=== PATIENT | female | born 1945 | race Caucasian/White ===

== ENCOUNTER → 2017-10-02 08:12 | Outpatient (CLI) | payer MEDICARE, MEDICAID, SELFPAY ==
--- NOTE | 2017-10-02 08:17 | CT_ITS ---
CT chest wo con HISTORY: ITS.REASON: BRONCHITIECTASIS,PULMONARY INTERSTITIAL FIBROSIS ORDERING PHYSICIAN: Jayy Ferrari MD PATIENT AGE: 72 years TECHNIQUE: Axial images obtained. Sagittal and coronal reformatted images are also generated and reviewed. CONTRAST: None COMPARISON: 01/04/2017 FINDINGS: Normal heart size. No mediastinal or hilar mass or adenopathy. Coronary artery calcifications are present. There is minimal pericardial thickening posteriorly unchanged. Diffuse pulmonary fibrotic changes are once again noted. Cavitation is once again noted in the left apex. The left apical cavity is somewhat smaller compared to the previous exam with slight increase in left apical pleural thickening.. Scattered parenchymal and pleural parenchymal opacities are once again noted with no suspicious pulmonary nodular densities developing in the interval. Diffuse honeycombing is present in the left upper lobe. The bilateral areas of consolidation previously noted have improved compared to the previous exam. No effusions or acute infiltrates. High-resolution images are also submitted demonstrating the diffuse pulmonary fibrotic changes with honeycombing of both upper lobes left greater than right. IMPRESSION: Diffuse pulmonary fibrotic changes with honeycombing in both upper lobes and cavitation with pleural thickening noted in the left apex. The left apical cavity is slightly smaller when compared to the previous exam with some increase in pleural thickening. Coronary artery disease
[2017-10-02 10:25] VITALS: PULSE 58; PULSE 62
[2017-10-02 10:27] VITALS: BP 130/84; BP 140/90; PULSE 55; PULSE 67; RESP 18; RESP 24; O2SAT 97; O2SAT 98
== END ==
PROVIDERS: PCP Internal Medicine Adolescent Medicine; Visit Provider Internal Medicine
DX: J47.9 Bronchiectasis, uncomplicated (principal); J84.10 Pulmonary fibrosis, unspecified
CPT/HCPCS: 71250; 94060; 94618; 94640; 94726; 94727; 94729

== ENCOUNTER → 2017-10-26 10:18 | Outpatient (CLI) | payer MEDICARE, MEDICAID, SELFPAY ==
--- NOTE | 2017-10-26 | XR_ITS ---
EXAM: XR lumbar spine min 4V HISTORY: Low back pain ITS.REASON: LBP X 4 YEARS ORDERING PHYSICIAN: Eber Rubalcava MD PATIENT AGE: 72 years COMPARISON: None FINDINGS: Minimal lumbar curvature convex left. Presacral stimulator device is present on the right. There is a sclerotic focus involving the right and mid aspect of the sacrum similar to a CT scan of 03/01/2015. There is normal alignment. There is mild degenerative disc disease at L2-L3. There is mild wedging of T12 vertebral body which was present on 03/01/2015. Mild facet arthritic changes are present at the lumbosacral junction. No acute fracture or dislocation. No lytic changes apparent. The SI joints have an unremarkable appearance. IMPRESSION: 1. No acute finding. 2. Mild degenerative disc disease and facet arthritic change. 3. Old compression changes T12
== END ==
PROVIDERS: PCP Internal Medicine Adolescent Medicine; Visit Provider Internal Medicine Adolescent Medicine
DX: M47.9 Spondylosis, unspecified (principal)
CPT/HCPCS: 72110

== ENCOUNTER → 2017-12-11 12:54 | Outpatient (POV) | payer MEDICARE, MEDICAID, SELFPAY | PROVIDERS: PCP Internal Medicine Adolescent Medicine; Visit Provider Internal Medicine | DX: Z00.00 Encounter for general adult medical examination without abnormal findings (principal) ==

== ENCOUNTER → 2018-06-25 10:51 | Outpatient (POV) | payer MEDICARE, MEDICAID, SELFPAY | PROVIDERS: PCP Internal Medicine Adolescent Medicine; Visit Provider Internal Medicine | DX: Z00.00 Encounter for general adult medical examination without abnormal findings (principal) ==

== ENCOUNTER → 2018-09-17 07:46 | Outpatient (CLI) | payer MEDICARE, MEDICAID, SELFPAY ==
[2018-09-17 08:20] LABS: Blood Urea Nitrogen 13 mg/dL (7-18); Creatinine,Serum 0.97 mg/dL (0.55-1.02); Estimated Glomerular Filt Rate 56 ml/min (>60); GFR (African American) 68 ML/MIN (>60)
--- NOTE | 2018-09-17 08:42 | CT_ITS ---
CT chest w con HISTORY: Follow-up pulmonary fibrosis, shortness of breath, bronchiectasis ITS.REASON: PULMONARY FIBROSIS ORDERING PHYSICIAN: Jayy Ferrari MD PATIENT AGE: 73 years COMPARISON: 10/02/2017 TECHNIQUE: Axial images obtained following the administration of 75 mL of Isovue 370 . Sagittal, and coronal reformatted images are also generated and reviewed. All CT scans at the facility use one or more dose reduction, viz: automated exposure control, ma/kV adjustment per patient size (including targeted exams where dose is matched to indication, i.e. head), or iterative reconstruction technique. FINDINGS: No mediastinal or hilar mass or adenopathy is evident. Coronary artery calcifications are present. No evidence of aortic aneurysm, dissection, or central pulmonary embolus. There is a small hiatal hernia with mild thickening of the distal esophagus. Diffuse pulmonary fibrotic changes are once again noted with bronchial thickening and bronchiectasis most severe in the left upper lobe. Cavitary changes with pleural thickening once again noted in the left upper lobe. The cavitation in the left upper lobe is somewhat smaller with a cavity measuring 2.8 cm x 1.8 cm previously at 3.3 x 2.5 cm. Left-sided lung volume loss with mediastinal shift to the left not significant changed. No acute bony findings. IMPRESSION: 1. Overall no change in the diffuse pulmonary fibrosis with peripheral honeycombing and bronchiectasis most extensive in the left upper lobe. 2. Cavitary changes in the left apex pleural thickening. The cavitation is slightly smaller when compared to the previous exam 3. Coronary artery disease
[2018-09-17 10:20] VITALS: PULSE 75; PULSE 77
[2018-09-17 16:46] VITALS: BP 115/75; BP 138/80; PULSE 75; PULSE 96; RESP 18; RESP 22; O2SAT 89; O2SAT 92
== END ==
PROVIDERS: Nurse Practitioner Family; Visit Provider Internal Medicine
DX: J84.10 Pulmonary fibrosis, unspecified (principal); J47.9 Bronchiectasis, uncomplicated
CPT/HCPCS: 36415; 71260; 82565; 84520; 94060; 94618; 94640; 94726; 94729; Q9967

== ENCOUNTER → 2018-10-14 09:38 | Outpatient (CLI) | payer MEDICARE, MEDICAID, SELFPAY ==
--- NOTE | 2018-10-14 09:46 | XR_ITS ---
XR DEXA axial skeleton HISTORY: ITS.REASON: OSTEOPOROSIS ORDERING PHYSICIAN: Eber Rubalcava MD PATIENT AGE: 73 years COMPARISON: 03/16/2015 FINDINGS: The BMD measured at the AP Spine L1-L4 is 0.711 g/cm squared with a T score of -3.9. This is considered Osteoporotic according to the World Health Organization criteria. Fracture risk is High. The L-spine density has increased by 2.6%. The main hip density has a T score of -3.3 consistent with osteoporosis and has increased by 1%. IMPRESSION: Osteoporosis with high fracture risk. Treatment is advised. Suggest follow-up exam October 2019
== END ==
PROVIDERS: PCP Internal Medicine Adolescent Medicine; Visit Provider Internal Medicine Adolescent Medicine
DX: Z13.820 Encounter for screening for osteoporosis (principal); M81.0 Age-related osteoporosis without current pathological fracture
CPT/HCPCS: 77080

== ENCOUNTER → 2018-11-05 13:36 | Outpatient (POV) | payer MEDICARE, MEDICAID, SELFPAY | PROVIDERS: Visit Provider Internal Medicine | DX: Z00.00 Encounter for general adult medical examination without abnormal findings (principal) ==

== ENCOUNTER → 2019-02-14 15:52 | Observation (INO) ==
--- NOTE | 2019-02-13 14:34 | Pharmacy Consult Notes ---
[facility] Pharmacy VTE Monitoring - Patient Demographics Admission date: 02/13/19 Report Date: 02/13/19 Time: 14:34 Allergies/Adverse Reactions: Patient Allergies nitrofurantoin [From MACROBID] Allergy (Unknown, Unverified 01/07/19 13:45) Height: 1.6 m Weight: 59.165 kg - VTE Risk Was VTE Risk Assessment Performed: Yes VTE Score: 3 VTE Risk Level: Low Risk Clinical Trial Participant: No - Prophylaxis VTE Prophylaxis Ordered?: Yes Types of VTE Prophylaxis: TEDS Knee High
[2019-02-13 14:40] LABS: Alanine Aminotransferase 20 U/L (12-78); Albumin Level 3.4 gm/dL (3.4-5.0); Albumin/Globulin Ratio 0.7 (1.1-1.8); Alkaline Phosphatase 91 U/L (46-116); Anion Gap 13.2 mEq/L (5-15); Aspartate Amino Transferase 19 U/L (15-37); Bilirubin,Total 0.4 mg/dL (0.2-1.0); Blood Urea Nitrogen 11 mg/dL (7-18); Calcium 8.6 mg/dL (8.5-10.1); Carbon Dioxide 26 mmol/L (21.0-32.0); Chloride 103 mmol/L (98-107); Globulin 4.6 gm/dl (1.3-3.2); Glucose 109 mg/dL (74-106); Potassium 3.2 mmoL/L (3.5-5.1); Sodium 139 mmol/L (136-145)
[2019-02-13 14:42] LABS: Basophils # 0.1 K/mm3 (0-0.2); Basophils % 0.6 % (0.1-2.0); Eosinophils # 0.1 K/mm3 (0.0-0.4); Eosinophils % 0.6 % (0.1-12.0); Hematocrit 40.6 % (37.0-47.0); Hemoglobin 12.6 g/dL (12.2-16.2); Lymphocytes # 1.3 K/mm3 (0.7-4.5); Mean Corpuscular HGB Conc 31.1 g/dL (31.8-35.4); Mean Corpuscular Hemoglobin 26.3 pg (27.0-31.2); Mean Corpuscular Volume 84.4 fl (81-99); Mean Platelet Volume 7.3 fl (7.4-10.4); Monocytes # 0.5 K/mm3 (0.1-1.0); Monocytes % 5.8 % (1.7-9.3); Neutrophils # 6.8 K/mm3 (1.8-7.8); Neutrophils % 78.1 % (37.0-80.0); Platelet Count 345 K/mm3 (142-424); Red Blood Count 4.81 M/mm3 (4.20-5.40); Red Cell Distribution Width 13.7 % (11.5-17.5); White Blood Count 8.7 K/mm3 (4.8-10.8)
--- NOTE | 2019-02-13 16:11 | History & Physical Report ---
*Admission Date: 02/13/19 *Chief complaint: SOA, chest pain, back pain *History of present illness: 74 year old female with a significant history of pulmonary fibrosis presented to PCP office with increased SOA, cough, and chest pain that worsened over the last 3-4 days. Denies fever. No known sick contacts. In the office, she was noted to be anxious, tachypneic 36 with conversational dyspnea at 5-6 words. Patient was direct admitted for further evaluation [facility] History I have reviewed the patient's past medical history: Yes Medical History: Reports:: Arrhythmia, Gastroesophageal Reflux Disease(GERD), Lung Disease Denies:: Cancer, Diabetes Mellitus Type 1, Diabetes Mellitus Type 2, Internal Pacemaker, MRSA, Seizures *Have you ever received a pneumonia vaccine?: Yes *Have you received a flu vaccine this season?: Yes Other Medical History: Reports: Arthritis, Hypothyroidism, Other. Denies: Blood Transfusion Reaction Other Surgeries: Yes: Hysterectomy-Total. No: Pacemaker Amputation: No Fractures: No - *Social History Smoking Status: Never smoker Alcohol Intake: never Alcohol Intake Frequency:: other Substance Use Type: denies use *Occupational Status:: retired Housing: house Household Members: family *Travel in the last 8 weeks: None - Psychiatric History Expresses thoughts of harming self/others: None Suicide Plan Description: No Plan Family Hx:: Cancer, Coronary Artery Disease, Diabetes, Heart Attack, Hyperlipidemia, Thyroid Disorder Review of Systems - Review of Systems Review of systems:: pertinent systems reviewed and negative unless documented below - Constitutional Reports chills, Reports malaise, Reports weakness - *Cardiovascular Reports chest pain - *Respiratory Reports chest congestion, Reports cough, Reports shortness of breath - *Musculoskeletal Reports back pain Meds Home Medications Medication Instructions Recorded Confirmed Type flecainide 100 mg tablet 100 mg PO DAILY 30 Days tab 04/02/18 02/13/19 History metoprolol succinate ER 50 mg 50 mg PO DAILY 30 Days #60 04/02/18 02/13/19 History tablet,extended release 24 hr oxybutynin chloride 5 mg tablet 5 mg PO BID 04/02/18 02/13/19 History albuterol sulfate concentrate 2.5 2.5 mg INHALATION QID 01/07/19 02/13/19 History mg/0.5 mL solution for nebulization alendronate 70 mg tablet 70 mg PO QWEEK 01/07/19 02/13/19 History levothyroxine 50 mcg capsule 50 mcg PO DAILY 01/07/19 02/13/19 History Omeprazole [Omeprazole 40mg 40 mg PO DAILY 02/13/19 02/13/19 History Capsule] Allergies Allergy/AdvReac Type Severity Reaction Status Date / Time nitrofurantoin Allergy Unknown Unverified 01/07/19 13:45 [From MACROBID] Exam Vital signs and Labs for Last 24 Hours: Temp Pulse Resp BP Pulse Ox 99.1 F 94 H 48 H 126/48 L 97 02/13/19 12:57 02/13/19 14:31 02/13/19 12:57 02/13/19 12:57 02/13/19 14:31 Laboratory Results - last 24 hr 02/13/19 14:00: WBC 8.7, RBC 4.81, Hgb 12.6, Hct 40.6, MCV 84.4, MCH 26.3 L, MCHC 31.1 L, RDW 13.7, Plt Count 345, MPV 7.3 L, Neut % (Auto) 78.1, Lymph % (Auto) 15.0, [place] % (Auto) 5.8, Eos % (Auto) 0.6, Baso % (Auto) 0.6, Neut # (Auto) 6.8, Lymph # (Auto) 1.3, [place] # (Auto) 0.5, Eos # (Auto) 0.1, Baso # (Auto) 0.1 02/13/19 14:00: Sodium 139, Potassium 3.2 L, Chloride 103, Carbon Dioxide 26, Anion Gap 13.2, BUN 11, Creatinine 0.88, Estimated Creat Clear 46, Estimated GFR 63, Est GFR ( Amer) 76, Glucose 109 H, Calcium 8.6, Total Bilirubin 0.4, AST 19, ALT 20, Alkaline Phosphatase 91, Troponin I < 0.02, Total Protein 8.0, Albumin 3.4, Globulin 4.6 H, Albumin/Globulin Ratio 0.7 L 02/13/19 14:00: D-Dimer 723 H* I & O for Last 24 hours: Intake & Output 02/11/19 02/12/19 02/13/19 02/14/19 11:59 11:59 11:59 11:59 Weight 130 lb 7 oz Narrative: Alert and oriented x3. Ill, but not toxic. Rate and rhythm regular. No LE edema. Pulses 2+ bilaterally. Scattered wheezes with coarse crackles throughout on left and intermittent finer crackles on right. Abdomen soft and nontender. ENT exam unremarkable. Psych observations; anxious Assessment and Plan (1) Pulmonary fibrosis Current visit: Yes Status: Chronic Category: Medical Code(s): J84.10 - Pulmonary fibrosis, unspecified (2) Shortness of breath Current visit: Yes Status: Acute Category: Medical Code(s): R06.02 - Shortness of breath (3) Chest pain Current visit: Yes Status: Acute Category: Medical Code(s): R07.9 - Chest pain, unspecified - Assessment and plan all Dx Assessment and Plan for all problems:: Patient was direct admitted to [facility]. Serial troponins and EKG were ordered. Pneumonia protocol initiated as she is high risk given her pulm fibrosis. D Dimer obtained d/t her back/chest pain and increased shortness of breath. Will evaluate results and treat as indicated
--- NOTE | 2019-02-14 13:34 | Discharge Summary ---
General - General Admission date:: 02/13/19 Discharge date: 02/14/19 HPI HPI: 74 year old female with a significant history of pulmonary fibrosis presented to PCP office with increased SOA, cough, and chest pain that worsened over the last 3-4 days. Denies fever. No known sick contacts. In the office, she was noted to be anxious, tachypneic 36 with conversational dyspnea at 5-6 words. Patient was direct admitted for further evaluation Objective Vital signs: Temp Pulse Resp BP Pulse Ox 98.1 F 90 20 122/71 97 02/14/19 11:50 02/14/19 12:00 02/14/19 11:50 02/14/19 11:50 02/14/19 11:50 Results Labs on day of discharge: Labs from last 24 hours 02/13/19 02/13/19 02/13/19 19:25 15:58 14:00 WBC RBC Hgb Hct MCV MCH MCHC RDW Plt Count MPV Neut % (Auto) Lymph % (Auto) [facility] % (Auto) Eos % (Auto) Baso % (Auto) Neut # (Auto) Lymph # (Auto) [facility] # (Auto) Eos # (Auto) Baso # (Auto) D-Dimer 723 H* Sodium Potassium Chloride Carbon Dioxide Anion Gap BUN Creatinine Estimated Creat Clear Estimated GFR Est GFR ( Amer) Glucose Calcium Total Bilirubin AST ALT Alkaline Phosphatase Troponin I < 0.02 < 0.02 Total Protein Albumin Globulin Albumin/Globulin Ratio 02/13/19 02/13/19 14:00 14:00 WBC 8.7 RBC 4.81 Hgb 12.6 Hct 40.6 MCV 84.4 MCH 26.3 L MCHC 31.1 L RDW 13.7 Plt Count 345 MPV 7.3 L Neut % (Auto) 78.1 Lymph % (Auto) 15.0 [facility] % (Auto) 5.8 Eos % (Auto) 0.6 Baso % (Auto) 0.6 Neut # (Auto) 6.8 Lymph # (Auto) 1.3 [facility] # (Auto) 0.5 Eos # (Auto) 0.1 Baso # (Auto) 0.1 D-Dimer Sodium 139 Potassium 3.2 L Chloride 103 Carbon Dioxide 26 Anion Gap 13.2 BUN 11 Creatinine 0.88 Estimated Creat Clear 46 Estimated GFR 63 Est GFR ( Amer) 76 Glucose 109 H Calcium 8.6 Total Bilirubin 0.4 AST 19 ALT 20 Alkaline Phosphatase 91 Troponin I < 0.02 Total Protein 8.0 Albumin 3.4 Globulin 4.6 H Albumin/Globulin Ratio 0.7 L Preliminary micro results at discharge 02/13/19 23:43 Sputum Culture - Preliminary Sputum - Expectorated Sputum DS: Diagnosis - Discharge Diagnosis (1) Pulmonary fibrosis Status: Chronic (2) Shortness of breath Status: Acute (3) Chest pain Status: Acute Discharge Plan - Patient Discharge Instructions Patient Instructions: DI for Pneumonia -- Adult, DI for Shortness of Breath, DI for Chest Pain - Follow up Plan Home Medications: Home Medications Medication Instructions Recorded Confirmed Type flecainide 100 mg tablet 100 mg PO BID 30 Days tab 04/02/18 02/14/19 History metoprolol succinate ER 50 mg 50 mg PO BID 30 Days #60 04/02/18 02/14/19 History tablet,extended release 24 hr albuterol sulfate concentrate 2.5 2.5 mg INHALATION QID 01/07/19 02/13/19 Hist ory mg/0.5 mL solution for nebulization alendronate 70 mg tablet 70 mg PO WEEKLY 01/07/19 02/14/19 History levothyroxine 50 mcg capsule 50 mcg PO DAILY 01/07/19 02/13/19 History Omeprazole [Omeprazole 40mg 40 mg PO DAILY 02/13/19 02/13/19 History Capsule] Linaclotide [Linzess] 72 mcg PO DAILY 02/14/19 02/14/19 History Prescriptions/Medication Reconciliation: No Action metoprolol succinate ER 50 mg tablet,extended release 24 hr 50 mg PO BID 30 Days #60 flecainide 100 mg tablet 100 mg PO BID 30 Days tab levothyroxine 50 mcg capsule 50 mcg PO DAILY alendronate 70 mg tablet 70 mg PO WEEKLY albuterol sulfate concentrate 2.5 mg/0.5 mL solution for nebulization 2.5 mg INHALATION QID Omeprazole [Omeprazole 40mg Capsule] 40 mg PO DAILY Linaclotide [Linzess] 72 mcg PO DAILY
== END | disposition home health service (06) ==
LOC: 2ND
PROVIDERS: ADMIT Internal Medicine Adolescent Medicine; ATTEND Internal Medicine Adolescent Medicine
DX: J84.10 Pulmonary fibrosis, unspecified; R06.02 Shortness of breath; R07.9 Chest pain, unspecified
CPT/HCPCS: 36415; 71020; 71046; 71275; 80053; 84484; 85025; 85378; 87040; 87070; 87205; 93005; 94640; 94761; G0378; J0456; Q9967

== ENCOUNTER → 2019-04-29 13:29 | Outpatient (POV) | payer MEDICARE, MEDICAID, SELFPAY | PROVIDERS: Visit Provider Internal Medicine | DX: Z00.00 Encounter for general adult medical examination without abnormal findings (principal) ==

== ENCOUNTER → 2019-05-08 13:27 | Outpatient (CLI) | payer MEDICARE, MEDICAID, SELFPAY ==
--- NOTE | 2019-05-08 13:29 | CT_ITS ---
PROCEDURE: CT CHEST WO CON CLINICAL INDICATION: BACTERIAL PNEUMONIA, BNRONCHIECTASIS, FUNGUS BALL Mycobacterial infection, interstitial fibrosis COMPARISON: [facility] CT angio chest from 02/13/2019 TECHNIQUE: Axial images obtained with sagittal and coronal reformats. All CT scans at the facility use one or more dose reduction, viz: automated exposure control, ma/kV adjustment per patient size (including targeted exams where dose is matched to indication, i.e. head), or iterative reconstruction technique. FINDINGS: Extensive fibrotic changes with honeycombing is noted in the left upper lobe. Cavitation is present in this area. Some of the cavities are less thick on today's exam compared to the previous study. The largest cavity area in the extreme apex appears slightly larger. Scattered fibrotic changes are present throughout both lungs with pulmonary fibrotic change and honeycombing as before. Previously noted consolidation in the left lower lobe is shown some improvement. Volume loss is present in the left upper lobe with some elevation of left hemidiaphragm. Left upper lobe bronchiectasis is noted. No pleural effusions. Coronary artery calcifications are present. There is mild thickening of the pericardium posteriorly. IMPRESSION: Overall no significant change compared to 02/13/2019. Pulmonary fibrotic changes with honeycombing/cavitation most extensive in the left upper lobe once again noted with some decrease in the thickening of the cavities in the left upper lobe. Left upper lobe bronchiectasis. Left lower lobe consolidation has shown some mild improvement. There remains some increased density in the left lower lobe posteriorly which could be related underlying postinflammatory fibrotic change. Dictated by: Twin Anguiano MD 05/09/2019 08:34 Signed by: <Electronically signed by Twin Anguiano MD in [place]> 05/09/2019 08:34
== END ==
PROVIDERS: PCP Internal Medicine Adolescent Medicine; Visit Provider Internal Medicine
DX: J15.9 Unspecified bacterial pneumonia (principal); A31.9 Mycobacterial infection, unspecified; J47.9 Bronchiectasis, uncomplicated; J84.10 Pulmonary fibrosis, unspecified; B49 Unspecified mycosis
CPT/HCPCS: 71250

== ENCOUNTER → 2019-11-25 11:23 | Outpatient (CLI) | payer MEDICARE, MEDICAID, SELFPAY ==
[2019-11-25 13:00] LABS: Basophils # 0.1 K/mm3 (0-0.2); Basophils % 0.9 % (0.1-2.0); Eosinophils # 0.3 K/mm3 (0.0-0.4); Eosinophils % 3.8 % (0.1-12.0); Hematocrit 42.8 % (37.0-47.0); Hemoglobin 13.3 g/dL (12.2-16.2); Lymphocytes # 2.9 K/mm3 (0.7-4.5); Lymphocytes % 34.4 % (10-50); Mean Corpuscular Hemoglobin 28.5 pg (27.0-31.2); Mean Corpuscular Volume 91.7 fl (81-99); Monocytes # 0.4 K/mm3 (0.1-1.0); Monocytes % 4.5 % (1.7-9.3); Neutrophils # 4.8 K/mm3 (1.8-7.8); Neutrophils % 56.4 % (37.0-80.0); Platelet Count 413 K/mm3 (142-424); Red Blood Count 4.67 M/mm3 (4.20-5.40); Red Cell Distribution Width 14.3 % (11.5-17.5); White Blood Count 8.5 K/mm3 (4.8-10.8)
== END ==
PROVIDERS: Visit Provider Internal Medicine Adolescent Medicine
DX: D58.2 Other hemoglobinopathies (principal)
CPT/HCPCS: 36415; 85025

== ENCOUNTER → 2020-07-21 12:30 | Outpatient (CLI) | payer MEDICARE, MEDICAID, SELFPAY ==
[2020-07-21 13:45] VITALS: PULSE 86; PULSE 90
--- NOTE | 2020-07-21 14:11 | CT_ITS ---
PROCEDURE: CT CHEST WO CON CLINICAL INDICATION: ILD, interstitial lung disease with shortness of air SOA PRIOR 05/08/19 COMPARISON: CT CT CHEST WO CON from 05/08/2019 TECHNIQUE: Axial images obtained with sagittal and coronal reformats. All CT scans at the facility use one or more dose reduction, viz: automated exposure control, ma/kV adjustment per patient size (including targeted exams where dose is matched to indication, i.e. head), or iterative reconstruction technique. FINDINGS: Coronary artery calcifications are present. No mediastinal or hilar mass. There is increased soft tissue density in the subcarinal region some of which may be due to nondistended esophagus and unopacified left inferior pulmonary vein. Small nodes are also considered. Not significantly changed. Small hiatal hernia noted. There is a mild degree of motion artifact somewhat degrading evaluation of the lung enriquez. There is diffuse pulmonary fibrosis once again noted with honeycombing in the upper lobes medially and within the lung bases with cavitation in the left apex not significantly changed. Diffuse pulmonary interstitial changes are noted. No effusions. No lobar consolidation or collapse. There is some scattered ground-glass attenuation somewhat accentuated by the motion artifact. These findings are not felt to be significantly changed considering the difference in technique and the motion on today's exam. Mild chronic wedge compression changes are present at T12 unchanged. There is mild thoracic curvature convex right. IMPRESSION: Overall no significant change in the diffuse pulmonary fibrosis with honeycombing with cavitation in the left apex. Increased soft tissue density in the subcarinal region which may be due to nondistended esophagus. A barium swallow or upper endoscopy may confirm. Dictated by: Twin Anguiano MD 07/24/2020 10:37 Twin Anguiano MD in [place] 07/24/2020 10:37
== END ==
PROVIDERS: PCP Internal Medicine Adolescent Medicine; Visit Provider Internal Medicine Pulmonary Disease
DX: J84.10 Pulmonary fibrosis, unspecified (principal); J84.9 Interstitial pulmonary disease, unspecified; R06.00 Dyspnea, unspecified
CPT/HCPCS: 71250; 93306; 94060; 94618; 94640; 94726; 94729

== ENCOUNTER → 2020-07-22 10:48 | Outpatient (CLI) | payer MEDICARE, MEDICAID, SELFPAY ==
--- NOTE | 2020-07-22 10:51 | XR_ITS ---
PROCEDURE: XR CHEST 2V CLINICAL HISTORY: IDIOPATHIC PULMONARY FIBROSIS COMPARISON: CR CXR CHEST(2 VIEWS-NOT PORTABLE) from 08/09/2016 CR CXR CHEST(2 VIEWS-NOT PORTABLE) from 12/18/2016 CR CXR CHEST(2 VIEWS-NOT PORTABLE) from 03/20/[address] CHEST WO CON from 07/21/2020 FINDINGS: The cardiomediastinal silhouette and pulmonary vascularity are within normal limits. Prominent pulmonary fibrotic changes are present in the upper lobes with mild hilar retraction bilaterally. Pleural thickening is present in the lung apices on both sides left greater than right. There are some mild pulmonary fibrotic changes in the lung bases. Overall, the findings are not significantly changed. A loop recorder device is present along the anterior aspect of the chest on the left. Degenerative changes are present in the thoracic spine. There is mild wedging T12 not significantly changed. No acute bony abnormalities. IMPRESSION: Extensive pulmonary fibrotic changes in the upper lobes with lesser involvement of the lung bases overall not significantly changed Dictated by: Twin Anguiano MD 07/22/2020 17:25 Twin Anguiano MD in [place] 07/22/2020 17:25
== END ==
PROVIDERS: PCP Internal Medicine Adolescent Medicine; Visit Provider Internal Medicine Adolescent Medicine
DX: J84.112 Idiopathic pulmonary fibrosis (principal)
CPT/HCPCS: 71046

== ENCOUNTER → 2020-08-09 10:14 | Outpatient (CLI) | payer MEDICARE, MEDICAID, SELFPAY ==
--- NOTE | 2020-08-09 10:16 | XR_ITS ---
PROCEDURE: XR DEXA AXIAL SKELETON CLINICAL HISTORY: OSTEOPOROSIS COMPARISON: CR DEXAAX XR DEXA axial skeleton from 10/14/2018 FINDINGS: The right hip BMD is 0.482 with a T-score of -3.3. The left hip BMD is 0.461 with a T-score of -3.5. The lumbar spine BMD is 0.612 with a T-score of -4.0. Previously the lowest bone density was in the spine with T-score of -3.9. IMPRESSION: This patient is considered osteoporotic according to the World Health Organization criteria. Fracture risk is high. Treatment is advised. Based on these results a follow-up exam is recommended in 1 year. Dictated by: Twin Anguiano MD 08/10/2020 14:20 Twin Anguiano MD in [place] 08/10/2020 14:20
== END ==
PROVIDERS: PCP Internal Medicine Adolescent Medicine; Visit Provider Internal Medicine Adolescent Medicine
DX: M81.0 Age-related osteoporosis without current pathological fracture (principal)
CPT/HCPCS: 77080

== ENCOUNTER → 2020-11-01 11:36 | Outpatient (CLI) | payer MEDICARE, SELFPAY ==
[2020-11-01 12:36] LABS: Uric Acid 5.5 mg/dl (2.5-6.2)
[2020-11-01 12:56] LABS: Erythrocyte Sedimentation Rate 19 mm/hr (0-30)
[2020-11-02 13:34] LABS: RA Latex Turbid. <10.0 IU/mL (0.0-13.9)
[2020-11-02 15:10] LABS: Cytoplasmic (C-ANCA) <1:20 titer (Neg:<1:20)
[2020-11-02 16:11] LABS: Sjogren's Anti-SS-A <0.2 AI (0.0-0.9); Sjogren's Anti-SS-B <0.2 AI (0.0-0.9)
[2020-11-02 16:23] LABS: Antinuclear Antibodies, IFA Negative (.); Perinuclear (P-ANCA) <1:20 titer (Neg:<1:20)
[2020-11-13 22:12] LABS: Antinuclear Antibodies (ANA) NEGATIVE
== END ==
PROVIDERS: Visit Provider Internal Medicine Pulmonary Disease
DX: J84.9 Interstitial pulmonary disease, unspecified (principal); R06.00 Dyspnea, unspecified
CPT/HCPCS: 36415; 84550; 85651; 86038; 86235; 86256; 86431

== ENCOUNTER → 2020-12-09 07:47 | Outpatient (CLI) | payer MEDICARE, SELFPAY ==
--- NOTE | 2020-12-09 08:25 | PC.NURSE ---
Completed PFT and 6 MWT without complications. Albuterol 0.083% given via HHN per written protocol. Pt tolerated tx well.
== END ==
PROVIDERS: PCP Internal Medicine Adolescent Medicine; Visit Provider Internal Medicine Pulmonary Disease
DX: R06.00 Dyspnea, unspecified (principal); J84.10 Pulmonary fibrosis, unspecified
CPT/HCPCS: 93306; 94060; 94618; 94726; 94729

== ENCOUNTER → 2020-12-20 10:07 | Outpatient (CLI) | payer MEDICARE, SELFPAY ==
[2020-12-20 11:11] LABS: Coronavirus 19 IgG Antibody Negative (Negative); Coronavirus 19 IgM Antibody Negative (Negative)
== END ==
PROVIDERS: Visit Provider Internal Medicine Pulmonary Disease
DX: Z01.818 Encounter for other preprocedural examination (principal); Z11.52 Encounter for screening for COVID-19; G47.33 Obstructive sleep apnea (adult) (pediatric); J44.9 Chronic obstructive pulmonary disease, unspecified
CPT/HCPCS: 36415; 86328

== ENCOUNTER → 2020-12-21 19:56 | Outpatient (CLI) | payer MEDICARE, SELFPAY | PROVIDERS: PCP Internal Medicine Adolescent Medicine; Visit Provider Internal Medicine Pulmonary Disease | DX: G47.33 Obstructive sleep apnea (adult) (pediatric) (principal); R09.02 Hypoxemia | CPT/HCPCS: 95810 ==

== ENCOUNTER → 2021-01-26 10:13 | Outpatient (CLI) | payer MEDICARE, SELFPAY ==
[2021-01-26 11:03] LABS: Chloride 101 mmol/L (98-107); Potassium 3.7 mmoL/L (3.5-5.1); Sodium 138 mmol/L (136-145)
[2021-01-26 11:06] LABS: Alanine Aminotransferase 17 U/L (12-78); Albumin Level 4.4 g/dl (3.5-5.0); Albumin/Globulin Ratio 1.5 (1.1-1.8); Alkaline Phosphatase 82 U/L (38-126); Anion Gap 11.7 mEq/L (5-15); Aspartate Amino Transferase 32 U/L (14-36); Bilirubin,Total 0.5 mg/dl (0.2-1.3); Blood Urea Nitrogen 13 mg/dl (7-17); Carbon Dioxide 29 mmol/L (22.0-30.0); Estimated Glomerular Filt Rate 61 ml/min (>60); GFR (African American) 74 ML/MIN (>60); Globulin 2.9 g/dL (1.3-3.2); Glucose 108 mg/dl (74-100); Total Protein,Serum 7.3 g/dl (6.3-8.2)
[2021-01-26 11:07] LABS: Calcium 9.2 mg/dl (8.4-10.2)
[2021-01-26 11:37] LABS: Thyroid Stimulating Hormone 5.28 uIU/mL (0.465-4.68)
== END ==
PROVIDERS: Visit Provider Internal Medicine Adolescent Medicine
DX: E03.9 Hypothyroidism, unspecified (principal); I10 Essential (primary) hypertension
CPT/HCPCS: 36415; 80053; 84443

== ENCOUNTER 2021-02-16 11:51 | Observation (INO) | payer MEDICARE, SELFPAY ==
[2021-02-16 12:03] VITALS: BP 118/79; PULSE 95; RESP 30; TEMP 38.9; O2SAT 89
[2021-02-16 12:04] VITALS: O2SAT 96
[2021-02-16 12:19] VITALS: BMI 22.6
--- NOTE | 2021-02-16 12:32 | PC.NURSE ---
Pt arrived to ER by private vehicle for direct admit. Awaiting bed on floor. Holding in the ER until bed is ready. Pt is alert and oriented x4. States she started with a cough a week ago, yellow mucus noted from pt. Md aware pt is here. 20 G IV inserted in left AC, blood cultures and labs drawn and sent to lab.
--- NOTE | 2021-02-16 12:33 | XR_ITS ---
PROCEDURE: XR CHEST 2V CLINICAL HISTORY: dyspnea COMPARISON: CR CXR CHEST(2 VIEWS-NOT PORTABLE) from 12/18/2016 CR CXR CHEST(2 VIEWS-NOT PORTABLE) from 03/20/[address] CHEST WO CON from 07/21/2020 CR XR CHEST 2V from 07/22/2020 FINDINGS: Normal heart size. There is diffuse bilateral pulmonary fibrosis most prominent in the upper lobes with upper lobe volume loss and pleural thickening. Fibrotic changes are also present in left lower lobe. There is a loop recorder device present. No acute bony findings. IMPRESSION: Pulmonary fibrosis with honeycombing in the upper lobes left greater than right overall not significantly changed. Dictated by: Twin Anguiano MD 02/16/2021 14:01 Twin Anguiano MD in [place] 02/16/2021 14:01
[2021-02-16 12:44] LABS: Basophils # 0.1 K/mm3 (0-0.2); Basophils % 0.4 % (0.1-2.0); Eosinophils % 0.1 % (0.1-12.0); Hematocrit 39.9 % (37.0-47.0); Hemoglobin 13.1 g/dL (12.2-16.2); Lymphocytes # 1.9 K/mm3 (0.7-4.5); Lymphocytes % 11.6 % (10-50); Mean Corpuscular HGB Conc 32.7 g/dL (31.8-35.4); Mean Corpuscular Hemoglobin 27.8 pg (27.0-31.2); Mean Corpuscular Volume 84.9 fl (81-99); Monocytes # 0.9 K/mm3 (0.1-1.0); Monocytes % 5.4 % (1.7-9.3); Neutrophils # 13.7 K/mm3 (1.8-7.8); Neutrophils % 82.6 % (37.0-80.0); Platelet Count 358 K/mm3 (142-424); White Blood Count 16.6 K/mm3 (4.8-10.8)
[2021-02-16 12:45] LABS: Chloride 93 mmol/L (98-107); MANUAL DIFFERENTIAL MANUAL DIFFERENTIAL (MANUAL DIFF); Potassium 3.4 mmoL/L (3.5-5.1); Sodium 135 mmol/L (136-145)
--- NOTE | 2021-02-16 12:47 | ECG_ITS ---
APPROVED REPORT Exam: Resting ECG HR:87 bpm ECG Measurements Heart Rate 87 AXES MT 142 P 52 QRSd 80 QRS 23 QT 364 T -81 QTc 438 Conclusion Normal sinus rhythm Left ventricular hypertrophy with repolarization abnormality Abnormal ECG Electronically signed by : Eber Rubalcava, 02/19/2021 11:07:39
[2021-02-16 12:48] LABS: Alanine Aminotransferase 20 U/L (12-78); Albumin Level 4.4 g/dl (3.5-5.0); Albumin/Globulin Ratio 1.2 (1.1-1.8); Alkaline Phosphatase 92 U/L (38-126); Anion Gap 13.4 mEq/L (5-15); Aspartate Amino Transferase 29 U/L (14-36); Bilirubin,Total 0.9 mg/dl (0.2-1.3); Blood Urea Nitrogen 16 mg/dl (7-17); Calcium 8.9 mg/dl (8.4-10.2); Carbon Dioxide 32 mmol/L (22.0-30.0); Creatinine Clearance Estimated 44 mL/min (50-200); Estimated Glomerular Filt Rate 54 ml/min (>60); GFR (African American) 65 ML/MIN (>60); Globulin 3.8 g/dL (1.3-3.2); Glucose 142 mg/dl (74-100); Total Protein,Serum 8.2 g/dl (6.3-8.2)
[2021-02-16 12:53] LABS: C-Reactive Protein 241.7 mg/L (0-4)
[2021-02-16 12:54] VITALS: TEMP 38; O2SAT 99
[2021-02-16 12:57] LABS: Lactic Acid 1.7 mmol/L (0.7-2.1)
[2021-02-16 13:18] LABS: Lymphocytes % 19 % (10-50); Monocytes % 3 % (2-9); Neutrophils % 78 % (42-76); Platelet Estimate Normal; RBC Morphology Normal; Total Cells Counted 100
[2021-02-16 13:22] LABS: Mycoplasma Pneumo IGM (Rapid) Non-Reactive (Non-Reactiv)
--- NOTE | 2021-02-16 14:10 | P.CONPHA_ITS ---
[facility] Pharmacy VTE Monitoring - Patient Demographics Admission date: 02/16/21 Report Date: 02/16/21 Time: 14:10 Allergies/Adverse Reactions: Patient Allergies nitrofurantoin [From MACROBID] Allergy (Unknown, Verified 01/25/21 10:40) Unknown allergy reaction Height: 1.6 m Weight: 58.06 kg - VTE Risk Labs: VTE Related Lab Results Hgb 13.1 g/dL (12.2-16.2) 02/16/21 12:13 Hct 39.9 % (37.0-47.0) 02/16/21 12:13 Plt Count 358 K/mm3 (142-424) 02/16/21 12:13 BUN 16 mg/dl (7-17) 02/16/21 12:13 Creatinine 1.00 mg/dl (0.52-1.04) 02/16/21 12:13 Estimated Creat Clear 44 mL/min (50-200) 02/16/21 12:13 Clinical Trial Participant: No - Prophylaxis VTE Prophylaxis Ordered?: Yes Types of VTE Prophylaxis: TEDS Knee High
--- NOTE | 2021-02-16 14:15 | HMH.PHAINT ---
home medication list verified using list from [facility]
--- NOTE | 2021-02-16 15:15 | PC.NURSE ---
PT transferred to floor bed via charge nurse
[2021-02-16 15:27] VITALS: BP 115/61; PULSE 84; RESP 22; TEMP 36.9; O2SAT 96
[2021-02-16 15:30] VITALS: BMI 23.1
[2021-02-16 16:00] VITALS: O2SAT 96
--- NOTE | 2021-02-16 17:33 | HMH.HP ---
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 Patient has had several exacerbations of her fibrosis over the past several months, but has been treated with success in the outpatient setting. However, today she was tachycardic, very dyspneic and very fatigued. Given this she was transitioned into the hospital setting for oxygen, IV fluids and steroids and IV antibiotics. [facility] History I have reviewed the patient's past medical history: Yes Medical History: Reports:: Arrhythmia, Diabetes Mellitus Type 2, Gastroesophageal Reflux Disease(GERD), Internal Pacemaker, Lung Disease, Osteoporosis Denies:: Cancer, Diabetes Mellitus Type 1, MRSA, Seizures *Have you ever received a pneumonia vaccine?: Yes *Have you received a flu vaccine this season?: No Other Medical History: Reports: Arthritis, Hypothyroidism, Osteoporosis, Other. Denies: Blood Transfusion Reaction Other Surgeries: Yes: Colonoscopy, Hysterectomy-Total, Pacemaker Amputation: No Fractures: No - *Social History Smoking Status: Never smoker Alcohol Intake: never Alcohol Intake Frequency:: other Substance Use Type: denies use *Occupational Status:: retired Housing: house Household Members: family *Travel in the last 8 weeks: None Family Hx:: Cancer, Coronary Artery Disease, Diabetes, Heart Attack, Hyperlipidemia, Thyroid Disorder Review of Systems - Review of Systems Review of systems:: pertinent systems reviewed and negative unless documented below - Constitutional Reports anorexia, Reports fatigue, Reports night sweats, Denies fever(s) - Eyes Denies blind spots - ENT Denies abnormal hearing, Denies poor balance, Denies dizziness - *Cardiovascular Denies chest pain, Denies chest pain at rest, Denies chest pain with activity, Denies leg swelling - *Respiratory Reports change in phlegm color, Reports shortness of breath with activity, Denies coughing up blood, Denies pain on inspiration - *Gastrointestinal Denies abdominal pain, Denies change in stools, Denies coffee ground vomit - *Musculoskeletal Denies abnormal walking, Denies joint swelling - Integumentary/Breasts Denies change in skin color - *Neurologic Denies abnormal walking, Denies behavioral changes Meds Home Medications Medication Instructions Recorded Confirmed Type albuterol sulfate 2.5 mg/0.5 mL 2.5 mg INHALATION QID 01/07/19 02/16/21 History solution for nebulization levothyroxine 50 mcg capsule 50 mcg PO DAILY 01/07/19 02/16/21 History Omeprazole [Omeprazole 40mg 40 mg PO DAILY 02/13/19 02/16/21 History Capsule] oxybutynin chloride 5 mg tablet 5 mg PO BID 10/17/19 02/16/21 History aspirin 81 mg tablet,delayed 81 mg PO DAILY 04/28/20 02/16/21 History release alendronate 70 mg tablet 70 mg PO WEEKLY tab 01/12/21 02/16/21 History hydrochlorothiazide 12.5 mg tablet 12.5 mg PO DAILY tab 01/12/21 02/16/21 History Budesonide/Formoterol Fumarate 2 puff INHALATION BID PRN 02/16/21 02/16/21 History [Budesonide-Formoterol 160-4.5] Allergies Allergy/AdvReac Type Severity Reaction Status Date / Time nitrofurantoin Allergy Unknown Unknown Verified 01/25/21 10:40 [From MACROBID] allergy reaction Exam Vital signs and Labs for Last 24 Hours: Temp Pulse Resp BP Pulse Ox 98.5 F 84 22 115/61 96 02/16/21 15:27 02/16/21 15:27 02/16/21 15:27 02/16/21 15:27 02/16/21 15:27 Laboratory Results - last 24 hr 02/16/21 12:13: Lactate 1.7 02/16/21 12:13: WBC 16.6 H, RBC 4.70, Hgb 13.1, Hct 39.9, MCV 84.9, MCH 27.8, MCHC 32.7, RDW 14.0, Plt Count 358, MPV 8.0, Neut % (Auto) 82.6 H, Lymph % (Auto) 11.6, [place] % (Auto) 5.4, Eos % (Auto) 0.1, Baso % (Auto) 0.4, Neut # (Auto) 13.7 H, Lymp
[2021-02-16 19:42] VITALS: BP 110/58; PULSE 68; RESP 16; TEMP 36.4; O2SAT 98
[2021-02-17] VITALS (7 sets, daily range): BP systolic 114–140; BP diastolic 49–70; PULSE 62–78; RESP 16–18; TEMP 36.4–36.7; O2SAT 91–98; BMI 23.1
--- NOTE | 2021-02-17 03:46 | PC.NURSE ---
Pt has slept well this shift. A/O x4. #20 G in L AC has NS @ 50. Pt is on 2 L O2 NC. Admin meds per NOV. Stand by assist to bathroom. patient has let needs known to staff all shift. VSS, call light within reach. no concerns at this time.
[2021-02-17 06:56] LABS: Basophils % 0.1 % (0.1-2.0); Monocytes # 0.3 K/mm3 (0.1-1.0); Red Cell Distribution Width 13.9 % (11.5-17.5)
[2021-02-17 06:59] LABS: Chloride 101 mmol/L (98-107); Potassium 3.3 mmoL/L (3.5-5.1); Sodium 137 mmol/L (136-145)
[2021-02-17 07:02] LABS: Anion Gap 8.3 mEq/L (5-15); Blood Urea Nitrogen 17 mg/dl (7-17); Carbon Dioxide 31 mmol/L (22.0-30.0); Creatinine Clearance Estimated 45 mL/min (50-200); Eosinophils % 0.1 % (0.1-12.0); Estimated Glomerular Filt Rate 97 ml/min (>60); GFR (African American) 118 ML/MIN (>60); Hematocrit 35.6 % (37.0-47.0); Lymphocytes # 1.5 K/mm3 (0.7-4.5); Lymphocytes % 8.4 % (10-50); Mean Corpuscular Hemoglobin 27.7 pg (27.0-31.2); Mean Corpuscular Volume 84.1 fl (81-99); Mean Platelet Volume 7.9 fl (7.4-10.4); Monocytes % 1.6 % (1.7-9.3); Neutrophils # 15.8 K/mm3 (1.8-7.8); Neutrophils % 89.8 % (37.0-80.0); Platelet Count 313 K/mm3 (142-424); Red Blood Count 4.23 M/mm3 (4.20-5.40); White Blood Count 17.6 K/mm3 (4.8-10.8)
[2021-02-17 07:03] LABS: Calcium 8.2 mg/dl (8.4-10.2); Glucose 153 mg/dl (74-100)
[2021-02-17 07:16] LABS: MANUAL DIFFERENTIAL MANUAL DIFFERENTIAL (MANUAL DIFF)
--- NOTE | 2021-02-17 07:30 | HMH.ACPN2 ---
Internal Medicine - PN: Subj *Date: 02/17/21 *Time: 07:30 Interval history: Patient feels some better, less dyspneic when she lies flat. Dyspnea and cough when she moves around. Has successfully coughed up a fairly thick dark sputum sample. Exam Vital signs and Labs for Last 24 Hours: Temp Pulse Resp BP Pulse Ox 98.1 F 75 18 140/70 96 02/17/21 03:57 02/17/21 03:57 02/17/21 03:57 02/17/21 03:57 02/17/21 03:57 Laboratory Results - last 24 hr 02/16/21 12:13: Lactate 1.7 02/16/21 12:13: WBC 16.6 H, RBC 4.70, Hgb 13.1, Hct 39.9, MCV 84.9, MCH 27.8, MCHC 32.7, RDW 14.0, Plt Count 358, MPV 8.0, Neut % (Auto) 82.6 H, Lymph % (Auto) 11.6, [place] % (Auto) 5.4, Eos % (Auto) 0.1, Baso % (Auto) 0.4, Neut # (Auto) 13.7 H, Lymph # (Auto) 1.9, [place] # (Auto) 0.9, Eos # (Auto) 0.0, Baso # (Auto) 0.1, Total Counted 100, Neutrophils % (Manual) 78 H, Lymphocytes % (Manual) 19, Monocytes % (Manual) 3, Platelet Estimate Normal, RBC Morphology Normal 02/16/21 12:13: Sodium 135 L, Potassium 3.4 L, Chloride 93 L, Carbon Dioxide 32 H, Anion Gap 13.4, BUN 16, Creatinine 1.00, Estimated Creat Clear 44, Estimated GFR 54 L, Est GFR ( Amer) 65, Glucose 142 H, Calcium 8.9, Total Bilirubin 0.9, AST 29, ALT 20, Alkaline Phosphatase 92, C-Reactive Protein 241.7 H, Total Protein 8.2, Albumin 4.4, Globulin 3.8 H, Albumin/Globulin Ratio 1.2 02/16/21 12:13: Mycoplasma pneumon IgM Non-reactive 02/17/21 06:27: WBC 17.6 H, RBC 4.23, Hct 35.6 L, MCV 84.1, MCH 27.7, MCHC 33.0, RDW 13.9, Plt Count 313, MPV 7.9, Neut % (Auto) 89.8 H, Lymph % (Auto) 8.4 L, [place] % (Auto) 1.6 L, Eos % (Auto) 0.1, Baso % (Auto) 0.1, Neut # (Auto) 15.8 H, Lymph # (Auto) 1.5, [place] # (Auto) 0.3, Eos # (Auto) 0.0, Baso # (Auto) 0.0 02/17/21 06:27: Sodium 137, Potassium 3.3 L, Chloride 101, Carbon Dioxide 31 H, Anion Gap 8.3, BUN 17, Creatinine 0.60 D, Estimated Creat Clear 45, Estimated GFR 97, Est GFR ( Amer) 118 D, Glucose 153 H, Calcium 8.2 L I & O for Last 24 hours: Intake & Output 02/14/21 02/15/21 02/16/21 02/17/21 11:59 11:59 11:59 11:59 Intake Total 240 / 240 Balance 240 / 240 Weight 130 lb 7 oz Microbiology Reports for the Last 24 Hours: Microbiology 02/16/21 12:17 Nasopharyngeal Coronavirus COVID-19 PCR - Final Narrative: Patient is pleasant, alert, no cyanosis noted. Heart rate regular. Lungs have dense crackles throughout. Really at baseline. No tachypnea at rest. Abdomen soft, neurologically intact, no rash, ENT exam clear Assessment and Plan (1) Shortness of breath Status: Acute Category: Medical Code(s): R06.02 - Shortness of breath (2) Pulmonary fibrosis Status: Chronic Category: Medical Code(s): J84.10 - Pulmonary fibrosis, unspecified - Assessment and plan all Dx Assessment and Plan for all problems:: Chest x-ray unchanged from baseline. Patient feels better on steroids and antibiotics. Check sputum culture. Pulmonary consultation as she follows with Dr. Angeles in the clinic.
[2021-02-17 07:59] LABS: Lymphocytes % 5 % (10-50); Monocytes % 3 % (2-9); Neutrophils % 92 % (42-76); Total Cells Counted 100
[2021-02-17 08:00] LABS: Platelet Estimate Normal; RBC Morphology Normal
[2021-02-17 10:01] LABS: Hemoglobin 11.7 g/dL (12.2-16.2)
--- NOTE | 2021-02-17 11:54 | HMH.PULMCON ---
*Admission Date: 02/16/21 *Reason for consult:: Acute on chronic hypoxic respiratory failure *History of present illness: Ms. Denny is a never smoker pulmonary fibrosis likely secondary to Macrodantin exposure, will initiate long-term oxygen therapy assessment with desaturation was presented to the hospital with worsening respiratory status, cough and productive elevation along with subjective fevers. Patient denies any sick contacts. Denies any hemoptysis. [facility] History Medical History: Reports:: Arrhythmia, Gastroesophageal Reflux Disease(GERD), Hypertension, Internal Pacemaker, Lung Disease, Osteoporosis Denies:: Cancer, Diabetes Mellitus Type 1, Diabetes Mellitus Type 2, MRSA, Seizures *Have you ever received a pneumonia vaccine?: Yes *Have you received a flu vaccine this season?: Yes Other Medical History: Reports: Arthritis, Hypothyroidism, Osteoporosis, Other. Denies: Blood Transfusion Reaction Other Surgeries: Yes: Colonoscopy, Hysterectomy-Total, Pacemaker Amputation: No Fractures: No - *Social History Smoking Status: Never smoker Alcohol Intake: never Alcohol Intake Frequency:: other Substance Use Type: denies use *Occupational Status:: other Housing: house Household Members: family *Travel in the last 8 weeks: None Family Hx:: Cancer, Coronary Artery Disease, Diabetes, Heart Attack, Hyperlipidemia, Thyroid Disorder ROS - Cons Reports anorexia, Reports body ache(s), Reports chills, Reports fever(s) - ENT Denies difficulty swallowing - Card Reports shortness of breath, Reports shortness of breath with activity, Reports leg swelling - Resp Respiratory: Reports chest congestion, Reports dyspnea on exertion, Reports excessive phlegm production, Reports cough with sputum production, Denies pain with breathing - GI Gastrointestingal: Denies: abdominal pain Meds Home Medications Medication Instructions Recorded Confirmed Type albuterol sulfate 2.5 mg/0.5 mL 2.5 mg IH QIDP PRN 01/07/19 02/17/21 History solution for nebulization levothyroxine 50 mcg capsule 50 mcg PO DAILY 01/07/19 02/16/21 History Omeprazole [Omeprazole 40mg 40 mg PO DAILY 02/13/19 02/16/21 History Capsule] oxybutynin chloride 5 mg tablet 5 mg PO BID 10/17/19 02/16/21 History aspirin 81 mg tablet,delayed 81 mg PO DAILY 04/28/20 02/16/21 History release alendronate 70 mg tablet 70 mg PO WEEKLY tab 01/12/21 02/16/21 History hydrochlorothiazide 12.5 mg tablet 12.5 mg PO DAILY tab 01/12/21 02/16/21 History Budesonide/Formoterol Fumarate 2 puff IH BID 02/16/21 02/17/21 History [Budesonide-Formoterol 160-4.5] Cholecalciferol (Vitamin D3) 1,000 units PO DAILY 02/16/21 02/16/21 History [Vitamin D3 1,000 Unit Cap] Cyanocobalamin (Vitamin B-12) 2,500 mcg PO DAILY 02/16/21 02/16/21 History [Vitamin B12 2.5mg Tab] Allergies Allergy/AdvReac Type Severity Reaction Status Date / Time nitrofurantoin Allergy Unknown Unknown Verified 01/25/21 10:40 [From MACROBID] allergy reaction Exam - Constitutional Constitutional:: Present: no acute distress, comfortable - HENMT Exam HENMT: Present: normocephalic, atraumatic - Eye Exam Eyes:: Present: vision change - Neck Exam Neck:: Present: normal visual inspection - Respiratory Exam Respiratory:: Present: able to speak in complete sentences, respiratory distress, crackles. Absent: wheezing - Cardiovascular Exam Cardiac:: Present: S1, S2 - GI Exam GI:: Present: soft - Skin Exam Skin: Present: warm, no rash - Neurological Exam Neurological: Present: alert, awake, normal cognition - Extremities Exam Extremities: Present: no cyanosis, no clubbing, edema - Psychiatric Exam Psychiatric: Present: normal affect Internal Medicine - CN: Reslt - Labs CBC & Chem 7: 02/17/21 06:27 02/17/21 06:27 Labs: Short CBC 02/16/21 02/17/21 Range/Units 12:13 06:27 WBC 16.6 H 17.6 H (4.8-10.8) K/mm3 Hgb 13.1 11.7 L D (12.2-16.2) g/dL Hct
[2021-02-17 12:09] LABS: Adenovirus,PCR Not Detected (NotDetected); Bordetella Pertussis Not Detected (NotDetected); Chlamydophila Pneumoniae, PCR Not Detected (NotDetected); Coronavirus 229E Not Detected (NotDetected); Coronavirus NL63 Not Detected (NotDetected); Coronavirus OC43 Not Detected (NotDetected); Coronovirus HKU1,PCR Not Detected (NotDetected); Human Metapneumovirus Not Detected (NotDetected); Influenza A, PCR Not Detected (NotDetected); Influenza AH1, 2009 Not Detected (NotDetected); Influenza AH1, PCR Not Detected (NotDetected); Influenza AH3,PCR Not Detected (NotDetected); Influenza B, PCR Not Detected (NotDetected); Mycoplasma Pneumoniae, PCR Not Detected (NotDetected); Parainfluenza 1, PCR Not Detected (NotDetected); Parainfluenza 2, PCR Not Detected (NotDetected); Parainfluenza 3, PCR Not Detected (NotDetected); Parainfluenza 4, PCR Not Detected (NotDetected); Respiratory Syncytial Virus Not Detected (NotDetected); Rhinovirus/Enterovirus Not Detected (NotDetected)
--- NOTE | 2021-02-17 17:58 | PC.NURSE ---
Pt has been pleasant and cooperative this shift. A&O X4. No complaints of pain or SOA. Pt is receiving O2 via NC @ 2 LPM with sats. >90%. Lung sounds reveal expiratory rhonchi. No edema noted. Skin is C/D/I. Pt ambulates with stand-by assistance to/from the bathroom and throughout the room. Pt voids clear, yellow urine without issue. No BM. 20 G peripheral IV in the LT AC is patent and infusing NS @ 50 ML/HR. VSS. Call light within reach. Will continue to monitor.
[2021-02-18] VITALS: BP 119/53; PULSE 71; RESP 18; TEMP 36.6; O2SAT 96
[2021-02-18 03:19] VITALS: BP 128/61; PULSE 60; RESP 16; TEMP 36.6; O2SAT 95
[2021-02-18 05:00] VITALS: BMI 23.9
--- NOTE | 2021-02-18 05:47 | PC.NURSE ---
No acute changes. Pt has rested well this shift. No complaints stated. Pt has used 2L O2 NC prn this shift. She has ambulated to toilet with standby assistance. Medication administered per nov. No other concerns. Will continue to monitor.
[2021-02-18 07:07] LABS: Chloride 104 mmol/L (98-107); Sodium 139 mmol/L (136-145)
[2021-02-18 07:08] LABS: Potassium 3.3 mmoL/L (3.5-5.1)
[2021-02-18 07:11] LABS: Anion Gap 8.3 mEq/L (5-15); Basophils % 0.1 % (0.1-2.0); Blood Urea Nitrogen 17 mg/dl (7-17); Calcium 8.1 mg/dl (8.4-10.2); Carbon Dioxide 30 mmol/L (22.0-30.0); Creatinine Clearance Estimated 46 mL/min (50-200); Estimated Glomerular Filt Rate 97 ml/min (>60); GFR (African American) 118 ML/MIN (>60); Glucose 119 mg/dl (74-100); Hematocrit 35.3 % (37.0-47.0); Hemoglobin 11.4 g/dL (12.2-16.2); Lymphocytes # 1.9 K/mm3 (0.7-4.5); Lymphocytes % 10.4 % (10-50); Mean Corpuscular HGB Conc 32.3 g/dL (31.8-35.4); Mean Corpuscular Hemoglobin 28.3 pg (27.0-31.2); Mean Corpuscular Volume 87.4 fl (81-99); Mean Platelet Volume 8.5 fl (7.4-10.4); Monocytes # 0.7 K/mm3 (0.1-1.0); Monocytes % 3.7 % (1.7-9.3); Neutrophils % 85.8 % (37.0-80.0); Platelet Count 325 K/mm3 (142-424); Red Blood Count 4.04 M/mm3 (4.20-5.40); White Blood Count 18.7 K/mm3 (4.8-10.8)
[2021-02-18 07:22] LABS: MANUAL DIFFERENTIAL MANUAL DIFFERENTIAL (MANUAL DIFF)
[2021-02-18 08:00] VITALS: BP 116/63; PULSE 66; RESP 18; TEMP 36.7; O2SAT 99
--- NOTE | 2021-02-18 08:36 | HMH.DCSUM ---
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 Patient has had several exacerbations of her fibrosis over the past several months, but has been treated with success in the outpatient setting. However, today she was tachycardic, very dyspneic and very fatigued. Given this she was transitioned into the hospital setting for oxygen, IV fluids and steroids and IV antibiotics. Hospital Course Hospital Course: -year-old female admitted for acute on chronic hypoxemic respiratory failure, community acquired pneumonia, all in the setting of bronchiectasis and pulmonary fibrosis. Started on IV antibiotics on admission, work-up initiated with sputum cultures, respiratory culture, and pulmonary consult. Preliminary sputum sample showed gram-positive cocci. Was negative for Covid. Tolerated antibiotics well with regular breathing treatments. Stable on 2 L nasal cannula oxygen which is her home rate on day of discharge. Gradual improvement overall clinically. Tolerating good p.o. intake. Patient has remained afebrile for over 24 hours. We will plan to continue treatment for community-acquired pneumonia and transition to oral Levaquin at discharge. Continue duo nebs every 6 hours as needed and continue home budesonide inhaler. We will plan for close follow-up with pulmonology and our office in the coming weeks. Patient denies chest pain, nausea, vomiting, confusion. Shortness of breath close to baseline. Still dyspneic with exertion. Medically stable for discharge home. Examined on day of discharge Objective Vital signs: Temp Pulse Resp BP Pulse Ox 97.9 F 60 16 128/61 95 02/18/21 03:19 02/18/21 03:19 02/18/21 03:19 02/18/21 03:19 02/18/21 03:19 mild distress - *Routine HEENT Exam Head: Present: normocephalic Eye: Present: EOMI, PERRL ENT: Present: mucous membranes moist - *Routine Neck Exam Present: supple - *Routine Respiratory Exam Present: decreased breath sounds, crackles (Diffuse throughout bilateral lung enriquez). Absent: wheezes - *Routine Cardiovascular Exam Present: RRR - *Routine Abdominal Exam Present: soft, normoactive bowel sounds. Absent: tenderness - *Routine Extremities Exam Absent: cyanosis, clubbing, edema - *Routine Skin Exam Present: warm. Absent: rash Results Labs on day of discharge: Labs from last 24 hours 02/18/21 02/18/21 02/17/21 06:15 06:15 06:27 WBC 18.7 H RBC 4.04 L Hgb 11.4 L 11.7 L D Hct 35.3 L MCV 87.4 MCH 28.3 MCHC 32.3 RDW 14.0 Plt Count 325 MPV 8.5 Neut % (Auto) 85.8 H Lymph % (Auto) 10.4 [place] % (Auto) 3.7 Eos % (Auto) 0.0 L Baso % (Auto) 0.1 Neut # (Auto) 16.0 H Lymph # (Auto) 1.9 [place] # (Auto) 0.7 Eos # (Auto) 0.0 Baso # (Auto) 0.0 Sodium 139 Potassium 3.3 L Chloride 104 Carbon Dioxide 30 Anion Gap 8.3 BUN 17 Creatinine 0.60 Estimated Creat Clear 46 Estimated GFR 97 Est GFR ( Amer) 118 Glucose 119 H D Calcium 8.1 L Chlamy pneumoniae PCR Adenovirus (PCR) B. pertussis DNA (PCR) Coronavirus OC43 (PCR) Coronavirus HKU1 (PCR) Coronavirus 229E (PCR) Coronavirus NL63 (PCR) Human Metapneumovir PCR Influenza A (H1) PCR Influ A (H1N1/09) PCR Influenza A (H3) PCR Influenza Type A (PCR) Influenza Type B (PCR) M. pneumoniae (PCR) Parainfluenza 1 (PCR) Parainfluenza 2 (PCR) Parainfluenza 3 (PCR) Parainfluenza 4 (PCR) RSV (PCR) Entero/Rhino (PCR) 02/16/21 12:07 WBC RBC Hgb Hct MCV MCH MCHC RDW Plt Count MPV Neut % (Auto) Lymph % (Auto) [place] % (Auto) Eos % (Auto) Baso % (Auto)
[2021-02-18 09:43] LABS: Lymphocytes % 9 % (10-50); Monocytes % 2 % (2-9); Neutrophils % 89 % (42-76); Platelet Estimate Normal; RBC Morphology Normal; Total Cells Counted 100
--- NOTE | 2021-02-18 12:28 | HMH.PULMPN ---
Internal Medicine - PN: Subj *Date: 02/18/21 *Time: 12:28 Interval history: No acute respiratory vents overnight. Exam - Constitutional Constitutional:: Present: no acute distress, comfortable - HENMT Exam HENMT: Present: normocephalic, moist mucous membranes - Eye Exam Eyes:: Present: normal appearance both eyes and related structures - Neck Exam Neck:: Present: normal visual inspection - Respiratory Exam Respiratory:: Present: able to speak in complete sentences, no respiratory distress, normal respiratory effort, rales - Cardiovascular Exam Cardiac:: Present: S1, S2 - GI Exam GI:: Present: soft - Skin Exam Skin: Present: warm, no rash - Neurological Exam Neurological: Present: alert, awake, normal cognition - Extremities Exam Extremities: Present: no cyanosis, no clubbing, no edema Assessment and Plan (1) Acute on chronic respiratory failure with hypoxemia Status: Acute Category: Medical Code(s): J96.21 - Acute and chronic respiratory failure with hypoxia (2) Community acquired pneumonia Status: Acute Category: Medical Code(s): J18.9 - Pneumonia, unspecified organism (3) Shortness of breath Status: Chronic Category: Medical Code(s): R06.02 - Shortness of breath (4) Pulmonary fibrosis Status: Chronic Category: Medical Code(s): J84.10 - Pulmonary fibrosis, unspecified - Assessment and plan all Dx Assessment and Plan for all problems:: #Acute on chronic hypoxic respiratory failure: #Community-acquired pneumonia: #History of pulmonary fibrosis: #H/O bronchiectasis History of pulmonary fibrosis likely from Macrodantin exposure. Other significant medical history include bronchiectasis with no frequent exacerbations, chronic hypoxic respiratory failure and sleep apnea. Presented hospital complaining of worsening productive phlegm and subjective fevers. Afebrile on admission. Neutrophilic leukocytosis noted. Sputum preliminary staining showed gram-positive cocci in pairs. COVID-19 PCR negative on comprehensive respiratory viral PCR Patient was initiated on ceftriaxone examination for possible community-acquired pneumonia on admission. Chest x-ray did not show an acute pulmonary infiltrates. Patient respiratory distress significantly improved since yesterday. On examination today patient is on room air however saturating 85 to 86% I have advised the patient that she need to be on 2 L continuous oxygen therapy. Plan: -Continue long-term oxygen therapy at 2 L via nasal cannula -Continue Levofloxacin for total of 10 days -Continue budesonide inhaler (home medication) -DuoNebs every 6 hours as needed -Await final sputum cultures #Thank you for involving pulmonary in this patient care. We will follow the patient in pulmonary clinic in 2 to 4 weeks.
== END 2021-02-18 10:55 | disposition home or self-care (01) ==
PROVIDERS: Internal Medicine Pulmonary Disease; Admitting Provider Internal Medicine Adolescent Medicine; PCP Internal Medicine Adolescent Medicine; Visit Provider Internal Medicine Adolescent Medicine
DX: J84.10 Pulmonary fibrosis, unspecified (principal); Z79.899 Other long term (current) drug therapy; E03.9 Hypothyroidism, unspecified; R06.02 Shortness of breath; J96.21 Acute and chronic respiratory failure with hypoxia; J18.9 Pneumonia, unspecified organism
CPT/HCPCS: 36415; 71046; 80048; 80053; 83605; 85007; 85025; 86140; 86738; 87040; 87070; 87205; 87486; 87581; 87633; 87798; 93005; 94761; G0378; J0456; U0003

== ENCOUNTER → 2021-06-06 07:39 | Outpatient (CLI) | payer MEDICARE, SELFPAY ==
--- NOTE | 2021-06-06 07:40 | CA_ITS ---
APPROVED REPORT EXAM: Comprehensive 2D, Doppler, and color-flow Echocardiogram Photogrammetric Stereo Compiler: JASPAL Maurer, RVS Ht: 5 ft 2 in Wt: 130lbs BSA: 1.59 BP: 130/61 mmHg Indications: Pulmonary fibrosis, SOA, Pacer, GERD Echo Enhancing Agent Comments: Poor acoustics throughout exam. 2D Dimensions IVSd 0.99 cm LVEF (Visual) 40.90 % PWd 0.92 cm LA Volume 35.60 mL LVDd 4.30 cm LA Volume Index 22.40 mL/m2 (M/F) 16-34 LVDs 3.45 cm Aortic Root 2.51 cm Left Atrium 3.25 cm LVOT 1.97 cm (M/F) 1.5-2.5 M-Mode Dimensions RVDd 1.97 cm (0.9-2.6) LA Diam 3.80 cm (1.9-4.0) LVDd 4.94 cm (3.5-5.7) Ao Diam 2.57 cm (2.0-3.7) LVDs 3.72 cm (3.5-5.7) IVSd 0.69 cm (0.6-1.1) PWd 0.69 cm (0.6-1.1) EF (Teich) 48.80% EPSs 0.75 cm FS 24.70% EDV (Teich) 115.00 mL TAPSE 1.81 (<1.7) ESV (Teich) 58.90 mL LV Diastology E Decel Time 157.00 (160-240 msec) E/A Ratio 0.75 Aortic Valve LVOT Max 89.00 (70-110 cm/s) LVOT VTI 20.04 cm AoV Peak Joseph. 131.00 (50-130 cm/s) AO Peak GR. 6.90 mmHg AO Mean GR. 3.40 (<5 mmHg) AO VTI 26.26 (18-25 cm) COURTNEY (VTI) 2.33 (2.5-4.5 cm2) Mitral Valve MV A Velocity 89.00 (40-130 cm/s) E/A Ratio 0.75 MV Decel. Time 157.00 (160-240 ms) Pulmonary Valve AZ End VMAX 201.00 cm/s Tricuspid Valve TR P. Velocity 322.00 cm/s RAP Estimate 10.00 mmHg RVSP 51.60 mmHg Left Ventricle Left atrium is mildly enlarged, left ventricle is normal size, mild concentric left ventricular hypertrophy, visually estimated ejection fraction 55% with no regional wall motion abnormality, Doppler evidence of impaired LV relaxation seen. There is no tissue Doppler performed. Right Ventricle Right atrium and right ventricle mildly enlarged with normal contractility. Aortic Valve Aortic valve is minimally thickened and fibrosed, there is no aortic stenosis or aortic insufficiency. Mitral Valve Mitral valve is minimally thickened, there is mild mitral regurgitation. Tricuspid Valve Tricuspid valve is minimally thickened, there is moderate tricuspid regurgitation, calculated right ventricular systolic pressure is 52 mmHg. Pulmonic Valve Pulmonic valve is poorly visualized. Great Vessels Aortic root is normal size. Inferior vena cava is poorly visualized. Pericardium No significant pericardial effusion noted. Conclusion 1. Biatrial enlargement, normal left ventricular size, mild concentric left ventricular hypertrophy, visually estimated ejection fraction 55% with no regional wall motion abnormality, Doppler evidence of impaired LV relaxation seen, there is no tissue Doppler performed. 2. Mildly enlarged right ventricle with normal contractility. 3. Thickened and calcified aortic valve without Doppler evidence of aortic stenosis or aortic insufficiency. 4. Mild mitral and moderate tricuspid regurgitation, calculated right ventricular systolic pressure is 52 mmHg. 5. No significant pericardial effusion noted. Electronically signed by : Omer Field MD 06/07/2021 06:34:36
[2021-06-06 09:20] VITALS: PULSE 88; PULSE 90
== END ==
PROVIDERS: PCP Internal Medicine Adolescent Medicine; Visit Provider Internal Medicine Pulmonary Disease
DX: R06.00 Dyspnea, unspecified (principal); J84.10 Pulmonary fibrosis, unspecified
CPT/HCPCS: 93306; 94060; 94618; 94640; 94726; 94729

== ENCOUNTER → 2021-08-01 07:39 | Outpatient (CLI) | payer MEDICARE, SELFPAY ==
--- NOTE | 2021-08-01 07:42 | CT_ITS ---
PROCEDURE: CT HIGH RESOLUTION CHEST CLINICAL HISTORY: Follow-up lung nodule, pulmonary fibrosis COMPARISON: CT CT CHEST WO CON from 07/21/2020 TECHNIQUE: Axial images obtained with sagittal and coronal reformats. All CT scans at the facility use one or more dose reduction, viz: automated exposure control, ma/kV adjustment per patient size (including targeted exams where dose is matched to indication, i.e. head), or iterative reconstruction technique. FINDINGS: Pulmonary fibrosis once again noted. There is honeycombing with cavitation in the left upper lobe as before. Scattered areas of scarring are present. No effusions. No suspicious pulmonary nodules. No mediastinal or hilar adenopathy. Previously noted soft tissue fullness in the subcarinal region somewhat less apparent. Loop recorder device is present along the anterior chest wall on the left the subcutaneous tissues. Bilateral breast calcifications and or clips noted. Coronary artery calcifications. Chronic mild wedging of T12 unchanged. IMPRESSION: Stable CT appearance of the chest. No change in the pulmonary fibrosis with honeycombing and cavitation in the left upper lobe Dictated by: Twin Anguiano MD 08/08/2021 08:03 Twin Anguiano MD in [place] 08/08/2021 08:03
== END ==
PROVIDERS: PCP Internal Medicine Adolescent Medicine; Visit Provider Internal Medicine Pulmonary Disease
DX: J84.9 Interstitial pulmonary disease, unspecified (principal)
CPT/HCPCS: 71250

== ENCOUNTER → 2021-08-12 16:32 | Outpatient (CLI) | payer MEDICARE, SELFPAY | PROVIDERS: Visit Provider Internal Medicine Adolescent Medicine | DX: R10.30 Lower abdominal pain, unspecified (principal) | CPT/HCPCS: 87086; 87088; 87186 ==

== ENCOUNTER 2022-01-25 10:25 | Observation (INO) | payer MEDICARE, SELFPAY ==
--- NOTE | 2022-01-25 10:35 | XR_ITS ---
FINAL REPORT CLINICAL HISTORY: dyspnea COMPARISON: February 16, 2021 FINDINGS: There is a loop recorder present. The heart size is normal. The mediastinum is normal. There is stable bilateral scarring, greatest in the upper lobes. There is stable bilateral apical pleural thickening, left greater than right. There is no pneumothorax. There is no osseous abnormality. IMPRESSION: Stable findings as above. Reviewed, Interpreted and Dictated by Walter Rogers III, MD Transcribed by Yashira Louise Authenticated by Walter Rogers III, MD on 01/25/2022 12:54:35 PM [facility]
--- NOTE | 2022-01-25 10:37 | HMH.PHAINT ---
MEDICATION RECONCILIATION COMPLETED ON PATIENT USING EXTERNAL FILL HISTORY FROM PHARMACY AND LIST FROM PULMONOLOGY OFFICE. -TALHA SERRANOD
--- NOTE | 2022-01-25 10:38 | CT_ITS ---
FINAL REPORT CLINICAL HISTORY: abd pain, rectal bleeding started last night oral and iv contrast given 75ml isovue 370 FINDINGS: CT OF THE ABDOMEN AND PELVIS WITH CONTRAST Axial CT images of the abdomen and pelvis were obtained after the administration of oral and iv contrast. Coronal reformatted images were also obtained and reviewed.This study was performed with techniques to keep radiation doses as low as reasonably achievable (ALARA). Individualized dose reduction techniques using automated exposure control or adjustment of mA and/or kV according to the patient's size were employed. Abdomen: There is moderate peripheral scarring/fibrosis in the lung bases. The heart is normal in size. The liver has an unremarkable appearance, without evidence of mass or biliary ductal dilatation. The gallbladder is present. The spleen is unremarkable. No adrenal mass is present. The pancreas has an unremarkable appearance. The kidneys are normal, without evidence of mass or hydronephrosis. The aorta is normal in caliber. There is no free fluid or adenopathy. There is a small umbilical hernia containing fat. Pelvis: The appendix is not well-visualized. The urinary bladder is unremarkable. No inflammatory process is seen. There is no evidence of mass or adenopathy. There is wall thickening of the sigmoid colon consistent with colitis. There is no evidence of bowel obstruction. There has been hysterectomy. IMPRESSION: Sigmoid colitis. Reviewed, Interpreted and Dictated by Walter Rogers III, MD Transcribed by Nathanael Ayala Authenticated by Walter Rogers III, MD on 01/25/2022 03:44:11 PM [facility]
--- NOTE | 2022-01-25 10:39 | P.CONPHA_ITS ---
[facility] Pharmacy VTE Monitoring - Patient Demographics Admission date: 01/25/22 Report Date: 01/25/22 Time: 10:39 Allergies/Adverse Reactions: Patient Allergies nitrofurantoin [From MACROBID] Allergy (Unknown, Verified 07/22/21 09:56) Unknown allergy reaction - Prophylaxis VTE Prophylaxis Ordered?: Yes Types of VTE Prophylaxis: TEDS Knee High Location of Applied Device: Bilateral Lower Extremeties
[2022-01-25 11:00] VITALS: BP 150/46; PULSE 92; RESP 20; TEMP 36.8; O2SAT 94; BMI 22.7
[2022-01-25 11:43] LABS: Coronavirus 19, PCR Not Detected (NotDetected); Influenza A, PCR Not Detected (NotDetected); Influenza B, PCR Not Detected (NotDetected)
[2022-01-25 12:08] LABS: Basophils # 0.1 K/mm3 (0-0.2); Basophils % 1.2 % (0.1-2.0); Eosinophils # 0.3 K/mm3 (0.0-0.4); Eosinophils % 2.9 % (0.1-12.0); Hematocrit 41.3 % (37.0-47.0); Hemoglobin 13.5 g/dL (12.2-16.2); Lymphocytes # 2.5 K/mm3 (0.7-4.5); Mean Corpuscular HGB Conc 32.6 g/dL (31.8-35.4); Mean Corpuscular Hemoglobin 28.7 pg (27.0-31.2); Mean Corpuscular Volume 87.8 fl (81-99); Mean Platelet Volume 8.1 fl (7.4-10.4); Monocytes # 0.4 K/mm3 (0.1-1.0); Monocytes % 3.9 % (1.7-9.3); Neutrophils # 6.4 K/mm3 (1.8-7.8); Platelet Count 352 K/mm3 (142-424); Red Cell Distribution Width 14.2 % (11.5-17.5); White Blood Count 9.7 K/mm3 (4.8-10.8)
[2022-01-25 12:11] LABS: Chloride 101 mmol/L (98-107)
[2022-01-25 12:12] LABS: Sodium 137 mmol/L (136-145)
[2022-01-25 12:14] LABS: Alanine Aminotransferase 18 U/L (12-78); Albumin Level 3.9 g/dl (3.5-5.0); Albumin/Globulin Ratio 1.1 (1.1-1.8); Alkaline Phosphatase 85 U/L (38-126); Amylase 93 U/L (30-110); Aspartate Amino Transferase 32 U/L (14-36); Bilirubin,Total 0.4 mg/dl (0.2-1.3); Blood Urea Nitrogen 13 mg/dl (7-17); Calcium 9.1 mg/dl (8.4-10.2); Carbon Dioxide 31 mmol/L (22.0-30.0); Creatinine Clearance Estimated 43 mL/min (50-200); Estimated Glomerular Filt Rate 81 ml/min (>60); GFR (African American) 98 ML/MIN (>60); Globulin 3.5 g/dL (1.3-3.2); Glucose 111 mg/dl (74-100); Magnesium 1.8 mg/dl (1.6-2.3); Total Protein,Serum 7.4 g/dl (6.3-8.2)
[2022-01-25 12:20] LABS: Lipase 56 U/L (23-300)
--- NOTE | 2022-01-25 13:00 | HMH.HP ---
*Admission Date: 01/25/22 *Chief complaint: Abd pain and diarrhea *History of present illness: 76-year-old female who yesterday began having cramping abdominal pain and loose stools. Had a watery stools that became bloody last night. She has had increasing left lower quadrant tenderness and bloating and this has made her already tenuous respiratory situation somewhat worse. Came to my office and she was found to have tachycardia, tender abdomen, and a low-grade fever. Concern for intra-abdominal pathology and admitted to hospital for CT scan, labs and further diagnostic testing. She denies unusual food or water exposure or ill contacts. [facility] History Medical History: Reports:: Arrhythmia, Gastroesophageal Reflux Disease(GERD), Hyperlipidemia, Hypertension, Internal Pacemaker, Lung Disease, Osteoporosis, Seizures Denies:: Cancer, Diabetes Mellitus Type 1, Diabetes Mellitus Type 2, MRSA *Have you ever received a pneumonia vaccine?: Yes *Have you received a flu vaccine this season?: Yes Other Medical History: Reports: Arthritis, Hypothyroidism, Osteoporosis, Other. Denies: Blood Transfusion Reaction Other Surgeries: Yes: Colonoscopy, Hysterectomy-Total, Pacemaker Amputation: No Fractures: No - *Social History Last grade of school completed: 7th or 8th Smoking Status: Never smoker Alcohol Intake: never Alcohol Intake Frequency:: other Substance Use Type: denies use *Occupational Status:: retired Housing: house Household Members: family *Travel in the last 8 weeks: None Family Hx:: Cancer, Diabetes, Heart Attack, Hyperlipidemia, Hypertension Review of Systems - Review of Systems Review of systems:: pertinent systems reviewed and negative unless documented below Meds Home Medications Medication Instructions Recorded Confirmed Type levothyroxine 50 mcg capsule 50 mcg PO DAILY 01/07/19 01/25/22 History Omeprazole [Omeprazole 40mg 40 mg PO DAILY 02/13/19 01/25/22 History Capsule] oxybutynin chloride 5 mg tablet 5 mg PO BID 10/17/19 01/25/22 History aspirin 81 mg tablet,delayed 81 mg PO DAILY 04/28/20 01/25/22 History release hydrochlorothiazide 12.5 mg tablet 12.5 mg PO DAILY tab 01/12/21 01/25/22 History Cholecalciferol (Vitamin D3) 1,000 units PO DAILY 02/16/21 01/25/22 History [Vitamin D3 1,000 Unit Cap] Cyanocobalamin (Vitamin B-12) 2,500 mcg PO DAILY 02/16/21 01/25/22 History [Vitamin B12 2.5mg Tab] Albuterol Sulfate [Albuterol 1 puff IH Q6HP PRN 01/25/22 01/25/22 History Sulfate Hfa] Budesonide/Formoterol Fumarate 2 puff IH BID 01/25/22 01/25/22 History [Budesonide-Formoterol 160-4.5] Allergies Allergy/AdvReac Type Severity Reaction Status Date / Time nitrofurantoin Allergy Unknown Unknown Verified 07/22/21 09:56 [From MACROBID] allergy reaction Exam Vital signs and Labs for Last 24 Hours: Temp Pulse Resp BP Pulse Ox 98.3 F 92 H 20 150/46 H 94 L 01/25/22 11:00 01/25/22 11:00 01/25/22 11:00 01/25/22 11:00 01/25/22 11:00 Laboratory Results - last 24 hr 01/25/22 11:39: SARS-CoV-2 (PCR) Not detected, Influenza A Untype (PCR) Not detected, Influenza Type B (PCR) Not detected 01/25/22 11:56: WBC 9.7, RBC 4.70, Hgb 13.5, Hct 41.3, MCV 87.8, MCH 28.7, MCHC 32.6, RDW 14.2, Plt Count 352, MPV 8.1, Neut % (Auto) 66.0, Lymph % (Auto) 26.0, [place] % (Auto) 3.9, Eos % (Auto) 2.9, Baso % (Auto) 1.2, Neut # (Auto) 6.4, Lymph # (Auto) 2.5, [place] # (Auto) 0.4, Eos # (Auto) 0.3, Baso # (Auto) 0.1 01/25/22 11:56: Sodium 137, Potassium 3.0 L, Chloride 101, Carbon Dioxide 31 H, Anion Gap 8.0, BUN 13, Creatinine 0.70, Estimated Creat Clear 43, Estimated GFR 81, Est GFR ( Amer) 98, Glucose 111 H, Calcium 9.1, Magnesium 1.8, Total Bilirubin 0.4, AST 32, ALT 18, Alkaline Phosphatase 85, Total Protein 7.4, Albumin 3.9, Globulin 3.5 H, Albumin/Globulin Ratio 1.1, Amylase 93 01/25/22 11:56: Lactate 1.0 01/25/22 11:56: Lipase 56 I & O for Last 24 hours: Intake & Output 01/23
[2022-01-25 13:19] LABS: Microscopic, Urine URINE MICROSCOPIC (MICROSCOPIC)
[2022-01-25 13:25] LABS: Appearance,Urine CLEAR (Clear); Bilirubin,Urine Negative (Negative); Blood, Urine Negative (Negative); Color,Urine YELLOW (Yellow); Glucose,Urine (UA) Negative (Negative); Ketones,Urine Negative (Negative); Leukocyte Esterase,Urine 2+ (Negative); Nitrate,Urine POSITIVE (Negative); PH,Urine 6.5 (5.0-8.5); Protein,Urine Negative (Negative); Specific Gravity, Urine <= 1.005 (1.005-1.030); Urobilinogen,Urine 0.2 EU/dl (0.2)
[2022-01-25 13:39] LABS: Bacteria,Urine 3+ /lpf; Squamous Epithelial Cell,Urine Occasional #/hpf (0-5)
[2022-01-25 14:26] LABS: Adenovirus F 40/41, stool Not Detected (NotDetected); Astrovirus Not Detected (NotDetected); Campylobacter Not Detected (NotDetected); Clostridium Difficile A/B, PCR Not Detected (NotDetected); Cryptosporidium Not Detected (NotDetected); Cyclospora Cayetanesis Not Detected (NotDetected); Entamoeba histolytica Not Detected (NotDetected); Enteroaggregative E coli Not Detected (NotDetected); Enteropathogenic E coli Not Detected (NotDetected); Enterotoxigenic E coli Not Detected (NotDetected); Giardia lamblia Not Detected (NotDetected); Norovirus Not Detected (NotDetected); Plesimonas Shigalloides, PCR Not Detected (NotDetected); Rotavirus A Not Detected (NotDetected); Salmonella, PCR Not Detected (NotDetected); Sapovirus Not Detected (NotDetected); Shiga-like toxin E coli Not Detected (NotDetected); Shigella Enterovasive E coli Not Detected (NotDetected); Vibrio Cholerae Not Detected (NotDetected); Vibrio, PCR Not Detected (NotDetected); Yersinia Entercolitica, PCR Not Detected (NotDetected)
[2022-01-25 15:17] VITALS: BP 102/66; PULSE 75; RESP 17; TEMP 36.7; O2SAT 96
--- NOTE | 2022-01-25 15:32 | PC.NURSE ---
Pt is alert and oriented x4. She has ambulated to the bathroom independently. She has had 2 episodes of diarrhea since arriving to the floor. It was dark and watery but no myriam blood noted. Abdomen is ttp. No nausea reported. She is currently resting in bed watching tv.
[2022-01-25 20:00] VITALS: PULSE 80; O2SAT 92
[2022-01-25 20:39] VITALS: BP 127/67; PULSE 79; RESP 16; TEMP 37.7; O2SAT 92
[2022-01-26] VITALS: PULSE 70
[2022-01-26 04:00] VITALS: PULSE 70
[2022-01-26 04:23] VITALS: BP 124/69; PULSE 85; RESP 14; TEMP 37.1; O2SAT 94
--- NOTE | 2022-01-26 04:28 | PC.NURSE ---
pt has rested intermittently this shift, has not complained of pain or SOA, reports three bowel movements this shift, has ambulated to BR, remains on room with O2 sats 92-94%
[2022-01-26 05:00] VITALS: BMI 22.9
[2022-01-26 07:21] LABS: Basophils # 0.1 K/mm3 (0-0.2); Eosinophils # 0.3 K/mm3 (0.0-0.4); Eosinophils % 3.9 % (0.1-12.0); Hematocrit 36.1 % (37.0-47.0); Lymphocytes # 1.9 K/mm3 (0.7-4.5); Lymphocytes % 25.2 % (10-50); Mean Corpuscular HGB Conc 32.9 g/dL (31.8-35.4); Mean Corpuscular Hemoglobin 28.9 pg (27.0-31.2); Mean Corpuscular Volume 87.8 fl (81-99); Mean Platelet Volume 8.4 fl (7.4-10.4); Monocytes # 0.5 K/mm3 (0.1-1.0); Monocytes % 6.8 % (1.7-9.3); Neutrophils # 4.8 K/mm3 (1.8-7.8); Neutrophils % 63.1 % (37.0-80.0); Platelet Count 335 K/mm3 (142-424); Red Blood Count 4.11 M/mm3 (4.20-5.40); Red Cell Distribution Width 14.2 % (11.5-17.5); White Blood Count 7.5 K/mm3 (4.8-10.8)
--- NOTE | 2022-01-26 07:30 | HMH.ACPN2 ---
Internal Medicine - PN: Bony *Date: 01/26/22 *Time: 07:30 Interval history: Patient reports that she feels better this morning. Continuing to have some frequent stools that are painful with some tenesmus but no bleeding. She is has no vomiting. Tolerating antibiotics well. Eating well this morning. Food does not make her sick or cause further diarrhea. Exam Vital signs and Labs for Last 24 Hours: Temp Pulse Resp BP Pulse Ox 98.7 F 85 14 124/69 94 L 01/26/22 04:23 01/26/22 04:23 01/26/22 04:23 01/26/22 04:23 01/26/22 04:23 Laboratory Results - last 24 hr 01/25/22 11:39: SARS-CoV-2 (PCR) Not detected, Influenza A Untype (PCR) Not detected, Influenza Type B (PCR) Not detected 01/25/22 11:56: WBC 9.7, RBC 4.70, Hgb 13.5, Hct 41.3, MCV 87.8, MCH 28.7, MCHC 32.6, RDW 14.2, Plt Count 352, MPV 8.1, Neut % (Auto) 66.0, Lymph % (Auto) 26.0, [place] % (Auto) 3.9, Eos % (Auto) 2.9, Baso % (Auto) 1.2, Neut # (Auto) 6.4, Lymph # (Auto) 2.5, [place] # (Auto) 0.4, Eos # (Auto) 0.3, Baso # (Auto) 0.1 01/25/22 11:56: Sodium 137, Potassium 3.0 L, Chloride 101, Carbon Dioxide 31 H, Anion Gap 8.0, BUN 13, Creatinine 0.70, Estimated Creat Clear 43, Estimated GFR 81, Est GFR ( Amer) 98, Glucose 111 H, Calcium 9.1, Magnesium 1.8, Total Bilirubin 0.4, AST 32, ALT 18, Alkaline Phosphatase 85, Total Protein 7.4, Albumin 3.9, Globulin 3.5 H, Albumin/Globulin Ratio 1.1, Amylase 93 01/25/22 11:56: Lactate 1.0 01/25/22 11:56: Lipase 56 01/25/22 13:11: Urine Color Yellow, Urine Appearance Clear, Urine pH 6.5, Ur Specific [place] <= 1.005, Urine Protein Negative, Urine Glucose (UA) Negative, Urine Ketones Negative, Urine Blood Negative, Urine Nitrate Positive, Urine Bilirubin Negative, Urine Urobilinogen 0.2, Ur Leukocyte Esterase 2+ A, Urine RBC None, Urine WBC 10-20, Ur Squamous Epith Cells Occasional, Urine Bacteria 3+ 01/25/22 14:15: Stl Aeromonas (PCR) Not detected, Stl C. cayetanensis PCR Not detected, Stool Rotavirus (PCR) Not detected, Stl Adenov F 40/41 PCR Not detected, Stool Astrovirus (PCR) Not detected, Stool Campylobacter PCR Not detected, Stl C.difficile Tox PCR Not detected, Stool Cryptosporidium PCR Not detected, Stl E.coli Shiga Tox PCR Not detected, Stool E coli O157 PCR Not detected, Stl Enterotoxigenic E PCR Not detected, Stool EPEC (PCR) Not detected, Stool EAEC (PCR) Not detected, Stl E. histolytica PCR Not detected, Stool Giardia Lamblia PCR Not detected, Stool Salmonella PCR Not detected, Stool Sapovirus (PCR) Not detected, Stl P. shigelloides PCR Not detected, Stl Shigella/EIEC PCR Not detected, St Y.enterocolitica PCR Not detected, Stool Vibrio (PCR) Not detected, Stl Vibrio cholerae PCR Not detected, Stl Norovirus GI/GII PCR Not detected I & O for Last 24 hours: Intake & Output 01/23/22 01/24/22 01/25/22 01/26/22 11:59 11:59 11:59 11:59 Intake Total 1287 / 1287 Balance 1287 / 1287 Weight 124 lb 4 oz 124 lb 14.4 oz Microbiology Reports for the Last 24 Hours: Microbiology 01/25/22 13:11 Urine,Clean Catch Urine Culture - Preliminary 01/25/22 11:56 Blood Blood Culture - Preliminary Narrative: Alert, pleasant. Frail-appearing. Lungs have diminished air movement as previously noted. Abdomen is soft, but still has fairly significant tenderness in the left lower quadrant with voluntary guarding but no peritoneal signs and no rebound or referred pain. Heart rate regular. No edema or clubbing. Assessment and Plan (1) Left lower quadrant abdominal pain Status: Acute Category: Medical Code(s): R10.32 - Left lower quadrant pain (2) GI bleeding Status: Acute Category: Medical Code(s): K92.2 - Gastrointestinal hemorrhage, unspecified (3) Pulmonary fibrosis Status: Chronic Category: Medical Code(s): J84.10 - Pulmonary fibrosis, unspecified (4) Colitis Status: Acute Category: Medical Code(s): K52.9 - Noninfective gastroenteritis and colitis, unspecified - Assessment an
[2022-01-26 07:31] LABS: Anion Gap 10.3 mEq/L (5-15); Blood Urea Nitrogen 12 mg/dl (7-17); Calcium 8.2 mg/dl (8.4-10.2); Carbon Dioxide 26 mmol/L (22.0-30.0); Chloride 104 mmol/L (98-107); Creatinine Clearance Estimated 43 mL/min (50-200); Estimated Glomerular Filt Rate 81 ml/min (>60); GFR (African American) 98 ML/MIN (>60); Glucose 86 mg/dl (74-100); Potassium 3.3 mmoL/L (3.5-5.1); Sodium 137 mmol/L (136-145)
[2022-01-26 08:00] VITALS: BP 123/59; PULSE 82; RESP 17; TEMP 36.8; O2SAT 95
--- NOTE | 2022-01-26 08:18 | ECG_ITS ---
APPROVED REPORT Exam: Resting ECG HR:81 bpm ECG Measurements Heart Rate 81 AXES DC 281 P 91 QRSd 84 QRS 18 QT 379 T 20 QTc 417 Conclusion ELECTRONIC ATRIAL PACEMAKER MINIMAL VOLTAGE CRITERIA FOR LVH, CONSIDER NORMAL VARIANT [MEETS CRITERIA IN ONE OF: R(aVL), S(V1), R(V5), R(V5/V6)+S(V1)] NONSPECIFIC T-WAVE ABNORMALITY ABNORMAL RHYTHM ECG UNCONFIRMED REPORT Electronically signed by : Eber Rubalcava MD 01/28/2022 16:05:29
--- NOTE | 2022-01-26 15:53 | PC.NURSE ---
Pt reports feeling much better today. States she hasn't had any bm's since early this morning. Appetite has been ok. Denies any complaints.
[2022-01-26 16:00] VITALS: BP 141/57; PULSE 78; RESP 16; TEMP 36.7; O2SAT 95
[2022-01-26 20:00] VITALS: BP 126/63; PULSE 80; RESP 16; TEMP 36.8; O2SAT 92
[2022-01-27 04:00] VITALS: BP 121/63; PULSE 79; RESP 17; TEMP 36.9; O2SAT 94
--- NOTE | 2022-01-27 04:39 | PC.NURSE ---
Patient has rested intermittently t/o shift. Pt has voiced no c/o of pain thus far in shift. Pt has remained on room air with O2 96-97%. Pt can ambulate to bathroom independently.
[2022-01-27 05:00] VITALS: BMI 22.9
[2022-01-27 08:00] VITALS: BP 158/76; PULSE 86; RESP 20; TEMP 36.9; O2SAT 95
--- NOTE | 2022-01-27 08:20 | HMH.DCSUM ---
General - General Admission date:: 01/25/22 Discharge date: 01/27/22 HPI HPI: 76-year-old female who yesterday began having cramping abdominal pain and loose stools. Had a watery stools that became bloody last night. She has had increasing left lower quadrant tenderness and bloating and this has made her already tenuous respiratory situation somewhat worse. Came to my office and she was found to have tachycardia, tender abdomen, and a low-grade fever. Concern for intra-abdominal pathology and admitted to hospital for CT scan, labs and further diagnostic testing. She denies unusual food or water exposure or ill contacts. Hospital Course Hospital Course: Patient was admitted. CT scan of abdomen and pelvis showed evidence of sigmoid colitis which certainly fit with her clinical picture of left lower quadrant pain. She was also found to have a urinary tract infection that grew out Klebsiella. Klebsiella was sensitive to quinolones, and she was also placed on p.o. Flagyl for the colitis. She was given a dose of hydrocortisone suppository to help with the discomfort and inflammation of the sigmoid colitis after PCR testing showed no evidence of detectable organisms in the diarrhea fluid. This seemed to help her fairly nicely over the last 24 hours and this morning she feels much better. Exam has improved and she has very minimal tenderness in the left lower quadrant. I will discharge her home today with coverage for UTI, colitis, 3 days of oral dexamethasone, close follow-up in my office to evaluate for sigmoidoscopy to evaluate the root cause of her colitis. Objective Vital signs: Temp Pulse Resp BP Pulse Ox 98.4 F 79 17 121/63 94 L 01/27/22 04:00 01/27/22 04:00 01/27/22 04:00 01/27/22 04:00 01/27/22 04:00 no acute distress - *Routine HEENT Exam Head: Present: normocephalic Eye: Present: EOMI, PERRL ENT: Present: mucous membranes moist - *Routine Neck Exam Present: supple - *Routine Respiratory Exam Present: decreased breath sounds Comments: Patient's lung exam is at baseline given her significant fibrosis - *Routine Cardiovascular Exam Present: RRR - *Routine Abdominal Exam Present: soft, normoactive bowel sounds, tenderness Comments: Very minimal tenderness to the left lower quadrant but no rebound or guarding. Vastly improved over admission exam - *Routine Extremities Exam Absent: cyanosis, clubbing, edema - *Routine Skin Exam Present: warm. Absent: rash - Detailed Eye Exam Eyelids: Bilateral normal inspection Results Labs on day of discharge: Labs from last 24 hours 01/25/22 13:11 Urine Color Yellow Urine Appearance Clear Urine pH 6.5 Ur Specific [place] <= 1.005 Urine Protein Negative Urine Glucose (UA) Negative Urine Ketones Negative Urine Blood Negative Urine Nitrate Positive Urine Bilirubin Negative Urine Urobilinogen 0.2 Ur Leukocyte Esterase 2+ A Urine RBC None Urine WBC 10-20 Ur Squamous Epith Cells Occasional Urine Bacteria 3+ Preliminary micro results at discharge 01/25/22 11:56 Blood Culture - Preliminary Blood DS: Diagnosis - Discharge Diagnosis (1) Left lower quadrant abdominal pain Status: Resolved (2) GI bleeding Status: Acute (3) Pulmonary fibrosis Status: Chronic (4) Colitis Status: Acute Discharge Plan - Patient Discharge Instructions ACTIVITY: Continue current activity DIET: other (Low residue diet) Patient Instructions: DI for Urinary Tract Infection (UTI), DI for Gastrointestinal Bleeding, DI for Colitis - Follow up Plan Follow up with: Eber Rubalcava MD [Primary Care Provider] - 02/01/22 Disposition: Home, Self-Care Condition at discharge:: Improved Home Medications: Home Medications Medication Instructions Recorded Confirmed Type levothyroxine 50 mcg capsule 50 mcg PO DAILY 01/07/19 01/25/22 History Omeprazole [Omeprazole 40mg 40 mg PO SHERRY
--- NOTE | 2022-01-27 10:01 | DIET.NUTRFU ---
patient discharging home today on low residue diet, will provide and review handout
--- NOTE | 2022-01-30 11:42 | CARE MANAGER ---
Contacted patient related to discharge from hospital. Patient states she is feeling better. Her abdomen is not bothering her and her bowel movements though frequent today have been better. She picked up her steroids and other medications and denies any questions or concerns at t his time. She is aware of her MD appointment on Sunday.
== END 2022-01-27 09:58 | disposition home or self-care (01) ==
PROVIDERS: Admitting Provider Internal Medicine Adolescent Medicine; PCP Internal Medicine Adolescent Medicine; Visit Provider Internal Medicine Adolescent Medicine
DX: K92.2 Gastrointestinal hemorrhage, unspecified (principal); J84.10 Pulmonary fibrosis, unspecified; K52.9 Noninfective gastroenteritis and colitis, unspecified; K21.9 Gastro-esophageal reflux disease without esophagitis; I10 Essential (primary) hypertension; Z95.0 Presence of cardiac pacemaker; Z79.899 Other long term (current) drug therapy
CPT/HCPCS: G0378; G0379; 36415; 71045; 74177; 80048; 80053; 81001; 82150; 83605; 83690; 83735; 85025; 87040; 87077; 87086; 87088; 87186; 87507; 93005; C9803; J1956; Q9967; U0003; U0005

== ENCOUNTER → 2022-03-15 06:45 | Outpatient (CLI) | payer MEDICARE, SELFPAY | PROVIDERS: PCP Internal Medicine Adolescent Medicine; Visit Provider Surgery | DX: Z01.812 Encounter for preprocedural laboratory examination (principal); Z20.822 Contact with and (suspected) exposure to COVID-19; Z12.11 Encounter for screening for malignant neoplasm of colon | CPT/HCPCS: C9803; U0003; U0005 ==

== ENCOUNTER 2022-03-17 09:17 | Day surgery (SDC) | payer MEDICARE, SELFPAY ==
[2022-03-15 10:43] VITALS: BMI 26.6
[2022-03-17 09:42] VITALS: BP 134/89; PULSE 83; RESP 17; TEMP 36.7; O2SAT 96
--- NOTE | 2022-03-17 09:56 | P.PN_ITS ---
[facility] Anesthesia Checklist - Patient Identification Patient Identification: Arm Band - Structural Data Admitted From: Home Planned Operative Procedure/s: Colonoscopy Consent for Planned Operative Procedure(s) Verified: Yes - NPO Status Verified Time NPO: 00:00 - Additional verifications Anesthesia Reactions: No Hx Blood Transfusions: No Blood Transfusion Reaction: No - Airway Assessment C-Spine Mobility Assessed: Yes TMJ Mobility Assessed: Yes Dentition: Edentulous - Neurological Assessment Level of Consciousness: Awake Hx Seizures: Yes Numbness or tingling in extremities: No - Anesthesia Plan Anesthesia Risk discussed: Yes Anesthesia Plan: Verified ASA Class: III Anesthesia Type: MAC [facility] History I have reviewed the patient's past medical history: Yes Medical History: Reports:: Arrhythmia, Gastroesophageal Reflux Disease(GERD), Hyperlipidemia, Hypertension, Lung Disease, Osteoporosis Denies:: Cancer, Diabetes Mellitus Type 1, Diabetes Mellitus Type 2, Internal Pacemaker, MRSA, Seizures *Have you ever received a pneumonia vaccine?: Yes *Have you received a flu vaccine this season?: Yes Other Medical History: Reports: Arthritis, Hypothyroidism, Osteoporosis, Other (Pulmonary fibrosis). Denies: Blood Transfusion Reaction Anesthesia experience/problems:: None Other Surgeries: Yes: Colonoscopy, Hysterectomy-Total, Other. No: Pacemaker Amputation: No Fractures: No - *Social History Last grade of school completed: High school graduate Smoking Status: Never smoker Alcohol Intake: never Alcohol Intake Frequency:: other Substance Use Type: denies use *Occupational Status:: retired Housing: house Household Members: family *Travel in the last 8 weeks: None Family Hx:: Cancer, Diabetes, Heart Attack, Hypertension
[2022-03-17 09:57] VITALS: O2SAT 96
--- NOTE | 2022-03-17 10:38 | HMH.SCOPE ---
- Procedure: Date: 03/17/22 Patient Date of :: 1945 Procedure Performed:: Total colonoscopy to terminal ileum with biopsies and polypectomy using snare Indications:: Patient is a 77-year-old female referred by a Dr. Eber Rubalcava for colonoscopy. She states that she had awoken with sickness . She describes nausea and bloating. She then developed some rectal bleeding. She underwent brief hospital stay on 01/25 - 01/27/2022. She underwent a CT scan of the abdomen and pelvis on 01/25/2022 which revealed findings of sigmoid colitis. She states that she had been treated with antibiotics. She did have urine culture positive for Klebsiella. It appears as though she had been on levofloxacin. She had a stool diarrhea panel which was negative for infectious etiology. Her symptoms had improved but she does describe some bilateral lower quadrant discomfort persisting. She is also noticed some black stool. Her last colonoscopy was about 10 or 11 years ago. Of note, she is accompanied by her sister who had had a colonoscopy and states that she had 38 polyps removed. It was advised that all of the family members undergo colonoscopy. Plan was made for colonoscopy. Of note, she continues to have some lower abdominal pain. Performing Provider:: Walter Kong MD Referring Provider:: Eber Rubalcava MD Sedation:: MAC sedation Procedure:: Patient was taken to endoscopy procedure room. She was positioned in lateral decubitus position. Adequate intravenous sedation was achieved with anesthesia titration of propofol. Variable stiffness Olympus colonoscope was inserted via the anus. Was advanced to the cecum. Overall colonic preparation was good. There was some particulate liquid stool and undigested food matter in the right colon but this was able to be cleared. Ileocecal valve and appendiceal orifice were identified. Colonoscope was advanced short distance into the terminal ileum which appeared grossly normal. Colonoscope was slowly withdrawn through the colon with careful surveillance. Overall colon appeared unremarkable. Numerous descending and sigmoid colon biopsies were obtained to assess for microscopic colitis. Overall appearance appeared relatively unremarkable however. At the rectosigmoid region there was a small approximately 3-4 mm polyp removed with cold snare. Retroflexion within the rectum revealed nonbleeding internal hemorrhoids. Colonoscope was withdrawn. Findings:: Tiny diminutive polyp at the rectosigmoid region removed with cold snare No evidence of any colitis Recommendations:: Follow-up colonoscopy pending pathology. Unclear as to the etiology of the patient's symptoms. However, assess for possible microscopic colitis. Complications:: Not immediately apparent Estimated blood obtained (mL): 2
[2022-03-17 10:50] VITALS: BP 108/60; PULSE 65; RESP 18; O2SAT 94
[2022-03-17 10:57] VITALS: BP 93/57; PULSE 84; RESP 18; TEMP 36.6; O2SAT 95
[2022-03-17 11:05] VITALS: BP 108/58; PULSE 73; RESP 18; O2SAT 96
== END 2022-03-17 11:05 | disposition home or self-care (01) ==
LOC: OUTP 09:18
PROVIDERS: PCP Internal Medicine Adolescent Medicine; Visit Provider Surgery
PROC: 0DJD8ZZ Inspection of Lower Intestinal Tract, Via Natural or Artificial Opening Endoscopic (ICD-10-PCS; principal; 2022-03-17 10:30)
DX: Z12.11 Encounter for screening for malignant neoplasm of colon (principal); Z83.71 Family history of colonic polyps; K21.9 Gastro-esophageal reflux disease without esophagitis; E78.5 Hyperlipidemia, unspecified; I10 Essential (primary) hypertension; M81.0 Age-related osteoporosis without current pathological fracture; J98.4 Other disorders of lung; I49.9 Cardiac arrhythmia, unspecified; K63.5 Polyp of colon
CPT/HCPCS: 45380; 45385; 88305

== ENCOUNTER → 2022-06-13 07:38 | Outpatient (CLI) | payer MEDICARE, SELFPAY | PROVIDERS: PCP Internal Medicine Adolescent Medicine; Visit Provider Internal Medicine Pulmonary Disease | DX: R06.00 Dyspnea, unspecified (principal) | CPT/HCPCS: 94060; 94618; 94726; 94729 ==

== ENCOUNTER 2023-02-12 10:00 | Observation (INO) | payer MEDICARE, SELFPAY ==
[2023-02-12] VITALS (8 sets, daily range): BP systolic 112–152; BP diastolic 61–82; PULSE 64–92; RESP 16–32; TEMP 36.5–37.3; O2SAT 93–98; BMI 22.5
--- NOTE | 2023-02-12 10:14 | PC.NURSE ---
arrived to floor by w/c from admissions
--- NOTE | 2023-02-12 10:16 | XR_ITS ---
FINAL REPORT CLINICAL HISTORY: tachypnea COMPARISON: 01/25/2022 FINDINGS: PA and lateral views of the chest were obtained. The heart and mediastinum are stable. There are chronic bilateral upper lobe opacities with bronchiectasis. Left basilar opacity is slightly worse. Chronic increased interstitial markings. There is no pleural effusion or pneumothorax. No acute osseous abnormality is identified. IMPRESSION: Slight worsening left basilar opacity, atelectasis versus pneumonia. Extensive chronic findings which otherwise appear stable. Reviewed, Interpreted and Dictated by Genoveva Garcia MD Transcribed by Yashira Louise Authenticated and [facility]
--- NOTE | 2023-02-12 10:19 | CT_ITS ---
FINAL REPORT TECHNIQUE: Thin section axial images are obtained through the abdomen and pelvis. Oral contrast was administered. Reconstruction images were obtained from the axial data. Exam was performed using dose reduction techniques. CLINICAL HISTORY: abd pain COMPARISON: 01/25/2022 FINDINGS: LUNG BASES: Emphysema is noted. There is worsening airspace disease in the left lung. Pneumonia is not excluded. Heart size is normal. LIVER: Unenhanced liver is without acute abnormality. No focal lesion. GALLBLADDER/BILIARY SYSTEM: Gallbladder is mildly distended. No gallstones. No biliary dilatation. SPLEEN: Unremarkable. PANCREAS: Unremarkable. ADRENALS: Unremarkable. SYSTEM: No obstructing renal or ureteral stone. No hydronephrosis. Unremarkable urinary bladder. Bladder stimulator is present. Pelvic organs are unremarkable for age. GI TRACT: No small bowel obstruction or dilatation. The appendix is not visualized. No acute colon abnormality. LYMPH NODES/RETROPERITONEUM/MESENTERY: No lymphadenopathy. No abdominal aortic aneurysm. OTHER: No ascites. Remaining soft tissues without acute abnormality. BONES: No acute osseous abnormality. Mild compression deformity of T12 is favored to be chronic. IMPRESSION: Worsening airspace disease left lung concerning for pneumonia. No renal or ureteral stones. No acute GI tract abnormality. Reviewed, Interpreted and Dictated by Genoveva Garcia MD Transcribed by Yashira Louise Authenticated and . [facility]
--- NOTE | 2023-02-12 10:19 | HMH.PHAINT1 ---
Pharmacy Intervention Comments: MEDICATION RECONCILIATION COMPLETED ON PATIENT USING EXTERNAL FILL HISTORY FROM PHARMACY AND LIST FROM PULMONOLOGY OFFICE. -TALHA SERRANOD
--- NOTE | 2023-02-12 10:32 | ECG_ITS ---
APPROVED REPORT Exam: Resting ECG HR:83 bpm ECG Measurements Heart Rate 83 AXES [place] 153 P 58 QRSd 84 QRS 33 QT 367 T 1 QTc 406 Conclusion SINUS RHYTHM LEFT VENTRICULAR HYPERTROPHY AND ST-T CHANGE [VOLTAGE CRITERIA PLUS ST/T ABNORMALITY] ABNORMAL ECG UNCONFIRMED REPORT Electronically signed by : Eber Rubalcava MD 02/12/2023 21:25:25
[2023-02-12 10:47] LABS: Basophils # 0.1 K/mm3 (0-0.2); Basophils % 0.8 % (0.1-2.0); Eosinophils # 0.5 K/mm3 (0.0-0.4); Eosinophils % 4.6 % (0.1-12.0); Hematocrit 44.6 % (37.0-47.0); Hemoglobin 14.2 g/dL (12.2-16.2); Lymphocytes # 1.9 K/mm3 (0.7-4.5); Lymphocytes % 16.8 % (10-50); Mean Corpuscular HGB Conc 31.8 g/dL (31.8-35.4); Mean Corpuscular Hemoglobin 28.1 pg (27.0-31.2); Mean Corpuscular Volume 88.4 fl (81-99); Mean Platelet Volume 8.1 fl (7.4-10.4); Monocytes # 0.6 K/mm3 (0.1-1.0); Neutrophils # 8.2 K/mm3 (1.8-7.8); Platelet Count 368 K/mm3 (142-424); Red Blood Count 5.05 M/mm3 (4.20-5.40); White Blood Count 11.2 K/mm3 (4.8-10.8)
[2023-02-12 10:52] LABS: Chloride 98 mmol/L (98-107); Potassium 3.3 mmoL/L (3.5-5.1); Sodium 138 mmol/L (136-145)
[2023-02-12 10:54] LABS: Amylase 104 U/L (30-110); Lipase 57 U/L (23-300)
[2023-02-12 10:55] LABS: Alanine Aminotransferase 17 U/L (12-78); Albumin Level 3.9 g/dl (3.5-5.0); Alkaline Phosphatase 97 U/L (38-126); Anion Gap 12.3 mEq/L (5-15); Aspartate Amino Transferase 31 U/L (14-36); Bilirubin,Total 0.5 mg/dl (0.2-1.3); Blood Urea Nitrogen 19 mg/dl (7-17); Carbon Dioxide 31 mmol/L (22.0-30.0); Creatinine Clearance Estimated 41 mL/min (50-200); Estimated Glomerular Filt Rate 69 ml/min (>60); GFR (African American) 84 ML/MIN (>60); Globulin 3.9 g/dL (1.3-3.2); Glucose 107 mg/dl (74-100); Magnesium 2.1 mg/dl (1.6-2.3); Total Protein,Serum 7.8 g/dl (6.3-8.2)
[2023-02-12 11:13] LABS: Troponin I < 0.01 ng/ml (0.00-0.034)
--- NOTE | 2023-02-12 12:56 | EXP.PULM.CON ---
History of Present Illness History of present illness: Ms. Denny is a 78-year-old female history of persistent asthma, bronchiectasis, left upper lobe cavitary lesion, restrictive lung disease secondary to Macrobid exposure relatively stable was being admitted to the hospital by Dr. Rubalcava as patient complaining of epigastric pain was also found to be tachypneic and pulmonary was called for further evaluation. [facility] Disclaimer: The information contained in this section may have been updated after the patient was seen, as this information can be updated by other users. Medical History (Updated 02/12/23 @ 15:32 by Franklin Barlow MD) Acute respiratory failure with hypoxia Allergic rhinitis Allergic rhinitis Asthma Bronchiectasis Cavitary lesion of lung Dyspnea on exertion Dyspnea on exertion History of sleep apnea Mild persistent asthma Pneumonia Pulmonary fibrosis Pulmonary hypertension Restrictive lung disease Shortness of breath Surgical History No history of previous surgery Family History Brother COPD (chronic obstructive pulmonary disease) Lung disease Sister COPD (chronic obstructive pulmonary disease) Social History (Updated 02/12/23 @ 10:30 by Bree Vang, RN) Smoking Status: Never smoker alcohol intake: never substance use type: denies use current occupational status: retired Travel in the last 8 weeks: None household members: family housing: house current occupational exposures/hazards: No caffeine: No Review of Systems Constitutional Constitutional: Reports anorexia, Reports body ache(s) and Denies fatigue Eyes Eyes: Denies eye discharge, Denies dry eyes, Denies irritation and Denies itchy eyes ENT Ears, Nose, Mouth, and Throat: Denies epistaxis, Denies facial pain, Denies lip swelling and Denies throat swelling *Cardiovascular Cardiovascular: Reports dyspnea and Reports dyspnea on exertion *Respiratory Respiratory: Denies chest congestion, Denies cough, Reports dyspnea, Reports dyspnea on exertion, Denies excessive phlegm production, Denies hemoptysis, Denies pain with cough and Denies wheezing *Gastrointestinal Gastrointestinal: Reports abdominal pain and Reports cramping *Musculoskeletal Musculoskeletal: Denies back pain and Denies myalgias Psychiatric Psychiatric: Denies homicidal ideation and Denies suicidal ideation Endocrine Endocrine: Denies fatigue and Denies heat intolerance Hematologic/Lymphatic Hematologic/Lymphatic: Denies easy bleeding and Denies lymphadenopathy Allergic/Immunologic Allergic/Immunologic: Denies itchy eyes, Denies lip swelling, Denies throat swelling and Denies wheezing Pulmonology Exam Inpatient Vital signs and Labs for Last 24 Hours: Temp Pulse Resp BP Pulse Ox 97.7 F 83 20 152/82 H 96 02/12/23 11:25 02/12/23 11:25 02/12/23 11:25 02/12/23 11:25 02/12/23 11:25 Laboratory Results - last 24 hr 02/12/23 10:30: WBC 11.2 H, RBC 5.05, Hgb 14.2, Hct 44.6, MCV 88.4, MCH 28.1, MCHC 31.8, RDW 14.0, Plt Count 368, MPV 8.1, Neut % (Auto) 73.0, Lymph % (Auto) 16.8, [place] % (Auto) 5.0, Eos % (Auto) 4.6, Baso % (Auto) 0.8, Neut # (Auto) 8.2 H, Lymph # (Auto) 1.9, [place] # (Auto) 0.6, Eos # (Auto) 0.5 H, Baso # (Auto) 0.1 02/12/23 10:30: Sodium 138, Potassium 3.3 L, Chloride 98, Carbon Dioxide 31 H, Anion Gap 12.3, BUN 19 H, Creatinine 0.80, Estimated Creat Clear 41, Estimated GFR 69, Est GFR ( Amer) 84, Glucose 107 H, Calcium 9.0, Magnesium 2.1, Total Bilirubin 0.5, AST 31, ALT 17, Alkaline Phosphatase 97, Total Protein 7.8, Albumin 3.9, Globulin 3.9 H, Albumin/Globulin Ratio 1.0 L 02/12/23 10:30: Troponin I < 0.01, Amylase 104 02/12/23 10:30: Lipase 57 I & O for Labs for Last 24 Hours: Intake & Output 02/09/23 02/10/23 02/11/23 02/12/23 23:59 23:59 23:59 23:59 Weight 123 lb 6 oz Constitutional: Present moderate distress H
--- NOTE | 2023-02-12 14:33 | PC.NURSE ---
unsuccessful with multiple iv attempts. notified jesse. verbal order for midline, and okay for rad to do ct with po contrast only.
--- NOTE | 2023-02-12 18:51 | PC.NURSE ---
crackles heard in yoni lungs, this is pts baseline. 2l o2 via nc. pt has abd pain only when moving/ambulating. pain meds admin. midline in lue. cb within reach, pt currently eating supper. no problems at time.
--- NOTE | 2023-02-12 21:11 | EXP.HP ---
History of Present Illness *Admission Date: 02/12/23 *Reason for visit:: Abdominal pain *History of present illness: 78-year-old female with history of chronic pulmonary fibrosis from a Macrodantin administration many years ago, who was in her normal state of health until about 2 to 3 weeks ago when she began to have significant abdominal pain. It comes and goes and kind of a colicky nature across the upper part of her abdomen. She has been at home trying to help herself with warm compresses and limiting her food intake, but the pain became intolerable and she came to my office today. In the office she was tachypneic because of pain, tachycardic and had tenderness on her abdominal exam. Because of her weight loss and evidence of dehydration and length of her pain I admitted her to the hospital for further evaluation, diagnostic testing and labs. Pertinent history includes no fever. She has had no stigmata of blood in her stool and has had no vomiting. She has reported some slight loosening of her stool but denies actual diarrhea. No ill contacts. [facility] Disclaimer: The information contained in this section may have been updated after the patient was seen, as this information can be updated by other users. Medical History (Updated 02/12/23 @ 21:15 by Eber Rubalcava MD) Acute respiratory failure with hypoxia Allergic rhinitis Allergic rhinitis Asthma Bronchiectasis Cavitary lesion of lung Dyspnea on exertion Dyspnea on exertion History of sleep apnea Mild persistent asthma Pneumonia Pulmonary fibrosis Pulmonary hypertension Restrictive lung disease Shortness of breath Surgical History No history of previous surgery Family History Brother COPD (chronic obstructive pulmonary disease) Lung disease Sister COPD (chronic obstructive pulmonary disease) Social History (Updated 02/12/23 @ 10:30 by Bree Vang RN) Smoking Status: Never smoker alcohol intake: never substance use type: denies use current occupational status: retired Travel in the last 8 weeks: None household members: family housing: house current occupational exposures/hazards: No caffeine: No Review of Systems Review of Systems Review of systems:: pertinent systems reviewed and negative unless documented below Meds Home Medications and Allergies Home Medications Medication Instructions Recorded Confirmed Type oxybutynin chloride 5 mg tablet 5 mg PO BID overactive bladder 10/17/19 02/12/23 History aspirin 81 mg tablet,delayed 81 mg PO DAILY heart health 04/28/20 02/12/23 History release (Adult Low Dose Aspirin) hydrochlorothiazide 12.5 mg tablet 12.5 mg PO DAILY Fluid 01/12/21 02/12/23 History cholecalciferol (vitamin D3) 25 1,000 units PO DAILY Supplement 02/16/21 02/12/23 History mcg (1,000 unit) capsule cyanocobalamin (vitamin B-12) 2,500 mcg PO DAILY Supplement 02/16/21 02/12/23 History 2,500 mcg tablet albuterol sulfate 90 mcg/actuation 1 puff inhalation Q6HP PRN 01/25/22 02/12/23 History aerosol inhaler Shortness Of Breath budesonide-formoterol HFA 160 2 puff inhalation BID Breathing 02/12/23 02/12/23 History mcg-4.5 mcg/actuation aerosol problems inhaler (Symbicort) fluticasone propionate 50 2 spray intranasal DAILY Allergy 02/12/23 02/12/23 History mcg/actuation nasal symptoms spray,suspension (Flonase Allergy Relief) levothyroxine 75 mcg tablet 75 mcg PO DAILY THYROID 02/12/23 02/12/23 History montelukast 10 mg tablet 10 mg PO PM Allergy symptoms 02/12/23 02/12/23 History New Prescriptions to Start Prescriptions: Allergies Allergy/AdvReac Type Severity Reaction Status Date / Time nitrofurantoin Allergy Unknown Unknown Verified 12/13/22 10:00 [From MACROBID] allergy reaction Exam Data for Last 24 hours Vital signs and Labs for Last 24 Hours: Temp Puls
[2023-02-13] VITALS (11 sets, daily range): BP systolic 105–140; BP diastolic 51–69; PULSE 71–109; RESP 16–28; TEMP 36.4–37.1; O2SAT 90–98; BMI 22.6
--- NOTE | 2023-02-13 00:30 | PC.NURSE ---
Pt made aware of need for sputum sample. Specimen cup left on bedside table at this time.
[2023-02-13 05:28] LABS: Microscopic, Urine URINE MICROSCOPIC (MICROSCOPIC)
[2023-02-13 05:31] LABS: Appearance,Urine CLEAR (Clear); Bilirubin,Urine Negative (Negative); Blood, Urine Negative (Negative); Color,Urine YELLOW (Yellow); Glucose,Urine (UA) Negative (Negative); Ketones,Urine Negative (Negative); Leukocyte Esterase,Urine Negative (Negative); Nitrate,Urine Negative (Negative); PH,Urine 5.5 (5.0-8.5); Protein,Urine Negative (Negative); Specific Gravity, Urine >= 1.030 (1.005-1.030); Urobilinogen,Urine 0.2 EU/dl (0.2)
[2023-02-13 05:51] LABS: Bacteria,Urine 1+ /lpf; Mucus,Urine 1+ /lpf; Squamous Epithelial Cell,Urine Occasional #/hpf (0-5)
[2023-02-13 06:42] LABS: Basophils # 0.1 K/mm3 (0-0.2); Eosinophils # 0.5 K/mm3 (0.0-0.4); Monocytes # 0.6 K/mm3 (0.1-1.0); Red Cell Distribution Width 13.7 % (11.5-17.5)
--- NOTE | 2023-02-13 06:44 | PC.NURSE ---
Pt has c/o of pain 1x un upper abdomen and left flank, worse with movement, and nausea 1x t/o shift, prn meds administered. Pt stated favorable results. Tolerating 1 L nc well with sats >90%. Pt has been awake in bed watching tv t/o night. Ambulated to with 1x assist. Urine specimen sent to lab. Call light within reach.
[2023-02-13 06:47] LABS: Basophils % 0.7 % (0.1-2.0); Eosinophils % 5.4 % (0.1-12.0); Hematocrit 33.9 % (37.0-47.0); Lymphocytes # 1.3 K/mm3 (0.7-4.5); Lymphocytes % 14.9 % (10-50); Mean Corpuscular Hemoglobin 28.5 pg (27.0-31.2); Mean Platelet Volume 6.9 fl (7.4-10.4); Monocytes % 6.8 % (1.7-9.3); Neutrophils # 6.5 K/mm3 (1.8-7.8); Neutrophils % 72.2 % (37.0-80.0); Platelet Count 269 K/mm3 (142-424); Red Blood Count 3.81 M/mm3 (4.20-5.40)
[2023-02-13 06:50] LABS: Chloride 102 mmol/L (98-107); Hemoglobin 10.8 g/dL (12.2-16.2)
[2023-02-13 06:51] LABS: Sodium 140 mmol/L (136-145)
[2023-02-13 06:53] LABS: Alanine Aminotransferase 16 U/L (12-78); Alkaline Phosphatase 66 U/L (38-126); Aspartate Amino Transferase 23 U/L (14-36); Bilirubin,Total 0.2 mg/dl (0.2-1.3); Blood Urea Nitrogen 17 mg/dl (7-17); Calcium 7.9 mg/dl (8.4-10.2); Carbon Dioxide 33 mmol/L (22.0-30.0); Creatinine Clearance Estimated 41 mL/min (50-200); Estimated Glomerular Filt Rate 81 ml/min (>60); GFR (African American) 98 ML/MIN (>60); Glucose 117 mg/dl (74-100)
[2023-02-13 06:54] LABS: Albumin Level 2.9 g/dl (3.5-5.0); Total Protein,Serum 5.9 g/dl (6.3-8.2)
--- NOTE | 2023-02-13 08:02 | EXP.ACUTE.PN ---
Subjective *Date: 02/13/23 *Time: 08:02 Interval history: Patient feels a little better than yesterday. Pulmonary note reviewed and appreciated. She notes that morphine has significantly helped her pain but I do not want morphine anymore. Does feel little hungry today. Talking to her little bit more about her pain, she notes that it does feel very similar to January when she had an episode of sigmoid colitis. Medical Exam Vital signs and Labs for Last 24 Hours: Vital Signs Temp Pulse Pulse Resp BP BP Pulse Ox 02/13/23 07:45 97.6 F 86 16 126/55 L 98 02/13/23 06:30 90 02/13/23 06:30 88 02/13/23 06:30 92 L 02/13/23 04:53 28 H 02/12/23 20:25 32 H 02/13/23 04:00 98.0 F 90 20 105/58 L 93 L 02/13/23 00:14 97.7 F 83 20 105/51 L 94 L 02/12/23 23:13 81 02/12/23 23:13 77 02/12/23 20:20 93 L 02/12/23 19:46 99.1 F 92 H 16 112/61 98 02/12/23 17:29 66 02/12/23 17:29 70 02/12/23 17:29 94 L 02/12/23 16:00 97.8 F 64 16 134/70 94 L 02/12/23 11:25 97.7 F 83 20 152/82 H 96 02/12/23 10:27 97.7 F 90 24 143/81 H 98 Intake and Output 02/12/23 02/13/23 02/13/23 19:59 03:59 11:59 Output Total 0 / 450 450 / 450 Balance 0 / -450 -450 / -450 Output: Output, Urine Amount 0 / 450 450 / 450 Other: Number of Unmeasured Voids 1 Number of Bowel Movements 1 Weight 123 lb 6.4 oz Patient Weight 02/13/23 11:59 Weight 123 lb 6.4 oz Laboratory Results - last 24 hr 02/12/23 10:30: WBC 11.2 H, RBC 5.05, Hgb 14.2, Hct 44.6, MCV 88.4, MCH 28.1, MCHC 31.8, RDW 14.0, Plt Count 368, MPV 8.1, Neut % (Auto) 73.0, Lymph % (Auto) 16.8, [place] % (Auto) 5.0, Eos % (Auto) 4.6, Baso % (Auto) 0.8, Neut # (Auto) 8.2 H, Lymph # (Auto) 1.9, [place] # (Auto) 0.6, Eos # (Auto) 0.5 H, Baso # (Auto) 0.1 02/12/23 10:30: Sodium 138, Potassium 3.3 L, Chloride 98, Carbon Dioxide 31 H, Anion Gap 12.3, BUN 19 H, Creatinine 0.80, Estimated Creat Clear 41, Estimated GFR 69, Est GFR ( Amer) 84, Glucose 107 H, Calcium 9.0, Magnesium 2.1, Total Bilirubin 0.5, AST 31, ALT 17, Alkaline Phosphatase 97, Total Protein 7.8, Albumin 3.9, Globulin 3.9 H, Albumin/Globulin Ratio 1.0 L 02/12/23 10:30: Troponin I < 0.01, Amylase 104 02/12/23 10:30: Lipase 57 02/13/23 04:33: Urine Color Yellow, Urine Appearance Clear, Urine pH 5.5, Ur Specific [place] >= 1.030, Urine Protein Negative, Urine Glucose (UA) Negative, Urine Ketones Negative, Urine Blood Negative, Urine Nitrate Negative, Urine Bilirubin Negative, Urine Urobilinogen 0.2, Ur Leukocyte Esterase Negative, Urine WBC 3-5, Ur Squamous Epith Cells Occasional, Urine Bacteria 1+, Urine Mucus 1+ 02/13/23 06:26: WBC 9.0, RBC 3.81 L, Hgb 10.8 L D, Hct 33.9 L, MCV 89.0, MCH 28.5, MCHC 32.0, RDW 13.7, Plt Count 269 D, MPV 6.9 L, Neut % (Auto) 72.2, Lymph % (Auto) 14.9, [place] % (Auto) 6.8, Eos % (Auto) 5.4, Baso % (Auto) 0.7, Neut # (Auto) 6.5, Lymph # (Auto) 1.3, [place] # (Auto) 0.6, Eos # (Auto) 0.5 H, Baso # (Auto) 0.1 02/13/23 06:26: Sodium 140, Potassium 4.0 D, Chloride 102, Carbon Dioxide 33 H, Anion Gap 9.0, BUN 17, Creatinine 0.70, Estimated Creat Clear 41, Estimated GFR 81, Est GFR ( Amer) 98, Glucose 117 H, Calcium 7.9 L, Total Bilirubin 0.2, AST 23 D, ALT 16, Alkaline Phosphatase 66, Total Protein 5.9 L, Albumin 2.9 L D, Globulin 3.0, Albumin/Globulin Ratio 1.0 L I & O for Labs for Last 24 Hours: Intake & Output 02/10/23 02/11/23 02/12/23 02/13/23 11:59 11:59 11:59 11:59 Output Total 450 / 450 Balance -450 / -450 Weight 123 lb 6 oz 123 lb 6.4 oz Comment:: Alert, pleasant. Rhonchorous lung sounds with fibrotic changes but at baseline. Heart rate regular. Abdomen is soft, much less tender than yesterday. No edema. Neurologically intact, less tachypneic as her pain is improved. Assessment and Plan *Assessment and plan (1) Left lower quadrant abdominal pain
--- NOTE | 2023-02-13 09:41 | EXP.PULM.PN ---
Subjective *Date: 02/13/23 *Time: 11:29 Interval history: No acute respiratory vents overnight. Patient weaned to room air this morning. Continue to complain of abdominal pain. Pulmonology Exam Inpatient Vital signs and Labs for Last 24 Hours: Temp Pulse Resp BP Pulse Ox 97.6 F 86 16 126/55 L 98 02/13/23 07:45 02/13/23 07:45 02/13/23 07:45 02/13/23 07:45 02/13/23 07:45 Laboratory Results - last 24 hr 02/12/23 10:30: WBC 11.2 H, RBC 5.05, Hgb 14.2, Hct 44.6, MCV 88.4, MCH 28.1, MCHC 31.8, RDW 14.0, Plt Count 368, MPV 8.1, Neut % (Auto) 73.0, Lymph % (Auto) 16.8, [place] % (Auto) 5.0, Eos % (Auto) 4.6, Baso % (Auto) 0.8, Neut # (Auto) 8.2 H, Lymph # (Auto) 1.9, [place] # (Auto) 0.6, Eos # (Auto) 0.5 H, Baso # (Auto) 0.1 02/12/23 10:30: Sodium 138, Potassium 3.3 L, Chloride 98, Carbon Dioxide 31 H, Anion Gap 12.3, BUN 19 H, Creatinine 0.80, Estimated Creat Clear 41, Estimated GFR 69, Est GFR ( Amer) 84, Glucose 107 H, Calcium 9.0, Magnesium 2.1, Total Bilirubin 0.5, AST 31, ALT 17, Alkaline Phosphatase 97, Total Protein 7.8, Albumin 3.9, Globulin 3.9 H, Albumin/Globulin Ratio 1.0 L 02/12/23 10:30: Troponin I < 0.01, Amylase 104 02/12/23 10:30: Lipase 57 02/13/23 04:33: Urine Color Yellow, Urine Appearance Clear, Urine pH 5.5, Ur Specific [place] >= 1.030, Urine Protein Negative, Urine Glucose (UA) Negative, Urine Ketones Negative, Urine Blood Negative, Urine Nitrate Negative, Urine Bilirubin Negative, Urine Urobilinogen 0.2, Ur Leukocyte Esterase Negative, Urine WBC 3-5, Ur Squamous Epith Cells Occasional, Urine Bacteria 1+, Urine Mucus 1+ 02/13/23 06:26: WBC 9.0, RBC 3.81 L, Hgb 10.8 L D, Hct 33.9 L, MCV 89.0, MCH 28.5, MCHC 32.0, RDW 13.7, Plt Count 269 D, MPV 6.9 L, Neut % (Auto) 72.2, Lymph % (Auto) 14.9, [place] % (Auto) 6.8, Eos % (Auto) 5.4, Baso % (Auto) 0.7, Neut # (Auto) 6.5, Lymph # (Auto) 1.3, [place] # (Auto) 0.6, Eos # (Auto) 0.5 H, Baso # (Auto) 0.1 02/13/23 06:26: Sodium 140, Potassium 4.0 D, Chloride 102, Carbon Dioxide 33 H, Anion Gap 9.0, BUN 17, Creatinine 0.70, Estimated Creat Clear 41, Estimated GFR 81, Est GFR ( Amer) 98, Glucose 117 H, Calcium 7.9 L, Total Bilirubin 0.2, AST 23 D, ALT 16, Alkaline Phosphatase 66, Total Protein 5.9 L, Albumin 2.9 L D, Globulin 3.0, Albumin/Globulin Ratio 1.0 L I & O for Labs for Last 24 Hours: Intake & Output 02/10/23 02/11/23 02/12/23 02/13/23 23:59 23:59 23:59 23:59 Intake Total 240 / 240 Output Total 0 / 0 450 / 450 Balance 0 / 0 -210 / -210 Weight 123 lb 6 oz 123 lb 6.4 oz Constitutional: Present moderate distress Head: Present normocephalic and atraumatic ENT: Present normal exam, normal oropharynx and mucous membranes moist Neck: Present normal inspection and full ROM Respiratory: Present rales, respiratory distress and able to speak in complete sentences; Absent rhonchi, wheezes, crackles or diminished air movement Cardiac: Present S1/S2, Tachycardia and radial pulses present GI: Present soft, distention, tenderness and guarding Comments:: Epigastric and LUQ tenderness and guarding noted. Rectal (female): Present deferred (female): Present deferred Skin: Present intact; Absent cyanosis or jaundice Neuro: Present alert, awake and oriented x 3 Extremities: Present normal inspection; Absent clubbing or cyanosis Psychiatric: Present normal affect and cooperative Assessment and Plan *Assessment and plan (1) Restrictive lung disease: Status: Acute Category: Medical Code(s): J98.4 - Other disorders of lung (2) Dyspnea on exertion: Status: Acute Category: Medical Code(s): R06.09 - Other forms of dyspnea (3) Pneumonia: Status: Acute Category: Medical Code(s): J18.9 - Pneumonia, unspecified organism (4) Acute respiratory failure with hypoxia: Status: Acute Category: Medical Code(s): J96.01 - Acute respiratory failure with hypoxia Plan Ms. Denny is a 78-year-old f
[2023-02-13 10:16] LABS: Influenza A, PCR Not Detected (NotDetected); Influenza B, PCR Not Detected (NotDetected)
[2023-02-13 11:01] LABS: Coronavirus 19, PCR Detected (NotDetected)
--- NOTE | 2023-02-13 12:39 | PC.NURSE ---
Dr. Rubalcava notified of patients Covid + status, patient placed in precautions, sign placed on door
--- NOTE | 2023-02-13 14:36 | EXP.SURG.CON ---
History of Present Illness *Admission Date: 02/12/23 *Reason for visit:: Abdominal pain; possible colitis *History of present illness: This is a 78-year-old female seen in consultation Dr. Rubalcava for evaluation of an abdominal pain and possible colitis. Over the past few weeks she has developed fairly significant abdominal pain of undetermined etiology. A recent CT scan without IV contrast revealed no definitive acute anomaly with regard to the gastrointestinal tract. She does have a history of colitis that was treated approximately 1 year ago. She states that her recent symptoms have been similar but not quite as bad as last time . Over the past few hours she has improved significantly and states that she currently has no abdominal pain. She has been placed on levofloxacin per the pulmonary service. Forwarded from history and physical: 78-year-old female with history of chronic pulmonary fibrosis from a Macrodantin administration many years ago, who was in her normal state of health until about 2 to 3 weeks ago when she began to have significant abdominal pain. It comes and goes and kind of a colicky nature across the upper part of her abdomen. She has been at home trying to help herself with warm compresses and limiting her food intake, but the pain became intolerable and she came to my office today. In the office she was tachypneic because of pain, tachycardic and had tenderness on her abdominal exam. Because of her weight loss and evidence of dehydration and length of her pain I admitted her to the hospital for further evaluation, diagnostic testing and labs. Pertinent history includes no fever. She has had no stigmata of blood in her stool and has had no vomiting. She has reported some slight loosening of her stool but denies actual diarrhea. No ill contacts. [facility] Disclaimer: The information contained in this section may have been updated after the patient was seen, as this information can be updated by other users. Medical History (Updated 02/12/23 @ 21:15 by Eber Rubalcava MD) Acute respiratory failure with hypoxia Allergic rhinitis Allergic rhinitis Asthma Bronchiectasis Cavitary lesion of lung Dyspnea on exertion Dyspnea on exertion History of sleep apnea Mild persistent asthma Pneumonia Pulmonary fibrosis Pulmonary hypertension Restrictive lung disease Shortness of breath Surgical History No history of previous surgery Family History Brother COPD (chronic obstructive pulmonary disease) Lung disease Sister COPD (chronic obstructive pulmonary disease) Social History (Updated 02/12/23 @ 10:30 by Bree Vang RN) Smoking Status: Never smoker alcohol intake: never substance use type: denies use current occupational status: retired Travel in the last 8 weeks: None household members: family housing: house current occupational exposures/hazards: No caffeine: No Meds Home Medications and Allergies Home Medications Medication Instructions Recorded Confirmed Type oxybutynin chloride 5 mg tablet 5 mg PO BID overactive bladder 10/17/19 02/12/23 History aspirin 81 mg tablet,delayed 81 mg PO DAILY heart health 04/28/20 02/12/23 History release (Adult Low Dose Aspirin) hydrochlorothiazide 12.5 mg tablet 12.5 mg PO DAILY Fluid 01/12/21 02/12/23 History cholecalciferol (vitamin D3) 25 1,000 units PO DAILY Supplement 02/16/21 02/12/23 History mcg (1,000 unit) capsule cyanocobalamin (vitamin B-12) 2,500 mcg PO DAILY Supplement 02/16/21 02/12/23 History 2,500 mcg tablet albuterol sulfate 90 mcg/actuation 1 puff inhalation Q6HP PRN 01/25/22 02/12/23 History aerosol inhaler Shortness Of Breath budesonide-formoterol HFA 160 2 puff inhalation BID Breathing 02/12/23 02/12/23 History mcg-4.5 mcg/actuation aerosol problems inhaler (Symbicort) fluticasone propionate 50 2 sp
--- NOTE | 2023-02-13 18:48 | PC.NURSE ---
pt has remained on room air t/o shift, no complaints of SOA, has not required pain medicine or nausea medication this shift, has ambulated to bathroom with standby assist
--- NOTE | 2023-02-13 20:09 | PC.NURSE ---
1900 PATIENTS O2 SAT DROPPED TO MID 70s GOING TO THE BR. AFTER REST, O2 SAT REMAINED AT 85%. 02 APPLIED AT 2LNC DUE TO LOW SAT AND C/O SOA. CRACKLES NOTED IN LEFT LUNG [place].
[2023-02-14] VITALS: BP 125/62; PULSE 86; RESP 20; TEMP 36.8; O2SAT 97
[2023-02-14 00:43] VITALS: PULSE 84; PULSE 87
--- NOTE | 2023-02-14 01:26 | PC.NURSE ---
RESTING QUIETLY IN BED. NO COMPLAINTS VOICED. 02 AT 2LNC.SATS 98-97%. SATS DROP QUICKLY WITH ACTIVITY. REMAINS ON CONTACT/[employer] [employer] DUE TO + COVID.
[2023-02-14 04:00] VITALS: BP 133/74; PULSE 80; RESP 20; TEMP 36.6; O2SAT 100; BMI 24.5
[2023-02-14 05:50] VITALS: PULSE 69; PULSE 72; O2SAT 99
[2023-02-14 06:28] LABS: Basophils % 0.2 % (0.1-2.0); Eosinophils % 0.1 % (0.1-12.0); Hematocrit 34.9 % (37.0-47.0); Hemoglobin 11.1 g/dL (12.2-16.2); Lymphocytes # 1.4 K/mm3 (0.7-4.5); Lymphocytes % 13.1 % (10-50); Mean Corpuscular HGB Conc 31.8 g/dL (31.8-35.4); Mean Corpuscular Hemoglobin 28.1 pg (27.0-31.2); Mean Corpuscular Volume 88.4 fl (81-99); Mean Platelet Volume 8.5 fl (7.4-10.4); Monocytes # 0.7 K/mm3 (0.1-1.0); Neutrophils # 8.7 K/mm3 (1.8-7.8); Neutrophils % 80.6 % (37.0-80.0); Platelet Count 333 K/mm3 (142-424); Red Blood Count 3.95 M/mm3 (4.20-5.40); Red Cell Distribution Width 13.8 % (11.5-17.5); White Blood Count 10.8 K/mm3 (4.8-10.8)
[2023-02-14 06:32] LABS: Chloride 105 mmol/L (98-107); Sodium 140 mmol/L (136-145)
[2023-02-14 06:33] LABS: Potassium 3.6 mmoL/L (3.5-5.1)
[2023-02-14 06:35] LABS: Alanine Aminotransferase 12 U/L (12-78); Alkaline Phosphatase 70 U/L (38-126); Anion Gap 7.6 mEq/L (5-15); Aspartate Amino Transferase 23 U/L (14-36); Bilirubin,Total 0.3 mg/dl (0.2-1.3); Blood Urea Nitrogen 11 mg/dl (7-17); Calcium 8.2 mg/dl (8.4-10.2); Carbon Dioxide 31 mmol/L (22.0-30.0); Creatinine Clearance Estimated 44 mL/min (50-200); Estimated Glomerular Filt Rate 97 ml/min (>60); GFR (African American) 117 ML/MIN (>60); Glucose 101 mg/dl (74-100)
[2023-02-14 06:36] LABS: Albumin Level 2.8 g/dl (3.5-5.0); Globulin 2.9 g/dL (1.3-3.2); Total Protein,Serum 5.7 g/dl (6.3-8.2)
[2023-02-14 07:27] VITALS: BP 126/62; PULSE 88; RESP 17; TEMP 37.1; O2SAT 97
[2023-02-14 07:57] VITALS: O2SAT 97
--- NOTE | 2023-02-14 08:05 | EXP.DC.SUM ---
General Admission date:: 02/12/23 Discharge date: 02/14/23 HPI HPI HPI: This is a 78-year-old female seen in consultation Dr. Rubalcava for evaluation of an abdominal pain and possible colitis. Over the past few weeks she has developed fairly significant abdominal pain of undetermined etiology. A recent CT scan without IV contrast revealed no definitive acute anomaly with regard to the gastrointestinal tract. She does have a history of colitis that was treated approximately 1 year ago. She states that her recent symptoms have been similar but not quite as bad as last time . Over the past few hours she has improved significantly and states that she currently has no abdominal pain. She has been placed on levofloxacin per the pulmonary service. Forwarded from history and physical: 78-year-old female with history of chronic pulmonary fibrosis from a Macrodantin administration many years ago, who was in her normal state of health until about 2 to 3 weeks ago when she began to have significant abdominal pain. It comes and goes and kind of a colicky nature across the upper part of her abdomen. She has been at home trying to help herself with warm compresses and limiting her food intake, but the pain became intolerable and she came to my office today. In the office she was tachypneic because of pain, tachycardic and had tenderness on her abdominal exam. Because of her weight loss and evidence of dehydration and length of her pain I admitted her to the hospital for further evaluation, diagnostic testing and labs. Pertinent history includes no fever. She has had no stigmata of blood in her stool and has had no vomiting. She has reported some slight loosening of her stool but denies actual diarrhea. No ill contacts. Hospital Course Hospital Course Hospital Course: Patient was admitted, labs were done to evaluate for possible pancreatitis or dehydration and these were reassuringly normal. CT scan of abdomen and pelvis was unremarkable per radiology read. Patient's clinical symptoms were consistent with sigmoid colitis and she had a diagnosis of this in late January based on CT scan and exam criteria from the ER visit. Pulmonary consultation was obtained because of her ongoing fibrosis and her tachypnea. Pulmonary felt that her tachypnea was from her pains response but did start levofloxacin because of a new infiltrate. I also had surgery see her to see if they thought this might be a little bit more of a flare of her sigmoid diverticulitis/colitis and they agreed. We did 1 dose of IV steroids and started Flagyl in addition to the Levaquin and patient responded very nicely clinically. Over the day yesterday her pain improved and she was able to eat. This morning she feels good, wishes to go home and has had a fairly good breakfast. Plan number to discharge on steroids, metronidazole and levofloxacin, I will see her in 5 days in the office. Of note, during the hospitalization she was found to have a positive COVID-19 PCR on our standardized testing. The testing was not ordered because of clinical suspicion of COVID. She had no oxygen requirement during the hospitalization and we elected not to treat this test result as clinically she has no stigmata of viral pneumonia or COVID-like illness. Exam Data for Last 24 hours Vital signs and Labs for Last 24 Hours: Temp Pulse Resp BP Pulse Ox 98.8 F 88 17 126/62 97 02/14/23 07:27 02/14/23 07:27 02/14/23 07:27 02/14/23 07:27 02/14/23 07:57 Laboratory Results - last 24 hr 02/13/23 : SARS-CoV-2 (PCR) Detected A, Influenza A Untype (PCR) Not detected, Influenza Type B (PCR) Not detected 02/14/23 05:40: WBC 10.8, RBC 3.95 L, Hgb 11.1 L, Hct 34.9 L, MCV 88.4, MCH 28.1, MCHC 31.8, RDW 13.8, Plt Count 333, MPV 8.5, Neut % (Auto) 80.6 H, Lymph % (Auto) 13.1, [place] % (Auto) 6.0, Eos % (Auto) 0.1, Baso % (Auto) 0.2, Neut # (Auto) 8.7 H, Lymph # (Auto) 1.4, [place] # (Auto) 0.7, Eos # (Auto) 0.0, Bas
--- NOTE | 2023-02-14 09:13 | HMH.PHAINT1 ---
Pharmacy Intervention Comments: Discharge medication counseling complete. Patient was starting the following new meds: -levofloxacin: once daily -metronidazole: three times daily. Told patient these antibiotics had the potential to cause stomach upset/diarrhea. When she expressed concern because of this, I told her that taking with food may avoid this. -prednisone: twice daily. Told patient some side effects could include mood changes or agitation, restlessness, or trouble sleeping (said not to take too close to bedtime to avoid insomnia). I verified that the meds were being sent to the patient's preferred pharmacy. Patient verbalized understanding and had no questions.
== END 2023-02-14 09:18 | disposition home or self-care (01) ==
PROVIDERS: Admitting Provider Internal Medicine Adolescent Medicine; PCP Internal Medicine Adolescent Medicine; Visit Provider Internal Medicine Adolescent Medicine
DX: J18.9 Pneumonia, unspecified organism (principal); E03.9 Hypothyroidism, unspecified; Z79.899 Other long term (current) drug therapy; R10.32 Left lower quadrant pain; U07.1 COVID-19; I27.20 Pulmonary hypertension, unspecified; R06.09 Other forms of dyspnea; R06.82 Tachypnea, not elsewhere classified; J96.01 Acute respiratory failure with hypoxia; J98.4 Other disorders of lung; J84.10 Pulmonary fibrosis, unspecified
CPT/HCPCS: G0378; G0379; 36410; 36415; 71046; 74176; 80053; 81001; 82150; 83690; 83735; 84484; 85025; 87070; 87077; 87186; 87205; 87635; 87636; 93005; 94640; 94760; 94761; C9803; J1956; J2405; U0003; U0005

== ENCOUNTER 2023-02-14 21:44 | Observation (INO) | payer MEDICARE, SELFPAY ==
[2023-02-14] VITALS (11 sets, daily range): BP systolic 146–167; BP diastolic 70–102; PULSE 85–115; RESP 21; TEMP 36.7; O2SAT 93–99; BMI 22.4
[2023-02-14 22:41] LABS: Basophils # 0.1 K/mm3 (0-0.2); Basophils % 0.4 % (0.1-2.0); Eosinophils # 0.5 K/mm3 (0.0-0.4); Eosinophils % 3.3 % (0.1-12.0); Hematocrit 45.1 % (37.0-47.0); Lymphocytes # 1.8 K/mm3 (0.7-4.5); Lymphocytes % 12.4 % (10-50); Mean Corpuscular HGB Conc 31.4 g/dL (31.8-35.4); Mean Corpuscular Volume 89.1 fl (81-99); Monocytes # 0.5 K/mm3 (0.1-1.0); Monocytes % 3.3 % (1.7-9.3); Neutrophils # 11.6 K/mm3 (1.8-7.8); Neutrophils % 80.6 % (37.0-80.0); Platelet Count 442 K/mm3 (142-424); Red Blood Count 5.06 M/mm3 (4.20-5.40); White Blood Count 14.4 K/mm3 (4.8-10.8)
[2023-02-14 22:51] LABS: Microscopic, Urine URINE MICROSCOPIC (MICROSCOPIC)
[2023-02-14 22:52] LABS: Appearance,Urine CLEAR (Clear); Bilirubin,Urine Negative (Negative); Blood, Urine Negative (Negative); Color,Urine YELLOW (Yellow); Glucose,Urine (UA) Negative (Negative); Ketones,Urine Negative (Negative); Leukocyte Esterase,Urine TRACE (Negative); Nitrate,Urine Negative (Negative); PH,Urine 6.5 (5.0-8.5); Protein,Urine Negative (Negative); Specific Gravity, Urine >= 1.030 (1.005-1.030); Urobilinogen,Urine 0.2 EU/dl (0.2)
[2023-02-14 22:56] LABS: Alanine Aminotransferase 26 U/L (12-78); Albumin Level 4.1 g/dl (3.5-5.0); Albumin/Globulin Ratio 1.1 (1.1-1.8); Alkaline Phosphatase 114 U/L (38-126); Anion Gap 14.7 mEq/L (5-15); Aspartate Amino Transferase 39 U/L (14-36); Bilirubin,Total 0.4 mg/dl (0.2-1.3); Blood Urea Nitrogen 13 mg/dl (7-17); Calcium 8.8 mg/dl (8.4-10.2); Carbon Dioxide 28 mmol/L (22.0-30.0); Chloride 103 mmol/L (98-107); Creatinine Clearance Estimated 41 mL/min (50-200); Estimated Glomerular Filt Rate 97 ml/min (>60); GFR (African American) 117 ML/MIN (>60); Globulin 3.8 g/dL (1.3-3.2); Glucose 130 mg/dl (74-100); Lipase 103 U/L (23-300); Potassium 3.7 mmoL/L (3.5-5.1); Sodium 142 mmol/L (136-145); Total Protein,Serum 7.9 g/dl (6.3-8.2)
[2023-02-14 22:57] LABS: Hemoglobin 14.2 g/dL (12.2-16.2)
--- NOTE | 2023-02-14 22:59 | PC.NURSE ---
Pt ambulatory to bathroom and back to bed
--- NOTE | 2023-02-14 23:09 | HMH.EDGENADL ---
Discharge Plan Disposition Patient Disposition: Admitted Condition: Fair Chief Complaint: Abdominal Pain Prescriptions Prescriptions: No Action oxybutynin chloride 5 mg tablet 5 mg PO BID Label Comments: TAKE 1 TABLET BY MOUTH TWICE DAILY aspirin [Adult Low Dose Aspirin] 81 mg tablet,delayed release (DR/EC) 81 mg PO DAILY hydrochlorothiazide 12.5 mg tablet 12.5 mg PO DAILY cholecalciferol (vitamin D3) 1,000 UNIT capsule 1,000 units PO DAILY cyanocobalamin (vitamin B-12) 2,500 MCG tablet 2,500 mcg PO DAILY prednisone 20 mg tablet 20 mg PO BID metronidazole 250 mg tablet 250 mg PO TID levofloxacin 750 mg tablet 750 mg PO DAILY albuterol sulfate 8.5 GM HFA aerosol inhaler 1 puff IH Q6HP PRN (Reason: Shortness Of Breath) levothyroxine 75 mcg tablet 75 mcg PO DAILY Label Comments: TAKE 1 TABLET BY MOUTH ONCE DAILY FOR 30 DAYS montelukast 10 mg tablet 10 mg PO PM fluticasone propionate [Flonase Allergy Relief] 50 mcg/actuation spray,suspension 2 spray intranasal DAILY Rx Instructions: administer into each nostril budesonide-formoterol [Symbicort] 160-4.5 mcg/actuation HFA aerosol inhaler 2 puff inhalation BID Referrals Follow up/Referrals: Eber Rubalcava MD [Primary Care Provider] - See instructions Clinical Impressions Clinical Impression: Abdominal pain, Dizziness Instructions Patient Instructions: DI for Acute Abdominal Pain Discharge ED Provider: Jose Miguel Sims General Adult HPI General Chief complaint: Abdominal Pain Stated complaint: stomach pain Time Seen by Provider: 02/14/23 21:51 Mode of Arrival: Wheelchair Source of Information: Patient Limitations: No Limitations Description of Symptoms (Recalled from ER Triage Doc. by RN): pt c/o generalized abd pain since getting home from being discharged today from inpatient for same problem/ pt states pain is worse when moving around History of Present Illness HPI narrative: 78yo F presents to the ER secondary to abdominal pain, dizziness and shortness of breath when attempting to ambulate. Patient was discharged from the hospital earlier today. Reports she was not up and ambulatory while in the hospital. Reports nausea but denies vomiting. Reports normal bowel movement yesterday but not a bowel movement today. No known fever. Related Data Home Medications Medication Instructions Recorded Confirmed oxybutynin chloride 5 mg tablet 5 mg PO BID overactive bladder 10/17/19 02/14/23 aspirin 81 mg tablet,delayed 81 mg PO DAILY heart health 04/28/20 02/14/23 release (Adult Low Dose Aspirin) hydrochlorothiazide 12.5 mg tablet 12.5 mg PO DAILY Fluid 01/12/21 02/14/23 cholecalciferol (vitamin D3) 25 1,000 units PO DAILY Supplement 02/16/21 02/14/23 mcg (1,000 unit) capsule cyanocobalamin (vitamin B-12) 2,500 mcg PO DAILY Supplement 02/16/21 02/14/23 2,500 mcg tablet albuterol sulfate 90 mcg/actuation 1 puff inhalation Q6HP PRN 01/25/22 02/14/23 aerosol inhaler Shortness Of Breath budesonide-formoterol HFA 160 2 puff inhalation BID Breathing 02/12/23 02/14/23 mcg-4.5 mcg/actuation aerosol problems inhaler (Symbicort) fluticasone propionate 50 2 spray intranasal DAILY Allergy 02/12/23 02/14/23 mcg/actuation nasal symptoms spray,suspension (Flonase Allergy Relief) levothyroxine 75 mcg tablet 75 mcg PO DAILY THYROID 02/12/23 02/14/23 montelukast 10 mg tablet 10 mg PO PM Allergy symptoms 02/12/23 02/14/23 levofloxacin 750 mg tablet 750 mg PO DAILY Infection 02/14/23 02/14/23 metronidazole 250 mg tablet 250 mg PO TID Infection 02/14/23 02/14/23 prednisone 20 mg tablet 20 mg PO BID Infection 02/14/23 02/14/23 Allergies Allergy/AdvReac Type Severity Reaction Status Date / Time nitrofurantoin Allergy Unknown Unknown Verified 12/13/22 10:00 [From MACROBID] allergy reaction [facility] Disclaimer: The information contained i
[2023-02-14 23:19] LABS: Bacteria,Urine 1+ /lpf; Mucus,Urine 1+ /lpf
--- NOTE | 2023-02-14 23:29 | PC.NURSE ---
Dr. Sims at BS to update pt/visitor on results
--- NOTE | 2023-02-14 23:32 | PC.NURSE ---
Dr. Gui salcido
--- NOTE | 2023-02-14 23:40 | PC.NURSE ---
Registration notified of admission at this time. Pt assigned to room 205 for observation, Gui Rubalcava.
[2023-02-14 23:48] LABS: Influenza A, PCR Not Detected (NotDetected); Influenza B, PCR Not Detected (NotDetected)
[2023-02-15] VITALS (11 sets, daily range): BP systolic 137–169; BP diastolic 65–112; PULSE 70–103; RESP 17–20; TEMP 36.6–36.9; O2SAT 92–100; BMI 23.4; BMI 23.6
[2023-02-15 00:10] LABS: Coronavirus 19, PCR Detected (NotDetected)
--- NOTE | 2023-02-15 00:16 | PC.NURSE ---
AT 0010 RECEIVED PHONE REPORT FROM ED NURSE Luann MAURER RN. 79 YO FEMALE WHO WAS JUST DISCHARGED 02/14/23 READMITTED FOR SAME PROBLEM: ABD PAIN. + COVID. WILL BE PLACED IN NEGATIVE PRESSURE ROOM AND CONTACT/AIRBORN ISOL.
--- NOTE | 2023-02-15 00:52 | PC.NURSE ---
pt arrived to floor via wheelchair @ 0050
--- NOTE | 2023-02-15 02:12 | PC.NURSE ---
PATIENT ARRIVED TO THE FLOOR AT 0050 VIA W/C ACCOMPANIED BY NEPHEW WHO IS HER ONLY KIN. PLACED IN NEGATIVE PRESSURE ROOM. 02 SATS DOWN IN 70s WITH ACTIVITY. DID NOT HAVE 02 ON TRANSPORT. PLACED ON 02 AT 2LNC AND SATS CAME UP TO 96%. AIRBORN/CONTACT ISOLATION IN EFFECT. PATIENT AWARE OF PROCEDURE. SHE IS A/O X 4. NON PRODUCTIVE COUGH NOTED. AFEBRILE.
--- NOTE | 2023-02-15 03:13 | PC.NURSE ---
RESTING IN BED AT THIS TIME WITH HOB ELEVATED 40 DEGREES. WATCHING TV. NO C/O PAIN VOICED. LOOKS RELAXED AND COMFORTABLE AT THIS TIME.
[2023-02-15 06:45] LABS: Basophils % 0.2 % (0.1-2.0); Hematocrit 37.5 % (37.0-47.0); Monocytes # 0.4 K/mm3 (0.1-1.0); Red Blood Count 4.24 M/mm3 (4.20-5.40)
[2023-02-15 06:49] LABS: Chloride 104 mmol/L (98-107); Potassium 3.6 mmoL/L (3.5-5.1); Sodium 139 mmol/L (136-145)
[2023-02-15 06:52] LABS: Alanine Aminotransferase 16 U/L (12-78); Albumin Level 3.2 g/dl (3.5-5.0); Alkaline Phosphatase 76 U/L (38-126); Anion Gap 8.6 mEq/L (5-15); Aspartate Amino Transferase 27 U/L (14-36); Bilirubin,Total 0.2 mg/dl (0.2-1.3); Blood Urea Nitrogen 8 mg/dl (7-17); Carbon Dioxide 30 mmol/L (22.0-30.0); Creatinine Clearance Estimated 43 mL/min (50-200); Estimated Glomerular Filt Rate 119 ml/min (>60); GFR (African American) 144 ML/MIN (>60); Globulin 3.2 g/dL (1.3-3.2); Total Protein,Serum 6.4 g/dl (6.3-8.2)
[2023-02-15 06:53] LABS: Calcium 7.8 mg/dl (8.4-10.2); Glucose 117 mg/dl (74-100)
[2023-02-15 06:55] LABS: Eosinophils % 0.1 % (0.1-12.0); Lymphocytes # 1.2 K/mm3 (0.7-4.5); Lymphocytes % 10.9 % (10-50); Mean Corpuscular HGB Conc 31.5 g/dL (31.8-35.4); Mean Corpuscular Hemoglobin 27.8 pg (27.0-31.2); Mean Corpuscular Volume 88.4 fl (81-99); Monocytes % 3.4 % (1.7-9.3); Neutrophils # 9.4 K/mm3 (1.8-7.8); Neutrophils % 85.4 % (37.0-80.0); Platelet Count 350 K/mm3 (142-424); Red Cell Distribution Width 13.9 % (11.5-17.5)
[2023-02-15 06:57] LABS: Hemoglobin 11.8 g/dL (12.2-16.2)
[2023-02-15 06:59] LABS: MANUAL DIFFERENTIAL MANUAL DIFFERENTIAL (MANUAL DIFF)
[2023-02-15 07:04] LABS: Lymphocytes % 15 % (10-50); Monocytes % 4 % (2-9); Neutrophils % 81 % (42-76); Platelet Estimate Normal; RBC Morphology Normal; Total Cells Counted 100
--- NOTE | 2023-02-15 07:12 | HMH.PHAINT1 ---
Pharmacy Intervention Comments: Home medication list verified by external fill history from outside pharmacy and med list from previous discharge.
--- NOTE | 2023-02-15 08:47 | PC.NURSE ---
COURTESY TECH NOTE; ROUNDED ON PT, ASSISTED PT TO RESTROOM, PT REFUSED BREAKFAST MEAL, INTAKE OF 120 ML, DENIED NEED TO REPOSITION IN BED. CALL LIGHT WITHIN REACH, NO FURTHER REQUESTS AT THIS TIME. Marilu JULIEN, SRNA
--- NOTE | 2023-02-15 09:13 | EXP.HP ---
History of Present Illness *Admission Date: 02/15/23 *Reason for visit:: Recurrent abdominal pain *History of present illness: 78-year-old female who I discharged yesterday morning after an overnight admission for left lower quadrant pain. I admitted her from my office 3 days ago because of significant abdominal pain causing tachypnea and tachycardia with inability eat or drink. Her work-up showed essentially normal labs and a normal CT scan of abdomen and pelvis. She did have a little bit of an infiltrate on her chest x-ray and her pulmonary consultation added levofloxacin for possible community-acquired pneumonia and fibrosis exacerbation. She had had an episode of sigmoid colitis in January of this year with abnormal CT scan. I felt that perhaps she had an exacerbation of this and consulted surgery who concurred, and recommended treating with levofloxacin and metronidazole. This was done overnight and the patient felt better the next day which was yesterday morning, was eating well and had actually been up and around and wished to go home. She was discharged home on p.o. levofloxacin and Flagyl as well as p.o. steroids. She did well at home but last night began to the recurrence of significant abdominal pain and began to develop diarrhea which had not been a component of her disease before. She reports watery painful stools. Denies blood. Came back to the emergency department. Because of her intractable pain and slightly elevated white count she was admitted again for IV fluids and further diagnostic testing. This morning she notes that her main complaint is bloating, pain across the lower part of her abdomen and diarrhea which again is a new complaint from when she was here in the hospital previously. [facility] Disclaimer: The information contained in this section may have been updated after the patient was seen, as this information can be updated by other users. Medical History Acute respiratory failure with hypoxia Allergic rhinitis Allergic rhinitis Asthma Bronchiectasis Cavitary lesion of lung Dyspnea on exertion Dyspnea on exertion History of sleep apnea Mild persistent asthma Pneumonia Pulmonary fibrosis Pulmonary hypertension Restrictive lung disease Shortness of breath Surgical History No history of previous surgery Family History Brother COPD (chronic obstructive pulmonary disease) Lung disease Sister COPD (chronic obstructive pulmonary disease) Social History Smoking Status: Never smoker alcohol intake: never substance use type: denies use current occupational status: retired Travel in the last 8 weeks: None household members: family housing: house current occupational exposures/hazards: No caffeine: No Review of Systems Review of Systems Review of systems:: pertinent systems reviewed and negative unless documented below Meds Home Medications and Allergies Home Medications Medication Instructions Recorded Confirmed Type oxybutynin chloride 5 mg tablet 5 mg PO BID Overactive bladder 10/17/19 02/14/23 History aspirin 81 mg tablet,delayed 81 mg PO DAILY Heart health 04/28/20 02/14/23 History release (Adult Low Dose Aspirin) hydrochlorothiazide 12.5 mg tablet 12.5 mg PO DAILY Fluid 01/12/21 02/14/23 History cholecalciferol (vitamin D3) 25 1,000 units PO DAILY Supplement 02/16/21 02/14/23 History mcg (1,000 unit) capsule albuterol sulfate 90 mcg/actuation 1 puff inhalation Q6HP PRN 01/25/22 02/14/23 History aerosol inhaler Shortness Of Breath budesonide-formoterol HFA 160 2 puff inhalation BID Breathing 02/12/23 02/14/23 History mcg-4.5 mcg/actuation aerosol problems inhaler (Symbicort) fluticasone propionate 50 2 spray intranasal DAILY Allergy 02/12/23 02/14/23 History
--- NOTE | 2023-02-15 18:06 | CT_ITS ---
PROCEDURE INFORMATION: Exam: CT Abdomen And Pelvis With Contrast Exam date and time: 02/15/23 09:48 PM Age: 78 years old Clinical indication: Patient HX: Generalized abdominal pain, covid positive. ; Additional info: Abd pain TECHNIQUE: Imaging protocol: Computed tomography of the abdomen and pelvis with contrast. Radiation optimization: All CT scans at this facility use at least one of these dose optimization techniques: automated exposure control; mA and/or kV adjustment per patient size (includes targeted exams where dose is matched to clinical indication); or iterative reconstruction. Contrast material: ISOVUE; Contrast volume: 75 ml; Contrast route: IV; Other contrast: Oral, gastrograffin, 30; REPORTING DATA: Count of CT and Cardiac NM exams in prior 12 months: This patient has received [address] and 0 known cardiac nuclear medicine studies in the 12 months prior to the current study. COMPARISON: CT ABDOMEN PELVIS WO CON 02/12/23 01:39 PM FINDINGS: Tubes, catheters and devices: None noted. Lungs: Basilar fibrosis bilaterally. Heart: No significant coronary calcifications. No cardiomegaly. No significant pericardial effusion. Liver: Normal. No mass. Gallbladder and bile ducts: Normal. No calcified stones. No ductal dilation. Pancreas: Normal. No ductal dilation. Spleen: Normal. No splenomegaly. Adrenal glands: Normal. No mass. Kidneys and ureters: Normal. No hydronephrosis. Stomach and bowel: Unremarkable. No obstruction. No mucosal thickening. Appendix: No evidence of appendicitis. Intraperitoneal space: Unremarkable. No free air. No significant fluid collection. Retroperitoneal space: No significant retroperitoneal inflammatory changes are noted. Vasculature: Unremarkable. No abdominal aortic aneurysm. Lymph nodes: Unremarkable. No enlarged lymph nodes. Urinary bladder: Unremarkable as visualized. Reproductive: Unremarkable as visualized. Bones/joints: Unremarkable. No acute fracture. Soft tissues: Sacral stimulator generator appears atypical orientation unchanged. IMPRESSION: 1. Sacral stimulator generator appears atypical orientation unchanged. 2. Basilar fibrosis.
--- NOTE | 2023-02-15 18:28 | PC.NURSE ---
pt has c/o pain x1. only time complaint is made is when she ambulates. pt has been tearful today. spoke with jesse, verbal order for ct abd pelvis with po and iv contrast. pt currently drinking po contrast. pt a&o. yoni crackles heard t/o lungs, pts baseline. pt know to call out once finished po contrast, cb within reach, bed alarm on for pt safety.
--- NOTE | 2023-02-15 20:00 | PC.NURSE ---
1930 completed both cups of contrast. radiology notified.
[2023-02-16] VITALS (10 sets, daily range): BP systolic 128–151; BP diastolic 66–83; PULSE 73–86; RESP 18–20; TEMP 36.6–36.9; O2SAT 93–97; BMI 23.1
[2023-02-16 06:57] LABS: Chloride 101 mmol/L (98-107)
[2023-02-16 06:58] LABS: Sodium 139 mmol/L (136-145)
[2023-02-16 07:00] LABS: Alanine Aminotransferase 18 U/L (12-78); Alkaline Phosphatase 69 U/L (38-126); Aspartate Amino Transferase 37 U/L (14-36); Bilirubin,Total 0.2 mg/dl (0.2-1.3); Blood Urea Nitrogen 5 mg/dl (7-17); Creatinine Clearance Estimated 42 mL/min (50-200); Estimated Glomerular Filt Rate 97 ml/min (>60); GFR (African American) 117 ML/MIN (>60)
[2023-02-16 07:01] LABS: Albumin Level 2.9 g/dl (3.5-5.0); Albumin/Globulin Ratio 0.9 (1.1-1.8); Calcium 7.7 mg/dl (8.4-10.2); Carbon Dioxide 34 mmol/L (22.0-30.0); Globulin 3.2 g/dL (1.3-3.2); Glucose 96 mg/dl (74-100); Total Protein,Serum 6.1 g/dl (6.3-8.2)
[2023-02-16 07:12] LABS: Basophils # 0.1 K/mm3 (0-0.2); Basophils % 0.9 % (0.1-2.0); Eosinophils # 0.9 K/mm3 (0.0-0.4); Eosinophils % 8.7 % (0.1-12.0); Hematocrit 38.1 % (37.0-47.0); Hemoglobin 12.1 g/dL (12.2-16.2); Lymphocytes # 2.1 K/mm3 (0.7-4.5); Lymphocytes % 19.9 % (10-50); Mean Corpuscular HGB Conc 31.7 g/dL (31.8-35.4); Mean Corpuscular Hemoglobin 27.7 pg (27.0-31.2); Mean Corpuscular Volume 87.3 fl (81-99); Mean Platelet Volume 7.8 fl (7.4-10.4); Monocytes # 0.7 K/mm3 (0.1-1.0); Monocytes % 6.2 % (1.7-9.3); Neutrophils # 6.8 K/mm3 (1.8-7.8); Neutrophils % 64.3 % (37.0-80.0); Platelet Count 334 K/mm3 (142-424); Red Blood Count 4.36 M/mm3 (4.20-5.40); Red Cell Distribution Width 13.9 % (11.5-17.5); White Blood Count 10.6 K/mm3 (4.8-10.8)
[2023-02-16 07:46] LABS: Anion Gap 7.2 mEq/L (5-15); Potassium 3.2 mmoL/L (3.5-5.1)
--- NOTE | 2023-02-16 08:27 | EXP.ACUTE.PN ---
Subjective *Date: 02/16/23 *Time: 08:27 Interval history: Patient felt a little better through the night last night. Has been able to eat some clear liquids this morning. Would like to try solid food. Medical Exam Vital signs and Labs for Last 24 Hours: Vital Signs Temp Pulse Pulse Resp BP Pulse Ox 02/16/23 07:34 98.4 F 82 18 144/71 H 97 02/16/23 06:38 76 02/16/23 06:38 73 02/16/23 06:38 95 02/16/23 04:00 98.3 F 78 19 151/75 H 94 L 02/16/23 00:00 97.9 F 82 19 141/75 H 96 02/16/23 04:00 80 02/16/23 00:00 80 02/15/23 20:00 85 02/15/23 20:00 95 02/15/23 20:00 85 02/15/23 20:00 98.5 F 79 18 142/66 H 95 02/15/23 18:23 84 02/15/23 18:23 95 H 02/15/23 18:23 98 02/15/23 16:00 97.9 F 76 17 142/65 H 96 02/15/23 16:00 70 02/15/23 12:00 90 02/15/23 12:00 97.9 F 92 H 18 137/77 100 Intake and Output 02/15/23 02/16/23 02/16/23 19:59 03:59 11:59 Intake Total 1090 / 4 964 / 4 Output Total 0 / 0 0 / 0 0 / 0 Balance 1090 / 4 0 / 4 964 / 4 Intake: Intake, Oral Amount 420 / 900 480 / 900 Intake, Total IV Amount 670 / 1154 484 / 1154 0.9 % Sodium Chloride 1000ML 1, 670 / 670 000 ml @ 50 mls/hr IV .Q20H ARJUN Rx#:[id number] 0.9 % Sodium Chloride 1000ML 1, 484 / 484 000 ml @ 50 mls/hr IV .Q20H ARJUN Rx#:[id number] Output: Output, Urine Amount 0 / 0 0 / 0 0 / 0 Other: Number of Unmeasured Voids 1 1 1 Number of Bowel Movements 1 1 Weight 126 lb Patient Weight 02/16/23 11:59 Weight 126 lb Laboratory Results - last 24 hr 02/16/23 06:00: WBC 10.6, RBC 4.36, Hgb 12.1 L, Hct 38.1, MCV 87.3, MCH 27.7, MCHC 31.7 L, RDW 13.9, Plt Count 334, MPV 7.8, Neut % (Auto) 64.3, Lymph % (Auto) 19.9, [place] % (Auto) 6.2, Eos % (Auto) 8.7, Baso % (Auto) 0.9, Neut # (Auto) 6.8, Lymph # (Auto) 2.1, [place] # (Auto) 0.7, Eos # (Auto) 0.9 H, Baso # (Auto) 0.1 02/16/23 06:00: Sodium 139, Potassium 3.2 L, Chloride 101, Carbon Dioxide 34 H, Anion Gap 7.2, BUN 5 L D, Creatinine 0.60, Estimated Creat Clear 42, Estimated GFR 97, Est GFR ( Amer) 117, Glucose 96, Calcium 7.7 L, Total Bilirubin 0.2, AST 37 H D, ALT 18, Alkaline Phosphatase 69, Total Protein 6.1 L, Albumin 2.9 L, Globulin 3.2, Albumin/Globulin Ratio 0.9 L I & O for Labs for Last 24 Hours: Intake & Output 02/13/23 02/14/23 02/15/23 02/16/23 11:59 11:59 11:59 11:59 Intake Total 306 / 306 2053 Output Total 400 / 400 0 / 0 Balance -94 / -94 2053 Weight 128 lb 2 oz 126 lb Comment:: Alert, pleasant. Rhonchorous lung sounds with fibrotic changes but at baseline. Heart rate regular. Abdomen is soft, much less tender than yesterday. No edema. Neurologically intact, less tachypneic as her pain is improved. Assessment and Plan *Assessment and plan (1) Abdominal pain: Status: Acute Category: Medical Code(s): R10.9 - Unspecified abdominal pain (2) Dizziness: Status: Acute Category: Medical Code(s): R42 - Dizziness and giddiness (3) Diarrhea: Status: Acute Category: Medical Code(s): R19.7 - Diarrhea, unspecified (4) Lab test positive for detection of COVID-19 virus: Status: Acute Category: Medical Code(s): U07.1 - COVID-19 (5) Restrictive lung disease: Status: Acute Category: Medical Code(s): J98.4 - Other disorders of lung Plan 1. I think colitis is still the most likely etiology for patient's pain and given her small body habitus and tendency to feel a lot of spasm this is causing a recurrence. We will restart intravenous Levaquin and p.o. Flagyl. 2. Diarrhea-possibly related to enteritis that may have been brewing over the past couple of days. Antibiotics as above, check diarrhea PCR. 3. Positive COVID test-COVID does not seem to be a significant part of
--- NOTE | 2023-02-16 08:58 | PC.NURSE ---
COURTESY TECH NOTE; ROUNDED ON PT 0830, PT DENIED NEED FOR ASSISTANCE WITH RESTROOM, AND NEED TO REPOSITION. COFFEE BROUGHT AT PT REQUEST, BREAKFAST TRAY ORDERED WITH NURSE APPROVAL Marilu JULIEN, SRNA
--- NOTE | 2023-02-16 10:41 | PC.NURSE ---
Pt. aware we need a sputum and stool sample.
--- NOTE | 2023-02-16 14:03 | PC.NURSE ---
COURTESY TECH NOTE; ROUNDED ON PT 1400, PT DENIED NEED FOR ASSISTANCE WITH RESTROOM, DRINK, OR NEED TO REPOSITION. CALL LIGHT WITHIN REACH, NO FURTHER REQUESTS AT THIS TIME Marilu JULIEN, STEFANI
--- NOTE | 2023-02-16 17:01 | PC.NURSE ---
Awaiting bowel movement and sputum to be sent to lab. Not coughing up anything and no bm today.
[2023-02-17] VITALS (13 sets, daily range): BP systolic 127–151; BP diastolic 71–84; PULSE 60–95; RESP 16–22; TEMP 36.4–37.8; O2SAT 92–99; BMI 23.5
[2023-02-17 07:18] LABS: Basophils # 0.1 K/mm3 (0-0.2); Basophils % 1.2 % (0.1-2.0); Hematocrit 43.1 % (37.0-47.0); Hemoglobin 12.9 g/dL (12.2-16.2); Lymphocytes # 1.9 K/mm3 (0.7-4.5); Lymphocytes % 23.1 % (10-50); Mean Corpuscular Hemoglobin 27.9 pg (27.0-31.2); Mean Platelet Volume 8.4 fl (7.4-10.4); Monocytes # 0.6 K/mm3 (0.1-1.0); Monocytes % 6.8 % (1.7-9.3); Neutrophils # 4.7 K/mm3 (1.8-7.8); Neutrophils % 56.9 % (37.0-80.0); Platelet Count 292 K/mm3 (142-424); Red Blood Count 4.63 M/mm3 (4.20-5.40); White Blood Count 8.2 K/mm3 (4.8-10.8)
[2023-02-17 07:27] LABS: Chloride 103 mmol/L (98-107); Potassium 4.3 mmoL/L (3.5-5.1); Sodium 139 mmol/L (136-145)
[2023-02-17 07:29] LABS: Blood Urea Nitrogen 9 mg/dl (7-17); Creatinine Clearance Estimated 42 mL/min (50-200); Estimated Glomerular Filt Rate 97 ml/min (>60); GFR (African American) 117 ML/MIN (>60)
[2023-02-17 07:30] LABS: Anion Gap 11.3 mEq/L (5-15); Calcium 8.2 mg/dl (8.4-10.2); Carbon Dioxide 29 mmol/L (22.0-30.0); Glucose 82 mg/dl (74-100)
--- NOTE | 2023-02-17 07:43 | EXP.ACUTE.PN ---
Subjective *Date: 02/17/23 *Time: 07:43 Interval history: Patient continues to do poorly in regards to pain. She has had a couple of more loose stools through the night unfortunately these were not sent by nursing staff for PCR testing for an unknown reason. Patient notes that when she gets up and moves around she has intense pain and requires Canadensis administration. No problems with her antibiotics. Breathing is about the same. Medical Exam Vital signs and Labs for Last 24 Hours: Vital Signs Temp Pulse Pulse Resp BP Pulse Ox 02/17/23 06:22 76 02/17/23 06:22 74 02/17/23 06:22 98 02/17/23 04:00 98.1 F 86 22 151/84 H 92 L 02/17/23 04:00 60 02/17/23 00:00 95 02/17/23 00:00 82 02/17/23 00:00 82 02/17/23 00:00 97.6 F 85 20 135/79 93 L 02/16/23 20:00 82 02/16/23 20:00 82 02/16/23 20:00 97.9 F 82 20 130/66 95 02/16/23 18:43 84 02/16/23 18:43 83 02/16/23 18:43 97 02/16/23 15:08 98.3 F 85 18 131/83 93 L 02/16/23 12:00 86 02/16/23 11:43 98.0 F 85 18 128/67 96 02/16/23 08:00 82 Intake and Output 02/16/23 02/17/23 02/17/23 19:59 03:59 11:59 Intake Total 750 / 1325 575 / 1325 Output Total 0 / 0 0 / 0 0 / 0 Balance 750 / 1325 575 / 1325 0 / 1325 Intake: Intake, Oral Amount 300 / 300 Intake, Total IV Amount 450 / 1025 575 / 1025 0.9 % Sodium Chloride 1000ML 1, 350 / 925 575 / 925 000 ml @ 50 mls/hr IV .Q20H COUNT INCLUDES [facility] Rx#:[id number] Calcium Gluconate 2,000 mg In 0 100 / 100 .9 % Sodium Chloride 100 ml @ 60 mls/hr IV ONCE ONE Rx#: [id number] Output: Output, Urine Amount 0 / 0 0 / 0 0 / 0 Other: Number of Unmeasured Voids 1 0 0 Number of Bowel Movements 1 Weight 125 lb 14.143 oz 127 lb 13.89 oz Patient Weight 02/17/23 11:59 Weight 127 lb 13.89 oz Laboratory Results - last 24 hr 02/16/23 06:00: Sodium 139, Potassium 3.2 L, Chloride 101, Carbon Dioxide 34 H, Anion Gap 7.2, BUN 5 L D, Creatinine 0.60, Estimated Creat Clear 42, Estimated GFR 97, Est GFR ( Amer) 117, Glucose 96, Calcium 7.7 L, Total Bilirubin 0.2, AST 37 H D, ALT 18, Alkaline Phosphatase 69, Total Protein 6.1 L, Albumin 2.9 L, Globulin 3.2, Albumin/Globulin Ratio 0.9 L 02/17/23 06:07: WBC 8.2, RBC 4.63, Hgb 12.9, Hct 43.1, MCV 93.0, MCH 27.9, MCHC 30.0 L, RDW 14.0, Plt Count 292, MPV 8.4, Neut % (Auto) 56.9, Lymph % (Auto) 23.1, [place] % (Auto) 6.8, Eos % (Auto) 12.0, Baso % (Auto) 1.2, Neut # (Auto) 4.7, Lymph # (Auto) 1.9, [place] # (Auto) 0.6, Eos # (Auto) 1.0 H, Baso # (Auto) 0.1 02/17/23 06:07: Sodium 139, Potassium 4.3 D, Chloride 103, Carbon Dioxide 29, Anion Gap 11.3, BUN 9 D, Creatinine 0.60, Estimated Creat Clear 42, Estimated GFR 97, Est GFR ( Amer) 117, Glucose 82, Calcium 8.2 L I & O for Labs for Last 24 Hours: Intake & Output 02/14/23 02/15/23 02/16/23 02/17/23 11:59 11:59 11:59 11:59 Intake Total 306 / 306 2154 / 2154 1325 / 1325 Output Total 400 / 400 0 / 0 0 / 0 Balance -94 / -94 2154 / 2154 1325 / 1325 Weight 128 lb 2 oz 126 lb 127 lb 13.89 oz Comment:: Alert, pleasant. Rhonchorous lung sounds with fibrotic changes but at baseline. Heart rate regular. Abdomen is soft, much less tender than yesterday. No edema. Neurologically intact, less tachypneic as her pain is improved. Assessment and Plan *Assessment and plan (1) Abdominal pain: Status: Acute Category: Medical Code(s): R10.9 - Unspecified abdominal pain (2) Dizziness: Status: Acute Category: Medical Code(s): R42 - Dizziness and giddiness (3) Diarrhea: Status: Acute Category: Medical Code(s): R19.7 - Diarrhea, unspecified (4) Lab test positive for detection of COVID-19 virus: Status: Acute Category: Medical Code(s): U07.1 - COVID-19 (5) Restrictive lung disease: Status: Acut
--- NOTE | 2023-02-17 10:54 | PC.NURSE ---
pts temp 100.0. jesse notified, verbal order for tylenol 650mg q6, UA, and blood cultures.
[2023-02-17 15:55] LABS: Microscopic, Urine URINE MICROSCOPIC (MICROSCOPIC)
[2023-02-17 16:06] LABS: Appearance,Urine CLEAR (Clear); Bilirubin,Urine Negative (Negative); Blood, Urine Negative (Negative); Color,Urine YELLOW (Yellow); Glucose,Urine (UA) Negative (Negative); Ketones,Urine Negative (Negative); Leukocyte Esterase,Urine Negative (Negative); Nitrate,Urine Negative (Negative); Protein,Urine Negative (Negative); Urobilinogen,Urine 0.2 EU/dl (0.2)
[2023-02-17 16:45] LABS: Squamous Epithelial Cell,Urine Occasional #/hpf (0-5); WBC,Urine Occasional #/hpf (0-3)
--- NOTE | 2023-02-17 17:52 | PC.NURSE ---
pt has no c/o pain since am. pt has been up multiple times, even had a bath with no abd pain. pt has not had a bm since early am. family has been at bs t/o day. pt not as tearful this shift. new 22g iv placed in rt fa. cb within reach.
[2023-02-18] VITALS (13 sets, daily range): BP systolic 130–143; BP diastolic 63–84; PULSE 70–97; RESP 16–17; TEMP 36.8–37.6; O2SAT 93–98; BMI 23.1
--- NOTE | 2023-02-18 06:09 | PC.NURSE ---
Patient slept throughout majority of shift with no c/o abd pain. States stomach feels better this AM. Feels mirtazapine helped. One BM noted at beginning of shift, however not an adequate amount to sent to lab.
--- NOTE | 2023-02-18 07:25 | PC.NURSE ---
courtesy tech ralph: pt is lying in bed with call light within reach. no requests voiced at this time.
[2023-02-18 08:02] LABS: Basophils # 0.1 K/mm3 (0-0.2); Basophils % 0.9 % (0.1-2.0); Eosinophils # 1.3 K/mm3 (0.0-0.4); Eosinophils % 11.1 % (0.1-12.0); Hematocrit 45.8 % (37.0-47.0); Hemoglobin 14.2 g/dL (12.2-16.2); Lymphocytes # 2.9 K/mm3 (0.7-4.5); Lymphocytes % 25.2 % (10-50); Mean Corpuscular Hemoglobin 27.8 pg (27.0-31.2); Mean Corpuscular Volume 89.5 fl (81-99); Mean Platelet Volume 8.2 fl (7.4-10.4); Monocytes # 0.6 K/mm3 (0.1-1.0); Monocytes % 5.3 % (1.7-9.3); Neutrophils # 6.7 K/mm3 (1.8-7.8); Neutrophils % 57.5 % (37.0-80.0); Platelet Count 369 K/mm3 (142-424); Red Blood Count 5.11 M/mm3 (4.20-5.40); Red Cell Distribution Width 13.9 % (11.5-17.5); White Blood Count 11.7 K/mm3 (4.8-10.8)
--- NOTE | 2023-02-18 08:48 | EXP.ACUTE.PN ---
Subjective *Date: 02/18/23 *Time: 08:48 Interval history: Overnight patient felt better. No more diarrhea and her pain is better. She is very dizzy when she gets up and walks. Please see notes below re: her social situation. Medical Exam Vital signs and Labs for Last 24 Hours: Vital Signs Temp Pulse Pulse Resp BP Pulse Ox FiO2 02/18/23 07:08 98.4 F 95 H 17 136/72 96 02/18/23 06:05 74 02/18/23 06:05 76 02/18/23 06:05 96 02/18/23 04:00 70 02/18/23 04:00 98.2 F 77 16 143/84 H 98 02/18/23 00:00 80 02/18/23 00:00 95 02/17/23 23:51 98.0 F 81 16 143/75 H 99 02/17/23 20:00 90 02/17/23 19:30 98.5 F 95 H 16 136/73 98 02/17/23 18:33 28 02/17/23 18:32 77 02/17/23 18:32 75 02/17/23 16:00 81 02/17/23 15:48 99.0 F 86 17 127/81 95 02/17/23 12:26 86 02/17/23 11:11 100.0 F H 84 16 148/76 H 95 Intake and Output 02/17/23 02/18/23 02/18/23 19:59 03:59 11:59 Intake Total 1246 / 1938 692 / 1938 Output Total 0 / 300 300 / 300 0 / 300 Balance 1246 / 1638 -300 / 1638 692 / 1638 Intake: Intake, Oral Amount 600 / 840 240 / 840 Intake, Total IV Amount 646 / 1098 452 / 1098 0.9 % Sodium Chloride 1000ML 1, 646 / 1098 452 / 1098 000 ml @ 50 mls/hr IV .Q20H [facility] Rx#:[id number] Output: Output, Urine Amount 0 / 300 300 / 300 0 / 300 Other: Number of Unmeasured Voids 1 1 Weight 125 lb 12.8 oz Patient Weight 02/18/23 11:59 Weight 125 lb 12.8 oz Laboratory Results - last 24 hr 02/17/23 11:23: Urine Color Yellow, Urine Appearance Clear, Urine pH 7.0, Ur Specific [place] 1.020, Urine Protein Negative, Urine Glucose (UA) Negative, Urine Ketones Negative, Urine Blood Negative, Urine Nitrate Negative, Urine Bilirubin Negative, Urine Urobilinogen 0.2, Ur Leukocyte Esterase Negative, Urine RBC None, Urine WBC Occasional, Ur Squamous Epith Cells Occasional, Urine Bacteria None 02/18/23 07:34: WBC 11.7 H D, RBC 5.11, Hgb 14.2, Hct 45.8, MCV 89.5, MCH 27.8, MCHC 31.0 L, RDW 13.9, Plt Count 369 D, MPV 8.2, Neut % (Auto) 57.5, Lymph % (Auto) 25.2, [place] % (Auto) 5.3, Eos % (Auto) 11.1, Baso % (Auto) 0.9, Neut # (Auto) 6.7, Lymph # (Auto) 2.9, [place] # (Auto) 0.6, Eos # (Auto) 1.3 H, Baso # (Auto) 0.1 I & O for Labs for Last 24 Hours: Intake & Output 02/15/23 02/16/23 02/17/23 02/18/23 11:59 11:59 11:59 11:59 Intake Total 306 / 306 2154 / 2154 1445 / 1445 1938 / 1938 Output Total 400 / 400 0 / 0 200 / 200 300 / 300 Balance -94 / -94 2154 / 2154 1245 / 1245 1638 / 1638 Weight 128 lb 2 oz 126 lb 127 lb 13.89 oz 125 lb 12.8 oz Comment:: Alert and pleasant, rhonchorous lung sounds but at baseline, heart rate regular. Abdomen soft, very minimal tenderness with aggressive left lower quadrant palpation. Very weak and cachectic as previous Assessment and Plan *Assessment and plan (1) Abdominal pain: Status: Acute Category: Medical Code(s): R10.9 - Unspecified abdominal pain (2) Dizziness: Status: Acute Category: Medical Code(s): R42 - Dizziness and giddiness (3) Diarrhea: Status: Acute Category: Medical Code(s): R19.7 - Diarrhea, unspecified (4) Lab test positive for detection of COVID-19 virus: Status: Acute Category: Medical Code(s): U07.1 - COVID-19 (5) Restrictive lung disease: Status: Acute Category: Medical Code(s): J98.4 - Other disorders of lung Plan Abdominal pain remains somewhat of a mystery to me, although the fact that her diarrhea has actually not stopped is certainly interesting. Nursing will get a PCR test today if she has more liquid stool. Change therapy or add therapy based on this finding. In talking with the patient she has seemed very emotionally down and it turns out that her [id number] early last week. She was very close to her si
[2023-02-18 09:35] LABS: Chloride 104 mmol/L (98-107); Sodium 140 mmol/L (136-145)
[2023-02-18 09:36] LABS: Potassium 4.4 mmoL/L (3.5-5.1)
[2023-02-18 09:38] LABS: Blood Urea Nitrogen 8 mg/dl (7-17); Creatinine Clearance Estimated 42 mL/min (50-200); Estimated Glomerular Filt Rate 97 ml/min (>60); GFR (African American) 117 ML/MIN (>60)
[2023-02-18 09:39] LABS: Anion Gap 13.4 mEq/L (5-15); Calcium 8.6 mg/dl (8.4-10.2); Carbon Dioxide 27 mmol/L (22.0-30.0); Glucose 99 mg/dl (74-100)
--- NOTE | 2023-02-18 14:34 | DIET.NUTRFU ---
Reviewing meal intake, shows some improvement today she consumed 75% of breakfast and 25% lunch. She is tolerating MSOFT diet with ensure provided at meals. She was started on remeron yesterday which she reports helped her slept and mood semed better today. It can also contribute to better appetite. She continues to having multiple BM daily. IVF in place to help with hydration. She is on ABT tx. Labs WNL. Will continue to monitor po intake
--- NOTE | 2023-02-18 18:34 | PC.NURSE ---
pt has done well, no n/v/d or pain this shift. pt in bed all day. cb within reach. family has been at bedside today.
[2023-02-19] VITALS (8 sets, daily range): BP systolic 130–150; BP diastolic 72–95; PULSE 78–105; RESP 16–20; TEMP 36.7–37.2; O2SAT 2–98; BMI 23.1
--- NOTE | 2023-02-19 05:18 | PC.NURSE ---
Pt has not voiced any c/o nausea or pain t/o night. No BMs noted. Pt unable to produce sputum sample. Ambulating to BR with standby assist. Call light within reach.
[2023-02-19 06:34] LABS: Basophils # 0.1 K/mm3 (0-0.2); Lymphocytes # 2.1 K/mm3 (0.7-4.5); Monocytes # 0.7 K/mm3 (0.1-1.0); Neutrophils % 60.1 % (37.0-80.0); Red Cell Distribution Width 14.1 % (11.5-17.5)
[2023-02-19 06:40] LABS: Eosinophils % 10.4 % (0.1-12.0); Hematocrit 41.3 % (37.0-47.0); Lymphocytes % 21.3 % (10-50); Mean Corpuscular HGB Conc 30.7 g/dL (31.8-35.4); Mean Corpuscular Hemoglobin 27.5 pg (27.0-31.2); Mean Corpuscular Volume 89.5 fl (81-99); Mean Platelet Volume 8.4 fl (7.4-10.4); Monocytes % 7.1 % (1.7-9.3); Neutrophils # 5.9 K/mm3 (1.8-7.8); Platelet Count 353 K/mm3 (142-424); Red Blood Count 4.61 M/mm3 (4.20-5.40); White Blood Count 9.9 K/mm3 (4.8-10.8)
[2023-02-19 06:41] LABS: Chloride 104 mmol/L (98-107); Potassium 4.7 mmoL/L (3.5-5.1); Sodium 139 mmol/L (136-145)
[2023-02-19 06:42] LABS: Hemoglobin 12.7 g/dL (12.2-16.2)
[2023-02-19 06:44] LABS: Anion Gap 11.7 mEq/L (5-15); Blood Urea Nitrogen 8 mg/dl (7-17); Carbon Dioxide 28 mmol/L (22.0-30.0); Creatinine Clearance Estimated 42 mL/min (50-200); Estimated Glomerular Filt Rate 97 ml/min (>60); GFR (African American) 117 ML/MIN (>60)
[2023-02-19 06:45] LABS: Calcium 8.1 mg/dl (8.4-10.2); Glucose 83 mg/dl (74-100)
--- NOTE | 2023-02-19 08:11 | P.PN_ITS ---
Subjective *Date: 02/19/23 *Time: 08:11 Medical Exam Vital signs and Labs for Last 24 Hours: Vital Signs Temp Pulse Pulse Resp BP Pulse Ox FiO2 02/19/23 06:29 83 02/19/23 06:29 84 02/19/23 06:29 92 L 02/19/23 04:00 80 02/19/23 04:00 98.1 F 94 H 18 150/77 H 91 L 02/19/23 00:00 80 02/19/23 00:00 93 L 02/18/23 23:51 98.9 F 92 H 16 136/77 93 L 02/18/23 20:00 90 02/18/23 20:00 95 02/18/23 19:48 98.5 F 97 H 16 130/76 95 02/18/23 18:36 28 02/18/23 18:36 77 02/18/23 18:36 74 02/18/23 16:00 81 02/18/23 12:00 94 H 02/18/23 15:15 99.4 F 90 16 136/63 96 02/18/23 11:10 99.7 F H 89 17 142/77 H 95 Intake and Output 02/18/23 02/19/23 02/19/23 23:59 07:59 15:59 Intake Total 928 / 1860 Output Total 300 / 300 250 / 250 Balance 628 / 1560 -250 / -250 Intake: Intake, Oral Amount 240 / 720 Intake, Total IV Amount 688 / 1140 0.9 % Sodium Chloride 1000ML 1, 688 / 1140 000 ml @ 50 mls/hr IV .Q20H [facility] Rx#:[id number] Output: Output, Urine Amount 300 / 300 250 / 250 Other: Weight 57.153 kg Patient Weight 02/19/23 23:59 Weight 57.153 kg Laboratory Results - last 24 hr 02/18/23 07:34: WBC 11.7 H D, RBC 5.11, Hgb 14.2, Hct 45.8, MCV 89.5, MCH 27.8, MCHC 31.0 L, RDW 13.9, Plt Count 369 D, MPV 8.2, Neut % (Auto) 57.5, Lymph % (Auto) 25.2, [place] % (Auto) 5.3, Eos % (Auto) 11.1, Baso % (Auto) 0.9, Neut # (Auto) 6.7, Lymph # (Auto) 2.9, [place] # (Auto) 0.6, Eos # (Auto) 1.3 H, Baso # (Auto) 0.1 02/18/23 07:34: Sodium 140, Potassium 4.4, Chloride 104, Carbon Dioxide 27, Anion Gap 13.4, BUN 8, Creatinine 0.60, Estimated Creat Clear 42, Estimated GFR 97, Est GFR ( Amer) 117, Glucose 99, Calcium 8.6 02/19/23 05:35: WBC 9.9, RBC 4.61, Hgb 12.7 D, Hct 41.3, MCV 89.5, MCH 27.5, MCHC 30.7 L, RDW 14.1, Plt Count 353, MPV 8.4, Neut % (Auto) 60.1, Lymph % (Auto) 21.3, [place] % (Auto) 7.1, Eos % (Auto) 10.4, Baso % (Auto) 1.0, Neut # (Auto) 5.9, Lymph # (Auto) 2.1, [place] # (Auto) 0.7, Eos # (Auto) 1.0 H, Baso # (Auto) 0.1 02/19/23 05:35: Sodium 139, Potassium 4.7, Chloride 104, Carbon Dioxide 28, Anion Gap 11.7, BUN 8, Creatinine 0.60, Estimated Creat Clear 42, Estimated GFR 97, Est GFR ( Amer) 117, Glucose 83, Calcium 8.1 L I & O for Labs for Last 24 Hours: Intake & Output 02/16/23 02/17/23 02/18/23 02/19/23 23:59 23:59 23:59 23:59 Intake Total 1813 194 / 194 1860 / 1860 Output Total 0 / 0 500 / 500 300 / 300 250 / 250 Balance 1813 1441 / 144 1560 / 1560 -250 / -250 Weight 57.1 kg 58 kg 57.062 kg 57.153 kg The patient's infection will respond to the chosen ABx?: Yes Is the patient receiving the right drug, dose, and route?: Yes Could a more targeted ABx be ordered?: No
--- NOTE | 2023-02-19 08:23 | PC.NURSE ---
pt had medium loose/soft bm with abd pain after. stool sample collected.
[2023-02-19 08:32] LABS: Adenovirus F 40/41, stool Not Detected (NotDetected); Astrovirus Not Detected (NotDetected); Campylobacter Not Detected (NotDetected); Clostridium Difficile A/B, PCR Not Detected (NotDetected); Cryptosporidium Not Detected (NotDetected); Cyclospora Cayetanesis Not Detected (NotDetected); Entamoeba histolytica Not Detected (NotDetected); Enteroaggregative E coli Not Detected (NotDetected); Enteropathogenic E coli Not Detected (NotDetected); Enterotoxigenic E coli Not Detected (NotDetected); Giardia lamblia Not Detected (NotDetected); Norovirus Not Detected (NotDetected); Plesimonas Shigalloides, PCR Not Detected (NotDetected); Rotavirus A Not Detected (NotDetected); Salmonella, PCR Not Detected (NotDetected); Sapovirus Not Detected (NotDetected); Shiga-like toxin E coli Not Detected (NotDetected); Shigella Enterovasive E coli Not Detected (NotDetected); Vibrio Cholerae Not Detected (NotDetected); Vibrio, PCR Not Detected (NotDetected); Yersinia Entercolitica, PCR Not Detected (NotDetected)
--- NOTE | 2023-02-19 08:32 | EXP.ACUTE.PN ---
Subjective *Date: 02/19/23 *Time: 08:32 Interval history: Overnight patient continued to have some on and off abdominal pain, especially when she stands up and moves around. Did have a loose stool and this has finally been obtained for PCR testing. Medical Exam Vital signs and Labs for Last 24 Hours: Vital Signs Temp Pulse Pulse Resp BP Pulse Ox FiO2 02/19/23 08:00 98.6 F 96 H 16 137/76 95 02/19/23 06:29 83 02/19/23 06:29 84 02/19/23 06:29 92 L 02/19/23 04:00 80 02/19/23 04:00 98.1 F 94 H 18 150/77 H 91 L 02/19/23 00:00 80 02/19/23 00:00 93 L 02/18/23 23:51 98.9 F 92 H 16 136/77 93 L 02/18/23 20:00 90 02/18/23 20:00 95 02/18/23 19:48 98.5 F 97 H 16 130/76 95 02/18/23 18:36 28 02/18/23 18:36 77 02/18/23 18:36 74 02/18/23 16:00 81 02/18/23 12:00 94 H 02/18/23 15:15 99.4 F 90 16 136/63 96 02/18/23 11:10 99.7 F H 89 17 142/77 H 95 Intake and Output 02/18/23 02/19/23 02/19/23 19:59 03:59 11:59 Intake Total 1168 / 1168 Output Total 300 / 550 250 / 550 Balance 868 / 618 -250 / 618 Intake: Intake, Oral Amount 480 / 480 Intake, Total IV Amount 688 / 688 0.9 % Sodium Chloride 1000ML 1, 688 / 688 000 ml @ 50 mls/hr IV .Q20H [facility] Rx#:[id number] Output: Output, Urine Amount 300 / 550 250 / 550 Other: Number of Unmeasured Voids 1 Weight 126 lb Patient Weight 02/19/23 11:59 Weight 126 lb Laboratory Results - last 24 hr 02/18/23 07:34: Sodium 140, Potassium 4.4, Chloride 104, Carbon Dioxide 27, Anion Gap 13.4, BUN 8, Creatinine 0.60, Estimated Creat Clear 42, Estimated GFR 97, Est GFR ( Amer) 117, Glucose 99, Calcium 8.6 02/19/23 05:35: WBC 9.9, RBC 4.61, Hgb 12.7 D, Hct 41.3, MCV 89.5, MCH 27.5, MCHC 30.7 L, RDW 14.1, Plt Count 353, MPV 8.4, Neut % (Auto) 60.1, Lymph % (Auto) 21.3, [place] % (Auto) 7.1, Eos % (Auto) 10.4, Baso % (Auto) 1.0, Neut # (Auto) 5.9, Lymph # (Auto) 2.1, [place] # (Auto) 0.7, Eos # (Auto) 1.0 H, Baso # (Auto) 0.1 02/19/23 05:35: Sodium 139, Potassium 4.7, Chloride 104, Carbon Dioxide 28, Anion Gap 11.7, BUN 8, Creatinine 0.60, Estimated Creat Clear 42, Estimated GFR 97, Est GFR ( Amer) 117, Glucose 83, Calcium 8.1 L I & O for Labs for Last 24 Hours: Intake & Output 02/16/23 02/17/23 02/18/23 02/19/23 11:59 11:59 11:59 11:59 Intake Total 2154 / 2154 1445 / 1445 1938 / 1938 1168 / 1168 Output Total 0 / 0 200 / 200 300 / 300 550 / 550 Balance 2154 / 2154 1245 / 1245 1638 / 1638 618 / 618 Weight 126 lb 127 lb 13.89 oz 125 lb 12.8 oz 126 lb Comment:: Alert and pleasant, rhonchorous lung sounds but at baseline, heart rate regular. Abdomen soft, very minimal tenderness with aggressive left lower quadrant palpation. Very weak and cachectic as previous Assessment and Plan *Assessment and plan (1) Abdominal pain: Status: Acute Category: Medical Code(s): R10.9 - Unspecified abdominal pain (2) Dizziness: Status: Acute Category: Medical Code(s): R42 - Dizziness and giddiness (3) Diarrhea: Status: Acute Category: Medical Code(s): R19.7 - Diarrhea, unspecified (4) Lab test positive for detection of COVID-19 virus: Status: Acute Category: Medical Code(s): U07.1 - COVID-19 (5) Restrictive lung disease: Status: Acute Category: Medical Code(s): J98.4 - Other disorders of lung Plan Abdominal pain remains somewhat of a mystery to me, although the fact that her diarrhea has actually not stopped is certainly interesting. Nursing will get a PCR test today if she has more liquid stool. Change therapy or add therapy based on this finding. In talking with the patient she has seemed very emotionally down and it turns out that her [id number] early last week. She was very close to her sister-in-
--- NOTE | 2023-02-19 08:35 | DIET.NUTRFU ---
Rounded with provider, patient appeared to feel better, had a loose BM today and cultures ordered. Patient still c/o some abdominal discomfort, provider requested low residue diet and simethicone. She continue to improve on po intake, consumed 50% breakfast
--- NOTE | 2023-02-19 11:21 | HMH.OTEV ---
OT Inpatient Evaluation Rehab OT IP Evaluation Start: 02/18/23 08:48 Freq: ONCE Status: Active Protocol: Document 02/19/23 10:24 DARIN (Rec: 02/19/23 11:21 DARIN [id number]) Rehab OT IP Assessment Subjective History 78-year-old female who I discharged yesterday morning after an overnight admission for left lower quadrant pain. I admitted her from my office 3 days ago because of significant abdominal pain causing tachypnea and tachycardia with inability eat or drink. Her work-up showed essentially normal labs and a normal CT scan of abdomen and pelvis. She did have a little bit of an infiltrate on her chest x- ray and her pulmonary consultation added levofloxacin for possible community-acquired pneumonia and fibrosis exacerbation. She had had an episode of sigmoid colitis in January of this year with abnormal CT scan. I felt that perhaps she had an exacerbation of this and consulted surgery who concurred, and recommended treating with levofloxacin and metronidazole. This was done overnight and the patient felt better the next day which was yesterday morning, was eating well and had actually been up and around and wished to go home. She was discharged home on p.o . levofloxacin and Flagyl as well as p.o. steroids. She did well at home but last night began to the recurrence of significant abdominal pain and began to develop diarrhea which had not been a component of her disease before. She reports watery painful stools. Denies blood. Came back to
--- NOTE | 2023-02-19 12:07 | SW/DCPLANNER ---
Addendum entered by Janett Wilks 02/20/23 08:22: I have updated Mesha w/ [facility] that patient will discharge home today. Mesha stated that [facility] will start tomorrow 02/21/23 for this patient. Original Note: Pt/OT evaluated this patient and recommended placement or home with home health services and family. Due to admission status of OBS patient will not qualify for Medicare to cover SNF level of care. I did explain this to patient and she prefer to return home w/ family and home health services. Patient information/order will be faxed to [facility] at time of discharge. Patient may discharge later today or tomorrow.
--- NOTE | 2023-02-19 12:09 | HMH.PTEV ---
Physical Therapy Evaluation Rehab PT IP Evaluation Start: 02/18/23 08:48 Freq: ONCE Status: Active Protocol: Document 02/19/23 11:31 CLARY (Rec: 02/19/23 12:09 HWADE [id number]) Subjective/History History History Pt is a 78 year old female that presented to the ED with reports of abdominal pain, bloating and diarrhea. CT scan of abdomen and pelvis revealed no acute abnormalities. Pt labs revealed a slightly elevated white count. Pt was admitted to hospital for further diagnostic testing and IV fluids. PMH: Acute respiratory failure with hypoxia, Allergic rhinitis, Asthma, Bronchiectasis, Cavitary lesion of lung, Dyspnea on exertion, History of sleep apnea, Mild persistent asthma, Pneumonia, Pulmonary fibrosis , Pulmonary hypertension, Restrictive lung disease, Shortness of breath Subjective Subjective Pt presents seated upright in bed, pleasant and agreeable to therapy initial evaluation. Pt denies reports of pain at rest. Pt reports that her abdominal pain comes and goes. Pt reports that at baseline she lives at home with her nephew and NATHANIEL in a [facility] with 4 YVONNE. Pt reports she does not use an AD at baseline. Pt performed supine to sit on EOB with supervision assistance. Pt performed sit to stand with CGA for safety. Pt ambulated x15' within room without AD and CGA for safety. Pt left seated in bedside chair with nasal cannula in place, call light and all needs within reach. Following ambulation, RN present and stated pt desaturated to ~60s during mo
--- NOTE | 2023-02-19 13:34 | PC.NURSE ---
RESP CARE NOTE: Found patient on room air, with nasal cannula in nares. On room air SPO2 at 80%, oxygen replaced at 2.5 lpm n/c. SPO2 increased to 92%m, will continue to monitor patient via continuous pulse oximetry.
--- NOTE | 2023-02-19 16:44 | PC.NURSE ---
pt ambulated to bathroom on RA. O2 sat decreased to 82%. Added 1L O2 NC, sat at 84%. increased to 2L, sating at 90%.
--- NOTE | 2023-02-19 17:57 | PC.NURSE ---
pt on 1L NC 95% in bed.
--- NOTE | 2023-02-19 17:59 | PC.NURSE ---
IV in right forearm DC. Inserted 22g in right wrist continuing NS at 50ml/hr. pt has increased oxygen demands with activity, while resting oxygen is able to be titrated down to 0.5/1L with sating >90%. Pt has had no c/o abd pain, n/v since this morning after bm around 0830. no diarrhea today. bed locked and lowest position, with call light in reach.
[2023-02-20] VITALS: BP 140/80; PULSE 78; PULSE 83; PULSE 96; RESP 18; TEMP 36.8; O2SAT 97
[2023-02-20 04:00] VITALS: BP 147/75; PULSE 76; PULSE 80; RESP 18; TEMP 36.8; O2SAT 95; BMI 23.6
[2023-02-20 05:20] VITALS: PULSE 81; PULSE 84; O2SAT 94
--- NOTE | 2023-02-20 06:27 | PC.NURSE ---
Pt remains on 1L NC. RN tried to take it off last night, but when patient fell asleep patient dropped into 80s. 1L NC brought her back up into the 90s. Patient has had no other complaints.
[2023-02-20 08:00] VITALS: BP 147/66; PULSE 80; PULSE 98; RESP 24; TEMP 36.9; O2SAT 97; O2SAT 98
--- NOTE | 2023-02-20 08:27 | EXP.DC.SUM ---
General Admission date:: 02/14/23 Discharge date: 02/20/23 HPI HPI HPI: 78-year-old female who I discharged yesterday morning after an overnight admission for left lower quadrant pain. I admitted her from my office 3 days ago because of significant abdominal pain causing tachypnea and tachycardia with inability eat or drink. Her work-up showed essentially normal labs and a normal CT scan of abdomen and pelvis. She did have a little bit of an infiltrate on her chest x-ray and her pulmonary consultation added levofloxacin for possible community-acquired pneumonia and fibrosis exacerbation. She had had an episode of sigmoid colitis in January of this year with abnormal CT scan. I felt that perhaps she had an exacerbation of this and consulted surgery who concurred, and recommended treating with levofloxacin and metronidazole. This was done overnight and the patient felt better the next day which was yesterday morning, was eating well and had actually been up and around and wished to go home. She was discharged home on p.o. levofloxacin and Flagyl as well as p.o. steroids. She did well at home but last night began to the recurrence of significant abdominal pain and began to develop diarrhea which had not been a component of her disease before. She reports watery painful stools. Denies blood. Came back to the emergency department. Because of her intractable pain and slightly elevated white count she was admitted again for IV fluids and further diagnostic testing. This morning she notes that her main complaint is bloating, pain across the lower part of her abdomen and diarrhea which again is a new complaint from when she was here in the hospital previously. Hospital Course Hospital Course Hospital Course: Patient was readmitted as noted, started back on antibiotics. She does some diarrheal stools, PCR testing was finally obtained which was negative. CT scan was done again with oral and IV contrast, again negative. PT evaluated her, felt that she would benefit from home health to help with strengthening and personal care issues that seem to be a big concern to the patient. She slowly improved and achieved her baseline appetite and PT functioning. Plan of discharge home. She is finished up antibiotic length for colitis and I have instructed her to use Tylenol if she has pain and PT will see her tomorrow. I will see her on Sunday at 9 AM in my office for transitional care visit. Exam Data for Last 24 hours Vital signs and Labs for Last 24 Hours: Temp Pulse Resp BP Pulse Ox FiO2 98.3 F 81 18 147/75 H 94 L 28 02/20/23 04:00 02/20/23 05:20 02/20/23 04:00 02/20/23 04:00 02/20/23 05:20 02/18/23 18:36 Laboratory Results - last 24 hr 02/15/23 08:56: Stl Aeromonas (PCR) Not detected, Stl C. cayetanensis PCR Not detected, Stool Rotavirus (PCR) Not detected, Stl Adenov F 40/41 PCR Not detected, Stool Astrovirus (PCR) Not detected, Stool Campylobacter PCR Not detected, Stl C.difficile Tox PCR Not detected, Stool Cryptosporidium PCR Not detected, Stl E.coli Shiga Tox PCR Not detected, Stool E coli O157 PCR Not detected, Stl Enterotoxigenic E PCR Not detected, Stool EPEC (PCR) Not detected, Stool EAEC (PCR) Not detected, Stl E. histolytica PCR Not detected, Stool Giardia Lamblia PCR Not detected, Stool Salmonella PCR Not detected, Stool Sapovirus (PCR) Not detected, Stl P. shigelloides PCR Not detected, Stl Shigella/EIEC PCR Not detected, St Y.enterocolitica PCR Not detected, Stool Vibrio (PCR) Not detected, Stl Vibrio cholerae PCR Not detected, Stl Norovirus GI/GII PCR Not detected I & O for Last 24 hours: Intake & Output 02/17/23 02/18/23 02/19/23 02/20/23 11:59 11:59 11:59 11:59 Intake Total 1445 / 1445 1938 / 1938 1408 / 1408 1206 / 1206 Output Total 200 / 200 300 / 300 550 / 550 0 / 0 Balance 1245 / 1245 1638 / 1638 858 / 858 1206 / 1206 Weight 127 lb 13.89 oz 125 lb 12.8 oz 126 lb 128 lb 9 oz Microbiology Reports for the
--- NOTE | 2023-02-20 08:57 | HMH.PHAINT1 ---
Pharmacy Intervention Comments: Discharge medication counseling completed. Patient was starting no new meds and was told to stop taking the levofloxacin and metronidazole that was prescribed to her after her last discharge. Patient verbalized understanding and had no further questions.
--- NOTE | 2023-02-21 14:43 | CARE MANAGER ---
Attempted post-discharge phone interview, no answer and unable to leave a message.
== END 2023-02-20 10:05 | disposition home health service (06) ==
LOC: ER 23:39 → 2ND 23:42
PROVIDERS: Admitting Provider Family Medicine; Emergency Provider Family Medicine; PCP Internal Medicine Adolescent Medicine; Visit Provider Internal Medicine Adolescent Medicine
DX: R10.9 Unspecified abdominal pain (principal); Z79.899 Other long term (current) drug therapy; U07.1 COVID-19; J98.4 Other disorders of lung; R19.7 Diarrhea, unspecified; R42 Dizziness and giddiness
CPT/HCPCS: G0378; 36415; 74177; 80048; 80053; 81001; 83690; 85007; 85025; 87040; 87070; 87205; 87507; 87635; 87636; 94640; 94761; 97162; 97165; 97530; 99285; C9803; Q9967; U0003; U0005

== ENCOUNTER 2023-03-13 11:34 | Emergency (ER) | payer MEDICARE, SELFPAY ==
[2023-03-13 11:44] VITALS: BP 128/96; PULSE 109; RESP 18; TEMP 36.3; O2SAT 98; BMI 21.9
--- NOTE | 2023-03-13 11:49 | CT_ITS ---
PROCEDURE INFORMATION: Exam: CT Abdomen And Pelvis With Contrast Exam date and time: 03/13/2023 12:28 PM Age: 78 years old Clinical indication: Abdominal pain; Additional info: Ap, n/v TECHNIQUE: Imaging protocol: Computed tomography of the abdomen and pelvis with contrast. Radiation optimization: All CT scans at this facility use at least one of these dose optimization techniques: automated exposure control; mA and/or kV adjustment per patient size (includes targeted exams where dose is matched to clinical indication); or iterative reconstruction. Contrast material: ISOVUE; Contrast volume: 75 ml; Contrast route: IV; REPORTING DATA: Count of CT and Cardiac NM exams in prior 12 months: This patient has received 2 known CTs and 0 known cardiac nuclear medicine studies in the 12 months prior to the current study. COMPARISON: CT ABDOMEN PELVIS W CON 02/15/2023 9:48 PM FINDINGS: Lungs: Subpleural reticulation and scattered honeycombing noted in the lower lobes. Liver: No focal hepatic lesions. Gallbladder and bile ducts: Gallbladder is distended without radiopaque cholelithiasis. No biliary ductal dilation. Pancreas: No peripancreatic fluid stranding. No main pancreatic ductal dilation. Spleen: No splenomegaly. Adrenal glands: The adrenal glands are normal. Kidneys and ureters: Nephrograms are symmetric. No nephrolithiasis or hydroureteronephrosis on either side. No solid lesions Stomach and bowel: No bowel wall thickening or distention. Appendix: A normal appendix is identified. Intraperitoneal space: There is no evidence of free intraperitoneal or pelvic fluid. Vasculature: The aorta demonstrates mild atherosclerotic calcification. Aorta is nonaneurysmal. Lymph nodes: No evidence of retroperitoneal or mesenteric lymphadenopathy. Urinary bladder: Urinary bladder is unremarkable. Reproductive: Status post hysterectomy. Bones/joints: No acute osseous abnormality. Soft tissues: Unremarkable. IMPRESSION: No acute abnormality in the abdomen or pelvis
--- NOTE | 2023-03-13 11:52 | HMH.EDABDPAI ---
Discharge Plan Disposition Patient Disposition: Home, Self-Care Condition: Fair Prescriptions Prescriptions: New dicyclomine 20 mg tablet 20 mg PO QID PRN (Reason: abdominal pain) Qty: 20 0RF ondansetron 4 mg tablet,disintegrating 4 mg PO TID PRN (Reason: nausea and vomiting) 5 Days Qty: 15 0RF No Action oxybutynin chloride 5 mg tablet 5 mg PO BID Patient Comments: TAKE 1 TABLET BY MOUTH TWICE DAILY aspirin [Adult Low Dose Aspirin] 81 mg tablet,delayed release (DR/EC) 81 mg PO DAILY hydrochlorothiazide 12.5 mg tablet 12.5 mg PO DAILY cholecalciferol (vitamin D3) 1,000 UNIT capsule 1,000 units PO DAILY prednisone 20 mg tablet 20 mg PO BID albuterol sulfate 8.5 GM HFA aerosol inhaler 1 puff IH Q6HP PRN (Reason: Shortness Of Breath) levothyroxine 75 mcg tablet 75 mcg PO DAILY Patient Comments: TAKE 1 TABLET BY MOUTH ONCE DAILY FOR 30 DAYS montelukast 10 mg tablet 10 mg PO PM fluticasone propionate [Flonase Allergy Relief] 50 mcg/actuation spray,suspension 2 spray intranasal DAILY Rx Instructions: administer into each nostril budesonide-formoterol [Symbicort] 160-4.5 mcg/actuation HFA aerosol inhaler 2 puff inhalation BID Referrals Follow up/Referrals: Eber Rubalcava MD [Primary Care Provider] - See instructions Clinical Impressions Clinical Impression: Abdominal pain Qualifiers: Abdominal location: generalized Qualified Code(s): R10.84 - Generalized abdominal pain Instructions Patient Instructions: DI for Acute Abdominal Pain Discharge ED Provider: Fco Epps Abdominal Pain [facility] General Chief Complaint: Abdominal Pain Stated Complaint: Abd pain Time Seen by Provider: 03/13/23 11:45 Mode of Arrival: Wheelchair Source of Information: Patient Limitations: No Limitations Description of Symptoms (Recalled from ER Triage Doc. by RN): 78 yo F presents to ED with c/o abdominal pain. pt reports symptoms began last week. pt states that pain is located across abdomen, not pinpointed to one location. History of Present Illness HPI narrative: This is a 78-year-old female who presents with 1 week of generalized abdominal pain nausea and vomiting. Patient describes the pain is crampy nonprovoked intermittent and self-limited associated with nausea and vomiting no diarrhea according to the patient her last bowel movement was 3 to 4 days ago. No fevers chills or dysuria. Related Data Home Medications Medication Instructions Recorded Confirmed oxybutynin chloride 5 mg tablet 5 mg PO BID Overactive bladder 10/17/19 02/14/23 aspirin 81 mg tablet,delayed 81 mg PO DAILY Heart health 04/28/20 02/14/23 release (Adult Low Dose Aspirin) hydrochlorothiazide 12.5 mg tablet 12.5 mg PO DAILY Fluid 01/12/21 02/14/23 cholecalciferol (vitamin D3) 25 1,000 units PO DAILY Supplement 02/16/21 02/14/23 mcg (1,000 unit) capsule albuterol sulfate 90 mcg/actuation 1 puff inhalation Q6HP PRN 01/25/22 02/14/23 aerosol inhaler Shortness Of Breath budesonide-formoterol HFA 160 2 puff inhalation BID Breathing 02/12/23 02/14/23 mcg-4.5 mcg/actuation aerosol problems inhaler (Symbicort) fluticasone propionate 50 2 spray intranasal DAILY Allergy 02/12/23 02/14/23 mcg/actuation nasal symptoms spray,suspension (Flonase Allergy Relief) levothyroxine 75 mcg tablet 75 mcg PO DAILY Thyroid 02/12/23 02/14/23 montelukast 10 mg tablet 10 mg PO PM Allergy symptoms 02/12/23 02/14/23 prednisone 20 mg tablet 20 mg PO BID Infection 02/14/23 02/14/23 Previous Rx's Medication Instructions Recorded dicyclomine 20 mg tablet 20 mg PO QID PRN abdominal pain 03/13/23 #20 tabs ondansetron 4 mg disintegrating 4 mg PO TID PRN nausea and 03/13/23 tablet vomiting 5 days #15 tabs Allergies Allergy/AdvReac Type Severity Reaction Status Date / Time nitrofurantoin Allergy Unknown Unknown Verified 12/13/22 10:00 [From MACROBID] allergy re
[2023-03-13 11:56] LABS: Microscopic, Urine URINE MICROSCOPIC (MICROSCOPIC)
[2023-03-13 11:57] LABS: Appearance,Urine CLEAR (Clear); Bilirubin,Urine Negative (Negative); Blood, Urine Negative (Negative); Color,Urine DK YELLOW (Yellow); Glucose,Urine (UA) Negative (Negative); Ketones,Urine Negative (Negative); Leukocyte Esterase,Urine 2+ (Negative); Nitrate,Urine POSITIVE (Negative); PH,Urine 7.5 (5.0-8.5); Protein,Urine 1+ (Negative)
[2023-03-13 12:05] LABS: Basophils # 0.1 K/mm3 (0-0.2); Basophils % 0.9 % (0.1-2.0); Eosinophils # 0.2 K/mm3 (0.0-0.4); Eosinophils % 3.6 % (0.1-12.0); Hematocrit 42.6 % (37.0-47.0); Hemoglobin 13.4 g/dL (12.2-16.2); Lymphocytes # 2.1 K/mm3 (0.7-4.5); Lymphocytes % 32.4 % (10-50); Mean Corpuscular HGB Conc 31.4 g/dL (31.8-35.4); Mean Corpuscular Hemoglobin 27.6 pg (27.0-31.2); Mean Corpuscular Volume 87.8 fl (81-99); Mean Platelet Volume 7.4 fl (7.4-10.4); Monocytes # 0.4 K/mm3 (0.1-1.0); Monocytes % 6.2 % (1.7-9.3); Neutrophils # 3.6 K/mm3 (1.8-7.8); Neutrophils % 56.9 % (37.0-80.0); Platelet Count 312 K/mm3 (142-424); Red Blood Count 4.85 M/mm3 (4.20-5.40); Red Cell Distribution Width 13.9 % (11.5-17.5); White Blood Count 6.3 K/mm3 (4.8-10.8)
[2023-03-13 12:11] LABS: Chloride 99 mmol/L (98-107); Potassium 3.5 mmoL/L (3.5-5.1); Sodium 138 mmol/L (136-145)
[2023-03-13 12:13] LABS: Alanine Aminotransferase 25 U/L (12-78); Alkaline Phosphatase 74 U/L (38-126); Aspartate Amino Transferase 45 U/L (14-36); Bilirubin,Total 0.4 mg/dl (0.2-1.3); Blood Urea Nitrogen 9 mg/dl (7-17); Creatinine Clearance Estimated 40 mL/min (50-200); Estimated Glomerular Filt Rate 69 ml/min (>60); GFR (African American) 84 ML/MIN (>60)
[2023-03-13 12:14] LABS: Albumin Level 3.8 g/dl (3.5-5.0); Anion Gap 11.5 mEq/L (5-15); Calcium 8.8 mg/dl (8.4-10.2); Carbon Dioxide 31 mmol/L (22.0-30.0); Globulin 3.8 g/dL (1.3-3.2); Glucose 118 mg/dl (74-100); Lipase 49 U/L (23-300); Total Protein,Serum 7.6 g/dl (6.3-8.2)
[2023-03-13 12:16] LABS: Bacteria,Urine 1+ /lpf; RBC,Urine Occasional #/hpf (0-3)
--- NOTE | 2023-03-13 12:38 | PC.NURSE ---
jade rounded on pts
[2023-03-13 13:09] VITALS: BP 155/70; PULSE 93; RESP 15; TEMP 36.4
[2023-03-13 13:18] LABS: Lactic Acid 0.9 mmol/L (0.7-2.1)
== END 2023-03-13 13:13 | disposition home or self-care (01) ==
PROVIDERS: Emergency Provider Emergency Medicine; PCP Internal Medicine Adolescent Medicine
DX: R10.84 Generalized abdominal pain (principal); R11.2 Nausea with vomiting, unspecified; J45.30 Mild persistent asthma, uncomplicated; I27.20 Pulmonary hypertension, unspecified
CPT/HCPCS: 74177; 80053; 81001; 83605; 83690; 85025; 87086; 96361; 96374; 96375; 99285; J2405; Q9967

== ENCOUNTER 2023-05-14 17:40 | Emergency (ER) | payer MEDICARE, SELFPAY ==
[2023-05-14 17:41] VITALS: BP 161/80; PULSE 85; RESP 19; TEMP 36.6; O2SAT 88; BMI 21.4
[2023-05-14 18:30] VITALS: BP 142/66; PULSE 74; RESP 18; O2SAT 100
[2023-05-14 18:37] VITALS: BMI 21.4
[2023-05-14 18:48] LABS: Basophils # 0.1 K/mm3 (0-0.2); Basophils % 0.8 % (0.1-2.0); Eosinophils # 0.3 K/mm3 (0.0-0.4); Eosinophils % 4.5 % (0.1-12.0); Hematocrit 41.3 % (37.0-47.0); Hemoglobin 13.4 g/dL (12.2-16.2); Lymphocytes # 2.5 K/mm3 (0.7-4.5); Lymphocytes % 37.1 % (10-50); Mean Corpuscular HGB Conc 32.4 g/dL (31.8-35.4); Mean Corpuscular Hemoglobin 28.5 pg (27.0-31.2); Mean Corpuscular Volume 87.9 fl (81-99); Mean Platelet Volume 7.9 fl (7.4-10.4); Monocytes # 0.5 K/mm3 (0.1-1.0); Monocytes % 7.1 % (1.7-9.3); Neutrophils # 3.4 K/mm3 (1.8-7.8); Neutrophils % 50.5 % (37.0-80.0); Platelet Count 339 K/mm3 (142-424); Red Cell Distribution Width 13.9 % (11.5-17.5); White Blood Count 6.8 K/mm3 (4.8-10.8)
[2023-05-14 18:49] LABS: Chloride 101 mmol/L (98-107); Potassium 3.5 mmoL/L (3.5-5.1); Sodium 141 mmol/L (136-145)
--- NOTE | 2023-05-14 18:49 | PC.NURSE ---
urine collected and sent to lab
[2023-05-14 18:51] LABS: Alanine Aminotransferase 20 U/L (12-78); Blood Urea Nitrogen 14 mg/dl (7-17); Creatinine Clearance Estimated 39 mL/min (50-200); Estimated Glomerular Filt Rate 81 ml/min (>60); GFR (African American) 98 ML/MIN (>60)
[2023-05-14 18:52] LABS: Albumin Level 3.6 g/dl (3.5-5.0); Alkaline Phosphatase 84 U/L (38-126); Anion Gap 10.5 mEq/L (5-15); Aspartate Amino Transferase 33 U/L (14-36); Bilirubin,Total 0.3 mg/dl (0.2-1.3); Calcium 9.4 mg/dl (8.4-10.2); Carbon Dioxide 33 mmol/L (22.0-30.0); Globulin 3.6 g/dL (1.3-3.2); Glucose 122 mg/dl (74-100); Total Protein,Serum 7.2 g/dl (6.3-8.2)
[2023-05-14 19:00] VITALS: BP 165/87; PULSE 86; RESP 18; O2SAT 92
[2023-05-14 19:01] LABS: Microscopic, Urine URINE MICROSCOPIC (MICROSCOPIC)
[2023-05-14 19:22] LABS: Appearance,Urine Clear (Clear); Blood, Urine Negative (Negative); Color,Urine Yellow (Yellow); Glucose,Urine (UA) Negative (Negative); Ketones,Urine Negative (Negative); Leukocyte Esterase,Urine 2+ (Negative); PH,Urine 6.5 (5.0-8.5); Protein,Urine Negative (Negative)
[2023-05-14 19:23] LABS: Bacteria,Urine Trace /lpf; Bilirubin,Urine Negative (Negative); Mucus,Urine Trace /lpf; Nitrate,Urine Negative (Negative); Urobilinogen,Urine 0.2 EU/dl (0.2)
--- NOTE | 2023-05-14 19:26 | XR_ITS ---
PROCEDURE INFORMATION: Exam: XR Chest Exam date and time: 05/14/2023 7:53 PM Age: 78 years old Clinical indication: Shortness of breath; Additional info: SOA TECHNIQUE: Imaging protocol: Radiologic exam of the chest. Views: 2 views. Total images: 1 COMPARISON: CR XR CHEST 2V 02/12/2023 1:48 PM FINDINGS: Tubes, catheters and devices: Status post cardiac loop recorder. Lungs: Chronic superior hilar retraction with significant pulmonary interstitial coarsening throughout the bilateral upper lobes, unchanged. Additional chronic interstitial coarsening both lung bases, unchanged. No acute superimposed infiltrate, consolidation or vascular congestion. Pleural spaces: Chronic left greater than right apical fibrotic thickening and scarring. No pleural effusion or pneumothorax. Heart/Mediastinum: Unremarkable. No cardiomegaly. No mediastinal widening or hilar enlargement. Vasculature: Atherosclerotic aortic arch. Bones/joints: Osteopenia. Partially visualized thoracolumbar scoliosis with degenerative changes. IMPRESSION: 1. No radiographically acute cardiopulmonary process or significant change. 2. Stable chronic findings.
[2023-05-14 19:31] VITALS: BP 145/77; PULSE 82; RESP 18; O2SAT 96
--- NOTE | 2023-05-14 19:34 | ECG_ITS ---
APPROVED REPORT Exam: Resting ECG HR:76 bpm ECG Measurements Heart Rate 76 AXES IA 160 P 64 QRSd 94 QRS 69 QT 383 T 43 QTc 413 Conclusion SINUS RHYTHM NONSPECIFIC ST & T-WAVE ABNORMALITY BORDERLINE ECG UNCONFIRMED REPORT Electronically signed by : Eber Rubalcava MD 05/15/2023 19:56:46
[2023-05-14 19:50] LABS: Troponin I < 0.01 ng/ml (0.00-0.034)
[2023-05-14 21:00] VITALS: PULSE 74; RESP 20; O2SAT 97
--- NOTE | 2023-05-14 21:42 | CT_ITS ---
PROCEDURE INFORMATION: Exam: CT Abdomen And Pelvis With Contrast Exam date and time: 05/14/2023 10:06 PM Age: 78 years old Clinical indication: Abdominal pain; Generalized; Additional info: Ruq/epigastric abdominal pain TECHNIQUE: Imaging protocol: Computed tomography of the abdomen and pelvis with contrast. Total images: 308 Radiation optimization: All CT scans at this facility use at least one of these dose optimization techniques: automated exposure control; mA and/or kV adjustment per patient size (includes targeted exams where dose is matched to clinical indication); or iterative reconstruction. Contrast material: ISOVUE; Contrast volume: 75 ml; Contrast route: IV; REPORTING DATA: Count of CT and Cardiac NM exams in prior 12 months: This patient has received 3 known CTs and 0 known cardiac nuclear medicine studies in the 12 months prior to the current study. COMPARISON: CT ABDOMEN PELVIS W CON 03/13/2023 12:28 PM FINDINGS: Tubes, catheters and devices: Status post cardiac loop recorder. Right transsacral stimulator with generator pack in the right gluteal subcutaneous tissues. Lungs: Chronic bibasilar pulmonary interstitial fibrosis with bronchiectasis and peripheral honeycombing implying end-stage disease. Heart: Normal heart size. No pericardial effusion. Coronary arteries: Coronary artery calcification versus stent at the LAD. Diaphragm: Mild eventration right hemidiaphragm. Small sliding hiatal hernia. Liver: Subcentimeter left hepatic hypodensity is far too small to characterize but statistically a cyst or hemangioma. Normal liver size and contour. No concerning liver mass. Gallbladder and bile ducts: Normal. No calcified stones. No ductal dilation. Pancreas: Normal. No ductal dilation. Spleen: Normal. No splenomegaly. Adrenal glands: Normal. No mass. Kidneys and ureters: No hydronephrosis, nephrolithiasis, or renal mass. No perinephric fluid. Stomach and bowel: Stomach is mostly collapsed. Unremarkable duodenum. No ileus or bowel obstruction. Small bowel appears within normal limits. Unremarkable colon and rectum. Appendix: The appendix is not visualized and presumed surgically absent. Intraperitoneal space: Unremarkable. No free air. No significant fluid collection. Vasculature: Abdominal aorta is mildly atherosclerotic but nonaneurysmal. Major abdominal vessels enhance appropriately. Pelvic phleboliths. Lymph nodes: Unremarkable. No enlarged lymph nodes. Urinary bladder: Unremarkable as visualized. Reproductive: Status post hysterectomy. No adnexal mass. Bones/joints: Osteopenia. No acute osseous abnormality. Mild degenerative changes thoracolumbar spine. Mild compression deformity T12 vertebral body is unchanged from prior exam. Benign sclerotic bone density right sacral ala. Tarlov cyst sacral cyst left sacral ala. Minor thoracolumbar scoliosis. Mild degenerative changes bilateral hips. Soft tissues: Diastasis of the rectus fascia with very tiny fat containing umbilical hernia. IMPRESSION: 1. No acute intra-abdominal or pelvic process. 2. Multiple chronic and incidental findings as described.
--- NOTE | 2023-05-14 21:43 | HMH.EDGENADL ---
Discharge Plan Disposition Patient Disposition: Home, Self-Care Condition: Good Prescriptions Prescriptions: No Action oxybutynin chloride 5 mg tablet 5 mg PO BID Patient Comments: TAKE 1 TABLET BY MOUTH TWICE DAILY aspirin [Adult Low Dose Aspirin] 81 mg tablet,delayed release (DR/EC) 81 mg PO DAILY hydrochlorothiazide 12.5 mg tablet 12.5 mg PO DAILY cholecalciferol (vitamin D3) 1,000 UNIT capsule 1,000 units PO DAILY prednisone 20 mg tablet 20 mg PO BID albuterol sulfate 8.5 GM HFA aerosol inhaler 1 puff IH Q6HP PRN (Reason: Shortness Of Breath) levothyroxine 75 mcg tablet 75 mcg PO DAILY Patient Comments: TAKE 1 TABLET BY MOUTH ONCE DAILY FOR 30 DAYS montelukast 10 mg tablet 10 mg PO PM fluticasone propionate [Flonase Allergy Relief] 50 mcg/actuation spray,suspension 2 spray intranasal DAILY Rx Instructions: administer into each nostril budesonide-formoterol [Symbicort] 160-4.5 mcg/actuation HFA aerosol inhaler 2 puff inhalation BID dicyclomine 20 mg tablet 20 mg PO QID PRN (Reason: abdominal pain) Qty: 20 0RF ondansetron 4 mg tablet,disintegrating 4 mg PO TID PRN (Reason: nausea and vomiting) 5 Days Qty: 15 0RF Referrals Follow up/Referrals: Eber Rubalcava MD [Primary Care Provider] - See instructions Clinical Impressions Clinical Impression: Abdominal pain Qualifiers: Abdominal location: epigastric Qualified Code(s): R10.13 - Epigastric pain Instructions Patient Instructions: DI for Abdominal Pain-Adult Discharge ED Provider: Luciano Oneill General Adult HPI General Chief complaint: Shortness of Breath/Dyspnea Stated complaint: SOA,abd pain Time Seen by Provider: 05/14/23 20:44 Mode of Arrival: Wheelchair Source of Information: Patient Limitations: No Limitations Description of Symptoms (Recalled from ER Triage Doc. by RN): 78 yo F presents to ED with c/o SOA and abdominal pain. no cough or fever. pain locatedin umbilical area and across abdomen. pain began 2 hours prior to admission. no n/v/d. pt does wear home O2 PRN 2.5L. History of Present Illness HPI narrative: The patient presents with a chief complaint of abdominal pain and difficulty breathing. The pain is described as sickening and is located in the right upper quadrant, moving across to the middle of the abdomen. The onset of pain was at 4 pm today. The patient denies experiencing nausea or vomiting. They report having bowel movements and no current chest pain or trouble breathing. The patient has a medical history of lung problems and mouth problems. They have had a hysterectomy in the past but no abdominal surgeries. The patient denies any allergies to medications. The patient's pain is not severe at the time of the visit. Related Data Home Medications Medication Instructions Recorded Confirmed oxybutynin chloride 5 mg tablet 5 mg PO BID Overactive bladder 10/17/19 02/14/23 aspirin 81 mg tablet,delayed 81 mg PO DAILY Heart health 04/28/20 02/14/23 release (Adult Low Dose Aspirin) hydrochlorothiazide 12.5 mg tablet 12.5 mg PO DAILY Fluid 01/12/21 02/14/23 cholecalciferol (vitamin D3) 25 1,000 units PO DAILY Supplement 02/16/21 02/14/23 mcg (1,000 unit) capsule albuterol sulfate 90 mcg/actuation 1 puff inhalation Q6HP PRN 01/25/22 02/14/23 aerosol inhaler Shortness Of Breath budesonide-formoterol HFA 160 2 puff inhalation BID Breathing 02/12/23 02/14/23 mcg-4.5 mcg/actuation aerosol problems inhaler (Symbicort) fluticasone propionate 50 2 spray intranasal DAILY Allergy 02/12/23 02/14/23 mcg/actuation nasal symptoms spray,suspension (Flonase Allergy Relief) levothyroxine 75 mcg tablet 75 mcg PO DAILY Thyroid 02/12/23 02/14/23 montelukast 10 mg tablet 10 mg PO PM Allergy symptoms 02/12/23 02/14/23 prednisone 20 mg tablet 20 mg PO BID Infection 02/14/23 02/14/23 Previous Rx's Medication Instructions Recorded dicyclomine 2
[2023-05-14 22:47] LABS: Troponin I < 0.01 ng/ml (0.00-0.034)
[2023-05-14 23:29] VITALS: BP 148/73; PULSE 73; RESP 18; TEMP 36.6; O2SAT 97
== END 2023-05-14 23:32 | disposition home or self-care (01) ==
PROVIDERS: Emergency Provider Emergency Medicine; PCP Internal Medicine Adolescent Medicine
DX: R10.13 Epigastric pain (principal); R06.02 Shortness of breath; J84.10 Pulmonary fibrosis, unspecified; J45.30 Mild persistent asthma, uncomplicated; I27.20 Pulmonary hypertension, unspecified
CPT/HCPCS: 36415; 71046; 74177; 80053; 81001; 83605; 84484; 85025; 87040; 87086; 93005; 99285; Q9967

== ENCOUNTER 2023-05-17 15:57 | Observation (INO) | payer MEDICARE, SELFPAY ==
[2023-05-17] VITALS (7 sets, daily range): BP systolic 137–152; BP diastolic 73–89; PULSE 62–94; RESP 18–24; TEMP 36.4–36.9; O2SAT 92–97; BMI 21.9
--- NOTE | 2023-05-17 16:10 | ECG_ITS ---
APPROVED REPORT Exam: Resting ECG HR:90 bpm ECG Measurements Heart Rate [address] 152 P 81 QRSd 88 QRS 64 QT 362 T 50 QTc [address] DEVIATION AND MODERATE T-WAVE ABNORMALITY, CONSIDER ANTERIOR ISCHEMIA [-0.1+ mV T-WAVE IN V3/V4] ABNORMAL ECG UNCONFIRMED REPORT Electronically signed by : Eber Rubalcava MD 05/18/2023 07:23:07
--- NOTE | 2023-05-17 16:20 | XR_ITS ---
PROCEDURE INFORMATION: Exam: XR Chest Exam date and time: 05/17/2023 5:00 PM Age: 78 years old Clinical indication: Other: Epigastric pain TECHNIQUE: Imaging protocol: Radiologic exam of the chest. Views: 1 view. COMPARISON: CR XR CHEST 2V 05/14/2023 7:53 PM FINDINGS: Tubes, catheters and devices: There is a loop recorder implanted over the left chest. Lungs: There is coarsening of the bronchovascular markings compatible with patient's known underlying interstitial lung disease. Pleural spaces: Unremarkable. No pleural effusion. No pneumothorax. Heart/Mediastinum: Unremarkable. No cardiomegaly. Vasculature: There are calcifications of the aortic arch. Bones/joints: Unremarkable. Other findings: There is a low level of inspiration. IMPRESSION: No dense parenchymal consolidation, pleural effusion, or pneumothorax.
--- NOTE | 2023-05-17 16:30 | PC.NURSE ---
called lab to come down and draw labs on patient
--- NOTE | 2023-05-17 16:42 | HMH.EDGENADL ---
Discharge Plan Disposition Patient Disposition: Admitted Chief Complaint: Abdominal Pain Prescriptions Prescriptions: No Action oxybutynin chloride 5 mg tablet 5 mg PO DAILY Patient Comments: TAKE 1 TABLET BY MOUTH TWICE DAILY aspirin [Adult Low Dose Aspirin] 81 mg tablet,delayed release (DR/EC) 81 mg PO DAILY hydrochlorothiazide 12.5 mg tablet 12.5 mg PO DAILY cholecalciferol (vitamin D3) 1,000 UNIT capsule 1,000 units PO DAILY levothyroxine 75 mcg tablet 50 mcg PO DAILY Patient Comments: TAKE 1 TABLET BY MOUTH ONCE DAILY FOR 30 DAYS omeprazole 20 mg Capsule,Delayed Release(Dr/Ec) 40 mg PO DAILY Clinical Impressions Clinical Impression: Intractable abdominal pain Discharge ED Provider: [facility] Adult HPI General Chief complaint: Abdominal Pain Stated complaint: stomach pain Time Seen by Provider: 05/17/23 16:03 Mode of Arrival: Wheelchair Source of Information: Patient Limitations: No Limitations Description of Symptoms (Recalled from ER Triage Doc. by RN): pt cc is upper abd pain that has been going on for 4 days, seen here recently for similar issue as well as was seen in PCP office today and sent here. 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 Patient states abdominal pain started 3 days prior to arrival on 03/13. Epigastric, radiates to her back, associated with nausea, decreased p.o. intake. Patient's last bowel movement was 1 day prior to arrival on 05/16, normal for her without constipation, diarrhea, melena, hematochezia. Passing gas, although minimal amounts. Pain has been crescendo, refractory to pain medications at home. No neurologic deficits, or any other complaints. Related Data Home Medications Medication Instructions Recorded Confirmed oxybutynin chloride 5 mg tablet 5 mg PO DAILY Overactive bladder 10/17/19 05/17/23 aspirin 81 mg tablet,delayed 81 mg PO DAILY Heart health 04/28/20 05/17/23 release (Adult Low Dose Aspirin) hydrochlorothiazide 12.5 mg tablet 12.5 mg PO DAILY Fluid 01/12/21 05/17/23 cholecalciferol (vitamin D3) 25 1,000 units PO DAILY Supplement 02/16/21 05/17/23 mcg (1,000 unit) capsule levothyroxine 75 mcg tablet 50 mcg PO DAILY Thyroid 02/12/23 05/17/23 omeprazole 20 mg capsule,delayed 40 mg PO DAILY gerd 05/17/23 05/17/23 release Allergies Allergy/AdvReac Type Severity Reaction Status Date / Time nitrofurantoin Allergy Unknown Unknown Verified 12/13/22 10:00 [From MACROBID] allergy reaction [facility] Disclaimer: The information contained in this section may have been updated after the patient was seen, as this information can be updated by other users. Medical History Acute respiratory failure with hypoxia Allergic rhinitis Allergic rhinitis Asthma Bronchiectasis Cavitary lesion of lung Dyspnea on exertion Dyspnea on exertion History of sleep apnea Mild persistent asthma Pneumonia Pulmonary fibrosis Pulmonary hypertension Restrictive lung disease Shortness of breath Surgical History No history of previous surgery Family History Brother COPD (chronic obstructive pulmonary disease) Lung disease Sister COPD (chronic obstructive pulmonary disease) Social History Smoking Status: Never smoker alcohol intake: never substance use type: denies use current occupational status: retired Travel in the last 8 weeks: None household members: family housing: house current occupational exposures/hazards: No caffeine: No ROS Obtained: Yes All
--- NOTE | 2023-05-17 16:45 | CT_ITS ---
PROCEDURE INFORMATION: Exam: CTA Abdomen and Pelvis With Contrast Exam date and time: 05/17/2023 5:23 PM Age: 78 years old Clinical indication: Abdominal pain; Generalized; Additional info: R/O mesenteric ischemia, pain out of proportion TECHNIQUE: Imaging protocol: Computed tomographic angiography of the abdomen and pelvis with contrast. Exam focused on the arteries. 3D rendering (Not supervised by radiologist): MIP and/or 3D reconstructed images were created by the technologist. Radiation optimization: All CT scans at this facility use at least one of these dose optimization techniques: automated exposure control; mA and/or kV adjustment per patient size (includes targeted exams where dose is matched to clinical indication); or iterative reconstruction. Contrast material: ISO 370; Contrast volume: 100 ml; Contrast route: INTRAVENOUS (IV); REPORTING DATA: Count of CT and Cardiac NM exams in prior 12 months: This patient has received 4 known CTs and 0 known cardiac nuclear medicine studies in the 12 months prior to the current study. COMPARISON: CT ABDOMEN PELVIS W CON 05/14/2023 10:06 PM FINDINGS: Tubes, catheters and devices: There is a spinal stimulator in place. Lungs: There are changes of the lung bases suggestive of underlying interstitial lung disease. Coronary arteries: There is moderate coronary atherosclerotic disease/calcification. Aorta: There is atherosclerotic disease of the visualized aorta and its major branch vessels. Celiac trunk and mesenteric arteries: No occlusion or significant stenosis. Renal arteries: There is a left accessory renal artery adjacent to the origin of the ALAN. Right iliac arteries: No occlusion or significant stenosis. Left iliac arteries: No occlusion or significant stenosis. Liver: No mass. Gallbladder and bile ducts: There is significant distention of the gallbladder, new from the prior study. Pancreas: Unremarkable. No mass. No ductal dilation. Spleen: Unremarkable. No splenomegaly. Adrenal glands: Unremarkable. No mass. Kidneys and ureters: Unremarkable. No solid mass. No hydronephrosis. Stomach and bowel: Mild wall thickening versus underdistention of the gastric antrum. Appendix: No evidence of appendicitis. Intraperitoneal space: Unremarkable. No free air. No significant fluid collection. Lymph nodes: Unremarkable. No enlarged lymph nodes. Urinary bladder: Unremarkable. No mass. Reproductive: The patient has undergone prior hysterectomy. Bones/joints: There is diffuse degenerative disease of the visualized osseous structures. Soft tissues: Unremarkable. IMPRESSION: 1. Mild wall thickening versus underdistention of the gastric antrum. 2. There is significant distention of the gallbladder, new from the prior study. 3. No evidence for bowel ischemia
[2023-05-17 17:03] LABS: VBG Base Excess 2.8 mmol/L (-2.4-2.3); VBG HCO3 26.9 mmol/L (23-30); VBG Oxygen Saturation 72.6 % (50-70); VBG PCO2 40.1 mmol/L (35-51); VBG PH 7.44 mmol/L (7.31-7.41); VBG PO2 36.3 mmol/L (28-40); VBG Total CO2 28.1 mmol/L (23-27)
[2023-05-17 17:05] LABS: Basophils # 0.1 K/mm3 (0-0.2); Basophils % 0.8 % (0.1-2.0); Eosinophils # 0.2 K/mm3 (0.0-0.4); Eosinophils % 2.5 % (0.1-12.0); Hematocrit 39.9 % (37.0-47.0); Hemoglobin 12.9 g/dL (12.2-16.2); Lymphocytes # 2.3 K/mm3 (0.7-4.5); Lymphocytes % 31.6 % (10-50); Mean Corpuscular HGB Conc 32.2 g/dL (31.8-35.4); Mean Corpuscular Hemoglobin 28.5 pg (27.0-31.2); Mean Corpuscular Volume 88.5 fl (81-99); Mean Platelet Volume 7.8 fl (7.4-10.4); Monocytes # 0.5 K/mm3 (0.1-1.0); Monocytes % 6.6 % (1.7-9.3); Neutrophils # 4.3 K/mm3 (1.8-7.8); Neutrophils % 58.6 % (37.0-80.0); Platelet Count 336 K/mm3 (142-424); Red Blood Count 4.51 M/mm3 (4.20-5.40); Red Cell Distribution Width 13.9 % (11.5-17.5); White Blood Count 7.3 K/mm3 (4.8-10.8)
[2023-05-17 17:13] LABS: Alanine Aminotransferase 28 U/L (12-78); Albumin Level 4.3 g/dl (3.5-5.0); Alkaline Phosphatase 103 U/L (38-126); Aspartate Amino Transferase 37 U/L (14-36); Bilirubin,Total 0.4 mg/dl (0.2-1.3); Blood Urea Nitrogen 14 mg/dl (7-17); Calcium 9.2 mg/dl (8.4-10.2); Carbon Dioxide 29 mmol/L (22.0-30.0); Chloride 99 mmol/L (98-107); Creatinine Clearance Estimated 40 mL/min (50-200); Estimated Glomerular Filt Rate 81 ml/min (>60); GFR (African American) 98 ML/MIN (>60); Globulin 4.1 g/dL (1.3-3.2); Glucose 120 mg/dl (74-100); Lipase 46 U/L (23-300); Sodium 139 mmol/L (136-145); Total Protein,Serum 8.4 g/dl (6.3-8.2)
[2023-05-17 17:17] LABS: Salicylate < 1.0 mg/dL (2.0-20.0)
[2023-05-17 17:17] LABS: Lactic Acid 1.9 mmol/L (0.7-2.1)
--- NOTE | 2023-05-17 17:17 | PC.NURSE ---
lab called to report a critical potassium of 3.0 to Leo RN, RN informed Dr.Wanner [employer]
[2023-05-17 17:36] LABS: Troponin I < 0.01 ng/ml (0.00-0.034)
--- NOTE | 2023-05-17 21:07 | PC.NURSE ---
OBSERVATION ADMISSION TO WITH DX OF 215 N/V AND INTRACTABLE ABD PAIN.
[2023-05-17 21:10] LABS: Microscopic, Urine URINE MICROSCOPIC (MICROSCOPIC)
[2023-05-17 21:22] LABS: Appearance,Urine CLEAR (Clear); Bilirubin,Urine Negative (Negative); Blood, Urine Negative (Negative); Color,Urine YELLOW (Yellow); Glucose,Urine (UA) Negative (Negative); Ketones,Urine 1+ (Negative); Leukocyte Esterase,Urine Negative (Negative); Nitrate,Urine Negative (Negative); Protein,Urine Negative (Negative); Urobilinogen,Urine 0.2 EU/dl (0.2)
[2023-05-17 21:27] LABS: Troponin I < 0.01 ng/ml (0.00-0.034)
[2023-05-17 21:46] LABS: WBC,Urine Occasional #/hpf (0-3)
--- NOTE | 2023-05-17 21:53 | PC.NURSE ---
pt arrived to floor at this time
[2023-05-17 23:49] LABS: Troponin I < 0.01 ng/ml (0.00-0.034)
[2023-05-18] VITALS (18 sets, daily range): BP systolic 91–155; BP diastolic 52–91; PULSE 60–85; RESP 16–18; TEMP 36.4–36.8; O2SAT 92–99; BMI 22.1
--- NOTE | 2023-05-18 01:33 | PC.NURSE ---
Pt still having 8/10 pain in abdomen and an episode of vomiting after prn meds given. Spoke with Mandeep and received new orders.
--- NOTE | 2023-05-18 05:07 | PC.NURSE ---
Pt is A&Ox4. NPO. Complaints of severe abdomen pain/nausea. Prn meds given. Patient is on 2LNC. Vitals stable.
--- NOTE | 2023-05-18 07:00 | US_ITS ---
FINAL REPORT CLINICAL HISTORY: RUQ pain to back COMPARISON: CT dated 05/17/2022 FINDINGS: Sonographic images of the right upper quadrant were obtained. The pancreas is partially obscured.The liver has an unremarkable appearance.The gallbladder appears normal without evidence of gallstones.There is no evidence of biliary ductal dilatation.The common duct measures 3 mm. Mild hydronephrosis is noted in the right kidney. IMPRESSION: Mild hydronephrosis is noted in the right kidney. Reviewed, Interpreted and Dictated by Walter Rogers III, MD Transcribed by Laxmi Crawley Authenticated and [facility]
--- NOTE | 2023-05-18 07:16 | EXP.HP ---
History of Present Illness *Admission Date: 05/17/23 *Reason for visit:: Abdominal pain and vomiting *History of present illness: 78-year-old female with history of pulmonary fibrosis and chronic bronchiectasis who over the past year has had a couple of admissions where she has significant abdominal pain. Work-up has been fairly extensive but is never shown pathology and she is resolved spontaneously able to go home and follow a limited diet. This week her abdominal pain has been worse. She was in the ER on May 14, CT scan was unremarkable labs were unremarkable and she was discharged home and felt a little better but on the came back to the ER with significant pain and vomiting. Evaluation revealed CT scan change somewhat with distended gallbladder and evidence of antral thickening on the CT scan. CTA was done because of possible ischemic bowel which did not appear to show any significant stenotic lesions. She was admitted to hospital for IV fluids, n.p.o. status and further diagnostic testing. This morning she states she is in no pain but has not eaten and still is suffering from some nausea PFSH [facility] Disclaimer: The information contained in this section may have been updated after the patient was seen, as this information can be updated by other users. Medical History Acute respiratory failure with hypoxia Allergic rhinitis Allergic rhinitis Asthma Bronchiectasis Cavitary lesion of lung Dyspnea on exertion Dyspnea on exertion History of sleep apnea Mild persistent asthma Pneumonia Pulmonary fibrosis Pulmonary hypertension Restrictive lung disease Shortness of breath Surgical History No history of previous surgery Family History Brother COPD (chronic obstructive pulmonary disease) Lung disease Sister COPD (chronic obstructive pulmonary disease) Social History Smoking Status: Never smoker alcohol intake: never substance use type: denies use current occupational status: retired Travel in the last 8 weeks: None household members: family housing: house current occupational exposures/hazards: No caffeine: No Review of Systems Review of Systems Review of systems:: pertinent systems reviewed and negative unless documented below Meds Home Medications and Allergies Home Medications Medication Instructions Recorded Confirmed Type oxybutynin chloride 5 mg tablet 5 mg PO DAILY Overactive bladder 10/17/19 05/17/23 History aspirin 81 mg tablet,delayed 81 mg PO DAILY Heart health 04/28/20 05/17/23 History release (Adult Low Dose Aspirin) hydrochlorothiazide 12.5 mg tablet 12.5 mg PO DAILY Fluid 01/12/21 05/17/23 History cholecalciferol (vitamin D3) 25 1,000 units PO DAILY Supplement 02/16/21 05/17/23 History mcg (1,000 unit) capsule levothyroxine 75 mcg tablet 50 mcg PO DAILY Thyroid 02/12/23 05/17/23 History omeprazole 20 mg capsule,delayed 40 mg PO DAILY gerd 05/17/23 05/17/23 History release New Prescriptions to Start Prescriptions: Allergies Allergy/AdvReac Type Severity Reaction Status Date / Time nitrofurantoin Allergy Unknown Unknown Verified 12/13/22 10:00 [From MACROBID] allergy reaction Exam Data for Last 24 hours Vital signs and Labs for Last 24 Hours: Temp Pulse Resp BP Pulse Ox O2 Del Method O2 Flow Rate 97.8 F 70 16 155/72 H 96 Room Air 2 05/18/23 04:00 05/18/23 04:00 05/18/23 04:00 05/18/23 04:00 05/18/23 04:00 05/18/23 05:00 05/17/23 22:00 Laboratory Results - last 24 hr 05/17/23 16:22: VBG pH 7.44 H, VBG pCO2 40.1, VBG pO2 36.3, VBG HCO3 26.9, VBG Total CO2 28.1 H, VBG O2 Saturation 72.6 H, VBG Base Excess 2.8 H 05/17/23 16:23: Sodium 139, Potassium 3.0 L, Chloride 99, Carbon Dioxide 29, Anion Gap 1
--- NOTE | 2023-05-18 07:27 | PC.NURSE ---
Pt left floor for abdominal ultrasound at this time
--- NOTE | 2023-05-18 09:15 | EXP.SURG.CON ---
History of Present Illness *Admission Date: 05/17/23 *Reason for visit:: Abdominal pain *History of present illness: This is a 78-year-old female seen in consultation Dr. Rubalcava for evaluation regarding upper abdominal pain. Please see HPI forwarded below from admission H&P. Forwarded from admission H&P: 78-year-old female with history of pulmonary fibrosis and chronic bronchiectasis who over the past year has had a couple of admissions where she has significant abdominal pain. Work-up has been fairly extensive but is never shown pathology and she is resolved spontaneously able to go home and follow a limited diet. This week her abdominal pain has been worse. She was in the ER on May 14, CT scan was unremarkable labs were unremarkable and she was discharged home and felt a little better but on the came back to the ER with significant pain and vomiting. Evaluation revealed CT scan change somewhat with distended gallbladder and evidence of antral thickening on the CT scan. CTA was done because of possible ischemic bowel which did not appear to show any significant stenotic lesions. She was admitted to hospital for IV fluids, n.p.o. status and further diagnostic testing. This morning she states she is in no pain but has not eaten and still is suffering from some nausea PFSH [facility] Disclaimer: The information contained in this section may have been updated after the patient was seen, as this information can be updated by other users. Medical History Acute respiratory failure with hypoxia Allergic rhinitis Allergic rhinitis Asthma Bronchiectasis Cavitary lesion of lung Dyspnea on exertion Dyspnea on exertion History of sleep apnea Mild persistent asthma Pneumonia Pulmonary fibrosis Pulmonary hypertension Restrictive lung disease Shortness of breath Surgical History No history of previous surgery Family History Brother COPD (chronic obstructive pulmonary disease) Lung disease Sister COPD (chronic obstructive pulmonary disease) Social History Smoking Status: Never smoker alcohol intake: never substance use type: denies use current occupational status: retired Travel in the last 8 weeks: None household members: family housing: house current occupational exposures/hazards: No caffeine: No Meds Home Medications and Allergies Home Medications Medication Instructions Recorded Confirmed Type oxybutynin chloride 5 mg tablet 5 mg PO BID Overactive bladder 10/17/19 05/18/23 History aspirin 81 mg tablet,delayed 81 mg PO DAILY Heart health 04/28/20 05/17/23 History release (Adult Low Dose Aspirin) hydrochlorothiazide 12.5 mg tablet 12.5 mg PO DAILY Fluid 01/12/21 05/17/23 History cholecalciferol (vitamin D3) 25 1,000 units PO DAILY Supplement 02/16/21 05/17/23 History mcg (1,000 unit) capsule levothyroxine 75 mcg tablet 75 mcg PO DAILY Thyroid 02/12/23 05/18/23 History omeprazole 20 mg capsule,delayed 40 mg PO DAILY Acid Reflux 05/17/23 05/17/23 History release montelukast 10 mg tablet 10 mg PO HS Allergy Symptoms 05/18/23 05/18/23 History New Prescriptions to Start Prescriptions: Allergies Allergy/AdvReac Type Severity Reaction Status Date / Time nitrofurantoin Allergy Unknown Unknown Verified 12/13/22 10:00 [From MACROBID] allergy reaction Exam (Inpt) Vital signs and Labs for Last 24 Hours: Temp Pulse Resp BP Pulse Ox O2 Del Method O2 Flow Rate 98.0 F 76 18 142/77 H 99 Room Air 2 05/18/23 08:00 05/18/23 08:00 05/18/23 08:00 05/18/23 08:00 05/18/23 08:00 05/18/23 08:00 05/17/23 22:00 Laboratory Results - last 24 hr 05/17/23 16:22: VBG pH 7.44 H, VBG pCO2 40.1, VBG pO2 36.3, VBG HCO3 26.9, VBG Total CO2 28.1 H, VBG O2 S
--- NOTE | 2023-05-18 10:18 | EXP.ANES.CKL ---
[facility] Disclaimer: The information contained in this section may have been updated after the patient was seen, as this information can be updated by other users. Medical History Acute respiratory failure with hypoxia Allergic rhinitis Allergic rhinitis Asthma Bronchiectasis Cavitary lesion of lung Dyspnea on exertion Dyspnea on exertion History of sleep apnea Mild persistent asthma Pneumonia Pulmonary fibrosis Pulmonary hypertension Restrictive lung disease Shortness of breath Surgical History No history of previous surgery Family History Brother COPD (chronic obstructive pulmonary disease) Lung disease Sister COPD (chronic obstructive pulmonary disease) Social History Smoking Status: Never smoker alcohol intake: never substance use type: denies use current occupational status: retired Travel in the last 8 weeks: None household members: family housing: house current occupational exposures/hazards: No caffeine: No [facility] Anesthesia Checklist Patient Identification Patient Identification: Arm Band and Verbal (Name & ) Structural Data Admitted From: Home Planned Operative Procedure/s: EGD Consent for Planned Operative Procedure(s) Verified: Yes NPO Status Verified Time NPO: 00:00 Additional verifications Anesthesia Reactions: No Hx Blood Transfusions: No Blood Transfusion Reaction: No Airway Assessment Mallampati Score:: Class II C-Spine Mobility Assessed: Yes TMJ Mobility Assessed: Yes Dentition: Edentulous Neurological Assessment Level of Consciousness: Awake Hx Seizures: No Numbness or tingling in extremities: No Anesthesia Plan Anesthesia Risk discussed: Yes Anesthesia Plan: Verified ASA Class: III Anesthesia Type: MAC
--- NOTE | 2023-05-18 10:57 | HMH.SCOPE ---
Procedure: Date: 05/18/23 Patient Date of :: 1945 Procedure Performed:: Esophagogastroduodenoscopy with biopsy Indications:: Epigastric pain Nausea Gastric mucosal thickening noted per CT scan Performing Provider:: Vishal Foley MD Referring Provider:: Dr. Rubalcava Sedation:: Monitored anesthesia care Procedure:: After informed consent was obtained the patient was taken to the endoscopy suite. Sedation ensued after the patient was transferred to the left lateral decubitus position. Pulse, blood pressure, and oxygen saturation were monitored throughout the procedure. The endoscope was advanced beyond the duodenal bulb. Retroflexion within the gastric lumen was accomplished. The gastroscope was carefully removed and the patient was transferred to recovery in stable condition. Please see findings and specimens below for detail. Findings:: Sliding hiatal hernia Patchy gastritis (more significant in antrum) No active bleeding No obvious ulceration Specimens:: Antral biopsy Recommendations:: Follow-up pathology Continue proton pump inhibition Further evaluation with regard to abdominal pain and nausea pending Complications:: No immediate Estimated blood obtained (mL): 1 Colonoscopy Component Colonoscopy Component Was a colonoscopy performed during today's procedure?: No
--- NOTE | 2023-05-18 18:35 | PC.NURSE ---
Pt reported nausea at the beginning of the shift, Pt went to radiology for EGD, Pt tolerated clear liquid diet with no nausea reported, Pt has rested well and has no complaints.
--- NOTE | 2023-05-18 20:38 | PC.NURSE ---
Dr. Foley called for an update on pt. Pt denies N/V for the day. Og request NPO at midnight for precautionary measures.
[2023-05-19] VITALS (9 sets, daily range): BP systolic 103–155; BP diastolic 62–90; PULSE 70–701; RESP 16–19; TEMP 36.6–37.2; O2SAT 91–98; BMI 22.4
--- NOTE | 2023-05-19 08:47 | EXP.ACUTE.PN ---
Subjective *Date: 05/19/23 *Time: 08:47 Interval history: Patient did well overnight with a full liquid diet. Surgical intervention with EGD reviewed, consult appreciated. Patient continues have a little bit of pain in the lower quadrants. Did not seem to be worse with her diet. Medical Exam Vital signs and Labs for Last 24 Hours: Vital Signs Temp Pulse Pulse Resp BP Pulse Ox O2 Del Method 05/19/23 08:37 Room Air 05/19/23 08:00 Room Air 05/19/23 07:41 98.6 F 71 16 154/80 H 98 Room Air 05/19/23 06:30 Room Air 05/19/23 04:00 70 05/19/23 04:00 98.8 F 71 19 141/75 H 96 Room Air 05/19/23 04:27 Room Air 05/19/23 03:00 Room Air 05/19/23 01:00 Room Air 05/19/23 00:00 701 H 05/19/23 00:00 97.9 F 70 17 136/68 93 L Room Air 05/18/23 22:33 Room Air 05/18/23 21:00 Room Air 05/18/23 20:00 Room Air 05/18/23 20:00 70 05/18/23 19:41 98.0 F 68 18 126/53 L 92 L Room Air 05/18/23 17:00 Room Air 05/18/23 16:00 75 05/18/23 12:01 80 05/18/23 16:00 98.1 F 84 16 131/77 96 Room Air 05/18/23 13:45 98.1 F 68 18 120/62 96 Room Air 05/18/23 13:15 98.0 F 67 16 129/65 95 Room Air 05/18/23 12:45 98.2 F 85 17 116/52 L 94 L Room Air 05/18/23 12:15 98.2 F 67 17 115/71 92 L Room Air 05/18/23 12:00 98.1 F 76 16 105/58 L 96 Room Air 05/18/23 11:45 98.1 F 72 18 128/78 92 L Room Air 05/18/23 14:45 97.9 F 71 16 139/81 93 L Room Air 05/18/23 14:57 Room Air 05/18/23 11:30 98.0 F 77 16 136/91 H 93 L Room Air 05/18/23 11:15 98.0 F 75 16 123/68 96 Room Air 05/18/23 13:00 Room Air 05/18/23 11:00 97.5 F L 77 16 91/52 L 98 Room Air 05/18/23 09:00 Room Air 05/18/23 09:25 70 Intake and Output 05/18/23 05/19/23 05/19/23 19:59 03:59 11:59 Intake Total 720 / 1582 375 / 1582 487 / 1582 Output Total 0 / 0 0 / 0 0 / 0 Balance 720 / 1582 375 / 1582 487 / 1582 Intake: Intake, Oral Amount 720 / 720 0 / 720 Intake, Total IV Amount 375 / 862 487 / 862 D5W/0.45% NaCl w/20mEq KCL 1, 375 / 862 487 / 862 000 ml @ 75 mls/hr IV .[id number] [facility] Rx#:[id number] Output: Output, Urine Amount 0 / 0 0 / 0 0 / 0 Other: Number of Unmeasured Voids 1 1 1 Weight 121 lb 8 oz Patient Weight 05/19/23 11:59 Weight 121 lb 8 oz I & O for Labs for Last 24 Hours: Intake & Output 05/16/23 05/17/23 05/18/23 05/19/23 11:59 11:59 11:59 11:59 Intake Total 375 / 375 1582 / 1582 Output Total 0 / 0 0 / 0 Balance 375 / 375 1582 / 1582 Weight 119 lb 15.997 oz 121 lb 8 oz Comment:: Pleasant and talkative. Appears cachectic and chronically ill as previously noted. Fairly good air entry bilaterally. Abdomen is soft, normal bowel sounds, no Goldstein sign. Pain is concentrated in both lower quadrants but is much improved over admission. Heart rate regular. No murmurs. Extremities are warm and well-perfused. Assessment and Plan *Assessment and plan (1) Nausea: Status: Acute Category: Medical Code(s): R11.0 - Nausea Plan: No definitive significance acute abnormality noted per CT scan and right upper quadrant ultrasound. Gastric mucosal thickening versus nondistention noted per CT. Some gallbladder distention of undetermined significance noted on CT scan. No wall thickening. Esophagogastroduodenoscopy planned for later today I have discussed the risks and benefits including, but not limited to: Bleeding Infection Damage to surrounding tissue Inherent risks of sedation The patient agrees to proceed. (2) Abdominal pain: Status: Acute Qualifiers: Abdominal location: epigastric Qualified Code(s): R10.13 - Epigastric pain Category: Medical Code(s): R10.9 - Unspecified abdominal pain Plan: Pain is mostly in the epigastric
--- NOTE | 2023-05-19 12:34 | EXP.SURG.PN ---
Subjective Narrative: No acute events overnight. She feels well today. Denies nausea or vomiting. She is very hungry and is asking for tray. She has passed flatus, and last bowel movement was 2 days ago. She reports that her mid abdomen still feels a little funny. Exam Data for Last 24 hours Vital signs and Labs for Last 24 Hours: Temp Pulse Resp BP Pulse Ox O2 Del Method O2 Flow Rate 98.1 F 78 16 155/77 H 97 Room Air 2 05/19/23 11:14 05/19/23 11:14 05/19/23 11:14 05/19/23 11:14 05/19/23 11:14 05/19/23 11:14 05/17/23 22:00 I & O for Last 24 hours: Intake & Output 05/16/23 05/17/23 05/18/23 05/19/23 23:59 23:59 23:59 23:59 Intake Total 1095 / 1470 862 / 862 Output Total 0 / 0 0 / 0 Balance 1095 / 1470 862 / 862 Weight 120 lb 119 lb 15.997 oz 121 lb 8 oz Constitutional Constitutional: no acute distress *Routine Abdominal Exam Abdominal: Present soft and normoactive bowel sounds; Absent tenderness or distended Progress Note: A&P Assessment and plan (1) Nausea: Problem details: No gallstones on imaging. Reviewed EGD results with Dr. Glynn yesterday: Small hiatal hernia, gastritis. Continue PPI and Carafate. Will advance diet. I suspect she may have biliary dyskinesia or acalculus cholecystitis contributing to her symptoms. She will need outpatient work-up with HIDA, possibly gastric emptying study. If discharged from the hospital, she should follow-up with Dr. Glynn within the week for more tests. Status: Acute (2) Abdominal pain: Status: Acute
--- NOTE | 2023-05-19 18:15 | PC.NURSE ---
A&OX4. TOLERATING RA WELL. HAS BEEN UP INDEPENDENTLY TO AND FROM BATHROOM. HAS HAD NO C/O NA/VO/PAIN THUS FAR. TOLERATED DIET WELL. VSS.
[2023-05-20] VITALS: BP 136/67; PULSE 60; PULSE 65; RESP 16; TEMP 36.8; O2SAT 93
[2023-05-20 04:00] VITALS: BP 158/84; PULSE 70; PULSE 76; RESP 16; TEMP 36.7; O2SAT 93; BMI 22.4
[2023-05-20 07:29] LABS: Basophils # 0.1 K/mm3 (0-0.2); Basophils % 0.8 % (0.1-2.0); Eosinophils # 0.7 K/mm3 (0.0-0.4); Eosinophils % 9.8 % (0.1-12.0); Hematocrit 42.8 % (37.0-47.0); Hemoglobin 13.3 g/dL (12.2-16.2); Lymphocytes # 2.3 K/mm3 (0.7-4.5); Lymphocytes % 32.3 % (10-50); Mean Corpuscular HGB Conc 31.1 g/dL (31.8-35.4); Mean Corpuscular Volume 89.9 fl (81-99); Monocytes # 0.5 K/mm3 (0.1-1.0); Monocytes % 6.3 % (1.7-9.3); Neutrophils # 3.7 K/mm3 (1.8-7.8); Neutrophils % 50.8 % (37.0-80.0); Platelet Count 295 K/mm3 (142-424); Red Blood Count 4.76 M/mm3 (4.20-5.40); White Blood Count 7.2 K/mm3 (4.8-10.8)
[2023-05-20 07:36] LABS: Anion Gap 10.2 mEq/L (5-15); Blood Urea Nitrogen 9 mg/dl (7-17); Calcium 8.4 mg/dl (8.4-10.2); Carbon Dioxide 28 mmol/L (22.0-30.0); Chloride 105 mmol/L (98-107); Creatinine Clearance Estimated 41 mL/min (50-200); Estimated Glomerular Filt Rate 97 ml/min (>60); GFR (African American) 117 ML/MIN (>60); Glucose 97 mg/dl (74-100); Potassium 4.2 mmoL/L (3.5-5.1); Sodium 139 mmol/L (136-145)
[2023-05-20 07:37] VITALS: BP 132/66; PULSE 73; RESP 16; TEMP 36.9; O2SAT 97
[2023-05-20 08:00] VITALS: PULSE 70
--- NOTE | 2023-05-20 08:35 | EXP.DC.SUM ---
General Admission date:: 05/17/23 Discharge date: 05/20/23 HPI HPI HPI: This is a 78-year-old female seen in consultation Dr. Rubalcava for evaluation regarding upper abdominal pain. Please see HPI forwarded below from admission H&P. Forwarded from admission H&P: 78-year-old female with history of pulmonary fibrosis and chronic bronchiectasis who over the past year has had a couple of admissions where she has significant abdominal pain. Work-up has been fairly extensive but is never shown pathology and she is resolved spontaneously able to go home and follow a limited diet. This week her abdominal pain has been worse. She was in the ER on May 14, CT scan was unremarkable labs were unremarkable and she was discharged home and felt a little better but on the came back to the ER with significant pain and vomiting. Evaluation revealed CT scan change somewhat with distended gallbladder and evidence of antral thickening on the CT scan. CTA was done because of possible ischemic bowel which did not appear to show any significant stenotic lesions. She was admitted to hospital for IV fluids, n.p.o. status and further diagnostic testing. This morning she states she is in no pain but has not eaten and still is suffering from some nausea Hospital Course Hospital Course Hospital Course: Patient was admitted from the ER, IV fluids and pain medicines were given. Intravenous twice daily proton pump inhibitor was started. Given patient's antral thickening on CT scan of the abdomen EGD was done which revealed gastritis and some esophagitis but no active bleeding or ulceration. Biopsies were taken which are pending for H. pylori and malignancy. Sucralfate was started. Gallbladder was enlarged on CT scan, but ultrasound was nondiagnostic for stones or wall thickening. Patient was observed and improved on twice daily proton pump inhibitor and sucralfate. Plan will be to discharge home today now that she is eating well and pain is improved and I will see her back on Sunday morning. We will initiate outpatient work-up with HIDA scan and follow-up with surgery at that point if gallbladder function is a problem. She will continue her current cautious diet and her other medications. Exam Data for Last 24 hours Vital signs and Labs for Last 24 Hours: Temp Pulse Resp BP Pulse Ox O2 Del Method O2 Flow Rate 98.4 F 73 16 132/66 97 Room Air 2 05/20/23 07:37 05/20/23 07:37 05/20/23 07:37 05/20/23 07:37 05/20/23 07:37 05/20/23 07:37 05/17/23 22:00 Laboratory Results - last 24 hr 05/20/23 07:03: WBC 7.2, RBC 4.76, Hgb 13.3, Hct 42.8, MCV 89.9, MCH 28.0, MCHC 31.1 L, RDW 14.0, Plt Count 295, MPV 8.0, Neut % (Auto) 50.8, Lymph % (Auto) 32.3, [place] % (Auto) 6.3, Eos % (Auto) 9.8, Baso % (Auto) 0.8, Neut # (Auto) 3.7, Lymph # (Auto) 2.3, [place] # (Auto) 0.5, Eos # (Auto) 0.7 H, Baso # (Auto) 0.1, Sodium 139, Potassium 4.2 D, Chloride 105, Carbon Dioxide 28, Anion Gap 10.2, BUN 9 D, Creatinine 0.60, Estimated Creat Clear 41, Estimated GFR 97, Est GFR ( Amer) 117, Glucose 97, Calcium 8.4 I & O for Last 24 hours: Intake & Output 05/17/23 05/18/23 05/19/23 05/20/23 11:59 11:59 11:59 11:59 Intake Total 375 / 375 1582 / 1582 1175 / 1175 Output Total 0 / 0 0 / 0 0 / 0 Balance 375 / 375 1582 / 1582 1175 / 1175 Weight 119 lb 15.997 oz 121 lb 8 oz 122 lb 2 oz Microbiology Reports for the Last 24 Hours: Microbiology 05/17/23 16:55 Blood Blood Culture - Preliminary NO GROWTH AFTER 48 HOURS 05/17/23 16:55 Blood Blood Culture - Preliminary NO GROWTH AFTER 48 HOURS Constitutional Constitutional: thin, cachectic and chronically ill appearing *Routine HEENT Exam Head: Present normocephalic Eye: Present EOMI and PERRL ENT: Present mucous membranes moist *Routine Neck Exam Neck: Present supple; Absent lymphadenopathy *Routine Respiratory Exam
--- NOTE | 2023-05-21 14:46 | CARE MANAGER ---
Spoke with patient for post-discharge phone interview, patient was back in ER this am with abdominal pain. Patient reported that she is now having bleeding from her bottom patient states that it has slowed down some. States that she did call her primary MD (Dr. Rubalcava) and they told her to come back to ER if needed, this case packer told the same thing and patient states that she will come back to ER if bleeding persists.
== END 2023-05-20 09:53 | disposition home or self-care (01) ==
LOC: ER 16:20 → 2ND 21:16
PROVIDERS: Surgery; Admitting Provider Family Medicine; Emergency Provider Emergency Medicine; PCP Internal Medicine Adolescent Medicine; Visit Provider Internal Medicine Adolescent Medicine
PROC: 0DJ08ZZ Inspection of Upper Intestinal Tract, Via Natural or Artificial Opening Endoscopic (ICD-10-PCS; CPT 43235; principal; 2023-05-18 10:45)
DX: R10.84 Generalized abdominal pain (principal); J98.4 Other disorders of lung; J45.30 Mild persistent asthma, uncomplicated; I27.20 Pulmonary hypertension, unspecified; R11.0 Nausea; R10.13 Epigastric pain; J84.112 Idiopathic pulmonary fibrosis; J47.9 Bronchiectasis, uncomplicated; R64 Cachexia; Z68.22 Body mass index [BMI] 22.0-22.9, adult; Z79.899 Other long term (current) drug therapy
CPT/HCPCS: 43239; 36415; 71045; 74174; 76705; 80048; 80053; 80329; 81001; 82803; 83605; 83690; 84145; 84484; 85025; 87040; 88305; 93005; 99285; G0378; J0131; J2405; J2704; Q9967

== ENCOUNTER 2023-05-21 07:59 | Emergency (ER) | payer MEDICARE, SELFPAY ==
[2023-05-21] VITALS (8 sets, daily range): BP systolic 127–141; BP diastolic 58–74; PULSE 67–76; RESP 16–19; TEMP 36.4; O2SAT 90–97; BMI 21.4
--- NOTE | 2023-05-21 08:16 | PC.NURSE ---
Dr. Ford at BS for pt eval
--- NOTE | 2023-05-21 08:24 | CT_ITS ---
FINAL REPORT TECHNIQUE: Pre-and postcontrast images of the abdomen were performed by computed tomography. Extensive 3-D reconstruction images were performed. A CTA was performed. This study was performed with techniques to keep radiation doses as low as reasonably achievable (ALARA). Individualized dose reduction techniques using automated exposure control or adjustment of mA and/or kV according to the patient''s size were employed. CLINICAL HISTORY: diffuse abd pain COMPARISON: 05/17/2023 FINDINGS: ABDOMEN: The lung bases demonstrate mild bibasilar scarring/fibrosis which is stable. Precontrast images demonstrate no evidence of nephrolithiasis. No adrenal masses are identified. The liver, spleen and pancreas are unremarkable. There is stable, mild nonspecific gallbladder wall thickening. Wall thickening is seen of the transverse colon, descending and sigmoid colon which may resent colitis or inflammatory bowel disease. CTA: The abdominal aorta is proper caliber. The SMA, celiac axis, and ALAN are patent. There is no significant stenosis or calcification. The renal arteries are patent bilaterally. IMPRESSION: No evidence of renal vascular hypertension or significant renal artery stenosis. Wall thickening of the transverse, descending and sigmoid colon which may represent colitis or inflammatory bowel disease. Reviewed, Interpreted and Dictated by Walter Rogers III, MD Transcribed by Charmaine Torres Authenticated and [facility]
--- NOTE | 2023-05-21 08:30 | HMH.EDGENADL ---
Discharge Plan Disposition Patient Disposition: Home, Self-Care Chief Complaint: Abdominal Pain Prescriptions Prescriptions: No Action oxybutynin chloride 5 mg tablet 5 mg PO BID Patient Comments: TAKE 1 TABLET BY MOUTH TWICE DAILY hydrochlorothiazide 12.5 mg tablet 12.5 mg PO DAILY cholecalciferol (vitamin D3) 1,000 UNIT capsule 1,000 units PO DAILY levothyroxine 75 mcg tablet 75 mcg PO DAILY Patient Comments: TAKE 1 TABLET BY MOUTH ONCE DAILY FOR 30 DAYS montelukast 10 mg tablet 10 mg PO HS pantoprazole 20 mg tablet,delayed release (DR/EC) 20 mg PO BID Qty: 60 2RF sucralfate 1 gram tablet 1 g PO .qac and hs Qty: 120 1RF Referrals Follow up/Referrals: Eber Rubalcava MD [Primary Care Provider] - See instructions Activity Restrictions/Add. Instructions Additional Instructions/Restrictions: At this time is felt you are safe to be discharged home. If new or worsening symptoms please do not hesitate to return the emergency department. Please take your sucralfate which was prescribed to you. For pain please take Tylenol and ibuprofen every 6 hours as needed. Please follow-up with Dr. Rubalcava on Sunday as discussed. Clinical Impressions Clinical Impression: Colitis, Abdominal pain Instructions Patient Instructions: DI for Acute Abdominal Pain Discharge ED Provider: Edvin Ford General Adult HPI General Chief complaint: Abdominal Pain Stated complaint: abd pain Time Seen by Provider: 05/21/23 08:01 Mode of Arrival: Ambulatory Source of Information: Patient Limitations: No Limitations Description of Symptoms (Recalled from ER Triage Doc. by RN): 78 yo F presents with c/o abdominal pain. pt was d/c 'd home yesterday from hospital. pt was sent home with meds, pt reports taking them this am, with no relief. symptoms began around 5 am. History of Present Illness HPI narrative: Patient is a 78-year-old female with past medical history of restrictive lung disease, pulmonary hypertension, who presents emergency department for repeat evaluation of abdominal pain. History is obtained by patient at bedside and per chart review. Patient has had abdominal pain for the last couple of weeks that is diffuse, poorly localizable, not modifiable however decreased p.o. intake from baseline. She was originally seen in the ER where work-up was unrevealing and she was discharged home. Subsequently she was admitted after CTA was unremarkable for ischemia however she had persistent pain and underwent continued diagnostic evaluation. EGD was done and biopsies were taken, evidence of esophagitis however no active bleeding or ulceration. CT imaging also showed distended gallbladder however ultrasound unrevealing and patient's symptoms improved on PPI and sucralfate. Due to worsening symptoms since 5 AM she presents here for continued evaluation. She states that she has had 1 bowel movement with blood coating her stool. Related Data Home Medications Medication Instructions Recorded Confirmed oxybutynin chloride 5 mg tablet 5 mg PO BID Overactive bladder 10/17/19 05/18/23 hydrochlorothiazide 12.5 mg tablet 12.5 mg PO DAILY Fluid 01/12/21 05/17/23 cholecalciferol (vitamin D3) 25 1,000 units PO DAILY Supplement 02/16/21 05/17/23 mcg (1,000 unit) capsule levothyroxine 75 mcg tablet 75 mcg PO DAILY Thyroid 02/12/23 05/18/23 montelukast 10 mg tablet 10 mg PO HS Allergy Symptoms 05/18/23 05/18/23 Previous Rx's Medication Instructions Recorded pantoprazole 20 mg tablet,delayed 20 mg PO BID #60 tabs 05/20/23 release sucralfate 1 gram tablet 1 g PO .qac and hs #120 tabs 05/20/23 Allergies Allergy/AdvReac Type Severity Reaction Status Date / Time nitrofurantoin Allergy Unknown Unknown Verified 12/13/22 10:00 [From MACROBID] allergy reaction [facility] Disclaimer: The information contained in this section may have been updated after the patient was
--- NOTE | 2023-05-21 08:36 | PC.NURSE ---
Pt gone to RAD via wheelchair
[2023-05-21 08:46] LABS: Basophils # 0.1 K/mm3 (0-0.2); Basophils % 0.6 % (0.1-2.0); Eosinophils # 0.3 K/mm3 (0.0-0.4); Eosinophils % 2.8 % (0.1-12.0); Hematocrit 46.3 % (37.0-47.0); Hemoglobin 14.4 g/dL (12.2-16.2); Lymphocytes # 2.2 K/mm3 (0.7-4.5); Lymphocytes % 22.8 % (10-50); Mean Corpuscular Hemoglobin 27.8 pg (27.0-31.2); Mean Corpuscular Volume 89.5 fl (81-99); Monocytes # 0.4 K/mm3 (0.1-1.0); Monocytes % 3.8 % (1.7-9.3); Neutrophils # 6.9 K/mm3 (1.8-7.8); Platelet Count 379 K/mm3 (142-424); Red Blood Count 5.17 M/mm3 (4.20-5.40); Red Cell Distribution Width 13.8 % (11.5-17.5); White Blood Count 9.8 K/mm3 (4.8-10.8)
[2023-05-21 08:49] LABS: Alanine Aminotransferase 26 U/L (12-78); Albumin/Globulin Ratio 1.1 (1.1-1.8); Alkaline Phosphatase 95 U/L (38-126); Anion Gap 10.7 mEq/L (5-15); Aspartate Amino Transferase 41 U/L (14-36); Bilirubin,Total 0.4 mg/dl (0.2-1.3); Blood Urea Nitrogen 18 mg/dl (7-17); Calcium 9.2 mg/dl (8.4-10.2); Carbon Dioxide 30 mmol/L (22.0-30.0); Chloride 102 mmol/L (98-107); Creatinine Clearance Estimated 39 mL/min (50-200); Estimated Glomerular Filt Rate 69 ml/min (>60); GFR (African American) 84 ML/MIN (>60); Globulin 3.8 g/dL (1.3-3.2); Glucose 141 mg/dl (74-100); Lactic Acid 1.6 mmol/L (0.7-2.1); Lipase 105 U/L (23-300); Potassium 3.7 mmoL/L (3.5-5.1); Sodium 139 mmol/L (136-145); Total Protein,Serum 7.8 g/dl (6.3-8.2)
--- NOTE | 2023-05-21 08:58 | PC.NURSE ---
PT back in room from RAD
[2023-05-21 09:45] LABS: Microscopic, Urine URINE MICROSCOPIC (MICROSCOPIC)
[2023-05-21 09:53] LABS: Appearance,Urine CLEAR (Clear); Bilirubin,Urine Negative (Negative); Blood, Urine Negative (Negative); Color,Urine YELLOW (Yellow); Glucose,Urine (UA) Negative (Negative); Ketones,Urine Negative (Negative); Leukocyte Esterase,Urine Negative (Negative); Nitrate,Urine Negative (Negative); PH,Urine 6.5 (5.0-8.5); Protein,Urine Negative (Negative); Specific Gravity, Urine <= 1.005 (1.005-1.030); Urobilinogen,Urine 0.2 EU/dl (0.2)
[2023-05-21 10:05] LABS: Bacteria,Urine Trace /lpf; Squamous Epithelial Cell,Urine Occasional #/hpf (0-5)
--- NOTE | 2023-05-21 10:46 | PC.NURSE ---
pt given ice chips, per MD
--- NOTE | 2023-05-21 11:04 | PC.NURSE ---
Dr. Ford at BS to update pt/visitor of results
== END 2023-05-21 11:39 | disposition home or self-care (01) ==
PROVIDERS: Emergency Provider Emergency Medicine; PCP Internal Medicine Adolescent Medicine
DX: K52.9 Noninfective gastroenteritis and colitis, unspecified (principal); I27.20 Pulmonary hypertension, unspecified; J45.40 Moderate persistent asthma, uncomplicated; J84.10 Pulmonary fibrosis, unspecified
CPT/HCPCS: 74174; 80053; 81001; 83605; 83690; 85025; J0131; J2405

== ENCOUNTER 2023-05-21 17:54 | Inpatient (IN) | payer MEDICARE, SELFPAY ==
[2023-05-21] VITALS (8 sets, daily range): BP systolic 124–147; BP diastolic 50–89; PULSE 68–90; RESP 16–20; TEMP 36.5–36.7; O2SAT 93–96; BMI 21.4
[2023-05-21 18:27] LABS: Occult Blood,Stool Negative (Negative)
--- NOTE | 2023-05-21 19:03 | HMH.EDGENADL ---
Discharge Plan Disposition Patient Disposition: Admitted As Inpatient Condition: Good Clinical Impressions Clinical Impression: Colitis Discharge ED Provider: Chico Win General Adult HPI General Chief complaint: Abdominal Pain Stated complaint: Abd pain with bleeding Time Seen by Provider: 05/21/23 18:06 Mode of Arrival: Wheelchair Source of Information: Patient Limitations: No Limitations Description of Symptoms (Recalled from ER Triage Doc. by RN): 78 yo F presents to ED for worsening abdominal pain. pt states that pain has been ongoing since she was discharged. pt reports approx 3 hours she had an episode of bloody stool. pt reports that she stood up from toilet and had blood gush from her rectum. History of Present Illness HPI narrative: 78-year-old female history of hypertension, hyperlipidemia, hypothyroidism, chronic abdominal pain presenting with abdominal pain. Was seen multiple times this week for abdominal pain, came to the emergency department today. Full work-up negative, CTA of the abdomen and pelvis was concerning for colitis. Patient was discharged with Carafate. Came back complaining of severe, 10 out of 10, unrelenting abdominal pain. Diffuse, associated with bright red blood from my rectum, just before arrival. No fevers or chills, urinary symptoms, lightheadedness, chest pain, shortness of breath, or any other concerns. Related Data Home Medications Medication Instructions Recorded Confirmed oxybutynin chloride 5 mg tablet 5 mg PO BID Overactive bladder 10/17/19 05/18/23 hydrochlorothiazide 12.5 mg tablet 12.5 mg PO DAILY Fluid 01/12/21 05/17/23 cholecalciferol (vitamin D3) 25 1,000 units PO DAILY Supplement 02/16/21 05/17/23 mcg (1,000 unit) capsule levothyroxine 75 mcg tablet 75 mcg PO DAILY Thyroid 02/12/23 05/18/23 montelukast 10 mg tablet 10 mg PO HS Allergy Symptoms 05/18/23 05/18/23 Previous Rx's Medication Instructions Recorded pantoprazole 20 mg tablet,delayed 20 mg PO BID #60 tabs 05/20/23 release sucralfate 1 gram tablet 1 g PO .qac and hs #120 tabs 05/20/23 Allergies Allergy/AdvReac Type Severity Reaction Status Date / Time nitrofurantoin Allergy Unknown Unknown Verified 12/13/22 10:00 [From MACROBID] allergy reaction PFSH [facility] Disclaimer: The information contained in this section may have been updated after the patient was seen, as this information can be updated by other users. Medical History (Updated 05/21/23 @ 23:11 by Jenny Staton RN) Acute respiratory failure with hypoxia Allergic rhinitis Allergic rhinitis Asthma Bronchiectasis Cavitary lesion of lung Dyspnea on exertion Dyspnea on exertion Hypothyroid Osteoarthritis Pneumonia Pulmonary fibrosis Pulmonary hypertension Restrictive lung disease Shortness of breath Surgical History (Updated 05/21/23 @ 23:10 by Jenny Staton RN) History of hysterectomy No history of previous surgery Family History Brother COPD (chronic obstructive pulmonary disease) Lung disease Sister COPD (chronic obstructive pulmonary disease) Social History Smoking Status: Never smoker alcohol intake: never substance use type: denies use current occupational status: retired Travel in the last 8 weeks: None household members: family housing: house current occupational exposures/hazards: No caffeine: No ROS Obtained: Yes All systems reviewed & no additional complaints except as documented Physical Exam General General appearance: alert, in distress and other ( ) Head Head exam: atraumatic and normocephalic Eye Eye exam: Present normal appearance, PERRL and EOMI ENT ENT exam: Present mucous membranes moist Neck Neck exam: Present normal inspection, full ROM and trachea midline Respiratory Respiratory exam: Present normal lung sounds bilaterally; Absent resp
[2023-05-21 20:20] LABS: Alanine Aminotransferase 23 U/L (12-78); Albumin Level 3.7 g/dl (3.5-5.0); Alkaline Phosphatase 87 U/L (38-126); Aspartate Amino Transferase 42 U/L (14-36); Bilirubin,Total 0.4 mg/dl (0.2-1.3); Blood Urea Nitrogen 15 mg/dl (7-17); Carbon Dioxide 28 mmol/L (22.0-30.0); Chloride 102 mmol/L (98-107); Creatinine Clearance Estimated 39 mL/min (50-200); Estimated Glomerular Filt Rate 81 ml/min (>60); GFR (African American) 98 ML/MIN (>60); Globulin 3.7 g/dL (1.3-3.2); Glucose 118 mg/dl (74-100); Lipase 57 U/L (23-300); Sodium 137 mmol/L (136-145); Total Protein,Serum 7.4 g/dl (6.3-8.2)
[2023-05-21 20:25] LABS: C-Reactive Protein 8.9 mg/L (0-4)
[2023-05-21 20:27] LABS: Basophils % 0.3 % (0.1-2.0); Eosinophils # 0.1 K/mm3 (0.0-0.4); Eosinophils % 0.8 % (0.1-12.0); Hematocrit 41.4 % (37.0-47.0); Hemoglobin 13.3 g/dL (12.2-16.2); Lymphocytes # 0.9 K/mm3 (0.7-4.5); Lymphocytes % 9.8 % (10-50); Mean Corpuscular HGB Conc 32.1 g/dL (31.8-35.4); Mean Corpuscular Hemoglobin 27.8 pg (27.0-31.2); Mean Corpuscular Volume 86.6 fl (81-99); Mean Platelet Volume 8.3 fl (7.4-10.4); Monocytes # 0.1 K/mm3 (0.1-1.0); Monocytes % 1.4 % (1.7-9.3); Neutrophils # 7.6 K/mm3 (1.8-7.8); Neutrophils % 87.7 % (37.0-80.0); Platelet Count 306 K/mm3 (142-424); Red Blood Count 4.79 M/mm3 (4.20-5.40); Red Cell Distribution Width 13.9 % (11.5-17.5); White Blood Count 8.7 K/mm3 (4.8-10.8)
[2023-05-21 20:29] LABS: MANUAL DIFFERENTIAL MANUAL DIFFERENTIAL (MANUAL DIFF)
[2023-05-21 21:05] LABS: Erythrocyte Sedimentation Rate 69 mm/hr (0-30)
[2023-05-21 21:12] LABS: Lymphocytes % 16 % (10-50); Neutrophils % 84 % (42-76); Total Cells Counted 100
[2023-05-21 21:13] LABS: Platelet Estimate Normal; RBC Morphology Normal
--- NOTE | 2023-05-21 21:22 | PC.NURSE ---
Paged at this time.
--- NOTE | 2023-05-21 21:37 | PC.NURSE ---
patient being admitted to 2nd floor per at this time.
--- NOTE | 2023-05-21 22:19 | PC.NURSE ---
pt arrived to the floor at this time
[2023-05-22] VITALS (7 sets, daily range): BP systolic 125–142; BP diastolic 65–97; PULSE 68–82; RESP 16–18; TEMP 36.5–36.7; O2SAT 93–96; BMI 23.1
--- NOTE | 2023-05-22 06:11 | PC.NURSE ---
pt admitted through the night with dx of colitis. pt reports constant aching in abdomen. morphine ordered and given prn. does report to help, pt started on clear liquid diet and has been tolerating sips of sprite.
--- NOTE | 2023-05-22 06:13 | PC.NURSE ---
pt has been hypotensive. spoke with hospitalist concerning order for norepinephrine but he felt like pt did not need it and cont to monitor bp and may give an additional dose of midodrine if needed. no symptoms of hypotension as pt reports he is hypotensive and has a history. replaced k and mag. awaiting repeat lab work
--- NOTE | 2023-05-22 07:19 | HMH.PHAINT1 ---
Pharmacy Intervention Comments: Medication history complete, medications verified with fill history. - Judith Waters, PharmD Candidate 2023
--- NOTE | 2023-05-22 08:32 | EXP.HP ---
History of Present Illness *Admission Date: 05/21/23 *Reason for visit:: Recurrent lower abdominal pain/hematochezia *History of present illness: 78-year-old female with idiopathic pulmonary fibrosis, chronic hypoxia and restrictive lung disease who over the past months has had a significant morbidity with abdominal pain. She has been admitted several times, mostly in the past couple of weeks, for significant and intractable abdominal pain. Work-up is included several CT scans which at varying times have shown different results, 2 weeks ago essentially normal and then earlier last week showing larger gallbladder size with some antral gastric thickening. During that admission she was subjected to an EGD which showed some nonspecific erosions, biopsies and H. pylori cultures are pending. She was placed on high-dose PPI and sucralfate and seemed to improve and was discharged. Her pain however transition to lower abdominal pain and at home she began to notice bright red blood per rectum that she reports was running down her leg. Came back to the ER last night with intractable pain and the ER doctors consulted me and we discussed the case. Concern is that she has now developed a colitis or perhaps the colitis was the source of her pain all along but was just not prominent enough to be picked up on CT scan. Regardless, and concerned about the development of IBD which occasionally can have a bimodal peak later in life. We decided to admit to hospital and gave her a dose of steroids. [facility] Disclaimer: The information contained in this section may have been updated after the patient was seen, as this information can be updated by other users. Medical History (Updated 05/21/23 @ 23:11 by Jenny Staton RN) Acute respiratory failure with hypoxia Allergic rhinitis Allergic rhinitis Asthma Bronchiectasis Cavitary lesion of lung Dyspnea on exertion Dyspnea on exertion Hypothyroid Osteoarthritis Pneumonia Pulmonary fibrosis Pulmonary hypertension Restrictive lung disease Shortness of breath Surgical History (Updated 05/21/23 @ 23:10 by Jenny Staton RN) History of hysterectomy No history of previous surgery Family History Brother COPD (chronic obstructive pulmonary disease) Lung disease Sister COPD (chronic obstructive pulmonary disease) Social History Smoking Status: Never smoker alcohol intake: never substance use type: denies use current occupational status: retired Travel in the last 8 weeks: None household members: family housing: house current occupational exposures/hazards: No caffeine: No Review of Systems Review of Systems Review of systems:: pertinent systems reviewed and negative unless documented below Meds Home Medications and Allergies Home Medications Medication Instructions Recorded Confirmed Type oxybutynin chloride 5 mg tablet 5 mg PO BID Overactive bladder 10/17/19 05/22/23 History hydrochlorothiazide 12.5 mg tablet 12.5 mg PO DAILY Fluid 01/12/21 05/22/23 History cholecalciferol (vitamin D3) 25 1,000 units PO DAILY Supplement 02/16/21 05/22/23 History mcg (1,000 unit) capsule levothyroxine 75 mcg tablet 75 mcg PO DAILY Thyroid 02/12/23 05/22/23 History montelukast 10 mg tablet 10 mg PO HS Allergy Symptoms 05/18/23 05/22/23 History levofloxacin 500 mg tablet 500 mg PO DAILY Infection 05/22/23 05/22/23 History metronidazole 500 mg tablet 500 mg PO BID Infection 05/22/23 05/22/23 History pantoprazole 20 mg tablet,delayed 20 mg PO BID Acid Reflux 05/22/23 05/22/23 History release prednisone 20 mg tablet 20 mg PO BID Inflammation 05/22/23 05/22/23 History sucralfate 1 gram tablet 1 g PO ACHS Acid Reflux 05/22/23 05/22/23 History New Prescriptions to Start Prescriptions: Allergies Allergy/AdvReac Type Severity Reaction Status Date / Time nitrofurantoi
--- NOTE | 2023-05-22 10:15 | EXP.SURG.CON ---
History of Present Illness *Admission Date: 05/21/23 *Reason for visit:: Abdominal pain *History of present illness: This is a 78-year-old female seen in consultation from the service of Dr. Rubalcava for evaluation regarding abdominal pain. The surgical service was consulted on May 18 during prior admission. Evaluation at that time included a CT scan and gallbladder ultrasound. No definitive abnormality was noted. Plans for further outpatient evaluation to likely include hepatobiliary scan, UGI/SBFT, and gastric emptying scan were made. She initially progressed well and was discharged. However, increasing abdominal pain resulted in a return to the emergency department where evaluation included a repeat CT scan showing evidence of possible transverse/descending colitis versus inflammatory bowel disease. She was readmitted for further evaluation and management. Please see HPI forwarded below from admission H&P. Forwarded from admission H&P: 78-year-old female with idiopathic pulmonary fibrosis, chronic hypoxia and restrictive lung disease who over the past months has had a significant morbidity with abdominal pain. She has been admitted several times, mostly in the past couple of weeks, for significant and intractable abdominal pain. Work-up is included several CT scans which at varying times have shown different results, 2 weeks ago essentially normal and then earlier last week showing larger gallbladder size with some antral gastric thickening. During that admission she was subjected to an EGD which showed some nonspecific erosions, biopsies and H. pylori cultures are pending. She was placed on high-dose PPI and sucralfate and seemed to improve and was discharged. Her pain however transition to lower abdominal pain and at home she began to notice bright red blood per rectum that she reports was running down her leg. Came back to the ER last night with intractable pain and the ER doctors consulted me and we discussed the case. Concern is that she has now developed a colitis or perhaps the colitis was the source of her pain all along but was just not prominent enough to be picked up on CT scan. Regardless, and concerned about the development of IBD which occasionally can have a bimodal peak later in life. We decided to admit to hospital and gave her a dose of steroids. [facility] Disclaimer: The information contained in this section may have been updated after the patient was seen, as this information can be updated by other users. Medical History (Updated 05/22/23 @ 10:26 by Vishal Foley MD) Acute respiratory failure with hypoxia Allergic rhinitis Allergic rhinitis Asthma Bronchiectasis Cavitary lesion of lung Dyspnea on exertion Dyspnea on exertion Hypothyroid Osteoarthritis Pneumonia Pulmonary fibrosis Pulmonary hypertension Restrictive lung disease Shortness of breath Surgical History (Updated 05/21/23 @ 23:10 by Jenny Staton RN) History of hysterectomy No history of previous surgery Family History Brother COPD (chronic obstructive pulmonary disease) Lung disease Sister COPD (chronic obstructive pulmonary disease) Social History Smoking Status: Never smoker alcohol intake: never substance use type: denies use current occupational status: retired Travel in the last 8 weeks: None household members: family housing: house current occupational exposures/hazards: No caffeine: No Meds Home Medications and Allergies Home Medications Medication Instructions Recorded Confirmed Type oxybutynin chloride 5 mg tablet 5 mg PO BID Overactive bladder 10/17/19 05/22/23 History hydrochlorothiazide 12.5 mg tablet 12.5 mg PO DAILY Fluid 01/12/21 05/22/23 History cholecalciferol (vitamin D3) 25 1,000 units PO DAILY Supplement 02/16/21 05/22/23 History mcg (1,000 unit) capsule
--- NOTE | 2023-05-22 16:14 | PC.NURSE ---
Pt Reported severe pain early in the shift pain was relieved with pain medications, Pt has rested well and later in shift complained of mild pain that was relieved with reposition, Pt denies other needs at this time.
[2023-05-23 04:00] VITALS: BP 126/67; PULSE 62; RESP 18; TEMP 36.4; O2SAT 92; BMI 24.5
--- NOTE | 2023-05-23 06:04 | PC.NURSE ---
uneventful night, vss, pt medicated with morphine x1 effective. will cont with poc
--- NOTE | 2023-05-23 06:35 | P.PN_ITS ---
Subjective Patient reports: feels better and pain is less Narrative: The patient states that her abdominal pain is much better this morning . She does complain of intermittent back pain that was worse last night . Exam Data for Last 24 hours Vital signs and Labs for Last 24 Hours: Temp Pulse Resp BP Pulse Ox O2 Del Method 97.5 F L 62 18 126/67 92 L Room Air 05/23/23 04:00 05/23/23 04:00 05/23/23 04:00 05/23/23 04:00 05/23/23 04:00 05/23/23 05:00 I & O for Last 24 hours: Intake & Output 05/20/23 05/21/23 05/22/23 05/23/23 11:59 11:59 11:59 11:59 Intake Total 360 / 360 3979 / 3979 Output Total 0 / 0 0 / 0 Balance 360 / 360 3979 / 3979 Weight 125 lb 9.6 oz 133 lb Constitutional Constitutional: no acute distress *Routine Respiratory Exam Respiratory: Absent respiratory distress *Routine Cardiovascular Exam Cardiovascular: Absent tachycardia *Routine Abdominal Exam Abdominal: Present soft and tenderness (Less tender) Progress Note: A&P Assessment and plan (1) Colitis: Status: Acute Assessment and plan: Improvement over the last 24 hours with antibiotic coverage and steroid therapy. Continue management as per primary service. Additional evaluation warranted; however, ideally this can be completed in the outpatient setting. She may most greatly benefit from formal outpatient gastroenterology consultatio n. (2) Abdominal pain: Status: Acute
[2023-05-23 06:36] LABS: Basophils % 0.1 % (0.1-2.0); Eosinophils % 0.2 % (0.1-12.0); Hematocrit 36.7 % (37.0-47.0); Hemoglobin 11.7 g/dL (12.2-16.2); Lymphocytes # 1.3 K/mm3 (0.7-4.5); Mean Corpuscular HGB Conc 31.9 g/dL (31.8-35.4); Mean Corpuscular Hemoglobin 28.4 pg (27.0-31.2); Mean Corpuscular Volume 89.1 fl (81-99); Mean Platelet Volume 8.2 fl (7.4-10.4); Monocytes # 0.3 K/mm3 (0.1-1.0); Monocytes % 2.5 % (1.7-9.3); Neutrophils # 11.4 K/mm3 (1.8-7.8); Neutrophils % 87.2 % (37.0-80.0); Platelet Count 313 K/mm3 (142-424); Red Blood Count 4.12 M/mm3 (4.20-5.40); Red Cell Distribution Width 13.9 % (11.5-17.5); White Blood Count 13.1 K/mm3 (4.8-10.8)
[2023-05-23 06:47] LABS: MANUAL DIFFERENTIAL MANUAL DIFFERENTIAL (MANUAL DIFF)
[2023-05-23 06:50] LABS: Anion Gap 7.7 mEq/L (5-15); Blood Urea Nitrogen 10 mg/dl (7-17); Calcium 8.5 mg/dl (8.4-10.2); Carbon Dioxide 30 mmol/L (22.0-30.0); Chloride 105 mmol/L (98-107); Creatinine Clearance Estimated 44 mL/min (50-200); Estimated Glomerular Filt Rate 119 ml/min (>60); GFR (African American) 144 ML/MIN (>60); Glucose 119 mg/dl (74-100); Potassium 3.7 mmoL/L (3.5-5.1); Sodium 139 mmol/L (136-145)
[2023-05-23 07:33] LABS: Lymphocytes % 10 % (10-50); Neutrophils % 88 % (42-76); Total Cells Counted 100
[2023-05-23 07:50] LABS: RBC Morphology Normal
[2023-05-23 07:51] LABS: Platelet Estimate Normal
[2023-05-23 07:52] VITALS: BP 112/54; PULSE 91; RESP 16; TEMP 36.8; O2SAT 91
--- NOTE | 2023-05-23 08:03 | EXP.ACUTE.PN ---
Subjective *Date: 05/23/23 *Time: 08:03 Interval history: Patient feels a little bit better with less abdominal pain. No further bleeding from the gut. Surgical consult reviewed, discussed case with surgeon, appreciate input Medical Exam Vital signs and Labs for Last 24 Hours: Vital Signs Temp Pulse Resp BP Pulse Ox O2 Del Method 05/23/23 07:52 98.3 F 91 H 16 112/54 L 91 L Room Air 05/23/23 07:36 Room Air 05/23/23 05:00 Room Air 05/23/23 04:00 97.5 F L 62 18 126/67 92 L 05/23/23 03:00 Room Air 05/23/23 01:00 Room Air 05/22/23 23:00 Room Air 05/22/23 21:00 Room Air 05/22/23 20:00 97.8 F 68 18 138/65 93 L Room Air 05/22/23 18:36 Room Air 05/22/23 17:00 Room Air 05/22/23 16:00 98.0 F 76 16 141/74 H 95 Room Air 05/22/23 14:54 Room Air 05/22/23 13:00 Room Air 05/22/23 12:00 98.1 F 82 16 142/74 H 95 Room Air 05/22/23 11:00 Room Air 05/22/23 09:00 Room Air Intake and Output 05/22/23 05/23/23 05/23/23 19:59 03:59 11:59 Intake Total 990 / 4249 3259 / 4249 Output Total 0 / 0 0 / 0 0 / 0 Balance 990 / 4249 0 / 4249 3259 / 4249 Intake: Intake, Oral Amount 990 / 1260 270 / 1260 Intake, Other Amount 2989 / 2989 Output: Output, Urine Amount 0 / 0 0 / 0 0 / 0 Other: Intake, Other Source Saline Solution Number of Unmeasured Voids 1 1 Weight 133 lb Patient Weight 05/23/23 11:59 Weight 133 lb Laboratory Results - last 24 hr 05/23/23 05:56: WBC 13.1 H D, RBC 4.12 L, Hgb 11.7 L, Hct 36.7 L, MCV 89.1, MCH 28.4, MCHC 31.9, RDW 13.9, Plt Count 313, MPV 8.2, Neut % (Auto) 87.2 H, Lymph % (Auto) 10.0, [place] % (Auto) 2.5, Eos % (Auto) 0.2, Baso % (Auto) 0.1, Neut # (Auto) 11.4 H, Lymph # (Auto) 1.3, [place] # (Auto) 0.3, Eos # (Auto) 0.0, Baso # (Auto) 0.0, Total Counted 100, Neutrophils % (Manual) 88 H, Band Neutrophils % 2.0, Lymphocytes % (Manual) 10, Platelet Estimate Normal, RBC Morphology Normal, Sodium 139, Potassium 3.7, Chloride 105, Carbon Dioxide 30, Anion Gap 7.7, BUN 10 D, Creatinine 0.50 L D, Estimated Creat Clear 44, Estimated GFR 119, Est GFR ( Amer) 144 D, Glucose 119 H, Calcium 8.5 I & O for Labs for Last 24 Hours: Intake & Output 05/20/23 05/21/23 05/22/23 05/23/23 11:59 11:59 11:59 11:59 Intake Total 360 / 360 4249 / 4249 Output Total 0 / 0 0 / 0 Balance 360 / 360 4249 / 4249 Weight 125 lb 9.6 oz 133 lb Comment:: Patient is alert, slightly flushed in her cheeks. Heart rate regular, lungs unchanged, abdomen soft, slightly tender in both lower quadrants Assessment and Plan *Assessment and plan (1) Colitis: Status: Acute Category: Medical Code(s): K52.9 - Noninfective gastroenteritis and colitis, unspecified (2) Abdominal pain: Status: Acute Qualifiers: Abdominal location: generalized Qualified Code(s): R10.84 - Generalized abdominal pain Category: Medical Code(s): R10.9 - Unspecified abdominal pain (3) Restrictive lung disease: Status: Acute Category: Medical Code(s): J98.4 - Other disorders of lung Plan Colitis none noted on CT scan. Plan to check stool PCR although this does not seem to be infectious. Hemoglobin is stable. Start oral Flagyl to cover for low likelihood of infection. We will also start oral prednisone. Last Dr. Foley to look at her and see if he thinks a flex sig would be warranted to get a biopsy for diagnostic purposes. Plan update 05/23/2023-appreciate surgical input, continue current plan, Flagyl and prednisone orally, given her facial flushing will reduce dose of prednisone. Check labs tomorrow. Check stool lactoferrin. Advance diet if possible.
[2023-05-23 15:10] VITALS: BP 148/76; PULSE 70; RESP 16; TEMP 36.9; O2SAT 94
--- NOTE | 2023-05-23 18:02 | PC.NURSE ---
Pt A&O x4. Has ambulated to BR with stand by assist x1. Has had a small BM x1. She c/o feeling bloated. Abdomen is round and soft. Voiding without difficulty. VSS. Family has visited. Call light within reach.
[2023-05-23 19:33] LABS: Adenovirus F 40/41, stool Not Detected (NotDetected); Astrovirus Not Detected (NotDetected); Campylobacter Not Detected (NotDetected); Clostridium Difficile A/B, PCR Not Detected (NotDetected); Cryptosporidium Not Detected (NotDetected); Cyclospora Cayetanesis Not Detected (NotDetected); Entamoeba histolytica Not Detected (NotDetected); Enteroaggregative E coli Not Detected (NotDetected); Enteropathogenic E coli Not Detected (NotDetected); Enterotoxigenic E coli Not Detected (NotDetected); Giardia lamblia Not Detected (NotDetected); Norovirus Not Detected (NotDetected); Plesimonas Shigalloides, PCR Not Detected (NotDetected); Rotavirus A Not Detected (NotDetected); Salmonella, PCR Not Detected (NotDetected); Sapovirus Not Detected (NotDetected); Shiga-like toxin E coli Not Detected (NotDetected); Shigella Enterovasive E coli Not Detected (NotDetected); Vibrio Cholerae Not Detected (NotDetected); Vibrio, PCR Not Detected (NotDetected); Yersinia Entercolitica, PCR Not Detected (NotDetected)
[2023-05-23 20:00] VITALS: BP 127/56; PULSE 70; RESP 18; TEMP 36.9; O2SAT 92
--- NOTE | 2023-05-23 23:08 | PC.NURSE ---
c/o nausea, tx per mar
[2023-05-24 04:00] VITALS: BP 138/60; PULSE 61; RESP 18; TEMP 36.6; O2SAT 90; BMI 25.2
[2023-05-24 06:28] LABS: Basophils % 0.4 % (0.1-2.0); Eosinophils # 0.1 K/mm3 (0.0-0.4); Eosinophils % 0.9 % (0.1-12.0); Hematocrit 42.4 % (37.0-47.0); Lymphocytes # 3.4 K/mm3 (0.7-4.5); Lymphocytes % 28.4 % (10-50); Mean Corpuscular HGB Conc 30.6 g/dL (31.8-35.4); Mean Corpuscular Hemoglobin 27.4 pg (27.0-31.2); Mean Corpuscular Volume 89.5 fl (81-99); Mean Platelet Volume 7.8 fl (7.4-10.4); Monocytes # 0.8 K/mm3 (0.1-1.0); Monocytes % 6.9 % (1.7-9.3); Neutrophils # 7.7 K/mm3 (1.8-7.8); Neutrophils % 63.5 % (37.0-80.0); Platelet Count 355 K/mm3 (142-424); Red Blood Count 4.73 M/mm3 (4.20-5.40); Red Cell Distribution Width 14.1 % (11.5-17.5); White Blood Count 12.1 K/mm3 (4.8-10.8)
[2023-05-24 06:36] LABS: Anion Gap 8.1 mEq/L (5-15); Blood Urea Nitrogen 9 mg/dl (7-17); Calcium 8.3 mg/dl (8.4-10.2); Carbon Dioxide 33 mmol/L (22.0-30.0); Chloride 105 mmol/L (98-107); Creatinine Clearance Estimated 46 mL/min (50-200); Estimated Glomerular Filt Rate 81 ml/min (>60); GFR (African American) 98 ML/MIN (>60); Glucose 89 mg/dl (74-100); Potassium 3.1 mmoL/L (3.5-5.1); Sodium 143 mmol/L (136-145)
--- NOTE | 2023-05-24 07:02 | P.PN_ITS ---
Subjective Patient reports: diarrhea Narrative: She reports multiple episodes of diarrhea overnight (diarrhea panel sent per nursing). She claims that she does have some abdominal cramping and soreness . In terms of abdominal pain...she believes she is better than initial presentation. Exam Data for Last 24 hours Vital signs and Labs for Last 24 Hours: Temp Pulse Resp BP Pulse Ox O2 Del Method 97.9 F 61 18 138/60 90 L Room Air 05/24/23 04:00 05/24/23 04:00 05/24/23 04:00 05/24/23 04:00 05/24/23 04:00 05/24/23 06:34 Laboratory Results - last 24 hr 05/23/23 05:56: Total Counted 100, Neutrophils % (Manual) 88 H, Band Neutrophils % 2.0, Lymphocytes % (Manual) 10, Platelet Estimate Normal, RBC Morphology Normal 05/24/23 05:57: WBC 12.1 H, RBC 4.73, Hgb 13.0, Hct 42.4, MCV 89.5, MCH 27.4, MCHC 30.6 L, RDW 14.1, Plt Count 355, MPV 7.8, Neut % (Auto) 63.5, Lymph % (Auto) 28.4, [place] % (Auto) 6.9, Eos % (Auto) 0.9, Baso % (Auto) 0.4, Neut # (Auto) 7.7, Lymph # (Auto) 3.4, [place] # (Auto) 0.8, Eos # (Auto) 0.1, Baso # (Auto) 0.0, Sodium 143, Potassium 3.1 L, Chloride 105, Carbon Dioxide 33 H, Anion Gap 8.1, BUN 9, Creatinine 0.70 D, Estimated Creat Clear 46, Estimated GFR 81, Est GFR ( Amer) 98 D, Glucose 89, Calcium 8.3 L I & O for Last 24 hours: Intake & Output 05/21/23 05/22/23 05/23/23 05/24/23 11:59 11:59 11:59 11:59 Intake Total 360 / 360 4249 / 4249 1500 / 1500 Output Total 0 / 0 0 / 0 0 / 0 Balance 360 / 360 4249 / 4249 1500 / 1500 Weight 125 lb 9.6 oz 133 lb 137 lb 7 oz Constitutional Constitutional: no acute distress *Routine Respiratory Exam Respiratory: Absent respiratory distress *Routine Cardiovascular Exam Cardiovascular: Absent tachycardia *Routine Abdominal Exam Abdominal: Present soft and tenderness (mild); Absent rebound or guarding Progress Note: A&P Assessment and plan (1) Colitis: Status: Acute Assessment and plan: Continue management as per primary service (2) Diarrhea: Status: Acute Assessment and plan: Follow-up diarrhea panel (3) Abdominal pain: Status: Acute Assessment and plan: Overall pain improved with current therapy for colitis.
[2023-05-24 08:00] VITALS: BP 126/63; PULSE 79; RESP 17; TEMP 36.8; O2SAT 97
[2023-05-24 08:21] VITALS: O2SAT 97
--- NOTE | 2023-05-24 08:33 | EXP.DC.SUM ---
General Admission date:: 05/23/23 Discharge date: 05/24/23 HPI HPI HPI: This is a 78-year-old female seen in consultation from the service of Dr. Rubalcava for evaluation regarding abdominal pain. The surgical service was consulted on May 18 during prior admission. Evaluation at that time included a CT scan and gallbladder ultrasound. No definitive abnormality was noted. Plans for further outpatient evaluation to likely include hepatobiliary scan, UGI/SBFT, and gastric emptying scan were made. She initially progressed well and was discharged. However, increasing abdominal pain resulted in a return to the emergency department where evaluation included a repeat CT scan showing evidence of possible transverse/descending colitis versus inflammatory bowel disease. She was readmitted for further evaluation and management. Please see HPI forwarded below from admission H&P. Forwarded from admission H&P: 78-year-old female with idiopathic pulmonary fibrosis, chronic hypoxia and restrictive lung disease who over the past months has had a significant morbidity with abdominal pain. She has been admitted several times, mostly in the past couple of weeks, for significant and intractable abdominal pain. Work-up is included several CT scans which at varying times have shown different results, 2 weeks ago essentially normal and then earlier last week showing larger gallbladder size with some antral gastric thickening. During that admission she was subjected to an EGD which showed some nonspecific erosions, biopsies and H. pylori cultures are pending. She was placed on high-dose PPI and sucralfate and seemed to improve and was discharged. Her pain however transition to lower abdominal pain and at home she began to notice bright red blood per rectum that she reports was running down her leg. Came back to the ER last night with intractable pain and the ER doctors consulted me and we discussed the case. Concern is that she has now developed a colitis or perhaps the colitis was the source of her pain all along but was just not prominent enough to be picked up on CT scan. Regardless, and concerned about the development of IBD which occasionally can have a bimodal peak later in life. We decided to admit to hospital and gave her a dose of steroids. Hospital Course Hospital Course Hospital Course: Patient was admitted, started on p.o. Flagyl, lactoferrin stool studies were ordered and a stool PCR. Pending at the time of discharge. She improved nicely on Flagyl and prednisone her pain improved, able to eat and drink much better. Surgical consult reviewed and appreciated. Given patient's improvement in her colitis and her wish to go home this morning we will discharge her. She has prednisone and antibiotics at home, I have instructed her to start these and finish the course that was prescribed as an outpatient. I will see her on Sunday in my office, follow-up her symptoms and reevaluate for timing of flexible sigmoidoscopy for biopsy depending on lab test from stool studies pending at the time of discharge. Exam Data for Last 24 hours Vital signs and Labs for Last 24 Hours: Temp Pulse Resp BP Pulse Ox O2 Del Method 98.3 F 79 17 126/63 97 Room Air 05/24/23 08:00 05/24/23 08:00 05/24/23 08:00 05/24/23 08:00 05/24/23 08:21 05/24/23 08:21 Laboratory Results - last 24 hr 05/24/23 05:57: WBC 12.1 H, RBC 4.73, Hgb 13.0, Hct 42.4, MCV 89.5, MCH 27.4, MCHC 30.6 L, RDW 14.1, Plt Count 355, MPV 7.8, Neut % (Auto) 63.5, Lymph % (Auto) 28.4, [place] % (Auto) 6.9, Eos % (Auto) 0.9, Baso % (Auto) 0.4, Neut # (Auto) 7.7, Lymph # (Auto) 3.4, [place] # (Auto) 0.8, Eos # (Auto) 0.1, Baso # (Auto) 0.0, Sodium 143, Potassium 3.1 L, Chloride 105, Carbon Dioxide 33 H, Anion Gap 8.1, BUN 9, Creatinine 0.70 D, Estimated Creat Clear 46, Estimated GFR 81, Est GFR ( Amer) 98 D, Glucose 89, Calcium 8.3 L I & O for Last 24 hours: Intake & Output
[2023-05-24 09:22] VITALS: BMI 25.2
--- NOTE | 2023-05-25 13:27 | CARE MANAGER ---
Contacted patient related to hospital discharge. She states she is doing ok. She is still have some loose stools, but they are not bloody. She denies any questions or concerns and is aware of her follow up appointment.
[2023-05-31 19:50] LABS: Lactoferrin, Fecal, Quant. 66.28 ug/mL(g) (0.00-7.24)
== END 2023-05-24 10:08 | disposition home or self-care (01) | DRG 392 ==
LOC: ER 18:07 → 2ND 21:49
PROVIDERS: Admitting Provider Family Medicine; Emergency Provider Emergency Medicine; PCP Internal Medicine Adolescent Medicine; Visit Provider Internal Medicine Adolescent Medicine
DX: K52.9 Noninfective gastroenteritis and colitis, unspecified (principal); R10.9 Unspecified abdominal pain; Z79.899 Other long term (current) drug therapy; I27.20 Pulmonary hypertension, unspecified; J84.112 Idiopathic pulmonary fibrosis; E03.9 Hypothyroidism, unspecified; E78.5 Hyperlipidemia, unspecified; G89.29 Other chronic pain; M19.90 Unspecified osteoarthritis, unspecified site; J84.10 Pulmonary fibrosis, unspecified
CPT/HCPCS: 36415; 74174; 80048; 80053; 81001; 82272; 83605; 83630; 83690; 85007; 85025; 85651; 86140; 87507; 99285; G0328; G0378; J0131; J2405

== ENCOUNTER 2023-06-29 10:07 | Emergency (ER) | payer MEDICARE, SELFPAY ==
[2023-06-29] VITALS (8 sets, daily range): BP systolic 131–157; BP diastolic 56–77; PULSE 72–106; RESP 16–18; TEMP 36.6–36.7; O2SAT 93–100; BMI 21.0
--- NOTE | 2023-06-29 10:29 | CT_ITS ---
FINAL REPORT TECHNIQUE: After the administration of intravenous contrast, axial images were obtained through the abdomen and pelvis by computed tomography. This study was performed with technique to keep radiation doses as low as reasonably achievable, (ALARA). Individualized dose reduction techniques using automated exposure control or adjustment of the MA and/or KV according to the patient's size were employed. CLINICAL HISTORY: LUQ/LLQ abd pain and ttp COMPARISON: 05/21/2023 FINDINGS: Abdomen: Scarring is seen at the lung bases. There is mild fatty infiltration of the liver. Gallbladder is distended without CT evidence of gallstones the spleen is unremarkable. The adrenals are normal. The pancreas is unremarkable. The kidneys enhance appropriately. The aorta is normal in caliber. There is no free fluid or adenopathy. Pelvis: The appendix is not identified. There are no secondary findings of appendicitis. Patient is status post hysterectomy. The urinary bladder is unremarkable. There is no free fluid or adenopathy. IMPRESSION: No acute intra-abdominal process. Reviewed, Interpreted and Dictated by Walter Rogers III, MD Transcribed by Charmaine Torres Authenticated and [facility]
[2023-06-29 10:33] LABS: Microscopic, Urine URINE MICROSCOPIC (MICROSCOPIC)
--- NOTE | 2023-06-29 10:33 | HMH.EDGENADL ---
Discharge Plan Disposition Patient Disposition: Home, Self-Care Prescriptions Prescriptions: New cefdinir 300 mg capsule 300 mg PO BID 10 Days Qty: 20 0RF No Action oxybutynin chloride 5 mg tablet 5 mg PO BID Patient Comments: TAKE 1 TABLET BY MOUTH TWICE DAILY hydrochlorothiazide 12.5 mg tablet 12.5 mg PO DAILY cholecalciferol (vitamin D3) 1,000 UNIT capsule 1,000 units PO DAILY levothyroxine 75 mcg tablet 75 mcg PO DAILY Patient Comments: TAKE 1 TABLET BY MOUTH ONCE DAILY FOR 30 DAYS montelukast 10 mg tablet 10 mg PO HS sucralfate 1 gram tablet 1 g PO ACHS Patient Comments: TAKE 1 TABLET BEFORE EACH MEAL AND AT BEDTIME prednisone 20 mg tablet 20 mg PO BID metronidazole 500 mg tablet 500 mg PO BID Patient Comments: TAKE 1 TABLET BY MOUTH TWICE DAILY FOR 7 DAYS pantoprazole 20 mg tablet,delayed release (DR/EC) 20 mg PO BID Patient Comments: TAKE 1 TABLET BY MOUTH TWICE DAILY levofloxacin 500 mg tablet 500 mg PO DAILY Patient Comments: TAKE 1 TABLET BY MOUTH EVERY 24 HOURS FOR 7 DAYS Referrals Follow up/Referrals: Eber Rubalcava MD [Primary Care Provider] - See instructions Activity Restrictions/Add. Instructions Additional Instructions/Restrictions: Your CT scan was unremarkable but your labs demonstrate a urinary tract infection and given the localized pain around your left flank the working diagnosis is pyelonephritis. Please take your antibiotics as prescribed follow-up with your urine culture return with any high fevers or other concerns. Clinical Impressions Clinical Impression: Abdominal pain, LUQ, Abdominal pain, LLQ, Pyelonephritis Instructions Patient Instructions: DI for Acute Abdominal Pain Discharge ED Provider: Efren Meek General Adult HPI General Chief complaint: Abdominal Pain Stated complaint: left side pain Time Seen by Provider: 06/29/23 10:20 Mode of Arrival: Ambulatory Source of Information: Patient Limitations: No Limitations Description of Symptoms (Recalled from ER Triage Doc. by RN): 78 yo F presents to ED with c/o LUQ abdominal pain. symptoms ongoing this week. no n/v/d. History of Present Illness HPI narrative: Patient is a 78-year-old female with chronic abdominal pain who has frequented our emergency department over the last 4 months and has had 6 CT scans of her abdomen pelvis which have shown different abnormalities including colitis bowel wall thickening etc. She has followed up with Dr. Glynn her surgeon who referred her to Dr. Omer in [place] and they plan on doing an outpatient colonoscopy which she has not yet had one. To our knowledge she has not been given a formal diagnosis but she presents today with 1 week of worsening left-sided abdominal pain and tenderness. No diarrhea no blood in her stool no vomiting no chest pain shortness of breath fevers or chills etc. Related Data Home Medications Medication Instructions Recorded Confirmed oxybutynin chloride 5 mg tablet 5 mg PO BID Overactive bladder 10/17/19 06/06/23 hydrochlorothiazide 12.5 mg tablet 12.5 mg PO DAILY Fluid 01/12/21 06/06/23 cholecalciferol (vitamin D3) 25 1,000 units PO DAILY Supplement 02/16/21 06/06/23 mcg (1,000 unit) capsule levothyroxine 75 mcg tablet 75 mcg PO DAILY Thyroid 02/12/23 06/06/23 montelukast 10 mg tablet 10 mg PO HS Allergy Symptoms 05/18/23 06/06/23 levofloxacin 500 mg tablet 500 mg PO DAILY Infection 05/22/23 06/06/23 metronidazole 500 mg tablet 500 mg PO BID Infection 05/22/23 06/06/23 pantoprazole 20 mg tablet,delayed 20 mg PO BID Acid Reflux 05/22/23 06/06/23 release prednisone 20 mg tablet 20 mg PO BID Inflammation 05/22/23 06/06/23 sucralfate 1 gram tablet 1 g PO ACHS Acid Reflux 05/22/23 06/06/23 Previous Rx's Medication Instructions Recorded cefdinir 300 mg capsule 300 mg PO BID 10 days #20 caps 06/29/23 Allergies Allergy/AdvReac Type Sev
[2023-06-29 10:34] LABS: Bilirubin,Urine Negative (Negative); Blood, Urine Negative (Negative); Glucose,Urine (UA) Negative (Negative); Ketones,Urine Negative (Negative); Leukocyte Esterase,Urine 2+ (Negative); Nitrate,Urine POSITIVE (Negative); PH,Urine 6.5 (5.0-8.5); Protein,Urine TRACE (Negative); Urobilinogen,Urine 0.2 EU/dl (0.2)
[2023-06-29 10:35] LABS: Appearance,Urine Slightly Cloudy (Clear); Color,Urine Dark Yellow (Yellow)
[2023-06-29 10:37] LABS: Chloride 100 mmol/L (98-107)
[2023-06-29 10:38] LABS: Potassium 3.2 mmoL/L (3.5-5.1); Sodium 138 mmol/L (136-145)
[2023-06-29 10:40] LABS: Alanine Aminotransferase 31 U/L (12-78); Alkaline Phosphatase 79 U/L (38-126); Aspartate Amino Transferase 41 U/L (14-36); Basophils # 0.1 K/mm3 (0-0.2); Basophils % 0.7 % (0.1-2.0); Bilirubin,Total 0.5 mg/dl (0.2-1.3); Blood Urea Nitrogen 11 mg/dl (7-17); Carbon Dioxide 31 mmol/L (22.0-30.0); Creatinine Clearance Estimated 38 mL/min (50-200); Eosinophils # 0.1 K/mm3 (0.0-0.4); Eosinophils % 0.7 % (0.1-12.0); Estimated Glomerular Filt Rate 97 ml/min (>60); GFR (African American) 117 ML/MIN (>60); Hematocrit 41.4 % (37.0-47.0); Hemoglobin 13.8 g/dL (12.2-16.2); Lymphocytes # 2.9 K/mm3 (0.7-4.5); Lymphocytes % 27.3 % (10-50); Mean Corpuscular HGB Conc 33.2 g/dL (31.8-35.4); Mean Corpuscular Hemoglobin 29.8 pg (27.0-31.2); Mean Corpuscular Volume 89.6 fl (81-99); Mean Platelet Volume 7.5 fl (7.4-10.4); Monocytes # 0.5 K/mm3 (0.1-1.0); Monocytes % 4.4 % (1.7-9.3); Neutrophils % 66.8 % (37.0-80.0); Platelet Count 454 K/mm3 (142-424); Red Blood Count 4.62 M/mm3 (4.20-5.40); Red Cell Distribution Width 14.1 % (11.5-17.5); White Blood Count 10.4 K/mm3 (4.8-10.8)
[2023-06-29 10:41] LABS: Albumin Level 4.1 g/dl (3.5-5.0); Albumin/Globulin Ratio 1.2 (1.1-1.8); Anion Gap 10.2 mEq/L (5-15); Calcium 8.9 mg/dl (8.4-10.2); Globulin 3.5 g/dL (1.3-3.2); Glucose 111 mg/dl (74-100); Lipase 46 U/L (23-300); Total Protein,Serum 7.6 g/dl (6.3-8.2)
[2023-06-29 10:46] LABS: WBC,Urine 20-50 #/hpf (0-3)
[2023-06-29 10:47] LABS: Bacteria,Urine 3+ /lpf; Squamous Epithelial Cell,Urine Occasional #/hpf (0-5)
[2023-06-29 10:57] LABS: Lactic Acid 1.4 mmol/L (0.7-2.1)
--- NOTE | 2023-06-29 11:00 | PC.NURSE ---
Pt gone to RAD via wheelchair
--- NOTE | 2023-06-29 11:13 | PC.NURSE ---
Pt returned from RAD
== END 2023-06-29 13:21 | disposition home or self-care (01) ==
PROVIDERS: Emergency Provider Student in an Organized Health Care Education/Training Program; PCP Internal Medicine Adolescent Medicine
DX: N10 Acute pyelonephritis (principal); B96.29 Other Escherichia coli [E. coli] as the cause of diseases classified elsewhere; R10.12 Left upper quadrant pain; R10.32 Left lower quadrant pain; E87.6 Hypokalemia; J45.909 Unspecified asthma, uncomplicated; E03.9 Hypothyroidism, unspecified; M19.09 Primary osteoarthritis, other specified site; I27.20 Pulmonary hypertension, unspecified; J84.10 Pulmonary fibrosis, unspecified
CPT/HCPCS: 74177; 80053; 81001; 83605; 83690; 85025; 87086; 96361; 96374; 96375; 99284; J2405; Q9967

== ENCOUNTER 2023-07-01 08:01 | Emergency (ER) | payer MEDICARE, SELFPAY ==
[2023-07-01 08:13] VITALS: BP 135/91; PULSE 111; RESP 16; TEMP 36.7; O2SAT 94; BMI 27.4
--- NOTE | 2023-07-01 08:15 | PC.NURSE ---
Dr. Win at [facility] for pt eval
--- NOTE | 2023-07-01 08:21 | CT_ITS ---
PROCEDURE INFORMATION: Exam: CT Abdomen And Pelvis With Contrast Exam date and time: 07/01/2023 8:46 AM Age: 78 years old Clinical indication: Abdominal pain; Additional info: Recent UTI, colitis, constipation, 04/19 TECHNIQUE: Imaging protocol: Computed tomography of the abdomen and pelvis with contrast. Radiation optimization: All CT scans at this facility use at least one of these dose optimization techniques: automated exposure control; mA and/or kV adjustment per patient size (includes targeted exams where dose is matched to clinical indication); or iterative reconstruction. Contrast material: ISOVUE; Contrast volume: 75 ml; Contrast route: IV; REPORTING DATA: Count of CT and Cardiac NM exams in prior 12 months: This patient has received 7 known CTs and 0 known cardiac nuclear medicine studies in the 12 months prior to the current study. COMPARISON: CT ABDOMEN PELVIS W CON 06/29/2023 11:01 AM FINDINGS: Tubes, catheters and devices: Sacral stimulator again noted. Lungs: Bibasilar fibrosis and honeycombing again noted. Coronary arteries: Coronary artery calcifications are present. Diaphragm: There is nonspecific elevation of the right hemidiaphragm. Liver: Tiny hepatic cyst. Gallbladder and bile ducts: Normal. No calcified stones. No ductal dilation. Pancreas: There is diffuse atrophy of the pancreatic parenchyma. Spleen: Normal. No splenomegaly. Adrenal glands: Normal. No mass. Kidneys and ureters: Normal. No hydronephrosis. Stomach and bowel: There is no evidence of intestinal perforation or obstruction. Moderate amount of fecal material in the colon. Appendix: No evidence of appendicitis. Intraperitoneal space: Unremarkable. No free air. No significant fluid collection. Vasculature: There are numerous benign phleboliths in the pelvis. Mild atherosclerotic changes of the aorta and branch vessels. Lymph nodes: Unremarkable. No enlarged lymph nodes. Urinary bladder: Unremarkable as visualized. Reproductive: There has been a hysterectomy. Bones/joints: Chronic deformity superior endplate of T12. Soft tissues: Unremarkable. IMPRESSION: No acute findings. Non emergent findings are detailed above.
[2023-07-01 08:31] LABS: Basophils # 0.1 K/mm3 (0-0.2); Basophils % 0.6 % (0.1-2.0); Eosinophils # 0.2 K/mm3 (0.0-0.4); Eosinophils % 1.8 % (0.1-12.0); Hematocrit 40.9 % (37.0-47.0); Hemoglobin 13.6 g/dL (12.2-16.2); Lymphocytes # 2.1 K/mm3 (0.7-4.5); Lymphocytes % 24.7 % (10-50); Mean Corpuscular HGB Conc 33.2 g/dL (31.8-35.4); Mean Corpuscular Hemoglobin 29.8 pg (27.0-31.2); Mean Corpuscular Volume 89.7 fl (81-99); Mean Platelet Volume 7.6 fl (7.4-10.4); Monocytes # 0.4 K/mm3 (0.1-1.0); Neutrophils # 5.7 K/mm3 (1.8-7.8); Neutrophils % 67.8 % (37.0-80.0); Platelet Count 368 K/mm3 (142-424); Red Blood Count 4.56 M/mm3 (4.20-5.40); Red Cell Distribution Width 14.1 % (11.5-17.5); White Blood Count 8.4 K/mm3 (4.8-10.8)
[2023-07-01 08:32] LABS: Chloride 101 mmol/L (98-107); Sodium 140 mmol/L (136-145)
--- NOTE | 2023-07-01 08:32 | HMH.EDGENADL ---
Discharge Plan Disposition Patient Disposition: Home, Self-Care Prescriptions Prescriptions: New prednisone 20 mg tablet 40 mg PO BID 5 Days Qty: 20 0RF polyethylene glycol 3350 17 gram/dose powder 17 g PO BID Qty: 510 0RF senna 8.6 mg capsule 8.6 mg PO DAILY 5 Days Qty: 5 0RF Discontinued prednisone 20 mg tablet 20 mg PO BID metronidazole 500 mg tablet 500 mg PO BID Patient Comments: TAKE 1 TABLET BY MOUTH TWICE DAILY FOR 7 DAYS levofloxacin 500 mg tablet 500 mg PO DAILY Patient Comments: TAKE 1 TABLET BY MOUTH EVERY 24 HOURS FOR 7 DAYS cefdinir 300 mg capsule 300 mg PO BID 10 Days Qty: 20 0RF No Action oxybutynin chloride 5 mg tablet 5 mg PO BID Patient Comments: TAKE 1 TABLET BY MOUTH TWICE DAILY hydrochlorothiazide 12.5 mg tablet 12.5 mg PO DAILY cholecalciferol (vitamin D3) 1,000 UNIT capsule 1,000 units PO DAILY levothyroxine 75 mcg tablet 75 mcg PO DAILY Patient Comments: TAKE 1 TABLET BY MOUTH ONCE DAILY FOR 30 DAYS montelukast 10 mg tablet 10 mg PO HS sucralfate 1 gram tablet 1 g PO ACHS Patient Comments: TAKE 1 TABLET BEFORE EACH MEAL AND AT BEDTIME pantoprazole 20 mg tablet,delayed release (DR/EC) 20 mg PO BID Patient Comments: TAKE 1 TABLET BY MOUTH TWICE DAILY Referrals Follow up/Referrals: Eber Rubalcava MD [Primary Care Provider] - See instructions Activity Restrictions/Add. Instructions Additional Instructions/Restrictions: Call your family doctor to establish care for this visit to the emergency department and schedule follow-up within 48 hours to ensure improvement. If you have any worsening of your condition or any other concerning signs or symptoms, return to the emergency department or your primary care doctor for further evaluation. Steroid daily for 5 days, bowel regimen with senna 1 time daily, as well as MiraLAX 2 capfuls daily until stool having regular bowel movements. Once having bowel movements, decreased MiraLAX to 1 capful per day and titrate until stool is the consistency of toothpaste. Clinical Impressions Clinical Impression: Acute constipation, Colitis, Acute UTI Instructions Patient Instructions: DI for Acute Abdominal Pain Discharge ED Provider: [facility] Adult [facility] General Chief complaint: Abdominal Pain Stated complaint: left side pain Time Seen by Provider: 07/01/23 08:13 Mode of Arrival: Family Vehicle Source of Information: Patient and Relative Limitations: No Limitations Description of Symptoms (Recalled from ER Triage Doc. by RN): 78 yo female presents with continued left upper abd pain, recently placed on antibiotics (PO) for UTI; states she has decreased appetite, denies vomiting or diarrhea. denies constipation. Last bm: day before yesterday and she reports that as normal. Afebrile. History of Present Illness HPI narrative: 78-year-old female with history of chronic abdominal pain, colitis, pulmonary hypertension, recent diagnosis of UTI on cefdinir since 06/29 presenting with left-sided abdominal pain. Patient states is 8 out of 10, constant, radiates around to her left flank. Associated with constipation. Not associated with nausea, vomiting, diarrhea, blood in the stool or melena, fevers or chills, decreased p.o. intake, or any other concerns. Made worse with application of pressure, made better with resting. Has not tried any medications or noticed anything that makes it better. Patient supposed to have colonoscopy next month in July 2023 for further diagnosis and work-up of colitis. Related Data Home Medications Medication Instructions Recorded Confirmed oxybutynin chloride 5 mg tablet 5 mg PO BID Overactive bladder 10/17/19 06/06/23 hydrochlorothiazide 12.5 mg tablet 12.5 mg PO DAILY Fluid 01/12/21 06/06/23 cholecalciferol (vitamin D3) 25 1,000 units PO DAILY Supplement 02/16/21 06/06/23 mcg (1,000 unit)
[2023-07-01 08:35] LABS: Alanine Aminotransferase 27 U/L (12-78); Albumin/Globulin Ratio 1.2 (1.1-1.8); Alkaline Phosphatase 68 U/L (38-126); Aspartate Amino Transferase 40 U/L (14-36); Bilirubin,Total 0.3 mg/dl (0.2-1.3); Blood Urea Nitrogen 12 mg/dl (7-17); Calcium 8.6 mg/dl (8.4-10.2); Carbon Dioxide 33 mmol/L (22.0-30.0); Creatinine Clearance Estimated 50 mL/min (50-200); Estimated Glomerular Filt Rate 97 ml/min (>60); GFR (African American) 117 ML/MIN (>60); Globulin 3.4 g/dL (1.3-3.2); Glucose 124 mg/dl (74-100); Lipase 56 U/L (23-300); Total Protein,Serum 7.4 g/dl (6.3-8.2)
[2023-07-01 08:36] LABS: Microscopic, Urine URINE MICROSCOPIC (MICROSCOPIC)
[2023-07-01 08:37] LABS: Appearance,Urine CLEAR (Clear); Bilirubin,Urine Negative (Negative); Blood, Urine Negative (Negative); Color,Urine YELLOW (Yellow); Glucose,Urine (UA) Negative (Negative); Ketones,Urine Negative (Negative); Leukocyte Esterase,Urine 1+ (Negative); Nitrate,Urine Negative (Negative); PH,Urine 6.5 (5.0-8.5); Protein,Urine Negative (Negative); Urobilinogen,Urine 0.2 EU/dl (0.2)
[2023-07-01 08:38] VITALS: BP 124/52; PULSE 87; O2SAT 96
[2023-07-01 08:38] LABS: Activated Partial Thrombo Time 25.9 seconds (22.8-30.6)
[2023-07-01 08:40] LABS: C-Reactive Protein 14.6 mg/L (0-4)
[2023-07-01 08:41] LABS: Lactic Acid 1.8 mmol/L (0.7-2.1)
[2023-07-01 08:50] LABS: Bacteria,Urine 1+ /lpf; RBC,Urine Occasional #/hpf (0-3)
[2023-07-01 09:01] VITALS: BP 142/77; PULSE 90; O2SAT 100
[2023-07-01 09:03] LABS: Erythrocyte Sedimentation Rate 42 mm/hr (0-30)
[2023-07-01 09:30] VITALS: BP 131/70; PULSE 77; O2SAT 100
[2023-07-01 10:14] VITALS: BP 116/55; PULSE 88; RESP 20; TEMP 36.8; O2SAT 96
--- NOTE | 2023-07-05 17:30 | PC.NURSE ---
urine culture on worklist, shows mixed urogenital adali. per dr. boland no action needed.
== END 2023-07-01 10:25 | disposition home or self-care (01) ==
PROVIDERS: Emergency Provider Emergency Medicine; PCP Internal Medicine Adolescent Medicine
DX: E87.6 Hypokalemia (principal); R10.32 Left lower quadrant pain; K52.9 Noninfective gastroenteritis and colitis, unspecified; N39.0 Urinary tract infection, site not specified; K59.09 Other constipation; I27.20 Pulmonary hypertension, unspecified; J84.10 Pulmonary fibrosis, unspecified; E03.9 Hypothyroidism, unspecified; M19.09 Primary osteoarthritis, other specified site
CPT/HCPCS: 74177; 80053; 81001; 83605; 83690; 85025; 85651; 85730; 86140; 87040; 87086; 96365; 96374; 96375; 99285; J2405; Q9967

== ENCOUNTER → 2023-07-16 12:36 | Outpatient (CLI) | payer MEDICARE, SELFPAY | PROVIDERS: PCP Internal Medicine Adolescent Medicine; Visit Provider Internal Medicine Pulmonary Disease | DX: R06.02 Shortness of breath (principal) | CPT/HCPCS: 94060 ==

== ENCOUNTER 2023-07-16 14:18 | Emergency (ER) | payer MEDICARE, SELFPAY ==
[2023-07-16 15:20] VITALS: BMI 27.1
[2023-07-16 15:26] VITALS: BP 90/70; PULSE 78; RESP 18; TEMP 36.8; O2SAT 99; BMI 21.0
[2023-07-16 15:30] VITALS: BP 109/76; PULSE 76; RESP 18; O2SAT 96
[2023-07-16 15:52] LABS: Chloride 100 mmol/L (98-107); Sodium 139 mmol/L (136-145)
[2023-07-16 15:53] LABS: Basophils # 0.1 K/mm3 (0-0.2); Basophils % 0.9 % (0.1-2.0); Eosinophils # 0.2 K/mm3 (0.0-0.4); Eosinophils % 2.4 % (0.1-12.0); Hematocrit 39.3 % (37.0-47.0); Hemoglobin 13.4 g/dL (12.2-16.2); Lymphocytes # 3.1 K/mm3 (0.7-4.5); Lymphocytes % 38.4 % (10-50); Mean Corpuscular HGB Conc 34.1 g/dL (31.8-35.4); Mean Corpuscular Hemoglobin 30.1 pg (27.0-31.2); Mean Corpuscular Volume 88.2 fl (81-99); Mean Platelet Volume 8.1 fl (7.4-10.4); Monocytes # 0.5 K/mm3 (0.1-1.0); Monocytes % 5.9 % (1.7-9.3); Neutrophils # 4.2 K/mm3 (1.8-7.8); Neutrophils % 52.4 % (37.0-80.0); Platelet Count 282 K/mm3 (142-424); Red Blood Count 4.46 M/mm3 (4.20-5.40); Red Cell Distribution Width 14.4 % (11.5-17.5); White Blood Count 7.9 K/mm3 (4.8-10.8)
--- NOTE | 2023-07-16 15:53 | HMH.EDGENADL ---
Discharge Plan Disposition Patient Disposition: Home, Self-Care Prescriptions Prescriptions: New prednisone 20 mg tablet 40 mg PO BID 5 Days Qty: 20 0RF No Action omeprazole 40 mg capsule,delayed release(DR/EC) 40 mg PO DAILY oxybutynin chloride 5 mg tablet 5 mg PO BID Patient Comments: TAKE 1 TABLET BY MOUTH TWICE DAILY hydrochlorothiazide 12.5 mg tablet 12.5 mg PO DAILY cholecalciferol (vitamin D3) 1,000 UNIT capsule 1,000 units PO DAILY levothyroxine 75 mcg tablet 75 mcg PO DAILY Patient Comments: TAKE 1 TABLET BY MOUTH ONCE DAILY FOR 30 DAYS Referrals Follow up/Referrals: Eber Rubalcava MD [Primary Care Provider] - See instructions Activity Restrictions/Add. Instructions Additional Instructions/Restrictions: Call your family doctor to establish care for this visit to the emergency department and schedule follow-up within 48 hours to ensure improvement. If you have any worsening of your condition or any other concerning signs or symptoms, return to the emergency department or your primary care doctor for further evaluation. Prednisone every morning for the next 5 days. Be sure to take this with plenty of food and water. Clinical Impressions Clinical Impression: Abdominal pain Qualifiers: Abdominal location: left upper quadrant Qualified Code(s): R10.12 - Left upper quadrant pain Discharge ED Provider: [facility] HPI General Chief complaint: PAIN Stated complaint: phy ref, Lt side rib/stomach pain Time Seen by Provider: 07/16/23 15:18 Mode of Arrival: Wheelchair Source of Information: Patient Limitations: No Limitations Description of Symptoms (Recalled from ER Triage Doc. by RN): pt presents to ED c/o pain in left sided rib pain. pt states she was sent over by Dr. Barlow office. History of Present Illness HPI narrative: 78-year-old female with history of undifferentiated colitis, chronic abdominal pain, pulmonary hypertension presenting with multiple complaints. Patient states that she was going to her lung doctor today for a checkup when she was complaining of left lower rib pain anteriorly. Because of this, was sent to the ER out of concern for possible PE. Patient states that she has chronic shortness of breath, but nothing out of the ordinary or more than usual secondary to her pulmonary hypertension. Denies chest pain, nausea or vomiting, diaphoresis, or any other concerns. Related Data Home Medications Medication Instructions Recorded Confirmed oxybutynin chloride 5 mg tablet 5 mg PO BID Overactive bladder 10/17/19 07/16/23 hydrochlorothiazide 12.5 mg tablet 12.5 mg PO DAILY Fluid 01/12/21 07/16/23 cholecalciferol (vitamin D3) 25 1,000 units PO DAILY Supplement 02/16/21 07/16/23 mcg (1,000 unit) capsule levothyroxine 75 mcg tablet 75 mcg PO DAILY Thyroid 02/12/23 07/16/23 omeprazole 40 mg capsule,delayed 40 mg PO DAILY 07/16/23 07/16/23 release Previous Rx's Medication Instructions Recorded prednisone 20 mg tablet 40 mg PO BID 5 days #20 tabs 07/16/23 Allergies Allergy/AdvReac Type Severity Reaction Status Date / Time nitrofurantoin Allergy Unknown Unknown Verified 07/16/23 13:42 [From MACROBID] allergy reaction [facility] Disclaimer: The information contained in this section may have been updated after the patient was seen, as this information can be updated by other users. Medical History Acute respiratory failure with hypoxia Allergic rhinitis Allergic rhinitis Asthma Bronchiectasis Cavitary lesion of lung Dyspnea on exertion Dyspnea on exertion Hypothyroid Osteoarthritis Pneumonia Pulmonary fibrosis Pulmonary hypertension Restrictive lung disease Shortness of breath Surgical History History of hysterectomy No history of previous surgery Family History (Reviewed 07/16/23
--- NOTE | 2023-07-16 15:54 | XR_ITS ---
FINAL REPORT CLINICAL HISTORY: left rib pain anteriorly and inferior COMPARISON: 05/17/2023 FINDINGS: A portable view of the chest was obtained. Heart size and mediastinum are stable. There are chronic increased interstitial markings. There is stable rwll-[id number]-right apical pleural thickening. There is no new infiltrate. There is no pleural effusion or pneumothorax. IMPRESSION: Stable [id number]-[id number]-[id number]-right apical pleural thickening. No new infiltrate. Reviewed, Interpreted and Dictated by Genoveva Garcia MD Transcribed by Yashira Louise Authenticated and [facility]
[2023-07-16 15:55] LABS: Alanine Aminotransferase 23 U/L (12-78); Albumin Level 4.1 g/dl (3.5-5.0); Albumin/Globulin Ratio 1.2 (1.1-1.8); Alkaline Phosphatase 67 U/L (38-126); Aspartate Amino Transferase 34 U/L (14-36); Bilirubin,Total 0.5 mg/dl (0.2-1.3); Blood Urea Nitrogen 13 mg/dl (7-17); Calcium 9.1 mg/dl (8.4-10.2); Carbon Dioxide 32 mmol/L (22.0-30.0); Creatinine Clearance Estimated 38 mL/min (50-200); Estimated Glomerular Filt Rate 81 ml/min (>60); GFR (African American) 98 ML/MIN (>60); Globulin 3.4 g/dL (1.3-3.2); Glucose 109 mg/dl (74-100); Total Protein,Serum 7.5 g/dl (6.3-8.2)
[2023-07-16 16:05] LABS: Lipase 49 U/L (23-300)
[2023-07-16 16:06] LABS: Anion Gap 9.7 mEq/L (5-15); Potassium 2.7 mmoL/L (3.5-5.1)
--- NOTE | 2023-07-16 16:09 | PC.NURSE ---
RAD at BS
[2023-07-16 16:11] LABS: C-Reactive Protein 8.8 mg/L (0-4)
[2023-07-16 16:26] LABS: Troponin I < 0.01 ng/ml (0.00-0.034)
[2023-07-16 16:26] LABS: NT Pro Brain Natriuretic Pep. 131 pg/mL (0-450)
[2023-07-16 16:31] VITALS: BP 136/74; PULSE 86; RESP 18; O2SAT 65
--- NOTE | 2023-07-16 16:37 | ECG_ITS ---
APPROVED REPORT Exam: Resting ECG HR:85 bpm ECG Measurements Heart Rate 85 AXES HI 172 P 69 QRSd 83 QRS 69 QT 380 T 44 QTc 423 Conclusion SINUS RHYTHM NORMAL ECG UNCONFIRMED REPORT Electronically signed by : Eber Rubalcava MD 07/18/2023 21:16:50
[2023-07-16 17:01] VITALS: BP 152/77; PULSE 83; RESP 24; O2SAT 97
[2023-07-16 17:24] LABS: Microscopic, Urine URINE MICROSCOPIC (MICROSCOPIC)
[2023-07-16 17:29] LABS: Appearance,Urine CLEAR (Clear); Bilirubin,Urine Negative (Negative); Blood, Urine Negative (Negative); Color,Urine YELLOW (Yellow); Glucose,Urine (UA) Negative (Negative); Ketones,Urine Negative (Negative); Leukocyte Esterase,Urine 2+ (Negative); Nitrate,Urine Negative (Negative); PH,Urine 6.5 (5.0-8.5); Protein,Urine Negative (Negative); Urobilinogen,Urine 0.2 EU/dl (0.2)
[2023-07-16 17:45] LABS: Bacteria,Urine Trace /lpf; Squamous Epithelial Cell,Urine Occasional #/hpf (0-5)
[2023-07-16 17:47] LABS: Erythrocyte Sedimentation Rate 37 mm/hr (0-30)
[2023-07-16 20:06] LABS: Troponin I < 0.01 ng/ml (0.00-0.034)
[2023-07-16 20:16] VITALS: BP 125/70; PULSE 75; RESP 16; TEMP 36.8; O2SAT 98
== END 2023-07-16 20:18 | disposition home or self-care (01) ==
PROVIDERS: Emergency Provider Emergency Medicine; PCP Internal Medicine Adolescent Medicine
DX: R10.12 Left upper quadrant pain (principal); E87.6 Hypokalemia; I27.20 Pulmonary hypertension, unspecified; E03.9 Hypothyroidism, unspecified; J84.10 Pulmonary fibrosis, unspecified; J45.909 Unspecified asthma, uncomplicated; M19.09 Primary osteoarthritis, other specified site
CPT/HCPCS: 71045; 80053; 81001; 83605; 83690; 83880; 84484; 85025; 85378; 85651; 86140; 87086; 93005; 94060; 96361; 96374; 96375; 99285; J0131

== ENCOUNTER 2023-08-19 20:12 | Emergency (ER) | payer MEDICARE, SELFPAY ==
[2023-08-19] VITALS (8 sets, daily range): BP systolic 129–151; BP diastolic 62–84; PULSE 67–85; RESP 15–21; TEMP 36.7–36.8; O2SAT 92–98; BMI 21.0
--- NOTE | 2023-08-19 20:15 | ECG_ITS ---
APPROVED REPORT Exam: Resting ECG HR:89 bpm ECG Measurements Heart Rate 89 AXES NJ 143 P 67 QRSd 86 QRS 17 QT 356 T 21 QTc 403 Conclusion SINUS RHYTHM WITH OCCASIONAL VENTRICULAR PREMATURE COMPLEXES MODERATE VOLTAGE CRITERIA FOR LVH, CONSIDER NORMAL VARIANT [MEETS CRITERIA IN ONE OF: R(aVL), S(V1), R(V5), R(V5/V6)+S(V1)] BORDERLINE ECG UNCONFIRMED REPORT Electronically signed by : Eber Rubalcava MD 08/20/2023 19:18:54
--- NOTE | 2023-08-19 20:21 | HMH.EDGENADL ---
Discharge Plan Disposition Patient Disposition: Home, Self-Care Prescriptions Prescriptions: No Action oxybutynin chloride 5 mg tablet 5 mg PO BID Patient Comments: TAKE 1 TABLET BY MOUTH TWICE DAILY hydrochlorothiazide 12.5 mg tablet 12.5 mg PO DAILY potassium chloride 20 mEq packet 20 meq PO DAILY Qty: 30 0RF sucralfate 1 gram tablet 1 g PO ACHS Patient Comments: TAKE 1 TABLET BEFORE EACH MEAL AND AT BEDTIME omeprazole 40 mg capsule,delayed release(DR/EC) 40 mg PO DAILY Patient Comments: TAKE 1 CAPSULE BY MOUTH ONCE DAILY pantoprazole 20 mg tablet,delayed release (DR/EC) 20 mg PO BID Patient Comments: TAKE 1 TABLET BY MOUTH TWICE DAILY levothyroxine 75 mcg tablet 75 mcg PO DAILY Patient Comments: TAKE 1 TABLET BY MOUTH ONCE DAILY FOR 30 DAYS Referrals Follow up/Referrals: Eber Rubalcava MD [Primary Care Provider] - See instructions Activity Restrictions/Add. Instructions Additional Instructions/Restrictions: Please follow-up with your primary care provider. Please return to the emergency department if you develop any new or worsening symptoms or become concerned for your health. Clinical Impressions Clinical Impression: Pulmonary fibrosis, Anterior chest wall pain Discharge ED Provider: [facility] HPI General Chief complaint: Chest Pain Stated complaint: chest pain Time Seen by Provider: 08/19/23 20:18 History of Present Illness HPI narrative: 70-year-old female history of pulmonary fibrosis presents with bilateral rib pain. She reports symptoms been ongoing for the last few days and are associated with shortness of breath. She denies any recent fever or illness. Denies any new cough. Denies significant abdominal pain. She took a dose of Tylenol at home. Related Data Home Medications Medication Instructions Recorded Confirmed oxybutynin chloride 5 mg tablet 5 mg PO BID Overactive bladder 10/17/19 08/19/23 hydrochlorothiazide 12.5 mg tablet 12.5 mg PO DAILY Fluid 01/12/21 08/19/23 levothyroxine 75 mcg tablet 75 mcg PO DAILY Thyroid 02/12/23 08/19/23 omeprazole 40 mg capsule,delayed 40 mg PO DAILY 08/19/23 08/19/23 release pantoprazole 20 mg tablet,delayed 20 mg PO BID 08/19/23 08/19/23 release sucralfate 1 gram tablet 1 g PO ACHS 08/19/23 08/19/23 Previous Rx's Medication Instructions Recorded potassium chloride 20 mEq oral 20 meq PO DAILY #30 ea 07/16/23 packet Allergies Allergy/AdvReac Type Severity Reaction Status Date / Time nitrofurantoin Allergy Unknown Unknown Verified 07/16/23 13:42 [From MACROBID] allergy reaction [facility] Disclaimer: The information contained in this section may have been updated after the patient was seen, as this information can be updated by other users. Medical History Acute respiratory failure with hypoxia Allergic rhinitis Allergic rhinitis Asthma Bronchiectasis Cavitary lesion of lung Dyspnea on exertion Dyspnea on exertion Hypothyroid Osteoarthritis Pneumonia Pulmonary fibrosis Pulmonary hypertension Restrictive lung disease Shortness of breath Surgical History History of hysterectomy No history of previous surgery Family History Brother COPD (chronic obstructive pulmonary disease) Lung disease Sister COPD (chronic obstructive pulmonary disease) Social History Smoking Status: Never smoker alcohol intake: never substance use type: denies use current occupational status: retired Travel in the last 8 weeks: None household members: family housing: house current occupational exposures/hazards: No caffeine: No ROS Obtained: Yes All systems reviewed & no additional complaints except as documented Phy
--- NOTE | 2023-08-19 20:27 | XR_ITS ---
PROCEDURE INFORMATION: Exam: XR Chest Exam date and time: 08/19/2023 8:33 PM Age: 78 years old Clinical indication: Shortness of breath; Additional info: SOA TECHNIQUE: Imaging protocol: Radiologic exam of the chest. Views: 1 view. Total images: 1 COMPARISON: CR XR CHEST PORTABLE 07/16/2023 4:22 PM FINDINGS: Lungs: Chronic volume loss left hemithorax. Chronic left apical pleuroparenchymal fibrotic scarring and thickening. Mild right apical scarring and parenchymal retraction. Fibrosis and emphysema. No acute infiltrate or airspace consolidation. No vascular congestion. Pleural spaces: Chronic blunting left lateral costophrenic angle. No pneumothorax. Heart/Mediastinum: Cardiac loop recorder. Normal heart size. No mediastinal widening. Chronic superior left hilar retraction. Vasculature: Atherosclerotic aortic arch. Bones/joints: Severe osteopenia. Remote deformity distal right clavicle. Partially visualized mild degenerative changes thoracic spine. IMPRESSION: 1. Chronic findings. 2. No radiographically acute process or significant change.
[2023-08-19 20:37] LABS: Basophils # 0.1 K/mm3 (0-0.2); Eosinophils # 0.4 K/mm3 (0.0-0.4); Eosinophils % 3.8 % (0.1-12.0); Hematocrit 41.5 % (37.0-47.0); Hemoglobin 13.7 g/dL (12.2-16.2); Lymphocytes # 3.9 K/mm3 (0.7-4.5); Lymphocytes % 41.6 % (10-50); Mean Corpuscular HGB Conc 33.1 g/dL (31.8-35.4); Mean Corpuscular Hemoglobin 29.7 pg (27.0-31.2); Mean Corpuscular Volume 89.8 fl (81-99); Mean Platelet Volume 7.7 fl (7.4-10.4); Monocytes # 0.6 K/mm3 (0.1-1.0); Monocytes % 5.9 % (1.7-9.3); Neutrophils # 4.4 K/mm3 (1.8-7.8); Neutrophils % 47.6 % (37.0-80.0); Platelet Count 479 K/mm3 (142-424); Red Blood Count 4.62 M/mm3 (4.20-5.40); Red Cell Distribution Width 14.5 % (11.5-17.5); White Blood Count 9.3 K/mm3 (4.8-10.8)
[2023-08-19 20:39] LABS: VBG HCO3 24.6 mmol/L (23-30); VBG Oxygen Saturation 86.7 % (50-70); VBG PCO2 45.8 mmol/L (35-51); VBG PH 7.35 mmol/L (7.31-7.41); VBG PO2 55.5 mmol/L (28-40)
[2023-08-19 20:42] LABS: Alanine Aminotransferase 20 U/L (12-78); Albumin/Globulin Ratio 1.2 (1.1-1.8); Alkaline Phosphatase 72 U/L (38-126); Anion Gap 9.5 mEq/L (5-15); Aspartate Amino Transferase 34 U/L (14-36); Bilirubin,Total 0.3 mg/dl (0.2-1.3); Blood Urea Nitrogen 16 mg/dl (7-17); Calcium 8.7 mg/dl (8.4-10.2); Carbon Dioxide 31 mmol/L (22.0-30.0); Chloride 101 mmol/L (98-107); Creatinine Clearance Estimated 38 mL/min (50-200); Estimated Glomerular Filt Rate 69 ml/min (>60); GFR (African American) 84 ML/MIN (>60); Globulin 3.4 g/dL (1.3-3.2); Glucose 120 mg/dl (74-100); Lipase 66 U/L (23-300); Potassium 3.5 mmoL/L (3.5-5.1); Sodium 138 mmol/L (136-145); Total Protein,Serum 7.4 g/dl (6.3-8.2)
--- NOTE | 2023-08-19 20:45 | CT_ITS ---
PROCEDURE INFORMATION: Exam: CTA Chest With Contrast Exam date and time: 08/19/2023 8:56 PM Age: 78 years old Clinical indication: Shortness of breath; Additional info: SOA, HX pulmonary fibrosis TECHNIQUE: Imaging protocol: Computed tomographic angiography of the chest with contrast. Exam focused on the arteries. 3D rendering (Not supervised by radiologist): MIP and/or 3D reconstructed images were created by the technologist. Total images: 375 Radiation optimization: All CT scans at this facility use at least one of these dose optimization techniques: automated exposure control; mA and/or kV adjustment per patient size (includes targeted exams where dose is matched to clinical indication); or iterative reconstruction. Contrast material: ISOVUE; Contrast volume: 70 ml; Contrast route: INTRAVENOUS (IV); REPORTING DATA: Count of CT and Cardiac NM exams in prior 12 months: This patient has received 8 known CTs and 0 known cardiac nuclear medicine studies in the 12 months prior to the current study. COMPARISON: [facility] CT angio chest 02/13/2019 4:12 PM FINDINGS: Pulmonary arteries: Adequate contrast opacification the pulmonary arteries. Main pulmonary artery is enlarged compatible with pulmonary arterial hypertension. Considerable limitations imposed by significant respiratory motion artifact and subsequent blurring of the pulmonary arteries. No convincing evidence for main or proximal most segmental emboli. Segmental and subsegmental branches are near completely obscured by motion rendering overall evaluation nondiagnostic for complete exclusion of emboli. Great vessels off aortic arch: Tortuous great vessels. Aorta: Mildly atherosclerotic thoracic aorta without aneurysm or dissection. Thyroid: Atrophic thyroid gland. Lungs: Trachea and main bronchi are patent. Bilateral superior hilar retraction. Significant left greater than right upper lobe bronchiectasis. Underlying centrilobular emphysema and diffuse pulmonary interstitial fibrosis. No concerning airspace consolidation. Pleural spaces: Left apical pleural thickening, scarring, and fibrosis. No pneumothorax. No pleural effusion. Heart: Normal heart size. No pericardial effusion. Cardiac loop recorder. Coronary arteries: Mild coronary artery calcifications. Mediastinal space: No mediastinal mass or fluid collection. Lymph nodes: No mediastinal or hilar lymphadenopathy. Diaphragm: Probable tiny sliding hiatal hernia. Eventration right hemidiaphragm. Liver: Decreased liver attenuation from phase of contrast or steatosis. Bones/joints: Osteopenia. Mild degenerative changes thoracic spine. Remote compression deformity T12 vertebral body. Soft tissues: Benign dystrophic bilateral breast calcifications. IMPRESSION: 1. Considerable limitations imposed by significant respiratory motion. 2. No main or proximal most segmental emboli. 3. Chronic pleuroparenchymal lung disease, as described, not significantly changed from February 13, 2019. 4. No convincing evidence for acute superimposed intrathoracic process.
[2023-08-19 20:46] LABS: D-Dimer 0.96 ug/mL (0.0-0.5)
--- NOTE | 2023-08-19 20:54 | PC.NURSE ---
Patient gone to CT at this time.
[2023-08-19 20:55] LABS: Troponin I < 0.01 ng/ml (0.00-0.034)
--- NOTE | 2023-08-19 23:37 | PC.NURSE ---
rounded on patient, nurse on bedside no needs at this time
[2023-08-20 00:04] LABS: Troponin I < 0.01 ng/ml (0.00-0.034)
[2023-08-20 00:10] VITALS: BP 143/71; PULSE 75; RESP 19; O2SAT 95
[2023-08-20 00:14] VITALS: BP 143/71; PULSE 75; RESP 17; TEMP 36.6; O2SAT 97
== END 2023-08-20 00:24 | disposition home or self-care (01) ==
PROVIDERS: Emergency Medicine; Emergency Provider Emergency Medicine; PCP Internal Medicine Adolescent Medicine
DX: J84.10 Pulmonary fibrosis, unspecified (principal); R07.89 Other chest pain; R06.02 Shortness of breath; E03.9 Hypothyroidism, unspecified; I27.20 Pulmonary hypertension, unspecified; I49.3 Ventricular premature depolarization
CPT/HCPCS: 71045; 71275; 80053; 82803; 83690; 84484; 85025; 85378; 93005; 96374; 99285; J2405; Q9967

== ENCOUNTER 2023-09-11 00:16 | Emergency (ER) | payer MEDICARE, SELFPAY ==
[2023-09-11] VITALS (9 sets, daily range): BP systolic 128–163; BP diastolic 48–98; PULSE 79–96; RESP 12–25; TEMP 36.6–36.9; O2SAT 93–97; BMI 21.0
--- NOTE | 2023-09-11 00:41 | XR_ITS ---
PROCEDURE INFORMATION: Exam: XR Chest Exam date and time: 09/11/2023 12:46 AM Age: 78 years old Clinical indication: Pain; Chest pressure; Additional info: Pain L side, abd pain TECHNIQUE: Imaging protocol: Radiologic exam of the chest. Views: 1 view. COMPARISON: CT ANGIO CHEST PE PROTOCOL 08/19/2023 8:56 PM FINDINGS: Tubes, catheters and devices: There is a left chest wall pacer device again noted. Lungs: There is bilateral apical pleural thickening left greater than right with adjacent scar formation without significant change. Pleural spaces: There is no pneumothorax. Heart/Mediastinum: Unremarkable. No cardiomegaly. Bones/joints: Unremarkable. IMPRESSION: No significant change or evidence of acute pulmonary process.
--- NOTE | 2023-09-11 00:43 | HMH.EDGENADL ---
Discharge Plan Disposition Patient Disposition: Home, Self-Care Condition: Fair Prescriptions Prescriptions: New sucralfate 1 gram tablet 1 g PO TIDWMEAL Qty: 60 0RF Rx Instructions: take 3 times daily with meals No Action oxybutynin chloride 5 mg tablet 5 mg PO BID Patient Comments: TAKE 1 TABLET BY MOUTH TWICE DAILY hydrochlorothiazide 12.5 mg tablet 12.5 mg PO DAILY potassium chloride 20 mEq packet 20 meq PO DAILY Qty: 30 0RF sucralfate 1 gram tablet 1 g PO ACHS Patient Comments: TAKE 1 TABLET BEFORE EACH MEAL AND AT BEDTIME omeprazole 40 mg capsule,delayed release(DR/EC) 40 mg PO DAILY Patient Comments: TAKE 1 CAPSULE BY MOUTH ONCE DAILY pantoprazole 20 mg tablet,delayed release (DR/EC) 20 mg PO BID Patient Comments: TAKE 1 TABLET BY MOUTH TWICE DAILY levothyroxine 75 mcg tablet 75 mcg PO DAILY Patient Comments: TAKE 1 TABLET BY MOUTH ONCE DAILY FOR 30 DAYS Referrals Follow up/Referrals: Eber Rubalcava MD [Primary Care Provider] - See instructions Activity Restrictions/Add. Instructions Additional Instructions/Restrictions: You were evaluated in the ER today for concerns of left-sided abdominal pain. You are appropriate for discharge at this time. I prescribed sucralfate again as you are not sure if you had refills of this at home. Take this medication as directed with meals. Continue taking all other home medications as previously prescribed. Make an appointment with Dr. Omer for further evaluation of abdominal pain and findings of gastritis (stomach inflammation) on CT scan. If you are unable to get in with Dr. Omer, you could also call Dr. Streeter at [phone]. She is also a caseworker protective services in [place] and can evaluate you. Additionally, make an appointment with Dr. Barbour for reevaluation and to discuss your ongoing problems. Return to the ER with new, worsening, or otherwise concerning symptoms. Clinical Impressions Clinical Impression: Abdominal pain, LUQ, Abdominal pain, LLQ Instructions Patient Instructions: DI for Acute Abdominal Pain Discharge ED Provider: Homero Blount Adult HPI General Chief complaint: Abdominal Pain Stated complaint: left side, back, rib pain Time Seen by Provider: 09/11/23 00:21 Mode of Arrival: Wheelchair Source of Information: Patient Limitations: No Limitations Description of Symptoms (Recalled from ER Triage Doc. by RN): pt arrives POV in wheel chair. pt c/o severe LUQ abd pain that is tender to palpation x2wks. pt denies N/V/D or any urinary symptoms. pt states the pain is constant. History of Present Illness HPI narrative: This 78-year-old female presents to the ER with concerns of left-sided abdominal pain. Patient states it has been going on for a couple weeks. She states she has had symptoms like this before and they have never found anything causing it. Patient states her last bowel movement was 24 hours ago. She denies it being bloody or black. She denies nausea or vomiting. She states she has been able to eat and drink. Patient states she came to the ER again tonight because she was having severe pain and she thought she was going to pass out. She states she has history of lung problems but no history of heart problems. She denies diabetes or stroke. She denies history of diverticulosis or diverticulitis. She denies painful or bloody urination. Review of systems otherwise negative Related Data Home Medications Medication Instructions Recorded Confirmed oxybutynin chloride 5 mg tablet 5 mg PO BID Overactive bladder 10/17/19 08/19/23 hydrochlorothiazide 12.5 mg tablet 12.5 mg PO DAILY Fluid 01/12/21 08/19/23 levothyroxine 75 mcg tablet 75 mcg PO DAILY Thyroid 02/12/23 08/19/23 omeprazole 40 mg capsule,delayed 40 mg PO DAILY 08/19/23 08/19/23 release pantoprazole 20 mg tablet,delayed 20 mg PO BID 08/19/23 08/19/23 release sucralfate 1 gram tablet 1 g PO ACHS 08/19/23 08/19/23 Previous Rx's Medication Instructions Recorded potassium chloride 20 mEq oral 20 meq PO DAILY #30 ea 07/16/23 packet sucralfate 1 gram tablet 1 g PO TIDWMEAL #60 tabs 09/11/23 Allergies Allergy/AdvReac Type Severity Reaction Status Date / Time nitrofurantoin Allergy Unknown Unknown Verified 07/16/23 13:42 [From MACROBID] allergy reaction [facility] Disclaimer: The information contained in this section may have been updated after the patient was seen, as this information can be updated by other users. Medical History Acute respiratory failure with hypoxia Allergic rhinitis Allergic rhinitis Asthma Bronchiectasis Cavitary lesion of lung Dyspnea on exertion Dyspnea on exertion Hypothyroid Osteoarthritis Pneumonia Pulmonary fibrosis Pulmonary hypertension Restrictive lung disease Shortness of breath Surgical History History of hysterectomy No history of previous surgery Family History Brother COPD (chronic obstructive pulmonary disease) Lung disease Sister COPD (chronic obstructive pulmonary disease) Social History Smoking Status: Never smoker alcohol intake: never substance use type: denies use current occupational status: retired Travel in the last 8 weeks: None household members: family housing: house current occupational exposures/hazards: No caffeine: No ROS Obtained: Yes All systems reviewed & no additional complaints except as documented Constitutional Constitutional: Denies chills, Denies fever(s), Denies headache(s) and Denies weakness Eyes Eyes: Denies change in vision ENT Ears, Nose, Mouth, and Throat: Denies dizziness, Denies headache(s), Denies nasal congestion and Denies sore throat Cardiovascular Cardiovascular: Denies chest pain, Denies dyspnea and Denies leg edema Respiratory Respiratory: Denies cough and Denies dyspnea Gastrointestinal Gastrointestingal: Reports abdominal pain; Denies constipation, diarrhea, loose stools, melena, nausea or vomiting Genitourinary Female Genitourinary: Denies dysuria Musculoskeletal Musculoskeletal: Denies arthralgias, Denies myalgias, Denies numbness and Denies tingling Integumentary/Breasts Skin/Breast: Denies change in pigmentation Neurologic Neurologic: Denies dizziness, Denies headache(s), Denies numbness, Denies tingling and Denies weakness Physical Exam General General appearance: alert and in no apparent distress Head Head exam: atraumatic and normocephalic Eye Eye exam: Present PERRL and EOMI ENT ENT exam: Present mucous membranes moist Neck Neck exam: Present normal inspection and full ROM Chest Chest inspection: Present symmetric chest wall rise Respiratory Respiratory exam: Absent respiratory distress or stridor Cardiovascular Cardiovascular exam: Present regular rate and normal rhythm Abdominal Exam Abdominal exam: Present soft and tenderness (Left upper quadrant, left lower quadrant); Absent distention, guarding or rebound Extremities Exam Extremities exam: Present full ROM Back Exam Back exam: Absent CVA tenderness (R) or CVA tenderness (L) Neurological Exam Neurological exam: Present alert and oriented X3; Absent motor sensory deficit Psychiatric Psychiatric exam: Present normal affect and normal mood Skin Skin exam: Present warm and dry Medical Decision Making Andrea Inquiry Pt receiving controlled substance: No Vital Signs: 09/11/23 00:28 09/11/23 01:00 09/11/23 01:30 Temperature 97.8 F Temperature Source Oral Pulse Rate 90 93 H Pulse Rate [Left] 93 H Respiratory Rate 20 18 16 Blood Pressure 128/74 148/48 H Blood Pressure [Right Arm] 153/69 H Blood Pressure Mean 89 81 Blood Pressure Mean [Right Arm] 97 Blood Pressure Source [Right Arm] Automatic Cuff Blood Pressure Position [Right Arm] Sitting 02 Sat by Pulse Oximetry 93 L 95 96 Oxygen Delivery Method Room Air Room Air Room Air 09/11/23 02:03 09/11/23 02:30 09/11/23 03:00 Temperature Temperature Source Pulse Rate 96 H 79 82 Pulse Rate [Left] Respiratory Rate 23 12 20 Blood Pressure 163/98 H 137/87 148/73 H Blood Pressure [Right Arm] Blood Pressure Mean 98 Blood Pressure Mean [Right Arm] Blood Pressure Source [Right Arm] Blood Pressure Position [Right Arm] 02 Sat by Pulse Oximetry 95 95 96 Oxygen Delivery Method Room Air Room Air Room Air 09/11/23 03:30 09/11/23 04:00 Temperature Temperature Source Pulse Rate 91 H 87 Pulse Rate [Left] Respiratory Rate 25 H 17 Blood Pressure 160/63 H 149/74 H Blood Pressure [Right Arm] Blood Pressure Mean Blood Pressure Mean [Right Arm] Blood Pressure Source [Right Arm] Blood Pressure Position [Right Arm] 02 Sat by Pulse Oximetry 93 L 94 L Oxygen Delivery Method Room Air Room Air Lab Data Lab Results 09/11/23 00:34: WBC 8.1, RBC 4.53, Hgb 13.0, Hct 41.2, MCV 90.9, MCH 28.8, MCHC 31.7 L, RDW 14.3, Plt Count 363, MPV 7.7, Neut % (Auto) 45.2, Lymph % (Auto) 42.4, [place] % (Auto) 5.4, Eos % (Auto) 5.6, Baso % (Auto) 1.4, Neut # (Auto) 3.7, Lymph # (Auto) 3.4, [place] # (Auto) 0.4, Eos # (Auto) 0.5 H, Baso # (Auto) 0.1, Sodium 140, Potassium 3.5, Chloride 103, Carbon Dioxide 30, Anion Gap 10.5, BUN 22 H, Creatinine 0.70, Estimated Creat Clear 38, Estimated GFR 81, Est GFR ( Amer) 98, Glucose 124 H, Lactate 1.4, Calcium 9.0, Total Bilirubin 0.6, AST 36, ALT 20, Alkaline Phosphatase 74, Troponin I < 0.01, Total Protein 7.3, Albumin 3.9, Globulin 3.4 H, Albumin/Globulin Ratio 1.1, Lipase 94 09/11/23 03:12: Urine Color Yellow, Urine Appearance Clear, Urine pH 7.5, Ur Specific [place] 1.010, Urine Protein Negative, Urine Glucose (UA) Negative, Urine Ketones Negative, Urine Blood Negative, Urine Nitrate Negative, Urine Bilirubin Negative, Urine Urobilinogen 0.2, Ur Leukocyte Esterase Trace, Urine WBC Occasional, Urine Bacteria Trace 09/11/23 03:24: Troponin I < 0.01 09/11/23 00:34 09/11/23 00:34 Orders (Tests/Meds): ED MEDICATIONS Generic Name Dose Route Start Last Admin Trade Name Freq PRN Reason Stop Dose Admin Sodium Chloride 10 ml 09/11/23 01:28 09/11/23 01:29 Sodium Chloride 0.9% 10ml Syr (Rad Only) IV 10/11/23 01:27 10 ml NEEDED PRN Administration Maintain IV Site Discontinued Medications Generic Name Dose Route Start Last Admin Trade Name Freq PRN Reason Stop Dose Admin Belladonna Alkaloids 60 ml 09/11/23 03:15 09/11/23 03:27 Belladonna Alkaloids 60 Ml Ml PO 09/11/23 03:16 60 ml ONCE ONE Administration Lactated Ringer's 1,000 mls @ 999 mls/hr 09/11/23 01:44 09/11/23 02:01 Lactated Ringer's 1000 Ml Bag IV 09/11/23 02:44 999 mls/hr .Q1H1M ONE Administration Iopamidol 100 ml 09/11/23 01:28 09/11/23 01:28 Iopamidol-370 (76%);100ml Bottle IV 09/11/23 01:29 100 ml ONCE ONE Administration Methocarbamol 500 mg 09/11/23 01:45 09/11/23 02:01 Methocarbamol 500mg Tablet PO 09/11/23 01:46 500 mg ONCE ONE Administration Morphine Sulfate 2 mg 09/11/23 01:44 09/11/23 02:01 Morphine 4mg/Ml Syringe IV 09/11/23 01:45 2 mg ONCE ONE Administration Sodium Chloride 50 ml 09/11/23 01:28 09/11/23 01:28 0.9 % Sodium Chloride 50 Ml Vial IV 09/11/23 01:29 50 ml ONCE ONE Administration ORDERS Category Date Time Status CT angio abdomen pelvis Stat Cat Scan 09/11/23 00:51 Completed CXR --portable [XR chest portable] Stat Exams 09/11/23 00:41 Taken CBC w/Auto Diff [Complete Blood Count Auto Diff] Stat Lab 09/11/23 00:34 Completed CMP [Comprehensive Metabolic Panel] Stat Lab 09/11/23 00:34 Completed Lactic Acid Stat Lab 09/11/23 00:34 Completed Lipase Stat Lab 09/11/23 00:34 Completed Trop I [Troponin I] Stat Lab 09/11/23 00:34 Completed Troponin I Q3H Lab 09/11/23 03:24 Completed Troponin I Q3H Lab 09/11/23 06:45 Ordered Urinalysis and Microscopic Stat Lab 09/11/23 03:12 Completed ECG initial [place] Routine Y 09/11/23 00:48 Completed Medical Decision Narrative: In summary, this 78year old female presents to the emergency department today with left-sided abdominal pain. On initial evaluation patient is hemodynamically stable, afebrile, physical exam notable for left upper quadrant and left lower quadrant tenderness to palpation of the abdomen without rigidity, distention, rebound, or guarding. No CVA tenderness. Remainder of exam is reassuring and benign. Differential diagnosis includes but is not limited to ACS, bowel obstruction, lactic acidosis, diverticulosis, diverticulitis, urinary tract infection, pyelonephritis, electrolyte abnormality, mesenteric ischemia, also considered peptic ulcer disease. Review of prior records demonstrates patient was seen in the ER in July for similar complaint but had more left anterior chest wall pain at that time without abdominal findings. Her workup at that time was reassuring. Further review of records demonstrates patient has frequented the ER in the last 6 months with similar complaints as she presents with today. She has had abdominal complaints previously including left upper and left lower quadrant tenderness with prior diagnoses of UTI, pyelonephritis, colitis. Based on these concerns, I ordered cardiac workup, CT angiography imaging of the abdomen/pelvis, urinalysis, and basic labs. ECG personally interpreted demonstrates sinus rhythm, rate 81, normal axis, no STEMI, no interval abnormalities.. Patient received IV morphine, methocarbamol, IV fluids for treatment. Labs personally reviewed demonstrate CBC with no leukocytosis or anemia, CMP with normal sodium, potassium, chloride, BUN slightly elevated at 22, creatinine 0.70, mild prerenal azotemia. Patient is already receiving IV fluids. Lactate normal at 1.4, initial troponin undetectably low at less than 0.01, no transaminitis, total bilirubin normal at 0.6, lipase normal at 94. XR personally interpreted demonstrates Findings in the left lung consistent with patient's known pulmonary fibrosis, no lobar infiltrate or other acute intrathoracic abnormality. Compared to prior chest x-rays which I reviewed today's is is stable. See radiology read for final interpretation. CT imaging personally interpreted demonstrates no findings of mesenteric ischemia, no thrombus or other blockage, I do not appreciate findings of bowel obstruction, no perinephric stranding that would be consistent with pyelonephritis. See radiology read for final interpretation. Patient was placed into ED observation at 0220 to obtain serial troponins and rule out evolving HI and to continue with pain management and hopefully preclude unnecessary admission. While in ED observation patient was frequently reevaluated. She was also on the laboratory monitor while awaiting the results. She continued to have pain. Given findings of gastritis on CT imaging, she received GI cocktail because the morphine had not improved her symptoms. On reevaluation she remains hemodynamically stable with heart rate 93, oxygen saturation 95% on room air, normotensive. After GI cocktail patient had moderate improvement of symptoms. She has been able to tolerate oral intake. I discussed her prior prescription for sucralfate and patient that she has not been taking this recently. She is unsure if she has any refills. I represcribed this medication. I also instructed her to continue taking omeprazole that had been previously prescribed. Repeat troponin was undetectably low at less than 0.01, no significant delta, nonactionable. Urinalysis negative for signs of infection. Patient continues to be stable and is appropriate for discharge at this time. We discussed her prescriptions including sucralfate which I have prescribed again as well as instructed her to continue taking her other home medications. She has previously been evaluated by Dr. Omer with GI and I instructed her to make an appointment with him and also gave her information to follow-up with Dr. Streeter if she is unable to get into his office. Also recommended that she make an appointment with her primary care physician Dr. Rubalcava for reevaluation. Additionally I gave strict return precautions for the ER. She and her daughter at bedside indicated understanding and the patient was discharged in stable condition. Total time in ED observation was 1 hour 52 minutes. Critical Care Critical Care Time Critical Care Time: No
--- NOTE | 2023-09-11 00:48 | ECG_ITS ---
APPROVED REPORT Exam: Resting ECG HR:81 bpm ECG Measurements Heart Rate 81 AXES PA 166 P 69 QRSd 85 QRS 67 QT 379 T 28 QTc 417 Conclusion SINUS RHYTHM NONSPECIFIC ST & T-WAVE ABNORMALITY BORDERLINE ECG UNCONFIRMED REPORT Electronically signed by : Eber Rubalcava MD 09/13/2023 20:40:34
--- NOTE | 2023-09-11 00:51 | CT_ITS ---
PROCEDURE INFORMATION: Exam: CTA Abdomen and Pelvis With Contrast Exam date and time: 09/11/2023 1:18 AM Age: 78 years old Clinical indication: Abdominal pain; Generalized; Additional info: Abd pain worse than exam, L sided abd pain/ttp TECHNIQUE: Imaging protocol: Computed tomographic angiography of the abdomen and pelvis with contrast. Exam focused on the arteries. 3D rendering (Not supervised by radiologist): MIP and/or 3D reconstructed images were created by the technologist. Radiation optimization: All CT scans at this facility use at least one of these dose optimization techniques: automated exposure control; mA and/or kV adjustment per patient size (includes targeted exams where dose is matched to clinical indication); or iterative reconstruction. Contrast material: ISOVUE; Contrast volume: 100 ml; Contrast route: INTRAVENOUS (IV); REPORTING DATA: Count of CT and Cardiac NM exams in prior 12 months: This patient has received 9 known CTs and 0 known cardiac nuclear medicine studies in the 12 months prior to the current study. COMPARISON: CT ANGIO ABDOMEN PELVIS 05/21/2023 8:41 AM FINDINGS: Tubes, catheters and devices: Pudendal nerve stimulator present. Lungs: Mild subpleural pulmonary fibrosis is present. Aorta: No aortic aneurysm. No aortic dissection. Celiac trunk and mesenteric arteries: No occlusion or significant stenosis. Renal arteries: No occlusion or significant stenosis. Left-sided accessory renal artery incidentally noted. Right iliac arteries: No occlusion or significant stenosis. Left iliac arteries: No occlusion or significant stenosis. Liver: No mass. Gallbladder and bile ducts: Unremarkable. No calcified stones. No ductal dilation. Pancreas: Unremarkable. No mass. No ductal dilation. Spleen: Unremarkable. No splenomegaly. Adrenal glands: Unremarkable. No mass. Kidneys and ureters: Unremarkable. No solid mass. No hydronephrosis. Incidental right renal duplication noted. Stomach and bowel: Findings of infectious or inflammatory antral gastritis questioned, possibly peptic ulcer disease. Colonic diverticulosis is present without diverticulitis. Appendix: The appendix is not identified but no evidence of appendicitis. Intraperitoneal space: Unremarkable. No free air. No significant fluid collection. Lymph nodes: Unremarkable. No enlarged lymph nodes. Urinary bladder: Unremarkable. No mass. Reproductive: Hysterectomy noted. Bones/joints: T12 compression deformity appears likely longstanding/chronic. Soft tissues: Incidental sacral perineural cyst. IMPRESSION: 1. Widely patent major arterial vasculature with no acute large branch arterial injury. No suspicion of mesenteric arterial insufficiency. 2. Findings of infectious or inflammatory antral gastritis questioned, possibly peptic ulcer disease. No perforation. 3. Mild subpleural pulmonary fibrosis is present.
[2023-09-11 00:53] LABS: Chloride 103 mmol/L (98-107)
[2023-09-11 00:54] LABS: Potassium 3.5 mmoL/L (3.5-5.1); Sodium 140 mmol/L (136-145)
[2023-09-11 00:55] LABS: Basophils # 0.1 K/mm3 (0-0.2); Basophils % 1.4 % (0.1-2.0); Eosinophils # 0.5 K/mm3 (0.0-0.4); Eosinophils % 5.6 % (0.1-12.0); Hematocrit 41.2 % (37.0-47.0); Lymphocytes # 3.4 K/mm3 (0.7-4.5); Lymphocytes % 42.4 % (10-50); Mean Corpuscular HGB Conc 31.7 g/dL (31.8-35.4); Mean Corpuscular Hemoglobin 28.8 pg (27.0-31.2); Mean Corpuscular Volume 90.9 fl (81-99); Mean Platelet Volume 7.7 fl (7.4-10.4); Monocytes # 0.4 K/mm3 (0.1-1.0); Monocytes % 5.4 % (1.7-9.3); Neutrophils # 3.7 K/mm3 (1.8-7.8); Neutrophils % 45.2 % (37.0-80.0); Platelet Count 363 K/mm3 (142-424); Red Blood Count 4.53 M/mm3 (4.20-5.40); Red Cell Distribution Width 14.3 % (11.5-17.5); White Blood Count 8.1 K/mm3 (4.8-10.8)
[2023-09-11 00:56] LABS: Alanine Aminotransferase 20 U/L (12-78); Albumin Level 3.9 g/dl (3.5-5.0); Albumin/Globulin Ratio 1.1 (1.1-1.8); Alkaline Phosphatase 74 U/L (38-126); Anion Gap 10.5 mEq/L (5-15); Aspartate Amino Transferase 36 U/L (14-36); Bilirubin,Total 0.6 mg/dl (0.2-1.3); Blood Urea Nitrogen 22 mg/dl (7-17); Carbon Dioxide 30 mmol/L (22.0-30.0); Creatinine Clearance Estimated 38 mL/min (50-200); Estimated Glomerular Filt Rate 81 ml/min (>60); GFR (African American) 98 ML/MIN (>60); Globulin 3.4 g/dL (1.3-3.2); Glucose 124 mg/dl (74-100); Lipase 94 U/L (23-300); Total Protein,Serum 7.3 g/dl (6.3-8.2)
[2023-09-11 00:57] LABS: Lactic Acid 1.4 mmol/L (0.7-2.1)
[2023-09-11 01:10] LABS: Troponin I < 0.01 ng/ml (0.00-0.034)
--- NOTE | 2023-09-11 01:14 | PC.NURSE ---
patient gone to CT at this time.
--- NOTE | 2023-09-11 01:25 | PC.NURSE ---
patient back in room at this time.
[2023-09-11] MEDS: IOPAMIDOL-370 (76%);100ML BOTTLE 100 ML IV (01:28)
[2023-09-11] MEDS: 0.9 % SODIUM CHLORIDE 50 ML VIAL IV (01:28)
[2023-09-11] MEDS: SODIUM CHLORIDE 0.9% 10ML SYR (RAD ONLY) 10 ML IV (01:29)
[2023-09-11] MEDS: METHOCARBAMOL 500MG TABLET 500 MG PO (02:01)
[2023-09-11] MEDS: LACTATED RINGERS 1000ML 1,000 ML 999 ML IV (02:01)
[2023-09-11] MEDS: MORPHINE 4MG/ML SYRINGE 2 MG IV (02:01)
--- NOTE | 2023-09-11 02:26 | PC.NURSE ---
in room talking with patient at this time.
[2023-09-11] MEDS: BELLADONNA ALKALOIDS 60 ML ML PO (03:27)
--- NOTE | 2023-09-11 03:29 | PC.NURSE ---
2nd trop sent at this time.
[2023-09-11 03:46] LABS: Appearance,Urine CLEAR (Clear); Bilirubin,Urine Negative (Negative); Blood, Urine Negative (Negative); Color,Urine YELLOW (Yellow); Glucose,Urine (UA) Negative (Negative); Ketones,Urine Negative (Negative); Leukocyte Esterase,Urine TRACE (Negative); Microscopic, Urine URINE MICROSCOPIC (MICROSCOPIC); Nitrate,Urine Negative (Negative); PH,Urine 7.5 (5.0-8.5); Protein,Urine Negative (Negative); Urobilinogen,Urine 0.2 EU/dl (0.2)
[2023-09-11 04:04] LABS: Troponin I < 0.01 ng/ml (0.00-0.034)
[2023-09-11 04:08] LABS: Bacteria,Urine Trace /lpf; WBC,Urine Occasional #/hpf (0-3)
--- NOTE | 2023-09-11 04:12 | PC.NURSE ---
in room talking with patient at this time.
== END 2023-09-11 04:25 | disposition home or self-care (01) ==
PROVIDERS: Emergency Provider Emergency Medicine; PCP Internal Medicine Adolescent Medicine
DX: R10.12 Left upper quadrant pain (principal); R10.32 Left lower quadrant pain; J45.909 Unspecified asthma, uncomplicated; E03.9 Hypothyroidism, unspecified; J84.10 Pulmonary fibrosis, unspecified; I27.20 Pulmonary hypertension, unspecified
CPT/HCPCS: 71045; 74174; 80053; 81001; 83605; 83690; 84484; 85025; 93005; 96361; 96374; 99285; Q9967

== ENCOUNTER 2023-09-28 05:17 | Emergency (ER) | payer MEDICARE, SELFPAY ==
[2023-09-28] VITALS (10 sets, daily range): BP systolic 124–179; BP diastolic 66–95; PULSE 74–102; RESP 15–22; TEMP 36.7–36.9; O2SAT 92–100; BMI 21.0
--- NOTE | 2023-09-28 05:39 | CT_ITS ---
FINAL REPORT CLINICAL HISTORY: severe abd pain, LUQ, frequent nsaid use COMPARISON: 07/01/2023 FINDINGS: CT OF THE ABDOMEN AND PELVIS WITH CONTRAST Axial CT images of the abdomen and pelvis were obtained after the administration of IV contrast. Coronal and sagittal reformatted images were also obtained and reviewed. This study was performed with techniques to keep radiation doses as low as reasonably achievable (ALARA). Individualized dose reduction techniques using automated exposure control or adjustment of mA and/or kV according to the patient's size were employed. Abdomen: The heart is normal in size. There is a less than 1 cm left hepatic lobe cyst. The spleen is unremarkable. No adrenal mass is present. The pancreas has an unremarkable appearance. The kidneys are normal, without evidence of mass or hydronephrosis. The aorta is normal in caliber. There is no free fluid or adenopathy. No mass or abnormal fluid collection is seen. Pelvis: The appendix is not well-visualized. The urinary bladder is unremarkable. No inflammatory process is seen. Post hysterectomy. There is no evidence of mass or adenopathy. There is no evidence of bowel obstruction. IMPRESSION: No evidence of acute intra-abdominal process. Reviewed, Interpreted and Dictated by Walter Rogers III, MD Transcribed by Yashira Louise Authenticated and . [facility]
--- NOTE | 2023-09-28 05:39 | CT_ITS ---
FINAL REPORT TECHNIQUE: Then section axial CT images of the chest were obtained with contrast. Three-D reformatted images were also obtained.This study was performed with techniques to keep radiation doses as low as reasonably achievable (ALARA). Individualized dose reduction techniques using automated exposure control or adjustment of mA and/or kV according to the patient''s size were employed. CLINICAL HISTORY: pleuritic cp, tachycardia COMPARISON: 08/19/2023 FINDINGS: There is no evidence of pulmonary embolism. There is no evidence of thoracic aortic aneurysm or dissection. There is no evidence of mediastinal or hilar mass or adenopathy. There is no evidence of pulmonary mass or suspicious nodule. There is moderate scarring. There are multiple cavitary areas in the left upper lobe favored to represent bronchiectasis and stable. There is medial right upper lobe bronchiectasis. IMPRESSION: No evidence of pulmonary embolism. Bilateral upper lobe bronchiectasis. Reviewed, Interpreted and Dictated by Walter Rogers III, MD Transcribed by Yashira Louise Authenticated and [facility]
--- NOTE | 2023-09-28 05:45 | HMH.EDGENADL ---
Discharge Plan Disposition Patient Disposition: Home, Self-Care Condition: Fair Prescriptions Prescriptions: New sucralfate 1 gram tablet 1 g PO BID 28 Days Qty: 56 0RF omeprazole 20 mg capsule,delayed release(DR/EC) 20 mg PO BID 28 Days Qty: 56 0RF Discontinued sucralfate 1 gram tablet 1 g PO ACHS Patient Comments: TAKE 1 TABLET BEFORE EACH MEAL AND AT BEDTIME omeprazole 40 mg capsule,delayed release(DR/EC) 40 mg PO DAILY Patient Comments: TAKE 1 CAPSULE BY MOUTH ONCE DAILY No Action oxybutynin chloride 5 mg tablet 5 mg PO BID Patient Comments: TAKE 1 TABLET BY MOUTH TWICE DAILY hydrochlorothiazide 12.5 mg tablet 12.5 mg PO DAILY potassium chloride 20 mEq packet 20 meq PO DAILY Qty: 30 0RF pantoprazole 20 mg tablet,delayed release (DR/EC) 20 mg PO BID Patient Comments: TAKE 1 TABLET BY MOUTH TWICE DAILY levothyroxine 75 mcg tablet 75 mcg PO DAILY Patient Comments: TAKE 1 TABLET BY MOUTH ONCE DAILY FOR 30 DAYS sucralfate 1 gram tablet 1 g PO TIDWMEAL Qty: 60 0RF Rx Instructions: take 3 times daily with meals Referrals Follow up/Referrals: Eber Rubalcava MD [Primary Care Provider] - See instructions Vishal Foley MD [Staff Physician] - See instructions Activity Restrictions/Add. Instructions Additional Instructions/Restrictions: Please discontinue any NSAIDs such as ibuprofen. Please follow-up with the GI doctor. I have increased the frequency of your omeprazole, I have also increased the frequency and written a new prescription for a medication you have been on in the past called Carafate. Please return with any new or worsening symptoms. Clinical Impressions Clinical Impression: Abdominal pain, Rib pain on left side Instructions Patient Instructions: DI for Acute Abdominal Pain Discharge ED Provider: Jose R Franco General Adult HPI <Mehrdad Sanchez MD - Last Filed: 09/28/23 06:50> General Chief complaint: Abdominal Pain Stated complaint: Stomach pain radiating into ribs,dizziness Time Seen by Provider: 09/28/23 05:29 Mode of Arrival: Wheelchair Source of Information: Patient Limitations: No Limitations Description of Symptoms (Recalled from ER Triage Doc. by RN): Pt presents with chronic abdominal pain, denies any nausea, vomiting, diarrhea, chest pain, or SOA. Recent CT of abdomen, no dx. History of Present Illness HPI narrative: 78-year-old female, history of chronic abdominal pain, history of pulmonary hypertension and restrictive lung disease, presents with exacerbation of chronic abdominal pain. She reports that it never goes away completely. It has been worse recently and so she presents back to the ED. She has had numerous CT scans of the chest and abdomen pelvis over the last couple years. She did have some evidence of colitis on a CT scan at one point, otherwise has not had a definitive diagnosis. She has not had a endoscopy yet. She reports that she has been taking Tylenol and ibuprofen every 6 hours for pain. She is on a PPI and sucralfate as well. Reports pain in the ribs with deep breathing. reports no central chest pain or pressure. reports that the pain takes her breath away, but she is otherwise not more sob than normal. Related Data Home Medications Medication Instructions Recorded Confirmed oxybutynin chloride 5 mg tablet 5 mg PO BID Overactive bladder 10/17/19 08/19/23 hydrochlorothiazide 12.5 mg tablet 12.5 mg PO DAILY Fluid 01/12/21 08/19/23 levothyroxine 75 mcg tablet 75 mcg PO DAILY Thyroid 02/12/23 08/19/23 pantoprazole 20 mg tablet,delayed 20 mg PO BID 08/19/23 08/19/23 release Previous Rx's Medication Instructions Recorded potassium chloride 20 mEq oral 20 meq PO DAILY #30 ea 07/16/23 packet sucralfate 1 gram tablet 1 g PO TIDWMEAL #60 tabs 09/11/23 omeprazole 20 mg capsule,delayed 20 mg PO BID 4 weeks #56 caps 09/28/23 release sucralfate 1 gram tablet 1 g PO BID 4 weeks #56 tabs 09/28/23 Allergies Allergy/AdvReac Type Severity Reaction Status Date / Time nitrofurantoin Allergy Unknown Unknown Verified 07/16/23 13:42 [From MACROBID] allergy reaction [facility] <Mehrdad Sanchez MD - Last Filed: 09/28/23 06:50> [facility] Disclaimer: The information contained in this section may have been updated after the patient was seen, as this information can be updated by other users. Medical History Acute respiratory failure with hypoxia Allergic rhinitis Allergic rhinitis Asthma Bronchiectasis Cavitary lesion of lung Dyspnea on exertion Dyspnea on exertion Hypothyroid Osteoarthritis Pneumonia Pulmonary fibrosis Pulmonary hypertension Restrictive lung disease Shortness of breath Surgical History History of hysterectomy No history of previous surgery Family History Brother COPD (chronic obstructive pulmonary disease) Lung disease Sister COPD (chronic obstructive pulmonary disease) Social History Smoking Status: Never smoker alcohol intake: never substance use type: denies use current occupational status: retired Travel in the last 8 weeks: None household members: family housing: house current occupational exposures/hazards: No caffeine: No <Mehrdad Sanchez MD - Last Filed: 09/28/23 06:50> ROS Obtained: Yes All systems reviewed & no additional complaints except as documented Physical Exam <Mehrdad Sanchez MD - Last Filed: 09/28/23 06:50> General General appearance: alert and in no apparent distress Head Head exam: atraumatic and normocephalic Eye Eye exam: Present normal appearance, PERRL and EOMI ENT ENT exam: Present normal oropharynx and normal external ear exam Neck Neck exam: Present normal inspection and full ROM Chest Chest inspection: Present normal inspection and symmetric chest wall rise; Absent tenderness Respiratory Respiratory exam: Present normal lung sounds bilaterally; Absent respiratory distress Cardiovascular Cardiovascular exam: Present regular rate and normal rhythm Abdominal Exam Abdominal exam: Present soft, tenderness (epigastric, LUQ) and guarding; Absent distention Extremities Exam Extremities exam: Present normal inspection; Absent edema or joint swelling Back Exam Back exam: Present normal inspection; Absent tenderness Neurological Exam Neurological exam: Present alert and oriented X3; Absent motor sensory deficit Psychiatric Psychiatric exam: Present normal affect and normal mood Skin Skin exam: Present warm, dry and normal color Lymphatic Lymphatic Findings: no adenopathy Medical Decision Making <Mehrdad Sanchez MD - Last Filed: 09/28/23 06:50> Medical Records Medical records reviewed: Yes I reviewed the patient's medical records. Andrea Inquiry Pt receiving controlled substance: No Andrea was queried for this patient: No Vital Signs: 09/28/23 05:19 09/28/23 06:30 09/28/23 07:00 Temperature 98.4 F Temperature Source Oral Pulse Rate 86 88 Pulse Rate [Left] 102 H Respiratory Rate 22 Blood Pressure 167/81 H 179/89 H Blood Pressure [Right Arm] 158/66 H Blood Pressure Mean 141 119 Blood Pressure Mean [Right Arm] 96 Blood Pressure Source [Right Arm] Automatic Cuff 02 Sat by Pulse Oximetry 92 L 97 98 Oxygen Delivery Method Room Air Nasal Cannula Room Air Oxygen Flow Rate (LPM) 2 09/28/23 07:43 09/28/23 08:00 09/28/23 08:30 Temperature Temperature Source Pulse Rate 78 74 83 Pulse Rate [Left] Respiratory Rate Blood Pressure 133/70 142/72 H 153/69 H Blood Pressure [Right Arm] Blood Pressure Mean Blood Pressure Mean [Right Arm] Blood Pressure Source [Right Arm] 02 Sat by Pulse Oximetry 98 99 100 Oxygen Delivery Method Nasal Cannula Nasal Cannula Oxygen Flow Rate (LPM) 2 2 09/28/23 09:00 09/28/23 09:18 09/28/23 09:30 Temperature 98.0 F Temperature Source Pulse Rate 81 80 87 Pulse Rate [Left] Respiratory Rate 15 Blood Pressure 124/73 124/73 155/95 H Blood Pressure [Right Arm] Blood Pressure Mean Blood Pressure Mean [Right Arm] Blood Pressure Source [Right Arm] 02 Sat by Pulse Oximetry 100 98 Oxygen Delivery Method Nasal Cannula Oxygen Flow Rate (LPM) 2 09/28/23 10:00 Temperature Temperature Source Pulse Rate 77 Pulse Rate [Left] Respiratory Rate Blood Pressure 151/76 H Blood Pressure [Right Arm] Blood Pressure Mean Blood Pressure Mean [Right Arm] Blood Pressure Source [Right Arm] 02 Sat by Pulse Oximetry 100 Oxygen Delivery Method Nasal Cannula Oxygen Flow Rate (LPM) 2 Lab Data Lab results reviewed: Yes I reviewed the patient's lab results. Lab Results 09/28/23 05:30: WBC 7.6, RBC 4.24, Hgb 12.1 L, Hct 37.7, MCV 88.9, MCH 28.4, MCHC 32.0, RDW 14.1, Plt Count 299, MPV 7.7, Neut % (Auto) 55.8, Lymph % (Auto) 31.1, [place] % (Auto) 5.2, Eos % (Auto) 6.9, Baso % (Auto) 0.9, Neut # (Auto) 4.2, Lymph # (Auto) 2.4, [place] # (Auto) 0.4, Eos # (Auto) 0.5 H, Baso # (Auto) 0.1, ESR 43 H, Sodium 138, Potassium 3.3 L, Chloride 104, Carbon Dioxide 29, Anion Gap 8.3, BUN 13, Creatinine 0.60, Estimated Creat Clear 38, Estimated GFR 97, Est GFR ( Amer) 117, Glucose 105 H, Calcium 8.7, Total Bilirubin 0.5, AST 29, ALT 15, Alkaline Phosphatase 66, C-Reactive Protein 4.4 H, Total Protein 6.6, Albumin 3.6, Globulin 3.0, Albumin/Globulin Ratio 1.2, Lipase 60 09/28/23 05:30 09/28/23 05:30 Orders (Tests/Meds): ED MEDICATIONS Discontinued Medications Generic Name Dose Route Start Last Admin Trade Name Freq PRN Reason Stop Dose Admin Belladonna Alkaloids 60 ml 09/28/23 05:37 09/28/23 06:02 Belladonna Alkaloids 60 Ml Ml PO 09/28/23 05:38 60 ml ONCE ONE Administration Belladonna Alkaloids 60 ml 09/28/23 10:58 09/28/23 11:02 Belladonna Alkaloids 60 Ml Ml PO 09/28/23 10:59 60 ml ONCE ONE Administration Famotidine 20 mg 09/28/23 05:37 09/28/23 05:49 Famotidine 20mg/2ml Vial IV 09/28/23 05:38 20 mg ONCE ONE Administration Iopamidol 75 ml 09/28/23 06:28 09/28/23 06:29 Iopamidol-370 (76%);100ml Bottle IV 09/28/23 06:29 75 ml ONCE ONE Administration Morphine Sulfate 2 mg 09/28/23 05:37 09/28/23 06:05 Morphine 4mg/Ml Syringe IV 09/28/23 05:38 2 mg ONCE ONE Administration Morphine Sulfate 2 mg 09/28/23 06:35 09/28/23 06:41 Morphine 2mg/Ml Syringe IV 09/28/23 06:36 2 mg ONCE ONE Administration Ondansetron HCl 4 mg 09/28/23 09:30 09/28/23 09:33 Ondansetron 4mg/2ml Vial IV 09/28/23 09:31 Not Given ONCE ONE Ondansetron HCl 4 mg 09/28/23 09:33 09/28/23 09:35 Ondansetron 4mg Odt SL 09/28/23 09:34 4 mg ONCE ONE Administration Oxycodone HCl 5 mg 09/28/23 10:58 09/28/23 11:02 Oxycodone 5mg Immediate Release Tablet PO 09/28/23 10:59 5 mg ONCE ONE Administration Sodium Chloride 8 ml 09/28/23 05:37 Sodium Chloride 0.9% 10ml Vial IV 10/28/23 05:36 NEEDED PRN dilute pepcid Sodium Chloride 10 ml 09/28/23 06:28 09/28/23 06:29 Sodium Chloride 0.9% 10ml Syr (Rad Only) IV 10/28/23 06:27 10 ml NEEDED PRN Administration Maintain IV Site ORDERS Category Date Time Status CT abdomen pelvis w con Stat Cat Scan 09/28/23 05:[address] angio chest PE protocol Stat Cat Scan 09/28/23 05:39 Completed CBC w/Auto Diff [Complete Blood Count Auto Diff] Stat Lab 09/28/23 05:30 Completed CMP [Comprehensive Metabolic Panel] Stat Lab 09/28/23 05:30 Completed CRP [C-Reactive Protein] Stat Lab 09/28/23 05:30 Completed ESR [Erythrocyte Sedimentation Rate] Stat Lab 09/28/23 05:30 Completed Lipase Stat Lab 09/28/23 05:30 Completed Medical Decision Narrative: 78-year-old female, presentation complicated by history of pulmonary hypertension, pulmonary fibrosis, chronic abdominal pain presents with worsening left lower quadrant abdominal pain, left rib wall pain. History was obtained via conversation with patient, family, chart review. On arrival, patient is [afebrile, hemodynamically stable, satting appropriately, alert, oriented x4, GCS 15], moving all extremities spontaneously. Full physical exam performed and significant for moderate abdominal tenderness with guarding. Differential includes but is not limited to colitis, gastritis, gastroenteritis, pancreatitis, inflammatory bowel, PE, pneumonia, musculoskeletal pain. Patient was given IV Pepcid, IV morphine, GI cocktail for symptomatic management and correction of underlying abnormalities. Workup initiated including CBC CMP ESR CRP CTA chest, CT abdomen pelvis with IV contrast. On re-evaluation, patient [remains afebrile, HD stable.] Patient reports mild symptomatic improvement after initial medications. Patient given additional dose of morphine. Laboratory workup independently interpreted by me and significant for mildly elevated inflammatory markers, mild hypokalemia, negative lipase. No leukocytosis.. At this time care of the oncoming physician pending CT scan results. <Jose R Franco MD - Last Filed: 09/28/23 17:04> Vital Signs: 09/28/23 05:19 09/28/23 06:30 09/28/23 07:00 Temperature 98.4 F Temperature Source Oral Pulse Rate 86 88 Pulse Rate [Left] 102 H Respiratory Rate 22 Blood Pressure 167/81 H 179/89 H Blood Pressure [Right Arm] 158/66 H Blood Pressure Mean 141 119 Blood Pressure Mean [Right Arm] 96 Blood Pressure Source [Right Arm] Automatic Cuff 02 Sat by Pulse Oximetry 92 L 97 98 Oxygen Delivery Method Room Air Nasal Cannula Room Air Oxygen Flow Rate (LPM) 2 09/28/23 07:43 09/28/23 08:00 09/28/23 08:30 Temperature Temperature Source Pulse Rate 78 74 83 Pulse Rate [Left] Respiratory Rate Blood Pressure 133/70 142/72 H 153/69 H Blood Pressure [Right Arm] Blood Pressure Mean Blood Pressure Mean [Right Arm] Blood Pressure Source [Right Arm] 02 Sat by Pulse Oximetry 98 99 100 Oxygen Delivery Method Nasal Cannula Nasal Cannula Oxygen Flow Rate (LPM) 2 2 09/28/23 09:00 09/28/23 09:18 09/28/23 09:30 Temperature 98.0 F Temperature Source Pulse Rate 81 80 87 Pulse Rate [Left] Respiratory Rate 15 Blood Pressure 124/73 124/73 155/95 H Blood Pressure [Right Arm] Blood Pressure Mean Blood Pressure Mean [Right Arm] Blood Pressure Source [Right Arm] 02 Sat by Pulse Oximetry 100 98 Oxygen Delivery Method Nasal Cannula Oxygen Flow Rate (LPM) 2 09/28/23 10:00 Temperature Temperature Source Pulse Rate 77 Pulse Rate [Left] Respiratory Rate Blood Pressure 151/76 H Blood Pressure [Right Arm] Blood Pressure Mean Blood Pressure Mean [Right Arm] Blood Pressure Source [Right Arm] 02 Sat by Pulse Oximetry 100 Oxygen Delivery Method Nasal Cannula Oxygen Flow Rate (LPM) 2 Lab Data Lab Results 09/28/23 05:30: WBC 7.6, RBC 4.24, Hgb 12.1 L, Hct 37.7, MCV 88.9, MCH 28.4, MCHC 32.0, RDW 14.1, Plt Count 299, MPV 7.7, Neut % (Auto) 55.8, Lymph % (Auto) 31.1, [place] % (Auto) 5.2, Eos % (Auto) 6.9, Baso % (Auto) 0.9, Neut # (Auto) 4.2, Lymph # (Auto) 2.4, [place] # (Auto) 0.4, Eos # (Auto) 0.5 H, Baso # (Auto) 0.1, ESR 43 H, Sodium 138, Potassium 3.3 L, Chloride 104, Carbon Dioxide 29, Anion Gap 8.3, BUN 13, Creatinine 0.60, Estimated Creat Clear 38, Estimated GFR 97, Est GFR ( Amer) 117, Glucose 105 H, Calcium 8.7, Total Bilirubin 0.5, AST 29, ALT 15, Alkaline Phosphatase 66, C-Reactive Protein 4.4 H, Total Protein 6.6, Albumin 3.6, Globulin 3.0, Albumin/Globulin Ratio 1.2, Lipase 60 Orders (Tests/Meds): ED MEDICATIONS Discontinued Medications Generic Name Dose Route Start Last Admin Trade Name Freq PRN Reason Stop Dose Admin Belladonna Alkaloids 60 ml 09/28/23 05:37 09/28/23 06:02 Belladonna Alkaloids 60 Ml Ml PO 09/28/23 05:38 60 ml ONCE ONE Administration Belladonna Alkaloids 60 ml 09/28/23 10:58 09/28/23 11:02 Belladonna Alkaloids 60 Ml Ml PO 09/28/23 10:59 60 ml ONCE ONE Administration Famotidine 20 mg 09/28/23 05:37 09/28/23 05:49 Famotidine 20mg/2ml Vial IV 09/28/23 05:38 20 mg ONCE ONE Administration Iopamidol 75 ml 09/28/23 06:28 09/28/23 06:29 Iopamidol-370 (76%);100ml Bottle IV 09/28/23 06:29 75 ml ONCE ONE Administration Morphine Sulfate 2 mg 09/28/23 05:37 09/28/23 06:05 Morphine 4mg/Ml Syringe IV 09/28/23 05:38 2 mg ONCE ONE Administration Morphine Sulfate 2 mg 09/28/23 06:35 09/28/23 06:41 Morphine 2mg/Ml Syringe IV 09/28/23 06:36 2 mg ONCE ONE Administration Ondansetron HCl 4 mg 09/28/23 09:30 09/28/23 09:33 Ondansetron 4mg/2ml Vial IV 09/28/23 09:31 Not Given ONCE ONE Ondansetron HCl 4 mg 09/28/23 09:33 09/28/23 09:35 Ondansetron 4mg Odt SL 09/28/23 09:34 4 mg ONCE ONE Administration Oxycodone HCl 5 mg 09/28/23 10:58 09/28/23 11:02 Oxycodone 5mg Immediate Release Tablet PO 09/28/23 10:59 5 mg ONCE ONE Administration Sodium Chloride 8 ml 09/28/23 05:37 Sodium Chloride 0.9% 10ml Vial IV 10/28/23 05:36 NEEDED PRN dilute pepcid Sodium Chloride 10 ml 09/28/23 06:28 09/28/23 06:29 Sodium Chloride 0.9% 10ml Syr (Rad Only) IV 10/28/23 06:27 10 ml NEEDED PRN Administration Maintain IV Site ORDERS Category Date Time Status CT abdomen pelvis w con Stat Cat Scan 09/28/23 05:[address] angio chest PE protocol Stat Cat Scan 09/28/23 05:39 Completed CBC w/Auto Diff [Complete Blood Count Auto Diff] Stat Lab 09/28/23 05:30 Completed CMP [Comprehensive Metabolic Panel] Stat Lab 09/28/23 05:30 Completed CRP [C-Reactive Protein] Stat Lab 09/28/23 05:30 Completed ESR [Erythrocyte Sedimentation Rate] Stat Lab 09/28/23 05:30 Completed Lipase Stat Lab 09/28/23 05:30 Completed Medical Decision Narrative: 78-year-old female, presentation complicated by history of pulmonary hypertension, pulmonary fibrosis, chronic abdominal pain presents with worsening left lower quadrant abdominal pain, left rib wall pain. History was obtained via conversation with patient, family, chart review. On arrival, patient is [afebrile, hemodynamically stable, satting appropriately, alert, oriented x4, GCS 15], moving all extremities spontaneously. Full physical exam performed and significant for moderate abdominal tenderness with guarding. Differential includes but is not limited to colitis, gastritis, gastroenteritis, pancreatitis, inflammatory bowel, PE, pneumonia, musculoskeletal pain. Patient was given IV Pepcid, IV morphine, GI cocktail for symptomatic management and correction of underlying abnormalities. Workup initiated including CBC CMP ESR CRP CTA chest, CT abdomen pelvis with IV contrast. On re-evaluation, patient [remains afebrile, HD stable.] Patient reports mild symptomatic improvement after initial medications. Patient given additional dose of morphine. Laboratory workup independently interpreted by me and significant for mildly elevated inflammatory markers, mild hypokalemia, negative lipase. No leukocytosis.. At this time care of the oncoming physician pending CT scan results. Jose R Franco MD: I assumed care of this patient from the previous emergency medicine physician. I reassessed patient several times after assumption of care. Patient describes to me that she has been taking multiple doses of ibuprofen for her abdominal pain, I discussed with her that this is likely worsened her symptoms and advised her to discontinue this medication. Per chart review patient has extensive history with diffuse abdominal pain, thought to be possibly secondary to IBD, has been seen by outside GI physician. CT imaging resulted, was independently interpreted and visualized by me significant for no acute finding. Please see radiology interpretation for final report. I discussed my clinical impression with the patient. She reports some improvement of symptoms upon repeat evaluation again. She was amenable to discharge at this time. When she stood up to leave the hospital she became acutely nauseous, and wished to receive additional medication. She was treated with Zofran, GI cocktail, oxycodone 5 mg, she was observed for additional period of time in the emergency department. She states that she is had similar symptoms with standing up quickly in the past. I discussed possible admission with her, she was hesitant to be admitted to the hospital at this time, after some discussion we trialed ambulating again, this time with standing up more slowly, which she tolerated well. She is requesting discharge at this time. I am still of the opinion that is she is stable for discharge with outpatient follow-up. Return precautions given. Procedures <Mehrdad Sanchez MD - Last Filed: 09/28/23 06:50> Risk/Benefits of Procedure(s) Were Explained: Yes Critical Care <Mehrdad Sanchez MD - Last Filed: 09/28/23 06:50> Critical Care Time Critical Care Time: No
[2023-09-28] MEDS: FAMOTIDINE 20MG/2ML VIAL 20 MG IV (05:49)
[2023-09-28 05:58] LABS: Basophils # 0.1 K/mm3 (0-0.2); Basophils % 0.9 % (0.1-2.0); Eosinophils # 0.5 K/mm3 (0.0-0.4); Eosinophils % 6.9 % (0.1-12.0); Hematocrit 37.7 % (37.0-47.0); Hemoglobin 12.1 g/dL (12.2-16.2); Lymphocytes # 2.4 K/mm3 (0.7-4.5); Lymphocytes % 31.1 % (10-50); Mean Corpuscular Hemoglobin 28.4 pg (27.0-31.2); Mean Corpuscular Volume 88.9 fl (81-99); Mean Platelet Volume 7.7 fl (7.4-10.4); Monocytes # 0.4 K/mm3 (0.1-1.0); Monocytes % 5.2 % (1.7-9.3); Neutrophils # 4.2 K/mm3 (1.8-7.8); Neutrophils % 55.8 % (37.0-80.0); Platelet Count 299 K/mm3 (142-424); Red Blood Count 4.24 M/mm3 (4.20-5.40); Red Cell Distribution Width 14.1 % (11.5-17.5); White Blood Count 7.6 K/mm3 (4.8-10.8)
[2023-09-28] MEDS: BELLADONNA ALKALOIDS 60 ML ML PO ×2 (06:02→11:02)
[2023-09-28 06:03] LABS: Alanine Aminotransferase 15 U/L (12-78); Albumin Level 3.6 g/dl (3.5-5.0); Albumin/Globulin Ratio 1.2 (1.1-1.8); Alkaline Phosphatase 66 U/L (38-126); Anion Gap 8.3 mEq/L (5-15); Aspartate Amino Transferase 29 U/L (14-36); Bilirubin,Total 0.5 mg/dl (0.2-1.3); Blood Urea Nitrogen 13 mg/dl (7-17); Calcium 8.7 mg/dl (8.4-10.2); Carbon Dioxide 29 mmol/L (22.0-30.0); Chloride 104 mmol/L (98-107); Creatinine Clearance Estimated 38 mL/min (50-200); Estimated Glomerular Filt Rate 97 ml/min (>60); GFR (African American) 117 ML/MIN (>60); Glucose 105 mg/dl (74-100); Lipase 60 U/L (23-300); Potassium 3.3 mmoL/L (3.5-5.1); Sodium 138 mmol/L (136-145); Total Protein,Serum 6.6 g/dl (6.3-8.2)
[2023-09-28] MEDS: MORPHINE 4MG/ML SYRINGE 2 MG IV (06:05)
[2023-09-28 06:09] LABS: C-Reactive Protein 4.4 mg/L (0-4)
[2023-09-28 06:25] LABS: Erythrocyte Sedimentation Rate 43 mm/hr (0-30)
--- NOTE | 2023-09-28 06:26 | PC.NURSE ---
Patient back from [facility] at this time.
[2023-09-28] MEDS: SODIUM CHLORIDE 0.9% 10ML SYR (RAD ONLY) 10 ML IV (06:29)
[2023-09-28] MEDS: IOPAMIDOL-370 (76%);100ML BOTTLE 75 ML IV (06:29)
[2023-09-28] MEDS: MORPHINE 2MG/ML SYRINGE 2 MG IV (06:41)
--- NOTE | 2023-09-28 07:28 | PC.NURSE ---
PT ASSISTED TO BR AND RETURNED TO BED
--- NOTE | 2023-09-28 08:22 | PC.NURSE ---
Torsten Suarez in radiology pt abd/pelvic ct scan are in lock status at this time. CTA chest was just sent to [facility] at 0818. Dr.Kayser stewart.
--- NOTE | 2023-09-28 09:00 | PC.NURSE ---
Dr. Franco at BS to re-evaluate pt
--- NOTE | 2023-09-28 09:06 | PC.NURSE ---
DR BRENNAN AT BEDSIDE TO UPDATE PT
--- NOTE | 2023-09-28 09:28 | PC.NURSE ---
this nurse had given d/c instructions to pt, taken the IV out of pt, gotten pt dressed and left room. pt was attempting to get out of bed and pt fell back into the bed yelling out about pain in her abdomen. pt reports pain in middle of abdomen, and feeling sickie . pt spitting phlegm into emesis bag. pt requesting to be admitted to hospital. explained to pt that had been discharged and scans come back with no emergent results, pt adament about being admitted to hospital.
[2023-09-28] MEDS: ONDANSETRON 4MG ODT 4 MG SL (09:35)
--- NOTE | 2023-09-28 10:58 | PC.NURSE ---
Ambulated pt approx 10ft with out any difficulty, discussed further care and the recommendation for GI doctor. Pt states that the GI cocktail did help her pain, Discussed physically therapy at facility if she felt that she needed it, pt refused at this time stating she was fine to go home. Family at and states they will fu with GI who she has seen before. aware and new medicine ordered for pt before dc to assist with pain pt states she gets when she walks alot.
[2023-09-28] MEDS: OXYCODONE 5MG IMMEDIATE RELEASE TABLET 5 MG PO (11:02)
== END 2023-09-28 11:17 | disposition home or self-care (01) ==
PROVIDERS: Emergency Medicine; Emergency Provider Emergency Medicine; PCP Internal Medicine Adolescent Medicine
DX: R10.9 Unspecified abdominal pain (principal); R07.81 Pleurodynia; R42 Dizziness and giddiness; I27.20 Pulmonary hypertension, unspecified; J45.909 Unspecified asthma, uncomplicated; J84.10 Pulmonary fibrosis, unspecified; E03.9 Hypothyroidism, unspecified
CPT/HCPCS: 71275; 74177; 80053; 83690; 85025; 85651; 86140; 96374; 96375; 96376; 99285; Q9967

== ENCOUNTER 2023-10-01 18:52 | Emergency (ER) | payer MEDICARE, SELFPAY ==
--- NOTE | 2023-10-01 18:59 | PC.NURSE ---
Went to lobby to check on patient. Sitting in lobby with family, Stated that it is rib pain and also top of stomach area. Family stated that this has been ongoing for 3 months.
[2023-10-01 19:59] VITALS: BP 160/104; PULSE 100; RESP 18; TEMP 36.7; O2SAT 93; BMI 21.0
[2023-10-01 20:48] VITALS: BP 180/71; PULSE 86; RESP 18; O2SAT 96
--- NOTE | 2023-10-01 21:07 | PC.NURSE ---
in room talking with patient at this time.
--- NOTE | 2023-10-01 21:15 | HMH.EDGENADL ---
Discharge Plan Disposition Patient Disposition: Home, Self-Care Prescriptions Prescriptions: New cefdinir 300 mg capsule 300 mg PO BID 10 Days Qty: 20 0RF omeprazole 20 mg capsule,delayed release(DR/EC) 20 mg PO DAILY 28 Days Qty: 28 0RF Rx Instructions: Do not combine with other omeprazole. No Action oxybutynin chloride 5 mg tablet 5 mg PO BID Patient Comments: TAKE 1 TABLET BY MOUTH TWICE DAILY hydrochlorothiazide 12.5 mg tablet 12.5 mg PO DAILY potassium chloride 20 mEq packet 20 meq PO DAILY Qty: 30 0RF pantoprazole 20 mg tablet,delayed release (DR/EC) 20 mg PO BID Patient Comments: TAKE 1 TABLET BY MOUTH TWICE DAILY sucralfate 1 gram tablet 1 g PO BID 28 Days Qty: 56 0RF omeprazole 20 mg capsule,delayed release(DR/EC) 20 mg PO BID 28 Days Qty: 56 0RF levothyroxine 75 mcg tablet 75 mcg PO DAILY Patient Comments: TAKE 1 TABLET BY MOUTH ONCE DAILY FOR 30 DAYS sucralfate 1 gram tablet 1 g PO TIDWMEAL Qty: 60 0RF Rx Instructions: take 3 times daily with meals Referrals Follow up/Referrals: Eber Rubalcava MD [Primary Care Provider] - See instructions Activity Restrictions/Add. Instructions Additional Instructions/Restrictions: At this time it was felt you are safe to be discharged home. If new or worsening symptoms please do not hesitate to return the emergency department. Please continue to follow-up with Dr. Foley as discussed. Please take your antibiotics and omeprazole as prescribed. Clinical Impressions Clinical Impression: Acute UTI, Abdominal pain Instructions Patient Instructions: DI for Acute Abdominal Pain Discharge ED Provider: Edvin Ford General Adult [facility] General Chief complaint: Abdominal Pain Stated complaint: Stomach pain,left rib cage pain Time Seen by Provider: 10/01/23 20:30 Mode of Arrival: Ambulatory Source of Information: Patient Limitations: No Limitations Description of Symptoms (Recalled from ER Triage Doc. by RN): 78 year old female presents to ER with ongoing complaints of upper abdominal pain and rib pain. Patient states she has been expirencing this for the last 2-3 months and has been evaluated with no reasoning to pain at this time. Patient states she was seen here 2 days ago with no findings and referal was given to f/u with appointment is made for 10-10. Patient states the pain is continuing to get worse. History of Present Illness HPI narrative: Patient is a 78-year-old female with past medical history of chronic abdominal pain who presents to the emergency department for repeat evaluation of abdominal pain. History is obtained by patient at bedside, patient has had abdominal pain over the last 4 months, not particularly modifiable, waxes and wanes in severity. She has had a colonoscopy which was reportedly unremarkable. Today she had epigastric pain that onset was acute causing her to present here for continued evaluation. Patient was seen in the emergency department [address] imaging was conducted and was unremarkable. Due to persistent symptoms she presents here for continued evaluation. Related Data Home Medications Medication Instructions Recorded Confirmed oxybutynin chloride 5 mg tablet 5 mg PO BID Overactive bladder 10/17/19 08/19/23 hydrochlorothiazide 12.5 mg tablet 12.5 mg PO DAILY Fluid 01/12/21 08/19/23 levothyroxine 75 mcg tablet 75 mcg PO DAILY Thyroid 02/12/23 08/19/23 pantoprazole 20 mg tablet,delayed 20 mg PO BID 08/19/23 08/19/23 release Previous Rx's Medication Instructions Recorded potassium chloride 20 mEq oral 20 meq PO DAILY #30 ea 07/16/23 packet sucralfate 1 gram tablet 1 g PO TIDWMEAL #60 tabs 09/11/23 omeprazole 20 mg capsule,delayed 20 mg PO BID 4 weeks #56 caps 09/28/23 release sucralfate 1 gram tablet 1 g PO BID 4 weeks #56 tabs 09/28/23 cefdinir 300 mg capsule 300 mg PO BID 10 days #20 caps 10/01/23 omeprazole 20 mg capsule,delayed 20 mg PO DAILY acid reflux 4 weeks 10/01/23 release #28 caps Allergies Allergy/AdvReac Type Severity Reaction Status Date / Time nitrofurantoin Allergy Unknown Unknown Verified 07/16/23 13:42 [From MACROBID] allergy reaction [facility] Disclaimer: The information contained in this section may have been updated after the patient was seen, as this information can be updated by other users. Medical History Acute respiratory failure with hypoxia Allergic rhinitis Allergic rhinitis Asthma Bronchiectasis Cavitary lesion of lung Dyspnea on exertion Dyspnea on exertion Hypothyroid Osteoarthritis Pneumonia Pulmonary fibrosis Pulmonary hypertension Restrictive lung disease Shortness of breath Surgical History History of hysterectomy No history of previous surgery Family History Brother COPD (chronic obstructive pulmonary disease) Lung disease Sister COPD (chronic obstructive pulmonary disease) Social History Smoking Status: Never smoker alcohol intake: never substance use type: denies use current occupational status: retired Travel in the last 8 weeks: None household members: family housing: house current occupational exposures/hazards: No caffeine: No ROS Obtained: Yes Systems reviewed as appropriate & no additional complaints except as documented Physical Exam General General appearance: alert and in no apparent distress Head Head exam: atraumatic and normocephalic Eye Eye exam: Present PERRL and EOMI ENT ENT exam: Present mucous membranes moist Neck Neck exam: Present normal inspection Chest Chest inspection: Present normal inspection and symmetric chest wall rise Respiratory Respiratory exam: Present normal lung sounds bilaterally; Absent respiratory distress Cardiovascular Cardiovascular exam: Present regular rate and normal rhythm Abdominal Exam Abdominal exam: Present soft and guarding (Voluntary); Absent tenderness Extremities Exam Extremities exam: Present normal inspection Neurological Exam Neurological exam: Present alert Psychiatric Psychiatric exam: Present normal affect Skin Skin exam: Present warm and dry Medical Decision Making Andrea Inquiry Pt receiving controlled substance: No Vital Signs: 10/01/23 19:59 10/01/23 20:48 Temperature 98.1 F Temperature Source Oral Pulse Rate 86 Pulse Rate [Left Radial] 100 H Respiratory Rate 18 18 Blood Pressure 180/71 H Blood Pressure [Right Arm] 160/104 H Blood Pressure Mean [Right Arm] 122 Blood Pressure Source Automatic Cuff Blood Pressure Source [Right Arm] Automatic Cuff Blood Pressure Position Sitting Blood Pressure Position [Right Arm] Sitting 02 Sat by Pulse Oximetry 93 L 96 Oxygen Delivery Method Room Air Room Air Lab Data Lab Results 10/01/23 20:45: WBC 8.6, RBC 4.73, Hgb 13.7, Hct 42.5, MCV 89.7, MCH 29.0, MCHC 32.3, RDW 14.3, Plt Count 345, MPV 8.4, Neut % (Auto) 59.3, Lymph % (Auto) 31.6, [place] % (Auto) 5.0, Eos % (Auto) 3.2, Baso % (Auto) 0.9, Neut # (Auto) 5.1, Lymph # (Auto) 2.7, [place] # (Auto) 0.4, Eos # (Auto) 0.3, Baso # (Auto) 0.1, Sodium 140, Potassium 3.5, Chloride 102, Carbon Dioxide 32 H, Anion Gap 9.5, BUN 17, Creatinine 0.70, Estimated Creat Clear 38, Estimated GFR 81, Est GFR ( Amer) 98, Glucose 121 H, Calcium 9.1, Total Bilirubin 0.5, AST 34, ALT 18, Alkaline Phosphatase 76, Troponin I < 0.01, Total Protein 7.5, Albumin 4.0, Globulin 3.5 H, Albumin/Globulin Ratio 1.1, Lipase 75 10/01/23 22:03: Urine Color Dark yellow, Urine Appearance Cloudy, Urine pH 7.0, Ur Specific [place] 1.020, Urine Protein 1+, Urine Glucose (UA) Trace, Urine Ketones Negative, Urine Blood Negative, Urine Nitrate Positive, Urine Bilirubin 1+ A, Urine Urobilinogen 2.0, Ur Leukocyte Esterase 2+ A, Urine RBC Occasional, Urine WBC 10-20, Ur Squamous Epith Cells 3-5, Urine Bacteria Trace 10/01/23 20:45 10/01/23 20:45 Orders (Tests/Meds): ED MEDICATIONS Discontinued Medications Generic Name Dose Route Start Last Admin Trade Name Freq PRN Reason Stop Dose Admin Acetaminophen 1,000 mg 10/01/23 21:14 10/01/23 21:22 Acetaminophen 1,000mg/100ml Vial IV 10/01/23 21:15 1,000 mg ONCE ONE Administration Belladonna Alkaloids 60 ml 10/01/23 21:14 10/01/23 21:22 Belladonna Alkaloids 60 Ml Ml PO 10/01/23 21:15 60 ml ONCE ONE Administration Morphine Sulfate 4 mg 10/01/23 21:14 10/01/23 21:22 Morphine 4mg/Ml Syringe IV 10/01/23 21:15 4 mg ONCE ONE Administration ORDERS Category Date Time Status CBC w/Auto Diff [Complete Blood Count Auto Diff] Stat Lab 10/01/23 20:45 Completed CMP [Comprehensive Metabolic Panel] Stat Lab 10/01/23 20:45 Completed Lactic Acid Stat Lab 10/01/23 21:14 Ordered Lipase Stat Lab 10/01/23 20:45 Completed Trop I [Troponin I] Stat Lab 10/01/23 20:45 Completed Troponin I Q3H Lab 10/02/23 00:15 Ordered Troponin I Q3H Lab 10/02/23 03:15 Ordered UA [Urinalysis and Microscopic] Stat Lab 10/01/23 22:03 Completed Urine Culture Stat Micro 10/01/23 22:03 Received EKG Request [ECG Request] Stat Y 10/01/23 21:13 Ordered ECG Data Tracing #1: Independently interpreted by me, rate is 80, rhythm is intermittently irregular, sinus arrhythmia, axis is normal, no ST elevation in anatomical contiguous leads, QTc 393. Medical Decision Narrative: In summary patient is a 78-year-old female past medical history described above presents emergency department for evaluation of abdominal pain. Patient is hemodynamically stable nontoxic-appearing upon arrival, afebrile. Differential includes gastritis, peptic ulcer disease, pancreatitis, among others. Workup will be conducted with hematologic labs, urinalysis. Initial inventions include IV Tylenol, GI cocktail. Given that workup with appropriate CT imaging has been conducted recently and pain is not evolving will be deferred at this time. Workup reviewed by me, hematologic labs are nonactionable, initial troponin below detectable limit. Urinalysis interpreted by me and consistent with infection with proteinuria. Given this patient will be discharged with a course of cefdinir for which the first administration will be given today in the ER and will also be discharged with omeprazole and will follow-up with Dr. Glynn on outpatient basis for possible upper endoscopy. Critical Care Critical Care Time Critical Care Time: No
[2023-10-01 21:21] LABS: Basophils # 0.1 K/mm3 (0-0.2); Basophils % 0.9 % (0.1-2.0); Eosinophils # 0.3 K/mm3 (0.0-0.4); Eosinophils % 3.2 % (0.1-12.0); Hematocrit 42.5 % (37.0-47.0); Hemoglobin 13.7 g/dL (12.2-16.2); Lymphocytes # 2.7 K/mm3 (0.7-4.5); Lymphocytes % 31.6 % (10-50); Mean Corpuscular HGB Conc 32.3 g/dL (31.8-35.4); Mean Corpuscular Volume 89.7 fl (81-99); Mean Platelet Volume 8.4 fl (7.4-10.4); Monocytes # 0.4 K/mm3 (0.1-1.0); Neutrophils # 5.1 K/mm3 (1.8-7.8); Neutrophils % 59.3 % (37.0-80.0); Platelet Count 345 K/mm3 (142-424); Red Blood Count 4.73 M/mm3 (4.20-5.40); Red Cell Distribution Width 14.3 % (11.5-17.5); White Blood Count 8.6 K/mm3 (4.8-10.8)
[2023-10-01] MEDS: ACETAMINOPHEN 1,000MG/100ML VIAL 1000 MG IV (21:22)
[2023-10-01] MEDS: BELLADONNA ALKALOIDS 60 ML ML PO (21:22)
[2023-10-01] MEDS: MORPHINE 4MG/ML SYRINGE 4 MG IV (21:22)
[2023-10-01 21:23] LABS: Chloride 102 mmol/L (98-107)
--- NOTE | 2023-10-01 21:23 | ECG_ITS ---
APPROVED REPORT Exam: Resting ECG HR:80 bpm ECG Measurements Heart Rate 80 AXES MO 170 P 72 QRSd 92 QRS 74 QT 358 T 47 QTc 393 Conclusion SINUS RHYTHM WITH OCCASIONAL SUPRAVENTRICULAR PREMATURE COMPLEXES Otherwise normal ECG UNCONFIRMED REPORT Electronically signed by : Eber Rubalcava MD 10/05/2023 14:49:46
[2023-10-01 21:24] LABS: Potassium 3.5 mmoL/L (3.5-5.1); Sodium 140 mmol/L (136-145)
[2023-10-01 21:26] LABS: Alanine Aminotransferase 18 U/L (12-78); Alkaline Phosphatase 76 U/L (38-126); Anion Gap 9.5 mEq/L (5-15); Aspartate Amino Transferase 34 U/L (14-36); Bilirubin,Total 0.5 mg/dl (0.2-1.3); Blood Urea Nitrogen 17 mg/dl (7-17); Carbon Dioxide 32 mmol/L (22.0-30.0); Creatinine Clearance Estimated 38 mL/min (50-200); Estimated Glomerular Filt Rate 81 ml/min (>60); GFR (African American) 98 ML/MIN (>60)
[2023-10-01 21:27] LABS: Albumin/Globulin Ratio 1.1 (1.1-1.8); Calcium 9.1 mg/dl (8.4-10.2); Globulin 3.5 g/dL (1.3-3.2); Glucose 121 mg/dl (74-100); Lipase 75 U/L (23-300); Total Protein,Serum 7.5 g/dl (6.3-8.2)
[2023-10-01 21:30] VITALS: BP 152/85; PULSE 88; O2SAT 94
[2023-10-01 21:40] LABS: Troponin I < 0.01 ng/ml (0.00-0.034)
[2023-10-01 22:07] LABS: Microscopic, Urine URINE MICROSCOPIC (MICROSCOPIC)
[2023-10-01 22:15] LABS: Appearance,Urine CLOUDY (Clear); Blood, Urine Negative (Negative); Color,Urine DARK YELLOW (Yellow); Glucose,Urine (UA) TRACE (Negative); Ketones,Urine Negative (Negative); Leukocyte Esterase,Urine 2+ (Negative); Nitrate,Urine POSITIVE (Negative); Protein,Urine 1+ (Negative)
[2023-10-01 22:26] LABS: Bilirubin,Urine 1+ (Negative)
[2023-10-01 22:38] LABS: Bacteria,Urine Trace /lpf; RBC,Urine Occasional #/hpf (0-3)
[2023-10-01] MEDS: CEFDINIR 300MG CAPSULE 300 MG PO (22:51)
[2023-10-01 22:52] VITALS: BP 161/79; PULSE 76; RESP 18; TEMP 36.8
--- NOTE | 2023-10-05 17:30 | PC.NURSE ---
aware of urine culture results, pt dc with cefdinir, NTD at this time, waiting for sensitivity.
== END 2023-10-01 23:02 | disposition home or self-care (01) ==
PROVIDERS: Emergency Provider Emergency Medicine; PCP Internal Medicine Adolescent Medicine
DX: R10.13 Epigastric pain (principal); R07.81 Pleurodynia; N39.0 Urinary tract infection, site not specified; I49.9 Cardiac arrhythmia, unspecified; J45.909 Unspecified asthma, uncomplicated; E03.9 Hypothyroidism, unspecified; I27.20 Pulmonary hypertension, unspecified; J84.10 Pulmonary fibrosis, unspecified
CPT/HCPCS: 80053; 81001; 83690; 84484; 85025; 87086; 93005; 96374; 96375; 99285; J0131

== ENCOUNTER 2023-10-02 03:41 | Emergency (ER) | payer MEDICARE, SELFPAY ==
[2023-10-02 03:41] VITALS: BP 156/77; PULSE 89; RESP 24; TEMP 36.6; O2SAT 100; BMI 21.2
--- NOTE | 2023-10-02 04:00 | ED_ITS ---
Discharge Plan Disposition Patient Disposition: Home, Self-Care Condition: Fair Chief Complaint: Abdominal Pain Prescriptions Prescriptions: No Action oxybutynin chloride 5 mg tablet 5 mg PO BID Patient Comments: TAKE 1 TABLET BY MOUTH TWICE DAILY hydrochlorothiazide 12.5 mg tablet 12.5 mg PO DAILY potassium chloride 20 mEq packet 20 meq PO DAILY Qty: 30 0RF pantoprazole 20 mg tablet,delayed release (DR/EC) 20 mg PO BID Patient Comments: TAKE 1 TABLET BY MOUTH TWICE DAILY sucralfate 1 gram tablet 1 g PO BID 28 Days Qty: 56 0RF omeprazole 20 mg capsule,delayed release(DR/EC) 20 mg PO BID 28 Days Qty: 56 0RF cefdinir 300 mg capsule 300 mg PO BID 10 Days Qty: 20 0RF omeprazole 20 mg capsule,delayed release(DR/EC) 20 mg PO DAILY 28 Days Qty: 28 0RF Rx Instructions: Do not combine with other omeprazole. levothyroxine 75 mcg tablet 75 mcg PO DAILY Patient Comments: TAKE 1 TABLET BY MOUTH ONCE DAILY FOR 30 DAYS sucralfate 1 gram tablet 1 g PO TIDWMEAL Qty: 60 0RF Rx Instructions: take 3 times daily with meals Referrals Follow up/Referrals: Eber Rubalcava MD [Primary Care Provider] - See instructions Clinical Impressions Clinical Impression: Chronic abdominal pain Instructions Patient Instructions: DI for Chronic Pain -- Adult, DI for Urinary Tract Infection (UTI) Discharge ED Provider: Jv Montoya General Adult HPI General Chief complaint: Abdominal Pain Stated complaint: abd pain Time Seen by Provider: 10/02/23 03:59 Mode of Arrival: Wheelchair Source of Information: Patient Limitations: No Limitations Description of Symptoms (Recalled from ER Triage Doc. by RN): Pt presents with lower abdominal pain, was seen here earlier and dx with UTI. Pt denies any vomiting or diarrhea only nausea that just started. History of Present Illness HPI narrative: Patient is a 78-year-old female with past medical history of chronic abdominal pain who presents to the emergency department for repeat evaluation of abdominal pain. History is obtained by patient at bedside, patient has had abdominal pain over the last 4 months, not particularly modifiable, waxes and wanes in severity. Pt complains of upper abdominal pain and rib pain. She has had a colonoscopy which was reportedly unremarkable. Today she had epigastric pain that onset was acute causing her to present here for continued evaluation. Patient was seen 7 hours ago in the ED and found to have UTI after negative labs and cardiac workup. Patient was also seen in the emergency department [address] imaging including CTA and CTAP w/ contrast was conducted and was unremarkable. Due to persistent symptoms she presents here for continued evaluation. Pt has been given referral was given to f/u with appointment is made for 10-10. Related Data Home Medications Medication Instructions Recorded Confirmed oxybutynin chloride 5 mg tablet 5 mg PO BID Overactive bladder 10/17/19 08/19/23 hydrochlorothiazide 12.5 mg tablet 12.5 mg PO DAILY Fluid 01/12/21 08/19/23 levothyroxine 75 mcg tablet 75 mcg PO DAILY Thyroid 02/12/23 08/19/23 pantoprazole 20 mg tablet,delayed 20 mg PO BID 08/19/23 08/19/23 release Previous Rx's Medication Instructions Recorded potassium chloride 20 mEq oral 20 meq PO DAILY #30 ea 07/16/23 packet sucralfate 1 gram tablet 1 g PO TIDWMEAL #60 tabs 09/11/23 omeprazole 20 mg capsule,delayed 20 mg PO BID 4 weeks #56 caps 09/28/23 release sucralfate 1 gram tablet 1 g PO BID 4 weeks #56 tabs 09/28/23 cefdinir 300 mg capsule 300 mg PO BID 10 days #20 caps 10/01/23 omeprazole 20 mg capsule,delayed 20 mg PO DAILY acid reflux 4 weeks 10/01/23 release #28 caps Allergies Allergy/AdvReac Type Severity Reaction Status Date / Time nitrofurantoin Allergy Unknown Unknown Verified 07/16/23 13:42 [From MACROBID] allergy reaction [facility] Disclaimer: The information contained in this section may have been updated after the patient was seen, as this information can be updated by other users. Medical History Acute respiratory failure with hypoxia Allergic rhinitis Allergic rhinitis Asthma Bronchiectasis Cavitary lesion of lung Dyspnea on exertion Dyspnea on exertion Hypothyroid Osteoarthritis Pneumonia Pulmonary fibrosis Pulmonary hypertension Restrictive lung disease Shortness of breath Surgical History History of hysterectomy No history of previous surgery Family History Brother COPD (chronic obstructive pulmonary disease) Lung disease Sister COPD (chronic obstructive pulmonary disease) Social History Smoking Status: Never smoker alcohol intake: never substance use type: denies use current occupational status: retired Travel in the last 8 weeks: None household members: family housing: house current occupational exposures/hazards: No caffeine: No ROS Obtained: Yes All systems reviewed & no additional complaints except as docu mented Physical Exam General General appearance: alert and in no apparent distress Head Head exam: atraumatic, normocephalic and normal inspection Eye Eye exam: Present normal appearance, PERRL and EOMI; Absent scleral icterus or nystagmus ENT ENT exam: Present normal exam, mucous membranes moist and normal external ear exam Neck Neck exam: Present normal inspection, full ROM and trachea midline Chest Chest inspection: Present normal inspection and symmetric chest wall rise; Absent tenderness Respiratory Respiratory exam: Present normal lung sounds bilaterally; Absent respiratory distress, wheezes or accessory muscle use Cardiovascular Cardiovascular exam: Present regular rate, normal rhythm and normal heart sounds Abdominal Exam Abdominal exam: Present soft and tenderness (TTP, patient had more TTP in suprapubic region); Absent distention, guarding, rebound, rigidity, trauma, ascites or pulsatile mass Extremities Exam Extremities exam: Present normal inspection and full ROM; Absent tenderness Back Exam Back exam: Present normal inspection and full ROM; Absent tenderness Neurological Exam Neurological exam: Present alert, oriented X3 and normal gait; Absent motor sens ory deficit Psychiatric Psychiatric exam: Present normal affect and normal mood Skin Skin exam: Present warm, dry and normal color Medical Decision Making Medical Records Medical records reviewed: Yes I reviewed the patient's medical records. Andrea Inquiry Pt receiving controlled substance: No Vital Signs: 10/02/23 03:41 Temperature 97.8 F Temperature Source Oral Pulse Rate [Left] 89 Respiratory Rate 24 Blood Pressure [Right Arm] 156/77 H Blood Pressure Mean [Right Arm] 103 Blood Pressure Source [Right Arm] Automatic Cuff Blood Pressure Position [Right Arm] Sitting 02 Sat by Pulse Oximetry 100 Oxygen Delivery Method Room Air Lab Data Lab results reviewed: Yes I reviewed the patient's lab results. Medical Decision Narrative: In summary, Patient is a 78-year-old female with past medical history of chronic abdominal pain who presents to the emergency department for repeat evaluation of abdominal pain. History is obtained by patient at bedside, patient has had abdominal pain over the last 4 months, not particularly modifiable, waxes and wanes in severity. Pt complains of upper abdominal pain and rib pain. She has had a colonoscopy which was reportedly unremarkable. Today she had epigastric pain that onset was acute causing her to present here for continued evaluation. Patient was seen 7 hours ago in the ED and found to have UTI after negative labs and cardiac workup. Patient was also seen in the emergency department [address] imaging including CTA and CTAP w/ contrast was conducted and was unremarkable. Due to persistent symptoms she presents here for continued evaluation. Pt has been given referral was given to f/u with appointment is made for 10-10. Patient was afebrile, hemodynamically stable, in no respiratory distress, and nontoxic in appearance upon arrival and throughout the entire stay in the ED. Physical examination was notable for TTP to the abdomen, moreso in suprapubic region, but abdomen soft, ND. The DDx includes, but is not limited to, viral gastroenteritis, pancreatitis, acute biliary process such as gallstones, gastritis vs ulcers, cholecystitis, choledocholithiasis, acute cholangitis, appendicitis, diverticulitis, colitis, other acute abdominal infection or abscess, malignancy, bowel perforation, bowel obstruction, cystitis vs pyelonephritis, nephrolithiasis, vs intraabdominal hemorrhage, strangulated versus incarcerated hernia. Given numerous ED evaluations including CT scans and two full laboratory evaluations in the last 2-3 days including most recently within last 8 hours, the HPI w/ no NEW red flags, otherwise well-appearing nature of patient, stable vitals, and similar physical examinations compared to prior ED visits, the need for in-depth laboratory or radiographic evaluation was deemed unnecessary at this time. Patient was found to have a UTI during last visit and patient was given dose of Abx in the Ed and prescription for course of Abx. Thus at this time, it was explained to the patient that there would be no utility of repeat labs and scans and that the patient is likely experiencing pain from a UTI. Thus, patient was asked to continue taking OTC medications and give the Abx time to take effect. Interventions/Medications Received in the ED: - IM toradol 30mg, 4mg zofran At this time, it was felt that the patient was safe to be discharged home. The patient/parents were comfortable and in agreement with this plan. Patient instructed to follow up with Payroll Clerk/PCP. The patient/parents were given strict return precautions prior to being discharged from the emergency department. All questions were answered. Jv Montoya MD Emergency Medicine Critical Care Critical Care Time Critical Care Time: No
[2023-10-02] MEDS: ONDANSETRON 4MG ODT 4 MG SL (04:02)
[2023-10-02] MEDS: KETOROLAC 30MG/ML VIAL 30 MG IM (04:02)
[2023-10-02 04:10] VITALS: BP 154/72; PULSE 88; RESP 20; TEMP 36.6; O2SAT 100
== END 2023-10-02 04:15 | disposition home or self-care (01) ==
PROVIDERS: Emergency Provider Emergency Medicine; PCP Internal Medicine Adolescent Medicine
DX: R10.30 Lower abdominal pain, unspecified (principal); R07.81 Pleurodynia; J45.909 Unspecified asthma, uncomplicated; E03.9 Hypothyroidism, unspecified; J84.10 Pulmonary fibrosis, unspecified; I27.20 Pulmonary hypertension, unspecified
CPT/HCPCS: 96372; 99283

== ENCOUNTER 2023-11-08 15:54 | Emergency (ER) | payer MEDICARE, SELFPAY ==
[2023-11-08 15:55] VITALS: BP 108/92; PULSE 78; RESP 18; TEMP 36.6; O2SAT 98; BMI 21.0
--- NOTE | 2023-11-08 16:12 | HMH.EDGENADL ---
Discharge Plan Disposition Patient Disposition: Home, Self-Care Condition: Good Prescriptions Prescriptions: New metoclopramide HCl [Reglan] 5 mg tablet 5 mg PO DAILY Qty: 30 0RF No Action oxybutynin chloride 5 mg tablet 5 mg PO BID Patient Comments: TAKE 1 TABLET BY MOUTH TWICE DAILY hydrochlorothiazide 12.5 mg tablet 12.5 mg PO DAILY potassium chloride 20 mEq packet 20 meq PO DAILY Qty: 30 0RF pantoprazole 20 mg tablet,delayed release (DR/EC) 20 mg PO BID Patient Comments: TAKE 1 TABLET BY MOUTH TWICE DAILY sucralfate 1 gram tablet 1 g PO BID 28 Days Qty: 56 0RF omeprazole 20 mg capsule,delayed release(DR/EC) 20 mg PO BID 28 Days Qty: 56 0RF cefdinir 300 mg capsule 300 mg PO BID 10 Days Qty: 20 0RF omeprazole 20 mg capsule,delayed release(DR/EC) 20 mg PO DAILY 28 Days Qty: 28 0RF Rx Instructions: Do not combine with other omeprazole. levothyroxine 75 mcg tablet 75 mcg PO DAILY Patient Comments: TAKE 1 TABLET BY MOUTH ONCE DAILY FOR 30 DAYS sucralfate 1 gram tablet 1 g PO TIDWMEAL Qty: 60 0RF Rx Instructions: take 3 times daily with meals Referrals Follow up/Referrals: Eber Rubalcava MD [Primary Care Provider] - See instructions Activity Restrictions/Add. Instructions Additional Instructions/Restrictions: Please follow-up with gastroenterology and your PCP as an outpatient and call and make planned appointments on Sunday. Please return to the ER or PCP or gastroenterology for any change or worsening in your symptoms or condition. Clinical Impressions Clinical Impression: Abdominal pain of unknown cause Instructions Patient Instructions: DI for Acute Abdominal Pain Discharge ED Provider: Benita Haro General Adult HPI <DEEJAY Jiménez - Last Filed: 11/08/23 17:52> General Chief complaint: Abdominal Pain Stated complaint: abd pain Time Seen by Provider: 11/08/23 16:02 History of Present Illness HPI narrative: Patient presents for evaluation chronic abdominal pain. Patient reports that she has had a 6-month history of daily intense abdominal pain. She has been extensively worked up including a most recent admission from 10/30/2023 to 11/01/2023 at [facility]. She underwent EGD during that admission and she previously has had a colonoscopy performed by Dr. Streeter. In my review of her records available to me thus far there has been no definitive diagnostic explanation or diagnosis that explains her discomfort, and patient herself is unable to expand upon that. Patient states that the pain is constant 24 hours a day intense nothing makes it better nothing makes it worse. Patient reports that she takes MiraLAX daily and her last bowel movement was just prior to coming to the ER today. Patient reports nausea but no vomiting diarrhea chest pain shortness of breath fever chills hemoptysis hematochezia melena. Related Data Home Medications Medication Instructions Recorded Confirmed oxybutynin chloride 5 mg tablet 5 mg PO BID Overactive bladder 10/17/19 08/19/23 hydrochlorothiazide 12.5 mg tablet 12.5 mg PO DAILY Fluid 01/12/21 08/19/23 levothyroxine 75 mcg tablet 75 mcg PO DAILY Thyroid 02/12/23 08/19/23 pantoprazole 20 mg tablet,delayed 20 mg PO BID 08/19/23 08/19/23 release Previous Rx's Medication Instructions Recorded potassium chloride 20 mEq oral 20 meq PO DAILY #30 ea 07/16/23 packet sucralfate 1 gram tablet 1 g PO TIDWMEAL #60 tabs 09/11/23 omeprazole 20 mg capsule,delayed 20 mg PO BID 4 weeks #56 caps 09/28/23 release sucralfate 1 gram tablet 1 g PO BID 4 weeks #56 tabs 09/28/23 cefdinir 300 mg capsule 300 mg PO BID 10 days #20 caps 10/01/23 omeprazole 20 mg capsule,delayed 20 mg PO DAILY acid reflux 4 weeks 10/01/23 release #28 caps metoclopramide HCl 5 mg tablet 5 mg PO DAILY #30 tabs 11/08/23 (Reglan) Allergies Allergy/AdvReac Type Severity Reaction Status Date / Time nitrofurantoin Allergy Unknown Unknown Verified 07/16/23 13:42 [From MACROBID] allergy reaction [facility] <DEEJAY Jiménez - Last Filed: 11/08/23 17:52> [facility] Disclaimer: The information contained in this section may have been updated after the patient was seen, as this information can be updated by other users. Medical History Acute respiratory failure with hypoxia Allergic rhinitis Allergic rhinitis Asthma Bronchiectasis Cavitary lesion of lung Dyspnea on exertion Dyspnea on exertion Hypothyroid Osteoarthritis Pneumonia Pulmonary fibrosis Pulmonary hypertension Restrictive lung disease Shortness of breath Surgical History History of hysterectomy No history of previous surgery Family History Brother COPD (chronic obstructive pulmonary disease) Lung disease Sister COPD (chronic obstructive pulmonary disease) Social History Smoking Status: Never smoker alcohol intake: never substance use type: denies use current occupational status: retired Travel in the last 8 weeks: None household members: family housing: house current occupational exposures/hazards: No caffeine: No <DEEJAY Jiménez - Last Filed: 11/08/23 17:52> ROS Obtained: Yes Systems reviewed as appropriate & no additional complaints except as documented Physical Exam <DEEJAY Jiménez - Last Filed: 11/08/23 17:52> General General appearance: alert and in no apparent distress Head Head exam: atraumatic and normal inspection Eye Eye exam: Present normal appearance, PERRL and EOMI ENT ENT exam: Present normal exam, normal oropharynx and mucous membranes moist Neck Neck exam: Present normal inspection, full ROM and trachea midline; Absent lymphadenopathy Chest Chest inspection: Present normal inspection and symmetric chest wall rise Respiratory Respiratory exam: Present normal lung sounds bilaterally; Absent accessory muscle use Cardiovascular Cardiovascular exam: Present regular rate, normal rhythm, normal heart sounds, +S1 and +S2 Abdominal Exam Abdominal exam: Present soft, tenderness (Severe pain to palpation diffusely with no focal areas) and normal bowel sounds; Absent guarding, rebound or rigidity Extremities Exam Extremities exam: Present normal inspection and full ROM Neurological Exam Neurological exam: Present alert and oriented X3 Psychiatric Psychiatric exam: Present normal affect and normal mood Skin Skin exam: Present warm, dry and normal color Lymphatic Lymphatic Findings: no adenopathy Medical Decision Making <DEEJAY Jiménez - Last Filed: 11/08/23 17:52> Medical Records Medical records reviewed: Yes I reviewed the patient's medical records. Andrea Inquiry Pt receiving controlled substance: No Vital Signs: 11/08/23 15:55 11/08/23 18:10 11/08/23 17:01 Temperature 97.9 F 97.9 F Temperature Source Oral Oral Pulse Rate 78 Pulse Rate [Radial] 78 Respiratory Rate 18 18 Blood Pressure 123/98 H 137/67 Blood Pressure [Right Arm] 108/92 L Blood Pressure Mean 103 Blood Pressure Mean [Right Arm] 97 Blood Pressure Source Automatic Cuff Blood Pressure Source [Right Arm] Automatic Cuff Blood Pressure Position Sitting Blood Pressure Position [Right Arm] Sitting 02 Sat by Pulse Oximetry 98 Oxygen Delivery Method Room Air Room Air 11/08/23 17:30 Temperature Temperature Source Pulse Rate Pulse Rate [Radial] Respiratory Rate Blood Pressure 132/70 Blood Pressure [Right Arm] Blood Pressure Mean 90 Blood Pressure Mean [Right Arm] Blood Pressure Source Blood Pressure Source [Right Arm] Blood Pressure Position Blood Pressure Position [Right Arm] 02 Sat by Pulse Oximetry Oxygen Delivery Method Lab Data Lab results reviewed: Yes I reviewed the patient's lab results. Lab Results 11/08/23 16:32: WBC 7.9, RBC 4.46, Hgb 12.9, Hct 41.1, MCV 92.0, MCH 28.9, MCHC 31.4 L, RDW 13.9, Plt Count 374, MPV 8.0, Neut % (Auto) 58.2, Lymph % (Auto) 29.8, [place] % (Auto) 6.7, Eos % (Auto) 3.4, Baso % (Auto) 1.8, Neut # (Auto) 4.6, Lymph # (Auto) 2.4, [place] # (Auto) 0.5, Eos # (Auto) 0.3, Baso # (Auto) 0.1, PT 10.5, INR 0.97, D-Dimer 0.50, Sodium 139, Potassium 3.2 L, Chloride 104, Carbon Dioxide 32 H, Anion Gap 6.2, BUN 17, Creatinine 0.80, Estimated Creat Clear 38, Estimated GFR 69, Est GFR ( Amer) 84, Glucose 125 H, Lactate 1.3, Calcium 9.3, Magnesium 1.9, Total Bilirubin 0.3, AST 28, ALT 15, Alkaline Phosphatase 78, Troponin I < 0.01, C-Reactive Protein 3.3, Total Protein 7.0, Albumin 3.9, Globulin 3.1, Albumin/Globulin Ratio 1.3, Procalcitonin 0.058 11/08/23 16:32 11/08/23 16:32 Orders (Tests/Meds): ED MEDICATIONS Discontinued Medications Generic Name Dose Route Start Last Admin Trade Name Luann PRN Reason Stop Dose Admin Acetaminophen 1,000 mg 11/08/23 16:19 11/08/23 16:48 Acetaminophen 1,000mg/100ml Vial IV 11/08/23 16:20 1,000 mg ONCE ONE Administration Ketorolac Tromethamine 15 mg 11/08/23 16:19 11/08/23 16:48 Ketorolac 30mg/Ml Vial IV 11/08/23 16:20 15 mg ONCE ONE Administration Morphine Sulfate 2 mg 11/08/23 16:45 Morphine 2mg/Ml Syringe IV 11/08/23 16:46 ONCE ONE ORDERS Category Date Time Status KUB (single view) [XR KUB] Stat Exams 11/08/23 16:19 Completed CBC w/Auto Diff [Complete Blood Count Auto Diff] Stat Lab 11/08/23 16:32 Completed CMP [Comprehensive Metabolic Panel] Stat Lab 11/08/23 16:32 Completed CRP [C-Reactive Protein] Stat Lab 11/08/23 16:32 Completed D-Dimer Stat Lab 11/08/23 16:32 Completed INR [Prothrombin Time INR] Stat Lab 11/08/23 16:32 Completed Lactic Acid Stat Lab 11/08/23 16:32 Completed Magnesium Stat Lab 11/08/23 16:32 Completed Procalcitonin Stat Lab 11/08/23 16:32 Completed Trop I [Troponin I] Stat Lab 11/08/23 16:32 Completed Medical Decision Narrative: In summary patient is a 78-year-old female who presents to the emergency department for evaluation of acute on chronic abdominal pain. Patient is hemodynamically stable upon arrival, afebrile. Physical exam is remarkable for subjectively severe diffuse abdominal pain on palpation however pain is out of proportion to exam. Patient has a benign normal abdominal exam however with normal bowel sounds. Remainder physical exam is unremarkable and nonfocal differential diagnosis includes acute on chronic functional abdominal pain versus mesenteric ischemia versus obstipation versus ileus versus kidney stone versus infection etc. Initial workup will be conducted with laboratory investigations KUB. Initial interventions include acetaminophen Toradol. Initial workup reviewed by me shows hematologic labs are nonactionable including normal white count normal electrolytes. My informal review of her KUB does not show any obstructive pattern however shows contrast still remaining in the colon some 7 days after she had a small bowel follow-through [facility] but no other acute processes. Upon repeat evaluation had modest relief of her discomfort with Toradol acetaminophen and morphine. Given this patient is appropriate for discharge with an addition of Reglan along with her normal bowel regimen. Patient advised to follow-up with PCP and gastroenterology as an outpatient. Patient can return to the emergency department for any worsening or change in her symptoms or conditions. Patient verbalized understanding and agreement. <Benita Haro, DO - Last Filed: 11/08/23 23:43> Vital Signs: 11/08/23 15:55 11/08/23 18:10 11/08/23 17:01 Temperature 97.9 F 97.9 F Temperature Source Oral Oral Pulse Rate 78 Pulse Rate [Radial] 78 Respiratory Rate 18 18 Blood Pressure 123/98 H 137/67 Blood Pressure [Right Arm] 108/92 L Blood Pressure Mean 103 Blood Pressure Mean [Right Arm] 97 Blood Pressure Source Automatic Cuff Blood Pressure Source [Right Arm] Automatic Cuff Blood Pressure Position Sitting Blood Pressure Position [Right Arm] Sitting 02 Sat by Pulse Oximetry 98 Oxygen Delivery Method Room Air Room Air 11/08/23 17:30 Temperature Temperature Source Pulse Rate Pulse Rate [Radial] Respiratory Rate Blood Pressure 132/70 Blood Pressure [Right Arm] Blood Pressure Mean 90 Blood Pressure Mean [Right Arm] Blood Pressure Source Blood Pressure Source [Right Arm] Blood Pressure Position Blood Pressure Position [Right Arm] 02 Sat by Pulse Oximetry Oxygen Delivery Method Lab Data Lab Results 11/08/23 16:32: WBC 7.9, RBC 4.46, Hgb 12.9, Hct 41.1, MCV 92.0, MCH 28.9, MCHC 31.4 L, RDW 13.9, Plt Count 374, MPV 8.0, Neut % (Auto) 58.2, Lymph % (Auto) 29.8, [place] % (Auto) 6.7, Eos % (Auto) 3.4, Baso % (Auto) 1.8, Neut # (Auto) 4.6, Lymph # (Auto) 2.4, [place] # (Auto) 0.5, Eos # (Auto) 0.3, Baso # (Auto) 0.1, PT 10.5, INR 0.97, D-Dimer 0.50, Sodium 139, Potassium 3.2 L, Chloride 104, Carbon Dioxide 32 H, Anion Gap 6.2, BUN 17, Creatinine 0.80, Estimated Creat Clear 38, Estimated GFR 69, Est GFR ( Amer) 84, Glucose 125 H, Lactate 1.3, Calcium 9.3, Magnesium 1.9, Total Bilirubin 0.3, AST 28, ALT 15, Alkaline Phosphatase 78, Troponin I < 0.01, C-Reactive Protein 3.3, Total Protein 7.0, Albumin 3.9, Globulin 3.1, Albumin/Globulin Ratio 1.3, Procalcitonin 0.058 Orders (Tests/Meds): ED MEDICATIONS Discontinued Medications Generic Name Dose Route Start Last Admin Trade Name Freq PRN Reason Stop Dose Admin Acetaminophen 1,000 mg 11/08/23 16:19 11/08/23 16:48 Acetaminophen 1,000mg/100ml Vial IV 11/08/23 16:20 1,000 mg ONCE ONE Administration Ketorolac Tromethamine 15 mg 11/08/23 16:19 11/08/23 16:48 Ketorolac 30mg/Ml Vial IV 11/08/23 16:20 15 mg ONCE ONE Administration Morphine Sulfate 2 mg 11/08/23 16:45 Morphine 2mg/Ml Syringe IV 11/08/23 16:46 ONCE ONE ORDERS Category Date Time Status KUB (single view) [XR KUB] Stat Exams 11/08/23 16:19 Completed CBC w/Auto Diff [Complete Blood Count Auto Diff] Stat Lab 11/08/23 16:32 Completed CMP [Comprehensive Metabolic Panel] Stat Lab 11/08/23 16:32 Completed CRP [C-Reactive Protein] Stat Lab 11/08/23 16:32 Completed D-Dimer Stat Lab 11/08/23 16:32 Completed INR [Prothrombin Time INR] Stat Lab 11/08/23 16:32 Completed Lactic Acid Stat Lab 11/08/23 16:32 Completed Magnesium Stat Lab 11/08/23 16:32 Completed Procalcitonin Stat Lab 11/08/23 16:32 Completed Trop I [Troponin I] Stat Lab 11/08/23 16:32 Completed Medical Decision Narrative: In summary patient is a 78-year-old female who presents to the emergency department for evaluation of acute on chronic abdominal pain. Patient is hemodynamically stable upon arrival, afebrile. Physical exam is remarkable for subjectively severe diffuse abdominal pain on palpation however pain is out of proportion to exam. Patient has a benign normal abdominal exam however with normal bowel sounds. Remainder physical exam is unremarkable and nonfocal differential diagnosis includes acute on chronic functional abdominal pain versus mesenteric ischemia versus obstipation versus ileus versus kidney stone versus infection etc. Initial workup will be conducted with laboratory investigations KUB. Initial interventions include acetaminophen Toradol. Initial workup reviewed by me shows hematologic labs are nonactionable including normal white count normal electrolytes. My informal review of her KUB does not show any obstructive pattern however shows contrast still remaining in the colon some 7 days after she had a small bowel follow-through [facility] but no other acute processes. Upon repeat evaluation had modest relief of her discomfort with Toradol acetaminophen and morphine. Given this patient is appropriate for discharge with an addition of Reglan along with her normal bowel regimen. Patient advised to follow-up with PCP and gastroenterology as an outpatient. Patient can return to the emergency department for any worsening or change in her symptoms or conditions. Patient verbalized understanding and agreement. I was consulted by the AGUSTIN, and we discussed the complexity of the problems being addressed. I approved the treatment and management plan for this patient's care in the emergency department, thus performing a substantive portion of the medical decision making. Benita Haro, DO Critical Care <DEEJAY Jiménez - Last Filed: 11/08/23 17:52> Critical Care Time Critical Care Time: No
--- NOTE | 2023-11-08 16:18 | PC.NURSE ---
called [facility] for discharge summary
--- NOTE | 2023-11-08 16:19 | XR_ITS ---
PROCEDURE INFORMATION: Exam: XR Abdomen Exam date and time: 11/08/2023 4:54 PM Age: 78 years old Clinical indication: Abdominal pain; Additional info: Acute on chronic abdominal pain TECHNIQUE: Imaging protocol: Radiologic exam of the abdomen. Views: Frontal supine view of the abdomen. 1 View. COMPARISON: CT ABDOMEN PELVIS W CON 09/28/2023 6:20 AM FINDINGS: Tubes, catheters and devices: InterStim device overlying the right sacrum. Gastrointestinal tract: High density material noted throughout the colon most pronounced in the descending and sigmoid colon compatible with residual enteric contrast from prior CT or other imaging study or some other ingested substance. No dilated bowel loops seen. Bones/joints: Unremarkable. IMPRESSION: Nonfocal abdomen.
[2023-11-08] MEDS: KETOROLAC 30MG/ML VIAL 15 MG IV (16:48)
[2023-11-08] MEDS: ACETAMINOPHEN 1,000MG/100ML VIAL 1000 MG IV (16:48)
[2023-11-08 16:50] LABS: Basophils # 0.1 K/mm3 (0-0.2); Basophils % 1.8 % (0.1-2.0); Eosinophils # 0.3 K/mm3 (0.0-0.4); Eosinophils % 3.4 % (0.1-12.0); Hematocrit 41.1 % (37.0-47.0); Hemoglobin 12.9 g/dL (12.2-16.2); Lymphocytes # 2.4 K/mm3 (0.7-4.5); Lymphocytes % 29.8 % (10-50); Mean Corpuscular HGB Conc 31.4 g/dL (31.8-35.4); Mean Corpuscular Hemoglobin 28.9 pg (27.0-31.2); Monocytes # 0.5 K/mm3 (0.1-1.0); Monocytes % 6.7 % (1.7-9.3); Neutrophils # 4.6 K/mm3 (1.8-7.8); Neutrophils % 58.2 % (37.0-80.0); Platelet Count 374 K/mm3 (142-424); Red Blood Count 4.46 M/mm3 (4.20-5.40); Red Cell Distribution Width 13.9 % (11.5-17.5); White Blood Count 7.9 K/mm3 (4.8-10.8)
[2023-11-08 16:51] LABS: Chloride 104 mmol/L (98-107); Potassium 3.2 mmoL/L (3.5-5.1); Sodium 139 mmol/L (136-145)
[2023-11-08 16:54] LABS: Alanine Aminotransferase 15 U/L (12-78); Albumin Level 3.9 g/dl (3.5-5.0); Albumin/Globulin Ratio 1.3 (1.1-1.8); Alkaline Phosphatase 78 U/L (38-126); Anion Gap 6.2 mEq/L (5-15); Aspartate Amino Transferase 28 U/L (14-36); Bilirubin,Total 0.3 mg/dl (0.2-1.3); Blood Urea Nitrogen 17 mg/dl (7-17); Calcium 9.3 mg/dl (8.4-10.2); Carbon Dioxide 32 mmol/L (22.0-30.0); Creatinine Clearance Estimated 38 mL/min (50-200); Estimated Glomerular Filt Rate 69 ml/min (>60); GFR (African American) 84 ML/MIN (>60); Globulin 3.1 g/dL (1.3-3.2); Glucose 125 mg/dl (74-100); Lactic Acid 1.3 mmol/L (0.7-2.1)
[2023-11-08 16:55] LABS: Magnesium 1.9 mg/dl (1.6-2.3)
[2023-11-08 17:01] VITALS: BP 137/67
[2023-11-08 17:09] LABS: Troponin I < 0.01 ng/ml (0.00-0.034)
[2023-11-08 17:13] LABS: C-Reactive Protein 3.3 mg/L (0-4)
[2023-11-08 17:15] LABS: INR 0.97 (0.9-1.1); Prothrombin Time 10.5 seconds (10.1-12.5)
[2023-11-08 17:26] LABS: Procalcitonin 0.058 ng/mL (0.0-2.0)
[2023-11-08 17:30] VITALS: BP 132/70
[2023-11-08 18:10] VITALS: BP 123/98; PULSE 78; RESP 18; TEMP 36.6; O2SAT 99
== END 2023-11-08 18:10 | disposition home or self-care (01) ==
PROVIDERS: Physician Assistant; Emergency Provider Emergency Medicine; PCP Internal Medicine Adolescent Medicine
DX: R10.9 Unspecified abdominal pain (principal); R11.0 Nausea; J45.909 Unspecified asthma, uncomplicated; E03.9 Hypothyroidism, unspecified; J84.10 Pulmonary fibrosis, unspecified; I27.20 Pulmonary hypertension, unspecified
CPT/HCPCS: 74018; 80053; 83605; 83735; 84145; 84484; 85025; 85378; 85610; 86140; 96374; 96375; 99285; J0131

== ENCOUNTER 2023-11-16 04:18 | Emergency (ER) | payer MEDICARE, SELFPAY ==
[2023-11-16 04:19] VITALS: BP 157/86; PULSE 107; RESP 18; TEMP 36.6; O2SAT 95; BMI 21.0
[2023-11-16 04:28] VITALS: BP 157/86; PULSE 108; O2SAT 93
[2023-11-16 04:30] VITALS: BP 174/91; PULSE 96; O2SAT 92
[2023-11-16] MEDS: ONDANSETRON 4MG ODT 4 MG SL (04:33)
[2023-11-16] MEDS: ACETAMINOPHEN 500MG TAB 1000 MG PO (04:33)
[2023-11-16] MEDS: KETOROLAC 30MG/ML VIAL 30 MG IM (04:33)
[2023-11-16] MEDS: MORPHINE 2MG/ML SYRINGE 6 MG IM (04:34)
--- NOTE | 2023-11-16 05:24 | HMH.EDGENADL ---
Discharge Plan Disposition Patient Disposition: Home, Self-Care Prescriptions Prescriptions: No Action oxybutynin chloride 5 mg tablet 5 mg PO BID Patient Comments: TAKE 1 TABLET BY MOUTH TWICE DAILY hydrochlorothiazide 12.5 mg tablet 12.5 mg PO DAILY potassium chloride 20 mEq packet 20 meq PO DAILY Qty: 30 0RF pantoprazole 20 mg tablet,delayed release (DR/EC) 20 mg PO BID Patient Comments: TAKE 1 TABLET BY MOUTH TWICE DAILY sucralfate 1 gram tablet 1 g PO BID 28 Days Qty: 56 0RF omeprazole 20 mg capsule,delayed release(DR/EC) 20 mg PO BID 28 Days Qty: 56 0RF cefdinir 300 mg capsule 300 mg PO BID 10 Days Qty: 20 0RF omeprazole 20 mg capsule,delayed release(DR/EC) 20 mg PO DAILY 28 Days Qty: 28 0RF Rx Instructions: Do not combine with other omeprazole. metoclopramide HCl [Reglan] 5 mg tablet 5 mg PO DAILY Qty: 30 0RF levothyroxine 75 mcg tablet 75 mcg PO DAILY Patient Comments: TAKE 1 TABLET BY MOUTH ONCE DAILY FOR 30 DAYS sucralfate 1 gram tablet 1 g PO TIDWMEAL Qty: 60 0RF Rx Instructions: take 3 times daily with meals Referrals Follow up/Referrals: Eber Rubalcava MD [Primary Care Provider] - See instructions Activity Restrictions/Add. Instructions Additional Instructions/Restrictions: Please follow-up with your primary care provider. Please return to the emergency department if you develop any new or worsening symptoms or become concerned for your health. Clinical Impressions Clinical Impression: Abdominal pain Qualifiers: Abdominal location: left upper quadrant Qualified Code(s): R10.12 - Left upper quadrant pain Instructions Patient Instructions: DI for Acute Abdominal Pain Discharge ED Provider: Mehrdad Sanchez General Adult HPI General Chief complaint: Abdominal Pain Stated complaint: abd pain Time Seen by Provider: 11/16/23 04:20 Mode of Arrival: Wheelchair Source of Information: Patient Limitations: No Limitations Description of Symptoms (Recalled from ER Triage Doc. by RN): pt c/o lower abd pain and vomitting x 1 week History of Present Illness HPI narrative: 38-year-old female with history of chronic abdominal pain, frequent visitor to our emergency department presents with characteristic abdominal pain that has been present for approximately the last week. She reports that she was admitted last month to [place] and had both an upper and lower endoscopy which returned normal. She reports that her pain is consistent with her usual pain. She has been taking Tylenol at home without improvement. She reports normal bowel movements for her. She denies any urinary symptoms. She reports no fever at home. Denies vomiting. Related Data Home Medications Medication Instructions Recorded Confirmed oxybutynin chloride 5 mg tablet 5 mg PO BID Overactive bladder 10/17/19 08/19/23 hydrochlorothiazide 12.5 mg tablet 12.5 mg PO DAILY Fluid 01/12/21 08/19/23 levothyroxine 75 mcg tablet 75 mcg PO DAILY Thyroid 02/12/23 08/19/23 pantoprazole 20 mg tablet,delayed 20 mg PO BID 08/19/23 08/19/23 release Previous Rx's Medication Instructions Recorded potassium chloride 20 mEq oral 20 meq PO DAILY #30 ea 07/16/23 packet sucralfate 1 gram tablet 1 g PO TIDWMEAL #60 tabs 09/11/23 omeprazole 20 mg capsule,delayed 20 mg PO BID 4 weeks #56 caps 09/28/23 release sucralfate 1 gram tablet 1 g PO BID 4 weeks #56 tabs 09/28/23 cefdinir 300 mg capsule 300 mg PO BID 10 days #20 caps 10/01/23 omeprazole 20 mg capsule,delayed 20 mg PO DAILY acid reflux 4 weeks 10/01/23 release #28 caps metoclopramide HCl 5 mg tablet 5 mg PO DAILY #30 tabs 11/08/23 (Reglan) Allergies Allergy/AdvReac Type Severity Reaction Status Date / Time nitrofurantoin Allergy Unknown Unknown Verified 07/16/23 13:42 [From MACROBID] allergy reaction [facility] Disclaimer: The information contained in this section may have been updated after the patient was seen, as this information can be updated by other users. Medical History Acute respiratory failure with hypoxia Allergic rhinitis Allergic rhinitis Asthma Bronchiectasis Cavitary lesion of lung Dyspnea on exertion Dyspnea on exertion Hypothyroid Osteoarthritis Pneumonia Pulmonary fibrosis Pulmonary hypertension Restrictive lung disease Shortness of breath Surgical History History of hysterectomy No history of previous surgery Family History Brother COPD (chronic obstructive pulmonary disease) Lung disease Sister COPD (chronic obstructive pulmonary disease) Social History Smoking Status: Never smoker alcohol intake: never substance use type: denies use current occupational status: retired Travel in the last 8 weeks: None household members: family housing: house current occupational exposures/hazards: No caffeine: No ROS Obtained: Yes All systems reviewed & no additional complaints except as documented Physical Exam General General appearance: alert and in no apparent distress Head Head exam: atraumatic and normocephalic Eye Eye exam: Present normal appearance, PERRL and EOMI ENT ENT exam: Present normal oropharynx and normal external ear exam Neck Neck exam: Present normal inspection and full ROM Chest Chest inspection: Present normal inspection and symmetric chest wall rise; Absent tenderness Respiratory Respiratory exam: Present normal lung sounds bilaterally; Absent respiratory distress Cardiovascular Cardiovascular exam: Present regular rate and normal rhythm Abdominal Exam Abdominal exam: Present soft and tenderness (Generalized); Absent distention, guarding, rebound or rigidity Extremities Exam Extremities exam: Present normal inspection; Absent edema or joint swelling Back Exam Back exam: Present normal inspection; Absent tenderness Neurological Exam Neurological exam: Present alert and oriented X3; Absent motor sensory deficit Psychiatric Psychiatric exam: Present normal affect and normal mood Skin Skin exam: Present warm, dry and normal color Lymphatic Lymphatic Findings: no adenopathy Medical Decision Making Medical Records Medical records reviewed: Yes I reviewed the patient's medical records. Andrea Inquiry Pt receiving controlled substance: No Andrea was queried for this patient: No Vital Signs: 11/16/23 04:19 11/16/23 04:28 11/16/23 04:30 Temperature 97.8 F Temperature Source Oral Pulse Rate 108 H 96 H Pulse Rate [Right] 107 H Respiratory Rate 18 Blood Pressure 157/86 H 174/91 H Blood Pressure [Right Arm] 157/86 H Blood Pressure Mean [Right Arm] 109 Blood Pressure Source Blood Pressure Position 02 Sat by Pulse Oximetry 95 93 L 92 L Oxygen Delivery Method 11/16/23 05:33 Temperature 97.9 F Temperature Source Tympanic Pulse Rate 89 Pulse Rate [Right] Respiratory Rate 17 Blood Pressure 110/58 L Blood Pressure [Right Arm] Blood Pressure Mean [Right Arm] Blood Pressure Source Automatic Cuff Blood Pressure Position Sitting 02 Sat by Pulse Oximetry Oxygen Delivery Method Room Air Lab Data Lab results reviewed: Yes I reviewed the patient's lab results. Orders (Tests/Meds): ED MEDICATIONS Discontinued Medications Generic Name Dose Route Start Last Admin Trade Name Luann PRN Reason Stop Dose Admin Acetaminophen 1,000 mg 11/16/23 04:30 11/16/23 04:33 Acetaminophen 500mg Tab PO 11/16/23 04:31 1,000 mg ONCE ONE Administration Ketorolac Tromethamine 30 mg 11/16/23 04:29 11/16/23 04:33 Ketorolac 30mg/Ml Vial IM 11/16/23 04:30 30 mg ONCE ONE Administration Morphine Sulfate 6 mg 11/16/23 04:29 11/16/23 04:34 Morphine 2mg/Ml Syringe IM 11/16/23 04:30 6 mg ONCE ONE Administration Morphine Sulfate 6 mg 11/16/23 05:00 11/16/23 05:25 Morphine 8mg/Ml Syringe IM 11/16/23 05:01 Not Given ONCE ONE Ondansetron HCl 4 mg 11/16/23 04:30 11/16/23 04:33 Ondansetron 4mg Odt SL 11/16/23 04:31 4 mg ONCE ONE Administration Oxycodone HCl 5 mg 11/16/23 05:23 11/16/23 05:26 Oxycodone 5mg Immediate Release Tablet PO 11/16/23 05:24 5 mg ONCE ONE Administration Medical Decision Narrative: 78-year-old female with history of chronic abdominal pain presents with characteristic abdominal pain for the last week. She is well-known to this ER and has had numerous CT scans for the same issue. She was recently admitted and had negative endoscopies both upper and lower. She reports her abdominal pain is still present for approximate last week, has not been improved with Tylenol, and is the same as it normally is. She denies any urinary symptoms, denies any chest pain, denies any fever or illness. Reports normal bowel movements. On arrival, patient is [afebrile, hemodynamically stable, satting appropriately, alert, oriented x4, GCS 15], moving all extremities spontaneously. Full physical exam performed and significant for generalized abdominal tenderness Differential is broad and includes but is not limited to gastritis, gastroenteritis, bowel obstruction, perforation, mesenteric ischemia, functional abdominal pain. I had extensive discussion with patient regarding her history and current presentation. Given she has had numerous negative workups and her pain is consistent with prior, has normal vital signs and stable exam from prior, I offered her the option of pain medication for combination of pain medication and workup including labs and CT imaging. She reports that she did not think that labs or imaging would be helpful. Given this, utilizing shared decision making we decided to forego a workup at this time and proceed with empiric pain control regimen. Patient was given 6 mg of IM morphine, 30 mg of IM Toradol, 4 mg sublingual Zofran, 1 g p.o. Tylenol. On reassessment patient reports that her pain has eased off but has not yet fully gone away. I again offered her full workup which she declined. She reported that she would prefer to go home. She was given 1 dose of 5 mg oxycodone prior to discharge. Patient was discharged in stable condition. Procedures Risk/Benefits of Procedure(s) Were Explained: Yes Critical Care Critical Care Time Critical Care Time: No
[2023-11-16] MEDS: OXYCODONE 5MG IMMEDIATE RELEASE TABLET 5 MG PO (05:26)
[2023-11-16 05:33] VITALS: BP 110/58; PULSE 89; RESP 17; TEMP 36.6; O2SAT 93
== END 2023-11-16 05:33 | disposition home or self-care (01) ==
PROVIDERS: Emergency Provider Emergency Medicine; PCP Internal Medicine Adolescent Medicine
DX: R10.12 Left upper quadrant pain (principal); K21.9 Gastro-esophageal reflux disease without esophagitis; E03.9 Hypothyroidism, unspecified
CPT/HCPCS: 96372; 99284

== ENCOUNTER 2023-11-18 15:14 | Emergency (ER) | payer MEDICARE, SELFPAY ==
[2023-11-18 15:44] VITALS: BP 129/79; PULSE 98; RESP 18; TEMP 36.5; O2SAT 97; BMI 21.0
[2023-11-18 16:00] VITALS: BP 141/78; PULSE 92; RESP 20; O2SAT 98
[2023-11-18 16:30] VITALS: BP 151/87; PULSE 92; RESP 20; O2SAT 95
--- NOTE | 2023-11-18 16:37 | ED_ITS ---
<Statement entered by Efren Meek MD - 11/18/23 18:07> I was consulted by the AGUSTIN, and we discussed the complexity of the problems being addressed. I approved the treatment and management plan for this patient's care in the emergency department, thus performing a substantive portion of the medical decision making. Efren Meek MD, ANYA, FACEP Discharge Plan Disposition Patient Disposition: Home, Self-Care Condition: Good Chief Complaint: Abdominal Pain Prescriptions Prescriptions: No Action oxybutynin chloride 5 mg tablet 5 mg PO BID Patient Comments: TAKE 1 TABLET BY MOUTH TWICE DAILY hydrochlorothiazide 12.5 mg tablet 12.5 mg PO DAILY potassium chloride 20 mEq packet 20 meq PO DAILY Qty: 30 0RF pantoprazole 20 mg tablet,delayed release (DR/EC) 20 mg PO BID Patient Comments: TAKE 1 TABLET BY MOUTH TWICE DAILY sucralfate 1 gram tablet 1 g PO BID 28 Days Qty: 56 0RF omeprazole 20 mg capsule,delayed release(DR/EC) 20 mg PO BID 28 Days Qty: 56 0RF cefdinir 300 mg capsule 300 mg PO BID 10 Days Qty: 20 0RF omeprazole 20 mg capsule,delayed release(DR/EC) 20 mg PO DAILY 28 Days Qty: 28 0RF Rx Instructions: Do not combine with other omeprazole. metoclopramide HCl [Reglan] 5 mg tablet 5 mg PO DAILY Qty: 30 0RF levothyroxine 75 mcg tablet 75 mcg PO DAILY Patient Comments: TAKE 1 TABLET BY MOUTH ONCE DAILY FOR 30 DAYS sucralfate 1 gram tablet 1 g PO TIDWMEAL Qty: 60 0RF Rx Instructions: take 3 times daily with meals Referrals Follow up/Referrals: Eber Rubalcava MD [Primary Care Provider] - See instructions Solomon Elias MD [Staff Physician] - See instructions Clinical Impressions Clinical Impression: Chronic abdominal pain Instructions Patient Instructions: DI for Acute Abdominal Pain Discharge ED Provider: Efren Meek General Adult HPI General Chief complaint: Abdominal Pain Stated complaint: Abd pain Time Seen by Provider: 11/18/23 15:54 Mode of Arrival: Wheelchair Source of Information: Patient Limitations: No Limitations Description of Symptoms (Recalled from ER Triage Doc. by RN): pain in left side. History of Present Illness HPI narrative: Patient presents for evaluation of abdominal pain. Patient has a well- established history of chronic abdominal pain that has been extensively worked up and now has had a bidirectional scope last week with Dr. Omer in [place]. To date patient's CAT scans ultrasounds endoscopies and multiple evaluation by multiple specialties including general surgery and gastroenterology as well as emergency medicine and her PCP have failed to identify a cause of her abdominal pain. Patient however continues to have recurrent abdominal pain that sandro subjectively intractable. Patient denies dysuria hemoptysis hematochezia melena vomiting or diarrhea. Related Data Home Medications Medication Instructions Recorded Confirmed oxybutynin chloride 5 mg tablet 5 mg PO BID Overactive bladder 10/17/19 08/19/23 hydrochlorothiazide 12.5 mg tablet 12.5 mg PO DAILY Fluid 01/12/21 08/19/23 levothyroxine 75 mcg tablet 75 mcg PO DAILY Thyroid 02/12/23 08/19/23 pantoprazole 20 mg tablet,delayed 20 mg PO BID 08/19/23 08/19/23 release Previous Rx's Medication Instructions Recorded potassium chloride 20 mEq oral 20 meq PO DAILY #30 ea 07/16/23 packet sucralfate 1 gram tablet 1 g PO TIDWMEAL #60 tabs 09/11/23 omeprazole 20 mg capsule,delayed 20 mg PO BID 4 weeks #56 caps 09/28/23 release sucralfate 1 gram tablet 1 g PO BID 4 weeks #56 tabs 09/28/23 cefdinir 300 mg capsule 300 mg PO BID 10 days #20 caps 10/01/23 omeprazole 20 mg capsule,delayed 20 mg PO DAILY acid reflux 4 weeks 10/01/23 release #28 caps metoclopramide HCl 5 mg tablet 5 mg PO DAILY #30 tabs 11/08/23 (Reglan) Allergies Allergy/AdvReac Type Severity Reaction Status Date / Time nitrofurantoin Allergy Unknown Unknown Verified 07/16/23 13:42 [From MACROBID] allergy reaction [facility] Disclaimer: The information contained in this section may have been updated after the patient was seen, as this information can be updated by other users. Medical History Acute respiratory failure with hypoxia Allergic rhinitis Allergic rhinitis Asthma Bronchiectasis Cavitary lesion of lung Dyspnea on exertion Dyspnea on exertion Hypothyroid Osteoarthritis Pneumonia Pulmonary fibrosis Pulmonary hypertension Restrictive lung disease Shortness of breath Surgical History History of hysterectomy No history of previous surgery Family History Brother COPD (chronic obstructive pulmonary disease) Lung disease Sister COPD (chronic obstructive pulmonary disease) Social History Smoking Status: Never smoker alcohol intake: never substance use type: denies use current occupational status: retired Travel in the last 8 weeks: None household members: family housing: house current occupational exposures/hazards: No caffeine: No ROS Obtained: Yes Systems reviewed as appropriate & no additional complaints except as documented Physical Exam General General appearance: alert and in no apparent distress Head Head exam: atraumatic and normal inspection Eye Eye exam: Present normal appearance, PERRL and EOMI ENT ENT exam: Present normal exam and normal oropharynx Neck Neck exam: Present normal inspection and full ROM Chest Chest inspection: Present normal inspection and symmetric chest wall rise Respiratory Respiratory exam: Present normal lung sounds bilaterally; Absent accessory muscle use Cardiovascular Cardiovascular exam: Present regular rate, normal rhythm, normal heart sounds, +S1 and +S2 Abdominal Exam Abdominal exam: Present soft and tenderness (Patient reports diffuse tenderness to palpation predominantly in the upper bilateral quadrants right greater than left however there is no rebound no guarding no rigidity no masses with normal bowel sounds.) Extremities Exam Extremities exam: Present normal inspection and full ROM Neurological Exam Neurological exam: Present alert and oriented X3 Psychiatric Psychiatric exam: Present normal affect and normal mood Skin Skin exam: Present warm, dry and normal color Lymphatic Lymphatic Findings: no adenopathy Medical Decision Making Medical Records Medical records reviewed: Yes I reviewed the patient's medical records. Andrea Inquiry Pt receiving controlled substance: No Vital Signs: 11/18/23 15:44 11/18/23 16:00 Temperature 97.7 F Temperature Source Oral Pulse Rate 92 H Pulse Rate [Right Radial] 98 H Respiratory Rate 18 20 Blood Pressure 141/78 H Blood Pressure [Right Arm] 129/79 Blood Pressure Mean 110 Blood Pressure Mean [Right Arm] 95 02 Sat by Pulse Oximetry 97 98 Oxygen Delivery Method Room Air Orders (Tests/Meds): ED MEDICATIONS Generic Name Dose Route Start Last Admin Trade Name Freq PRN Reason Stop Dose Admin Ketorolac Tromethamine 60 mg 11/18/23 16:35 Ketorolac 30mg/Ml Vial IM 11/18/23 16:36 ONCE ONE Medical Decision Narrative: In summary patient is a 78-year-old female who presents to the emergency department for evaluation of abdominal pain. Patient is hemodynamically stable upon arrival, and afebrile. Physical exam is remarkable for subjective tenderness to palpation however abdominal exam is benign including no rebound no guarding no rigidity no masses.. Differential diagnosis includes functional abdominal pain versus gastroenteritis versus peptic ulcer disease versus cholecystitis etc. I reviewed extensively the patient's previous chart including the multiple imaging results along with ER visits. I discussed those with the patient and Via shared decision making, I offered the patient IM Toradol alone for in combination with another workup including CAT scan and laboratory work. Patient felt that another work was not necessary but would except the IM Toradol. I discussed a referral to pain management by her PCP and she reports that she has an appointment scheduled with Dr. Escudero this week and that she would request the referral. Critical Care Critical Care Time Critical Care Time: No
[2023-11-18] MEDS: KETOROLAC 30MG/ML VIAL 60 MG IM (16:53)
[2023-11-18 16:59] VITALS: BP 151/80; PULSE 94; RESP 20; TEMP 36.6; O2SAT 97
== END 2023-11-18 17:02 | disposition home or self-care (01) ==
PROVIDERS: Emergency Provider Student in an Organized Health Care Education/Training Program; PCP Internal Medicine Adolescent Medicine
DX: R10.9 Unspecified abdominal pain (principal); J45.909 Unspecified asthma, uncomplicated; E03.9 Hypothyroidism, unspecified; J84.10 Pulmonary fibrosis, unspecified; I27.20 Pulmonary hypertension, unspecified
CPT/HCPCS: 96372; 99283

== ENCOUNTER 2023-12-11 16:40 | Emergency (ER) | payer MEDICARE, SELFPAY ==
[2023-12-11 16:42] VITALS: BP 133/68; PULSE 91; RESP 22; TEMP 36.8; O2SAT 91; BMI 20.6
--- NOTE | 2023-12-11 16:43 | ED_ITS ---
<Statement entered by Benita Haro DO - 12/11/23 22:11> I was consulted by the AGUSTIN, and we discussed the complexity of the problems being addressed. I approved the treatment and management plan for this patient's care in the emergency department, thus performing a substantive portion of the medical decision making. Benita Haro DO Discharge Plan Disposition Patient Disposition: Home, Self-Care Condition: Good Prescriptions Prescriptions: No Action oxybutynin chloride 5 mg tablet 5 mg PO BID Patient Comments: TAKE 1 TABLET BY MOUTH TWICE DAILY hydrochlorothiazide 12.5 mg tablet 12.5 mg PO DAILY potassium chloride 20 mEq packet 20 meq PO DAILY Qty: 30 0RF pantoprazole 20 mg tablet,delayed release (DR/EC) 20 mg PO BID Patient Comments: TAKE 1 TABLET BY MOUTH TWICE DAILY sucralfate 1 gram tablet 1 g PO BID 28 Days Qty: 56 0RF omeprazole 20 mg capsule,delayed release(DR/EC) 20 mg PO BID 28 Days Qty: 56 0RF omeprazole 20 mg capsule,delayed release(DR/EC) 20 mg PO DAILY 28 Days Qty: 28 0RF Rx Instructions: Do not combine with other omeprazole. metoclopramide HCl [Reglan] 5 mg tablet 5 mg PO DAILY Qty: 30 0RF levothyroxine 75 mcg tablet 75 mcg PO DAILY Patient Comments: TAKE 1 TABLET BY MOUTH ONCE DAILY FOR 30 DAYS sucralfate 1 gram tablet 1 g PO TIDWMEAL Qty: 60 0RF Rx Instructions: take 3 times daily with meals Referrals Follow up/Referrals: Eber Rubalcava MD [Primary Care Provider] - See instructions Activity Restrictions/Add. Instructions Additional Instructions/Restrictions: Please follow-up with your PCP for any change in your condition or symptoms or return to ER as needed Clinical Impressions Clinical Impression: Abdominal pain of unknown cause Instructions Patient Instructions: DI for Acute Abdominal Pain Discharge ED Provider: Benita Haro General Adult HPI General Chief complaint: Abdominal Pain Stated complaint: abd and left side pain Time Seen by Provider: 12/11/23 16:43 History of Present Illness HPI narrative: Patient presents for evaluation of abdominal pain that is typical of her previous presentations. Patient has a longstanding history of chronic abdominal pain and has been evaluated by multiple specialties including gastroenterology and general surgery and emergency medicine. She has had multiple investigations including radiology bidirectional scope etc. To date no cause or source has been found. Patient has been referred to pain management however patient has not made AN appointment with them. Patient continues to go back to her PCP and keeps getting prescribed opiates. Patient denies chest pain fever chills hemoptysis hematochezia melena vomiting or diarrhea. Related Data Home Medications Medication Instructions Recorded Confirmed oxybutynin chloride 5 mg tablet 5 mg PO BID Overactive bladder 10/17/19 12/04/23 hydrochlorothiazide 12.5 mg tablet 12.5 mg PO DAILY Fluid 01/12/21 12/04/23 levothyroxine 75 mcg tablet 75 mcg PO DAILY Thyroid 02/12/23 12/04/23 pantoprazole 20 mg tablet,delayed 20 mg PO BID 08/19/23 12/04/23 release Previous Rx's Medication Instructions Recorded potassium chloride 20 mEq oral 20 meq PO DAILY #30 ea 07/16/23 packet sucralfate 1 gram tablet 1 g PO TIDWMEAL #60 tabs 09/11/23 omeprazole 20 mg capsule,delayed 20 mg PO BID 4 weeks #56 caps 09/28/23 release sucralfate 1 gram tablet 1 g PO BID 4 weeks #56 tabs 09/28/23 omeprazole 20 mg capsule,delayed 20 mg PO DAILY acid reflux 4 weeks 10/01/23 release #28 caps metoclopramide HCl 5 mg tablet 5 mg PO DAILY #30 tabs 11/08/23 (Reglan) Allergies Allergy/AdvReac Type Severity Reaction Status Date / Time nitrofurantoin Allergy Unknown Unknown Verified 12/04/23 11:01 [From [facility]] allergy reaction [facility] Disclaimer: The information contained in this section may have been updated after the patient was seen, as this information can be updated by other users. Medical History Osteoarthritis Hypothyroid Acute respiratory failure with hypoxia Pneumonia Dyspnea on exertion Allergic rhinitis Restrictive lung disease Allergic rhinitis Pulmonary hypertension Dyspnea on exertion Cavitary lesion of lung Bronchiectasis Asthma Shortness of breath Pulmonary fibrosis Surgical History History of hysterectomy No history of previous surgery Family History Brother COPD (chronic obstructive pulmonary disease) Lung disease Sister COPD (chronic obstructive pulmonary disease) Social History Smoking Status: Current every day smoker alcohol intake: never substance use type: denies use current occupational status: retired Travel in the last 8 weeks: None household members: family housing: house current occupational exposures/hazards: No caffeine: No ROS Obtained: Yes Systems reviewed as appropriate & no additional complaints except as documented Physical Exam General General appearance: alert and in no apparent distress Head Head exam: atraumatic and normal inspection Eye Eye exam: Present normal appearance and PERRL ENT ENT exam: Present normal exam and normal oropharynx Neck Neck exam: Present normal inspection and full ROM Respiratory Respiratory exam: Present normal lung sounds bilaterally Cardiovascular Cardiovascular exam: Present regular rate and normal rhythm Abdominal Exam Abdominal exam: Present soft, tenderness (Patient reports diffuse tenderness on exam but more prominent in the upper quadrants bilaterally) and normal bowel sounds; Absent guarding, rebound or rigidity Extremities Exam Extremities exam: Present normal inspection and full ROM Back Exam Back exam: Present normal inspection and full ROM Neurological Exam Neurological exam: Present alert and oriented X3 Psychiatric Psychiatric exam: Present normal affect and normal mood Skin Skin exam: Present warm, dry and normal color Medical Decision Making Medical Records Medical records reviewed: Yes I reviewed the patient's medical records. Andrea Inquiry Pt receiving controlled substance: No Vital Signs: 12/11/23 16:42 12/11/23 17:57 12/11/23 18:20 Temperature 98.2 F 98.2 F 98.2 F Temperature Source Oral Oral Oral Pulse Rate 91 H 91 H Pulse Rate [Right Radial] 91 H Respiratory Rate 22 19 20 Blood Pressure 154/77 H 154/77 H Blood Pressure [Right Arm] 133/68 Blood Pressure Mean [Right Arm] 89 Blood Pressure Source Automatic Cuff Blood Pressure Source [Right Arm] Automatic Cuff Blood Pressure Position Sitting Blood Pressure Position [Right Arm] Sitting 02 Sat by Pulse Oximetry 91 L Oxygen Delivery Method Room Air Room Air Room Air Lab Data Lab results reviewed: Yes I reviewed the patient's lab results. Lab Results 12/11/23 17:05: WBC 9.1, RBC 4.53, Hgb 12.9, Hct 40.8, MCV 90.2, MCH 28.6, MCHC 31.7 L, RDW 14.6, Plt Count 290, MPV 7.7, Neut % (Auto) 58.0, Lymph % (Auto) 28.8, [place] % (Auto) 6.8, Eos % (Auto) 5.2, Baso % (Auto) 1.2, Neut # (Auto) 5.3, Lymph # (Auto) 2.6, [place] # (Auto) 0.6, Eos # (Auto) 0.5 H, Baso # (Auto) 0.1, Sodium 136, Potassium 3.4 L, Chloride 100, Carbon Dioxide 32 H, Anion Gap 7.4, BUN 16, Creatinine 0.80, Estimated Creat Clear 38, Estimated GFR 69, Est GFR ( Amer) 84, Glucose 121 H, Lactate 1.6, Calcium 9.2, Magnesium 1.9, Total Bilirubin 0.5, AST 35, ALT 23, Alkaline Phosphatase 88, Total Protein 6.8, Albumin 3.7, Globulin 3.1, Albumin/Globulin Ratio 1.2, Lipase 52 12/11/23 17:05 12/11/23 17:05 Orders (Tests/Meds): ED MEDICATIONS Discontinued Medications Generic Name Dose Route Start Last Admin Trade Name Freq PRN Reason Stop Dose Admin Acetaminophen 1,000 mg 12/11/23 16:58 12/11/23 17:13 Acetaminophen 500mg Tab PO 12/11/23 16:59 1,000 mg ONCE ONE Administration Ketorolac Tromethamine 15 mg 12/11/23 16:58 12/11/23 17:13 Ketorolac 30mg/Ml Vial IV 12/11/23 16:59 15 mg ONCE ONE Administration Potassium Chloride 60 meq 12/11/23 17:32 12/11/23 17:38 Potassium Chloride 20meq Tab PO 12/11/23 17:33 60 meq ONCE ONE Administration ORDERS Category Date Time Status CBC w/Auto Diff [Complete Blood Count Auto Diff] Stat Lab 12/11/23 17:05 Completed CMP [Comprehensive Metabolic Panel] Stat Lab 12/11/23 17:05 Completed Lactic Acid Stat Lab 12/11/23 17:05 Completed Lipase Stat Lab 12/11/23 17:05 Completed Magnesium Stat Lab 12/11/23 17:05 Completed Medical Decision Narrative: In summary patient is a 78-year-old female who presents to the emergency department for evaluation of chronic abdominal pain. Patient is hemodynamically stable upon arrival, and afebrile. Physical exam is remarkable for abdominal pain proportion to exam however it is not different from previous is her abdomen is soft without masses normal bowel sounds. Differential diagnosis includes chronic functional abdominal pain, versus secondary gain versus ulcer disease versus gastroparesis versus bowel ischemia etc. Initial workup will be conducted with hematologic labs. Initial interventions include Tylenol and Toradol. Initial workup reviewed by me shows a slightly low potassium the remainder of her hematologic labs are nonactionable and patient has a normal albumin. Upon repeat evaluation patient reports that her pain is unchanged. Given this, I discussed with the patient once again referral back to pain management if she is inclined to go. Patient states that she will talk to Dr. Escudero about it. We have essentially ruled out any life-threatening or serious medical problems and thus patient will be appropriate for discharge home with follow-up with her PCP as needed. Critical Care Critical Care Time Critical Care Time: No
[2023-12-11 17:06] VITALS: BMI 20.6
[2023-12-11] MEDS: KETOROLAC 30MG/ML VIAL 15 MG IV (17:13)
[2023-12-11] MEDS: ACETAMINOPHEN 500MG TAB 1000 MG PO (17:13)
[2023-12-11 17:18] LABS: Basophils # 0.1 K/mm3 (0-0.2); Basophils % 1.2 % (0.1-2.0); Eosinophils # 0.5 K/mm3 (0.0-0.4); Eosinophils % 5.2 % (0.1-12.0); Hematocrit 40.8 % (37.0-47.0); Hemoglobin 12.9 g/dL (12.2-16.2); Lymphocytes # 2.6 K/mm3 (0.7-4.5); Lymphocytes % 28.8 % (10-50); Mean Corpuscular HGB Conc 31.7 g/dL (31.8-35.4); Mean Corpuscular Hemoglobin 28.6 pg (27.0-31.2); Mean Corpuscular Volume 90.2 fl (81-99); Mean Platelet Volume 7.7 fl (7.4-10.4); Monocytes # 0.6 K/mm3 (0.1-1.0); Monocytes % 6.8 % (1.7-9.3); Neutrophils # 5.3 K/mm3 (1.8-7.8); Platelet Count 290 K/mm3 (142-424); Red Blood Count 4.53 M/mm3 (4.20-5.40); Red Cell Distribution Width 14.6 % (11.5-17.5); White Blood Count 9.1 K/mm3 (4.8-10.8)
[2023-12-11 17:23] LABS: Chloride 100 mmol/L (98-107); Sodium 136 mmol/L (136-145)
[2023-12-11 17:24] LABS: Potassium 3.4 mmoL/L (3.5-5.1)
[2023-12-11 17:26] LABS: Alanine Aminotransferase 23 U/L (12-78); Albumin Level 3.7 g/dl (3.5-5.0); Albumin/Globulin Ratio 1.2 (1.1-1.8); Alkaline Phosphatase 88 U/L (38-126); Anion Gap 7.4 mEq/L (5-15); Aspartate Amino Transferase 35 U/L (14-36); Bilirubin,Total 0.5 mg/dl (0.2-1.3); Blood Urea Nitrogen 16 mg/dl (7-17); Calcium 9.2 mg/dl (8.4-10.2); Carbon Dioxide 32 mmol/L (22.0-30.0); Creatinine Clearance Estimated 38 mL/min (50-200); Estimated Glomerular Filt Rate 69 ml/min (>60); GFR (African American) 84 ML/MIN (>60); Globulin 3.1 g/dL (1.3-3.2); Glucose 121 mg/dl (74-100); Lactic Acid 1.6 mmol/L (0.7-2.1); Lipase 52 U/L (23-300); Magnesium 1.9 mg/dl (1.6-2.3); Total Protein,Serum 6.8 g/dl (6.3-8.2)
[2023-12-11] MEDS: POTASSIUM CHLORIDE 20MEQ TAB 60 MEQ PO (17:38)
[2023-12-11 17:57] VITALS: BP 154/77; PULSE 91; RESP 19; TEMP 36.8; O2SAT 20
--- NOTE | 2023-12-11 18:12 | PC.NURSE ---
Rupesh Caban PA-C at bedside discussing d/c & plan with pt & her family
[2023-12-11 18:20] VITALS: BP 154/77; PULSE 91; RESP 20; TEMP 36.8; O2SAT 91
== END 2023-12-11 18:20 | disposition home or self-care (01) ==
PROVIDERS: Physician Assistant; Emergency Provider Emergency Medicine; PCP Internal Medicine Adolescent Medicine
DX: R10.84 Generalized abdominal pain (principal); F17.210 Nicotine dependence, cigarettes, uncomplicated; E03.9 Hypothyroidism, unspecified; E87.6 Hypokalemia
CPT/HCPCS: 80053; 83605; 83690; 83735; 85025; 96374; 99284

== ENCOUNTER 2023-12-13 12:04 | Emergency (ER) | payer MEDICARE, SELFPAY ==
[2023-12-13] VITALS (11 sets, daily range): BP systolic 114–167; BP diastolic 68–95; PULSE 66–96; RESP 15–22; TEMP 36.6; O2SAT 91–98; BMI 20.1
--- NOTE | 2023-12-13 12:09 | ECG_ITS ---
APPROVED REPORT Exam: Resting ECG HR:90 bpm ECG Measurements Heart Rate 90 AXES W[place] 154 P 72 QRSd 81 QRS 73 QT 353 T 56 QTc 401 Conclusion SINUS RHYTHM NONSPECIFIC ST & T-WAVE ABNORMALITY BORDERLINE ECG Electronically signed by : TANVIR GRIFFITHS, 12/13/2023 15:20:54
--- NOTE | 2023-12-13 12:48 | CT_ITS ---
FINAL REPORT CLINICAL HISTORY: severe substernal CP COMPARISON: 09/28/2023 FINDINGS: Thin section axial CT images of the chest were obtained with contrast. 3D reformatted images were also obtained. This study was performed with techniques to keep radiation doses as low as reasonably achievable (ALARA). Individualized dose reduction techniques using automated exposure control or adjustment of mA and/or kV according to the patient's size were employed. Cardiomegaly is noted. There are prominent central pulmonary arteries worrisome for pulmonary arterial hypertension. There is no evidence of pulmonary embolism. There is no evidence of thoracic aortic aneurysm or dissection. There is no evidence of mediastinal or hilar mass or adenopathy. There is wall thickening of the mid esophagus which appears visually worse and may be inflammatory or neoplastic. There is no evidence of pulmonary mass or nodule. There is moderate peripheral fibrosis/scarring. There is bilateral upper lobe bronchiectasis. Cavitary areas in the left upper lobe appears stable. Limited images of the upper abdomen are unremarkable. IMPRESSION: No evidence of pulmonary embolism. Worsening wall thickening of the esophagus may be inflammatory or neoplastic. Upper endoscopy is recommended. Moderate pulmonary fibrosis with areas of bronchiectasis. Cavitary areas in the left upper lobe are stable. Reviewed, Interpreted and Dictated by Walter Rogers III, MD Transcribed by Meseret Hernandez Authenticated and [facility]
[2023-12-13 12:57] LABS: Basophils # 0.2 K/mm3 (0-0.2); Basophils % 2.3 % (0.1-2.0); Chloride 104 mmol/L (98-107); Eosinophils # 0.5 K/mm3 (0.0-0.4); Eosinophils % 5.8 % (0.1-12.0); Hematocrit 46.5 % (37.0-47.0); Hemoglobin 14.2 g/dL (12.2-16.2); Lymphocytes # 2.3 K/mm3 (0.7-4.5); Lymphocytes % 28.7 % (10-50); Mean Corpuscular HGB Conc 30.6 g/dL (31.8-35.4); Mean Corpuscular Hemoglobin 28.3 pg (27.0-31.2); Mean Corpuscular Volume 92.7 fl (81-99); Mean Platelet Volume 8.4 fl (7.4-10.4); Monocytes # 0.6 K/mm3 (0.1-1.0); Monocytes % 6.9 % (1.7-9.3); Neutrophils # 4.5 K/mm3 (1.8-7.8); Neutrophils % 56.3 % (37.0-80.0); Platelet Count 317 K/mm3 (142-424); Red Blood Count 5.02 M/mm3 (4.20-5.40); Red Cell Distribution Width 14.8 % (11.5-17.5); White Blood Count 7.9 K/mm3 (4.8-10.8)
[2023-12-13 12:58] LABS: Potassium 3.5 mmoL/L (3.5-5.1); Sodium 140 mmol/L (136-145)
[2023-12-13 13:00] LABS: Alanine Aminotransferase 24 U/L (12-78); Alkaline Phosphatase 97 U/L (38-126); Aspartate Amino Transferase 37 U/L (14-36); Bilirubin,Total 0.8 mg/dl (0.2-1.3); Blood Urea Nitrogen 16 mg/dl (7-17); Creatinine Clearance Estimated 37 mL/min (50-200); Estimated Glomerular Filt Rate 81 ml/min (>60); GFR (African American) 98 ML/MIN (>60)
[2023-12-13 13:01] LABS: Albumin Level 4.2 g/dl (3.5-5.0); Albumin/Globulin Ratio 1.1 (1.1-1.8); Anion Gap 8.5 mEq/L (5-15); Calcium 9.8 mg/dl (8.4-10.2); Carbon Dioxide 31 mmol/L (22.0-30.0); Globulin 3.8 g/dL (1.3-3.2); Glucose 120 mg/dl (74-100); Lipase 56 U/L (23-300)
[2023-12-13] MEDS: MORPHINE 4MG/ML SYRINGE 4 MG IV (13:02)
[2023-12-13] MEDS: ASPIRIN 81MG CHEWABLE TABLET 324 MG PO (13:02)
[2023-12-13] MEDS: ACETAMINOPHEN 1,000MG/100ML VIAL 1000 MG IV (13:02)
[2023-12-13 13:13] LABS: Troponin I < 0.01 ng/ml (0.00-0.034)
--- NOTE | 2023-12-13 13:14 | ED_ITS ---
Discharge Plan Disposition Patient Disposition: Home, Self-Care Chief Complaint: PAIN Prescriptions Prescriptions: No Action oxybutynin chloride 5 mg tablet 5 mg PO BID Patient Comments: TAKE 1 TABLET BY MOUTH TWICE DAILY hydrochlorothiazide 12.5 mg tablet 12.5 mg PO DAILY potassium chloride 20 mEq packet 20 meq PO DAILY Qty: 30 0RF pantoprazole 20 mg tablet,delayed release (DR/EC) 20 mg PO BID Patient Comments: TAKE 1 TABLET BY MOUTH TWICE DAILY sucralfate 1 gram tablet 1 g PO BID 28 Days Qty: 56 0RF omeprazole 20 mg capsule,delayed release(DR/EC) 20 mg PO BID 28 Days Qty: 56 0RF omeprazole 20 mg capsule,delayed release(DR/EC) 20 mg PO DAILY 28 Days Qty: 28 0RF Rx Instructions: Do not combine with other omeprazole. metoclopramide HCl [Reglan] 5 mg tablet 5 mg PO DAILY Qty: 30 0RF levothyroxine 75 mcg tablet 75 mcg PO DAILY Patient Comments: TAKE 1 TABLET BY MOUTH ONCE DAILY FOR 30 DAYS sucralfate 1 gram tablet 1 g PO TIDWMEAL Qty: 60 0RF Rx Instructions: take 3 times daily with meals Referrals Follow up/Referrals: Jensen Harden MD [Staff Physician] - See instructions Eber Rubalcava MD [Primary Care Provider] - See instructions Activity Restrictions/Add. Instructions Additional Instructions/Restrictions: At this time it was felt you are safe to be discharged home. If new or worsening symptoms please do not hesitate to return the emergency department. Please call and schedule an appointment with Dr. Harden for continued evaluation. Talk to Dr. Rubalcava about your emergency encounter today. Maalox before bedtime and before meals to help with esophagus pain. Increase your omeprazole to 2 pills daily as well. Clinical Impressions Clinical Impression: Chest pain, Esophagitis Discharge ED Provider: [facility] <Edvin Ford MD - Last Filed: 12/13/23 14:41> General Chief complaint: PAIN Stated complaint: Chest Pain Time Seen by Provider: 12/13/23 12:11 Mode of Arrival: Wheelchair Source of Information: Patient Limitations: No Limitations Description of Symptoms (Recalled from ER Triage Doc. by RN): Patient presents to ER with complaints of left side pain. Patient states pain started ealry this am and is worse with breathing and does not radiate. Patient denies nausea, vomiting, diarrhea. History of Present Illness HPI narrative: The patient is a 78-year-old female with past medical history of multiple comorbidities including chronic abdominal pain, intermittent anterior chest wall pain who presents emergency department for evaluation of chest pain. Onset was acute, occurring over this morning, severe, substernal, does not radiate, worse with deep inspiration. Due to persistent symptoms she presents here for continued evaluation. Related Data Home Medications Medication Instructions Recorded Confirmed oxybutynin chloride 5 mg tablet 5 mg PO BID Overactive bladder 10/17/19 12/04/23 hydrochlorothiazide 12.5 mg tablet 12.5 mg PO DAILY Fluid 01/12/21 12/04/23 levothyroxine 75 mcg tablet 75 mcg PO DAILY Thyroid 02/12/23 12/04/23 pantoprazole 20 mg tablet,delayed 20 mg PO BID 08/19/23 12/04/23 release Previous Rx's Medication Instructions Recorded potassium chloride 20 mEq oral 20 meq PO DAILY #30 ea 07/16/23 packet sucralfate 1 gram tablet 1 g PO TIDWMEAL #60 tabs 09/11/23 omeprazole 20 mg capsule,delayed 20 mg PO BID 4 weeks #56 caps 09/28/23 release sucralfate 1 gram tablet 1 g PO BID 4 weeks #56 tabs 09/28/23 omeprazole 20 mg capsule,delayed 20 mg PO DAILY acid reflux 4 weeks 10/01/23 release #28 caps metoclopramide HCl 5 mg tablet 5 mg PO DAILY #30 tabs 11/08/23 (Reglan) Allergies Allergy/AdvReac Type Severity Reaction Status Date / Time nitrofurantoin Allergy Unknown Unknown Verified 12/04/23 11:01 [From MACROBID] allergy reaction [facility] <Edvin Ford MD - Last Filed: 12/13/23 14:41> [facility] Disclaimer: The information contained in this section may have been updated after the patient was seen, as this information can be updated by other users. Medical History Osteoarthritis Hypothyroid Acute respiratory failure with hypoxia Pneumonia Dyspnea on exertion Allergic rhinitis Restrictive lung disease Allergic rhinitis Pulmonary hypertension Dyspnea on exertion Cavitary lesion of lung Bronchiectasis Asthma Shortness of breath Pulmonary fibrosis Surgical History History of hysterectomy No history of previous surgery Family History Brother COPD (chronic obstructive pulmonary disease) Lung disease Sister COPD (chronic obstructive pulmonary disease) Social History Smoking Status: Never smoker alcohol intake: never substance use type: denies use current occupational status: retired Travel in the last 8 weeks: None household members: family housing: house current occupational exposures/hazards: No caffeine: No <Edvin Ford MD - Last Filed: 12/13/23 14:41> ROS Obtained: Yes Systems reviewed as appropriate & no additional complaints except as documented Physical Exam <Edvin Ford MD - Last Filed: 12/13/23 14:41> General General appearance: alert and other (Appearing in pain in bed) Head Head exam: atraumatic and normocephalic Eye Eye exam: Present PERRL and EOMI ENT ENT exam: Present mucous membranes moist Neck Neck exam: Present normal inspection Chest Chest inspection: Present normal inspection and symmetric chest wall rise Respiratory Respiratory exam: Present normal lung sounds bilaterally; Absent respiratory distress Cardiovascular Cardiovascular exam: Present regular rate and normal rhythm Abdominal Exam Abdominal exam: Present soft; Absent tenderness Extremities Exam Extremities exam: Present normal inspection Neurological Exam Neurological exam: Present alert Psychiatric Psychiatric exam: Present normal affect Skin Skin exam: Present warm and dry Medical Decision Making <Edvin Ford MD - Last Filed: 12/13/23 14:41> Andrea Inquiry Pt receiving controlled substance: No Vital Signs: 12/13/23 12:05 12/13/23 13:03 12/13/23 13:31 Temperature 97.8 F Temperature Source Oral Pulse Rate 78 89 Pulse Rate [Right] 96 H Respiratory Rate 22 18 15 Blood Pressure Blood Pressure [Right Arm] 145/95 H Blood Pressure Mean Blood Pressure Mean [Right Arm] 111 Blood Pressure Source [Right Arm] Automatic Cuff 02 Sat by Pulse Oximetry 96 91 L 91 L Oxygen Delivery Method Room Air 12/13/23 14:00 12/13/23 14:31 12/13/23 15:00 Temperature Temperature Source Pulse Rate 69 71 78 Pulse Rate [Right] Respiratory Rate 18 18 22 Blood Pressure 114/91 H 143/72 H 131/68 Blood Pressure [Right Arm] Blood Pressure Mean 94 95 95 Blood Pressure Mean [Right Arm] Blood Pressure Source [Right Arm] 02 Sat by Pulse Oximetry 92 L 96 94 L Oxygen Delivery Method Room Air 12/13/23 15:30 12/13/23 16:28 12/13/23 16:31 Temperature Temperature Source Pulse Rate 72 76 66 Pulse Rate [Right] Respiratory Rate 19 Blood Pressure 149/70 H 167/68 H 167/76 H Blood Pressure [Right Arm] Blood Pressure Mean 103 113 114 Blood Pressure Mean [Right Arm] Blood Pressure Source [Right Arm] 02 Sat by Pulse Oximetry 96 97 98 Oxygen Delivery Method 12/13/23 17:00 Temperature Temperature Source Pulse Rate 72 Pulse Rate [Right] Respiratory Rate 18 Blood Pressure 150/76 H Blood Pressure [Right Arm] Blood Pressure Mean 105 Blood Pressure Mean [Right Arm] Blood Pressure Source [Right Arm] 02 Sat by Pulse Oximetry 94 L Oxygen Delivery Method Lab Data Lab Results 12/13/23 12:15: WBC 7.9, RBC 5.02, Hgb 14.2, Hct 46.5, MCV 92.7, MCH 28.3, MCHC 30.6 L, RDW 14.8, Plt Count 317, MPV 8.4, Neut % (Auto) 56.3, Lymph % (Auto) 28.7, Archuleta % (Auto) 6.9, Eos % (Auto) 5.8, Baso % (Auto) 2.3 H, Neut # (Auto) 4.5, Lymph # (Auto) 2.3, Archuleta # (Auto) 0.6, Eos # (Auto) 0.5 H, Baso # (Auto) 0.2, Sodium 140, Potassium 3.5, Chloride 104, Carbon Dioxide 31 H, Anion Gap 8.5, BUN 16, Creatinine 0.70, Estimated Creat Clear 37, Estimated GFR 81, Est GFR ( Amer) 98, Glucose 120 H, Calcium 9.8, Total Bilirubin 0.8, AST 37 H , ALT 24, Alkaline Phosphatase 97, Troponin I < 0.01, Total Protein 8.0, Albumin 4.2, Globulin 3.8 H, Albumin/Globulin Ratio 1.1, Lipase 56 12/13/23 16:00: Troponin I < 0.01 12/13/23 12:15 12/13/23 12:15 Orders (Tests/Meds): ED MEDICATIONS Generic Name Dose Route Start Last Admin Trade Name Luann PRN Reason Stop Dose Admin Sodium Chloride 10 ml 12/13/23 13:35 12/13/23 13:36 Sodium Chloride 0.9% 10ml Syr (Rad Only) IV 01/12/24 13:34 10 ml NEEDED PRN Administration Maintain IV Site Sodium Chloride 8 ml 12/13/23 15:49 Sodium Chloride 0.9% 10ml Vial IV 01/12/24 15:48 NEEDED PRN dilute pepcid Discontinued Medications Generic Name Dose Route Start Last Admin Trade Name Luann PRN Reason Stop Dose Admin Acetaminophen 1,000 mg 12/13/23 12:48 12/13/23 13:02 Acetaminophen 1,000mg/100ml Vial IV 12/13/23 12:49 1,000 mg ONCE ONE Administration Aspirin 324 mg 12/13/23 12:48 12/13/23 13:02 Aspirin 81mg Chewable Tablet PO 12/13/23 12:49 324 mg ONCE ONE Administration Belladonna Alkaloids 60 ml 12/13/23 15:49 12/13/23 16:09 Belladonna Alkaloids 60 Ml Ml PO 12/13/23 15:50 60 ml ONCE ONE Administration Famotidine 20 mg 12/13/23 15:49 12/13/23 16:09 Famotidine 20mg/2ml Vial IV 12/13/23 15:50 20 mg ONCE ONE Administration Iopamidol 75 ml 12/13/23 13:35 12/13/23 13:36 Iopamidol-370 (76%);100ml Bottle IV 12/13/23 13:36 75 ml ONCE ONE Administration Morphine Sulfate 4 mg 12/13/23 12:48 12/13/23 13:02 Morphine 4mg/Ml Syringe IV 12/13/23 12:49 4 mg ONCE ONE Administration Sodium Chloride 50 ml 12/13/23 13:35 12/13/23 13:37 0.9 % Sodium Chloride 50 Ml Vial IV 12/13/23 13:36 50 ml ONCE ONE Administration ORDERS Category Date Time Status CT angio chest PE protocol Stat Cat Scan 12/13/23 12:48 Completed CBC w/Auto Diff [Complete Blood Count Auto Diff] Stat Lab 12/13/23 12:15 Completed CMP [Comprehensive Metabolic Panel] Stat Lab 12/13/23 12:15 Completed Lipase Stat Lab 12/13/23 12:15 Completed Trop I [Troponin I] Stat Lab 12/13/23 12:15 Completed Troponin I Q3H Lab 12/13/23 16:00 Completed Troponin I Q3H Lab 12/13/23 19:00 Ordered ECG Data Tracing #1: Independently interpreted by me, rate is 90, rhythm is regular, axis normal, no ST elevation in anatomical contiguous leads. QTc 401. HEART Score History (anamnesis): Moderately suspicious ECG: Normal Age: >65 years Risk factors: 3 or more risk factors Troponin: </= normal limit HEART Score: 5 Medical Decision Narrative: In summary patient is a 78-year-old female past medical history described above who presents emergency department for evaluation of chest pain. Patient is hemodynamically stable nontoxic-appearing upon arrival, afebrile, borderline tachycardia, appearing in significant pain. Differential diagnosis includes cardiac chest pain, pulmonary embolism, noncardiac chest pain, among others. Workup will be conducted with hematologic labs, CTA chest. Initial inventions include aspirin, IV Tylenol, morphine. Initial workup reviewed by me, hematologic labs are nonactionable, no JEY or critical electrolyte abnormalities, initial troponin undetectably low. CTA conducted and formal read pending at time of transition of care to the oncoming physician, Dr. Win. <[place]ico Win MD - Last Filed: 12/13/23 17:48> Vital Signs: 12/13/23 12:05 12/13/23 13:03 12/13/23 13:31 Temperature 97.8 F Temperature Source Oral Pulse Rate 78 89 Pulse Rate [Right] 96 H Respiratory Rate 22 18 15 Blood Pressure Blood Pressure [Right Arm] 145/95 H Blood Pressure Mean Blood Pressure Mean [Right Arm] 111 Blood Pressure Source [Right Arm] Automatic Cuff 02 Sat by Pulse Oximetry 96 91 L 91 L Oxygen Delivery Method Room Air 12/13/23 14:00 12/13/23 14:31 12/13/23 15:00 Temperature Temperature Source Pulse Rate 69 71 78 Pulse Rate [Right] Respiratory Rate 18 18 22 Blood Pressure 114/91 H 143/72 H 131/68 Blood Pressure [Right Arm] Blood Pressure Mean 94 95 95 Blood Pressure Mean [Right Arm] Blood Pressure Source [Right Arm] 02 Sat by Pulse Oximetry 92 L 96 94 L Oxygen Delivery Method Room Air 12/13/23 15:30 12/13/23 16:28 12/13/23 16:31 Temperature Temperature Source Pulse Rate 72 76 66 Pulse Rate [Right] Respiratory Rate 19 Blood Pressure 149/70 H 167/68 H 167/76 H Blood Pressure [Right Arm] Blood Pressure Mean 103 113 114 Blood Pressure Mean [Right Arm] Blood Pressure Source [Right Arm] 02 Sat by Pulse Oximetry 96 97 98 Oxygen Delivery Method 12/13/23 17:00 Temperature Temperature Source Pulse Rate 72 Pulse Rate [Right] Respiratory Rate 18 Blood Pressure 150/76 H Blood Pressure [Right Arm] Blood Pressure Mean 105 Blood Pressure Mean [Right Arm] Blood Pressure Source [Right Arm] 02 Sat by Pulse Oximetry 94 L Oxygen Delivery Method Lab Data Lab Results 12/13/23 12:15: WBC 7.9, RBC 5.02, Hgb 14.2, Hct 46.5, MCV 92.7, MCH 28.3, MCHC 30.6 L, RDW 14.8, Plt Count 317, MPV 8.4, Neut % (Auto) 56.3, Lymph % (Auto) 28.7, Archuleta % (Auto) 6.9, Eos % (Auto) 5.8, Baso % (Auto) 2.3 H, Neut # (Auto) 4.5, Lymph # (Auto) 2.3, Archuleta # (Auto) 0.6, Eos # (Auto) 0.5 H, Baso # (Auto) 0.2, Sodium 140, Potassium 3.5, Chloride 104, Carbon Dioxide 31 H, Anion Gap 8.5, BUN 16, Creatinine 0.70, Estimated Creat Clear 37, Estimated GFR 81, Est GFR ( Amer) 98, Glucose 120 H, Calcium 9.8, Total Bilirubin 0.8, AST 37 H , ALT 24, Alkaline Phosphatase 97, Troponin I < 0.01, Total Protein 8.0, Albumin 4.2, Globulin 3.8 H, Albumin/Globulin Ratio 1.1, Lipase 56 12/13/23 16:00: Troponin I < 0.01 Orders (Tests/Meds): ED MEDICATIONS Generic Name Dose Route Start Last Admin Trade Name Freq PRN Reason Stop Dose Admin Sodium Chloride 10 ml 12/13/23 13:35 12/13/23 13:36 Sodium Chloride 0.9% 10ml Syr (Rad Only) IV 01/12/24 13:34 10 ml NEEDED PRN Administration Maintain IV Site Sodium Chloride 8 ml 12/13/23 15:49 Sodium Chloride 0.9% 10ml Vial IV 01/12/24 15:48 NEEDED PRN dilute pepcid Discontinued Medications Generic Name Dose Route Start Last Admin Trade Name Freq PRN Reason Stop Dose Admin Acetaminophen 1,000 mg 12/13/23 12:48 12/13/23 13:02 Acetaminophen 1,000mg/100ml Vial IV 12/13/23 12:49 1,000 mg ONCE ONE Administration Aspirin 324 mg 12/13/23 12:48 12/13/23 13:02 Aspirin 81mg Chewable Tablet PO 12/13/23 12:49 324 mg ONCE ONE Administration Belladonna Alkaloids 60 ml 12/13/23 15:49 12/13/23 16:09 Belladonna Alkaloids 60 Ml Ml PO 12/13/23 15:50 60 ml ONCE ONE Administration Famotidine 20 mg 12/13/23 15:49 12/13/23 16:09 Famotidine 20mg/2ml Vial IV 12/13/23 15:50 20 mg ONCE ONE Administration Iopamidol 75 ml 12/13/23 13:35 12/13/23 13:36 Iopamidol-370 (76%);100ml Bottle IV 12/13/23 13:36 75 ml ONCE ONE Administration Morphine Sulfate 4 mg 12/13/23 12:48 12/13/23 13:02 Morphine 4mg/Ml Syringe IV 12/13/23 12:49 4 mg ONCE ONE Administration Sodium Chloride 50 ml 12/13/23 13:35 12/13/23 13:37 0.9 % Sodium Chloride 50 Ml Vial IV 12/13/23 13:36 50 ml ONCE ONE Administration ORDERS Category Date Time Status CT angio chest PE protocol Stat Cat Scan 12/13/23 12:48 Completed CBC w/Auto Diff [Complete Blood Count Auto Diff] Stat Lab 12/13/23 12:15 Completed CMP [Comprehensive Metabolic Panel] Stat Lab 12/13/23 12:15 Completed Lipase Stat Lab 12/13/23 12:15 Completed Trop I [Troponin I] Stat Lab 12/13/23 12:15 Completed Troponin I Q3H Lab 12/13/23 16:00 Completed Troponin I Q3H Lab 12/13/23 19:00 Ordered HEART Score HEART Score: 5 Medical Decision Narrative: In summary patient is a 78-year-old female past medical history described above who presents emergency department for evaluation of chest pain. Patient is hemodynamically stable nontoxic-appearing upon arrival, afebrile, borderline tachycardia, appearing in significant pain. Differential diagnosis includes cardiac chest pain, pulmonary embolism, noncardiac chest pain, among others. Workup will be conducted with hematologic labs, CTA chest. Initial inventions include aspirin, IV Tylenol, morphine. Initial workup reviewed by me, hematologic labs are nonactionable, no JEY or critical electrolyte abnormalities, initial troponin undetectably low. CTA conducted and formal read pending at time of transition of care to the oncoming physician, Dr. Win. Quirino: I assumed primary responsibility for this patient after signout from previous physician. On my evaluation, patient still having pain. Given Pepcid and GI cocktail. On reevaluation, patient states she is feeling much better. Independent to rotation of workup with nonactionable CBC or chemistry. Kidney function normal. Delta troponin negative. Lipase negative. CTA of the abdomen pelvis with distal esophagitis concerning for inflammatory versus malignancy origin. Patient states that she recently had upper endoscopy which was deemed to be normal. This makes this much more likely to be inflammatory in origin. Because patient at baseline without signs or symptoms of clinical decompensation, deemed appropriate for discharge. Results were relayed to patient who voiced understanding and were agreeable to outpatient management and follow up. I discussed my clinical impression with patient and answered all questions. At this time, the evidence for any other entities in the differential is insufficient to warrant any further testing or ED observation. This was explained as well. Advisory was given that persistent or worsening symptoms require further evaluation. I confirmed the understanding of this discussion. Critical Care <Edvin Ford MD - Last Filed: 12/13/23 14:41> Critical Care Time Critical Care Time: No
--- NOTE | 2023-12-13 13:30 | PC.NURSE ---
patient back in room from CT at this time.
[2023-12-13] MEDS: IOPAMIDOL-370 (76%);100ML BOTTLE 75 ML IV (13:36)
[2023-12-13] MEDS: SODIUM CHLORIDE 0.9% 10ML SYR (RAD ONLY) 10 ML IV (13:36)
[2023-12-13] MEDS: 0.9 % SODIUM CHLORIDE 50 ML VIAL IV (13:37)
--- NOTE | 2023-12-13 15:37 | PC.NURSE ---
rounded on pt and she needed to go to the bathroom so assisted her with that
--- NOTE | 2023-12-13 15:41 | PC.NURSE ---
rounded on pt, pt requested water and i have let her know that i would talk to the doctor about possible ice chips or water.
[2023-12-13] MEDS: FAMOTIDINE 20MG/2ML VIAL 20 MG IV (16:09)
[2023-12-13] MEDS: BELLADONNA ALKALOIDS 60 ML ML PO (16:09)
[2023-12-13 17:11] LABS: Troponin I < 0.01 ng/ml (0.00-0.034)
== END 2023-12-13 17:59 | disposition home or self-care (01) ==
PROVIDERS: Emergency Medicine; Emergency Provider Emergency Medicine; PCP Internal Medicine Adolescent Medicine
DX: R07.9 Chest pain, unspecified (principal); K20.90 Esophagitis, unspecified without bleeding; E03.9 Hypothyroidism, unspecified
CPT/HCPCS: 71275; 80053; 83690; 84484; 85025; 93005; 96374; 96375; 99285; J0131; Q9967

== ENCOUNTER 2023-12-16 18:11 | Emergency (ER) | payer MEDICARE, SELFPAY ==
--- NOTE | 2023-12-16 18:10 | ECG_ITS ---
APPROVED REPORT Exam: Resting ECG HR:99 bpm ECG Measurements Heart Rate 99 AXES IL 138 P 66 QRSd 87 QRS 66 QT 340 T 23 QTc 396 Conclusion SINUS RHYTHM NONSPECIFIC T-WAVE ABNORMALITY Electronically signed by : SOHAM SAEED, 12/17/2023 07:15:14
[2023-12-16 18:11] VITALS: BP 135/74; PULSE 98; RESP 20; TEMP 36.8; O2SAT 95; BMI 20.6
--- NOTE | 2023-12-16 18:16 | PC.NURSE ---
dr boland at bedside
--- NOTE | 2023-12-16 18:18 | XR_ITS ---
PROCEDURE INFORMATION: Exam: XR Chest Exam date and time: 12/16/2023 6:20 PM Age: 78 years old Clinical indication: Pain; Chest pressure; Additional info: Chest pain TECHNIQUE: Imaging protocol: Radiologic exam of the chest. Views: 1 view. COMPARISON: CT ANGIO CHEST PE PROTOCOL 12/13/2023 1:22 PM FINDINGS: Lungs: Bilateral ground-glass regions of opacification. Findings nonspecific and may reflect interstitial lung disease. Pleural spaces: Regions of asymmetric pleural thickening most pronounced at the left lung apex. Heart/Mediastinum: Unremarkable. No cardiomegaly. Bones/joints: Unremarkable. IMPRESSION: No evidence of acute cardiopulmonary disease.
[2023-12-16 18:27] LABS: Basophils # 0.3 K/mm3 (0-0.2); Basophils % 3.6 % (0.1-2.0); Eosinophils # 0.6 K/mm3 (0.0-0.4); Eosinophils % 6.8 % (0.1-12.0); Hematocrit 41.3 % (37.0-47.0); Hemoglobin 13.1 g/dL (12.2-16.2); Lymphocytes # 2.6 K/mm3 (0.7-4.5); Lymphocytes % 31.2 % (10-50); Mean Corpuscular HGB Conc 31.7 g/dL (31.8-35.4); Mean Corpuscular Hemoglobin 28.6 pg (27.0-31.2); Mean Platelet Volume 8.2 fl (7.4-10.4); Monocytes # 0.7 K/mm3 (0.1-1.0); Monocytes % 7.8 % (1.7-9.3); Neutrophils # 4.3 K/mm3 (1.8-7.8); Neutrophils % 50.5 % (37.0-80.0); Platelet Count 366 K/mm3 (142-424); Red Blood Count 4.59 M/mm3 (4.20-5.40); Red Cell Distribution Width 14.9 % (11.5-17.5); White Blood Count 8.5 K/mm3 (4.8-10.8)
[2023-12-16 18:38] LABS: Chloride 102 mmol/L (98-107)
[2023-12-16 18:39] LABS: Sodium 137 mmol/L (136-145)
[2023-12-16 18:41] LABS: Alanine Aminotransferase 18 U/L (12-78); Alkaline Phosphatase 90 U/L (38-126); Aspartate Amino Transferase 30 U/L (14-36); Bilirubin,Total 0.4 mg/dl (0.2-1.3); Blood Urea Nitrogen 30 mg/dl (7-17); Creatinine Clearance Estimated 38 mL/min (50-200); Estimated Glomerular Filt Rate 69 ml/min (>60); GFR (African American) 84 ML/MIN (>60)
[2023-12-16 18:42] LABS: Albumin Level 3.6 g/dl (3.5-5.0); Albumin/Globulin Ratio 1.2 (1.1-1.8); Calcium 9.1 mg/dl (8.4-10.2); Carbon Dioxide 32 mmol/L (22.0-30.0); Globulin 3.1 g/dL (1.3-3.2); Glucose 132 mg/dl (74-100); Lipase 65 U/L (23-300); Total Protein,Serum 6.7 g/dl (6.3-8.2)
--- NOTE | 2023-12-16 18:43 | PC.NURSE ---
Dr Meek speaking with Dr Rubalcava
--- NOTE | 2023-12-16 18:44 | PC.NURSE ---
dr boland at bedside
--- NOTE | 2023-12-16 19:01 | PC.NURSE ---
hospice contacted and information provided for pt referral
--- NOTE | 2023-12-16 19:04 | ED_ITS ---
Discharge Plan Disposition Patient Disposition: Home, Self-Care Prescriptions Prescriptions: No Action oxybutynin chloride 5 mg tablet 5 mg PO BID Patient Comments: TAKE 1 TABLET BY MOUTH TWICE DAILY hydrochlorothiazide 12.5 mg tablet 12.5 mg PO DAILY potassium chloride 20 mEq packet 20 meq PO DAILY Qty: 30 0RF pantoprazole 20 mg tablet,delayed release (DR/EC) 20 mg PO BID Patient Comments: TAKE 1 TABLET BY MOUTH TWICE DAILY sucralfate 1 gram tablet 1 g PO BID 28 Days Qty: 56 0RF omeprazole 20 mg capsule,delayed release(DR/EC) 20 mg PO BID 28 Days Qty: 56 0RF omeprazole 20 mg capsule,delayed release(DR/EC) 20 mg PO DAILY 28 Days Qty: 28 0RF Rx Instructions: Do not combine with other omeprazole. metoclopramide HCl [Reglan] 5 mg tablet 5 mg PO DAILY Qty: 30 0RF levothyroxine 75 mcg tablet 75 mcg PO DAILY Patient Comments: TAKE 1 TABLET BY MOUTH ONCE DAILY FOR 30 DAYS sucralfate 1 gram tablet 1 g PO TIDWMEAL Qty: 60 0RF Rx Instructions: take 3 times daily with meals Referrals Follow up/Referrals: Eber Rubalcava MD [Primary Care Provider] - See instructions Activity Restrictions/Add. Instructions Additional Instructions/Restrictions: No acute emergent medical condition identified today. After consultation with your primary care doctor we believe the best path of care is palliative therefore we spoke to hospice who should be calling you tomorrow to evaluate you tomorrow for further treatment of your chronic conditions and your pain. Please also follow-up with your primary care doctor soon as possible. Clinical Impressions Clinical Impression: Pulmonary fibrosis, Chronic abdominal pain, Chronic chest pain, Adult failure to thrive, Counseling regarding goals of care, Encounter for palliative care Discharge ED Provider: Efren Meek General Adult HPI General Chief complaint: Chest Pain Stated complaint: chest pain Time Seen by Provider: 12/16/23 18:15 Mode of Arrival: Wheelchair Source of Information: Patient Limitations: No Limitations Description of Symptoms (Recalled from ER Triage Doc. by RN): PT C/O SHARP CHEST PAIN X 1 WEEK. MID EPIGASTRIC PAIN THAT RADIATES UNDER LEFT BREAST. REPORTS SHORTNESS OF BREATH. DENIES N/V History of Present Illness HPI narrative: Is a 78-year-old female with a history of chronic abdominal and chest pain presenting today with recurrent send ongoing symptoms. 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 She is questionably had a diagnosis of colitis and esophagitis but recently had an endoscopy and colonoscopy with Dr. Omer which were deemed to be normal without any evidence of significant inflammatory changes or malignancy. She is also had extensive CT scans without any definitive malignancy. She says she has lost significant amounts of weight. She has recently been placed on opiates by her primary care doctor. She also has been taking medicine for reflux including Carafate and Maalox without any significant improvement. Pain is substernal nonradiating not exertional also epigastric in nature. No fevers chills cough etc. No urinary symptoms. Related Data Home Medications Medication Instructions Recorded Confirmed oxybutynin chloride 5 mg tablet 5 mg PO BID Overactive bladder 10/17/19 12/04/23 hydrochlorothiazide 12.5 mg tablet 12.5 mg PO DAILY Fluid 01/12/21 12/04/23 levothyroxine 75 mcg tablet 75 mcg PO DAILY Thyroid 02/12/23 12/04/23 pantoprazole 20 mg tablet,delayed 20 mg PO BID 08/19/23 12/04/23 release Previous Rx's Medication Instructions Recorded potassium chloride 20 mEq oral 20 meq PO DAILY #30 ea 07/16/23 packet sucralfate 1 gram tablet 1 g PO TIDWMEAL #60 tabs 09/11/23 omeprazole 20 mg capsule,delayed 20 mg PO BID 4 weeks #56 caps 09/28/23 release sucralfate 1 gram tablet 1 g PO BID 4 weeks #56 tabs 09/28/23 omeprazole 20 mg capsule,delayed 20 mg PO DAILY acid reflux 4 weeks 10/01/23 release #28 caps metoclopramide HCl 5 mg tablet 5 mg PO DAILY #30 tabs 11/08/23 (Reglan) Allergies Allergy/AdvReac Type Severity Reaction Status Date / Time nitrofurantoin Allergy Unknown Unknown Verified 12/04/23 11:01 [From MACROBID] allergy reaction [facility] Disclaimer: The information contained in this section may have been updated after the patient was seen, as this information can be updated by other users. Medical History Osteoarthritis Hypothyroid Acute respiratory failure with hypoxia Pneumonia Dyspnea on exertion Allergic rhinitis Restrictive lung disease Allergic rhinitis Pulmonary hypertension Dyspnea on exertion Cavitary lesion of lung Bronchiectasis Asthma Shortness of breath Pulmonary fibrosis Surgical History History of hysterectomy No history of previous surgery Family History Brother COPD (chronic obstructive pulmonary disease) Lung disease Sister COPD (chronic obstructive pulmonary disease) Social History Smoking Status: Never smoker alcohol intake: never substance use type: denies use current occupational status: retired Travel in the last 8 weeks: None household members: family housing: house current occupational exposures/hazards: No caffeine: No ROS Obtained: Yes All systems reviewed & no additional complaints except as documented Physical Exam General General appearance: alert and in no apparent distress Respiratory Respiratory exam: Present normal lung sounds bilaterally; Absent respiratory distress Cardiovascular Cardiovascular exam: Present regular rate; Absent normal rhythm Abdominal Exam Abdominal exam: Present soft; Absent distention or tenderness Neurological Exam Neurological exam: Present alert and oriented X3 Medical Decision Making Andrea Inquiry Pt receiving controlled substance: No Vital Signs: 12/16/23 18:11 Temperature 98.3 F Temperature Source Oral Pulse Rate [Apical] 98 H Respiratory Rate 20 Blood Pressure [Right Arm] 135/74 Blood Pressure Mean [Right Arm] 94 Blood Pressure Source [Right Arm] Automatic Cuff Blood Pressure Position [Right Arm] Sitting 02 Sat by Pulse Oximetry 95 Oxygen Delivery Method Room Air Lab Data Lab results reviewed: Yes I reviewed the patient's lab results. Lab Results 12/16/23 18:18: WBC 8.5, RBC 4.59, Hgb 13.1, Hct 41.3, MCV 90.0, MCH 28.6, MCHC 31.7 L, RDW 14.9, Plt Count 366, MPV 8.2, Neut % (Auto) 50.5, Lymph % (Auto) 31.2, [place] % (Auto) 7.8, Eos % (Auto) 6.8, Baso % (Auto) 3.6 H, Neut # (Auto) 4.3, Lymph # (Auto) 2.6, [place] # (Auto) 0.7, Eos # (Auto) 0.6 H, Baso # (Auto) 0.3 H, Sodium 137, Potassium 4.0, Chloride 102, Carbon Dioxide 32 H, Anion Gap 7.0, BUN 30 H, Creatinine 0.80, Estimated Creat Clear 38, Estimated GFR 69, Est GFR ( Amer) 84, Glucose 132 H, Calcium 9.1, Total Bilirubin 0.4, AST 30, ALT 18, Alkaline Phosphatase 90, Troponin I < 0.01, Total Protein 6.7, Albumin 3.6, Globulin 3.1, Albumin/Globulin Ratio 1.2, Lipase 65 12/16/23 18:18 12/16/23 18:18 Orders (Tests/Meds): ED MEDICATIONS Generic Name Dose Route Start Last Admin Trade Name Freq PRN Reason Stop Dose Admin Sodium Chloride 10 ml 12/16/23 18:18 Sodium Chloride 0.9% 10ml Flush Syringe IV 01/15/24 18:17 NEEDED PRN Maintain IV Site Discontinued Medications Generic Name Dose Route Start Last Admin Trade Name Freq PRN Reason Stop Dose Admin Acetaminophen 1,000 mg 12/16/23 18:39 12/16/23 19:05 Acetaminophen 1,000mg/100ml Vial IV 12/16/23 18:40 1,000 mg ONCE ONE Administration Belladonna Alkaloids 60 ml 12/16/23 18:31 12/16/23 19:05 Belladonna Alkaloids 60 Ml Ml PO 12/16/23 18:32 60 ml ONCE ONE Administration Morphine Sulfate 4 mg 12/16/23 18:58 12/16/23 19:05 Morphine 4mg/Ml Syringe IV 12/16/23 18:59 4 mg ONCE ONE Administration ORDERS Category Date Time Status XR chest portable Stat Exams 12/16/23 18:18 Completed Complete Blood Count Auto Diff Stat Lab 12/16/23 18:18 Completed Comprehensive Metabolic Panel Stat Lab 12/16/23 18:18 Completed Lipase Stat Lab 12/16/23 18:18 Completed Troponin I Q3H Lab 12/16/23 21:30 Ordered Troponin I Q3H Lab 12/17/23 00:30 Ordered Troponin I Stat Lab 12/16/23 18:18 Completed ECG Data Tracing #1: I reviewed this ECG and interpreted as documented below: Ventricular rate of 99 normal axis no acute ischemic changes noted no significant conduction abnormalities noted. Medical Decision Narrative: 78-year-old with chronic refractory abdominal and chest pain with extensive evaluation workup including numerous CT scans ED visits hospitalizations primary care visits surgical consultations gastroenterology evaluations endoscopies colonoscopies etc. No definitive diagnosis has been made. I called her primary care doctor after extensively reviewing her records and he is at a loss from a medical standpoint and believes that at this point she has exhausted all reasonable workup at this point. He has recently been transitioning toward a palliative care posture toward this patient has been prescribing her oxycodone with which she has been doing well. She does not to me seem to be a drug- seeking patient and is unclear as to exactly what is causing her pain. She does not seem to be a candidate for any type of exploratory surgery. After discussing with Dr. Barbour I had an extensive discussion with the patient and the patient's sister about transitioning from further aggressive diagnostic and therapeutic interventions versus palliative care. When goals of care discussion and she and her sister both agreed to pursue pain control and palliative therapy. We will discuss the case with hospice to see if they can consult with her at home and I will also attempt to get the patient's pain under control in the meantime. IV Tylenol morphine and GI cocktail have been administered and will reassess. Chest x-ray performed to person interpreted which shows chronic pulmonary fibrosis but no acute abnormality. Labs unremarkable. Reassessment patient is feeling much better oxygen saturations in the upper 80s and low 90s she does have home oxygen if needed. I have advised that she take this. We spoke with hospice and they will evaluate the patient at home tomorrow. Close the loop with Dr. Barbour and he is aware of this plan. The patient will also follow-up with Dr. Barbour outpatient. I offered her admission for pain control and she opted to go home as well. She was discharged in a stable condition. Critical Care Critical Care Time Critical Care Time: No
[2023-12-16] MEDS: ACETAMINOPHEN 1,000MG/100ML VIAL 1000 MG IV (19:05)
[2023-12-16] MEDS: BELLADONNA ALKALOIDS 60 ML ML PO (19:05)
[2023-12-16] MEDS: MORPHINE 4MG/ML SYRINGE 4 MG IV (19:05)
[2023-12-16 19:15] LABS: Troponin I < 0.01 ng/ml (0.00-0.034)
[2023-12-16 19:47] VITALS: BP 131/72; PULSE 87; RESP 18; TEMP 36.8; O2SAT 95
== END 2023-12-16 19:48 | disposition home or self-care (01) ==
PROVIDERS: Emergency Provider Student in an Organized Health Care Education/Training Program; PCP Internal Medicine Adolescent Medicine
DX: R07.9 Chest pain, unspecified (principal); R10.13 Epigastric pain; J84.10 Pulmonary fibrosis, unspecified; R62.7 Adult failure to thrive; E03.9 Hypothyroidism, unspecified; Z51.5 Encounter for palliative care
CPT/HCPCS: 71045; 80053; 83690; 84484; 85025; 93005; 96374; 96375; 99285; J0131

== ENCOUNTER 2024-01-21 03:15 | Emergency (ER) | payer MEDICARE, SELFPAY ==
[2024-01-21 03:15] VITALS: BP 127/59; PULSE 91; RESP 24; TEMP 36.6; O2SAT 96; BMI 19.2
--- NOTE | 2024-01-21 03:23 | XR_ITS ---
PROCEDURE INFORMATION: Exam: XR Chest Exam date and time: 01/21/2024 3:24 AM Age: 78 years old Clinical indication: Pain; Chest pressure; Additional info: Chest pain TECHNIQUE: Imaging protocol: Radiologic exam of the chest. Views: 1 view. COMPARISON: CR XR CHEST PORTABLE 12/16/2023 6:20 PM FINDINGS: Tubes, catheters and devices: Leadless pacemaker. Airway: Heavy mineralization of the cartilaginous rings of the trachea. Lungs: Diffuse architectural distortion/coarsening of the interstitial lung markings. Interval increase in infiltration of the bilateral upper lobes and left lower lobe. No focal consolidation. Pleural spaces: Unremarkable. No pleural effusion. No pneumothorax. Heart/Mediastinum: Unremarkable. No cardiomegaly. Vasculature: Atherosclerotic disease of the aortic arch. Bones/joints: Degenerative change of the visualized osseous structures. IMPRESSION: Findings compatible with COPD, interval increase in infiltration of the upper lobes and left lower lobe, may be due to technique, however superimposed infection cannot be ruled out.
--- NOTE | 2024-01-21 03:24 | [facility].EDCP ---
Discharge Plan Disposition Patient Disposition: Home, Self-Care Prescriptions Prescriptions: No Action oxybutynin chloride 5 mg tablet 5 mg PO BID Patient Comments: TAKE 1 TABLET BY MOUTH TWICE DAILY hydrochlorothiazide 12.5 mg tablet 12.5 mg PO DAILY montelukast 10 mg tablet 10 mg PO DAILY 90 Days Qty: 90 3RF potassium chloride 20 mEq packet 20 meq PO DAILY Qty: 30 0RF pantoprazole 20 mg tablet,delayed release (DR/EC) 20 mg PO BID Patient Comments: TAKE 1 TABLET BY MOUTH TWICE DAILY sucralfate 1 gram tablet 1 g PO BID 28 Days Qty: 56 0RF omeprazole 20 mg capsule,delayed release(DR/EC) 20 mg PO BID 28 Days Qty: 56 0RF omeprazole 20 mg capsule,delayed release(DR/EC) 20 mg PO DAILY 28 Days Qty: 28 0RF Rx Instructions: Do not combine with other omeprazole. metoclopramide HCl [Reglan] 5 mg tablet 5 mg PO DAILY Qty: 30 0RF levothyroxine 75 mcg tablet 75 mcg PO DAILY Patient Comments: TAKE 1 TABLET BY MOUTH ONCE DAILY FOR 30 DAYS sucralfate 1 gram tablet 1 g PO TIDWMEAL Qty: 60 0RF Rx Instructions: take 3 times daily with meals Activity Restrictions/Add. Instructions Additional Instructions/Restrictions: You were evaluated in the ER. You are appropriate for discharge at this time. Follow-up with your primary care physician. Continue following with the hospice team. Continue all home medications as previously prescribed. Return to the ER with new, worsening, or otherwise concerning symptoms. Clinical Impressions Clinical Impression: Chronic abdominal pain, Pulmonary fibrosis, Chest pain, Adult failure to thrive Instructions Patient Instructions: DI for Acute Abdominal Pain Discharge ED Provider: Homero Blount General Chief Complaint: Abdominal Pain Stated Complaint: Chest pain Time Seen by Provider: 01/21/24 03:22 History of Present Illness HPI narrative: 78-year-old female familiar to this ER with frequent visits presents via EMS for concerns of chest pain. Patient had called on behalf of of the person she lives with concerned that they had low blood sugar. Reportedly dispatch was concerned about the way the patient sounded on the phone and asked her if she was having any complaints. Patient complained of chest pain and abdominal pain and was brought to the ER for this reason. Patient states her symptoms are at baseline. She states she always has abdominal pain and they do not know why. She states she always has problems eating due to her abdominal pain. She also states she has lung problems and wears 2.5 L nasal cannula at home. My review of recent records demonstrates patient was being transitioned to palliative care and hospice with the assistance of her primary care team. I reviewed multiple previous records which demonstrates patient has been seen by general surgery for complaints of colitis, abdominal pain, she is also seeing GI for esophagitis but had reassuring scope. Patient has had 10 visits to our ER for abdominal pain since the beginning of September. Patient reports nothing is new today and if she had been forced to come to the ER by EMS she would not be here. Related Data Home Medications Medication Instructions Recorded Confirmed oxybutynin chloride 5 mg tablet 5 mg PO BID Overactive bladder 10/17/19 12/04/23 hydrochlorothiazide 12.5 mg tablet 12.5 mg PO DAILY Fluid 01/12/21 12/04/23 levothyroxine 75 mcg tablet 75 mcg PO DAILY Thyroid 02/12/23 12/04/23 pantoprazole 20 mg tablet,delayed 20 mg PO BID 08/19/23 12/04/23 release Previous Rx's Medication Instructions Recorded potassium chloride 20 mEq oral 20 meq PO DAILY #30 ea 07/16/23 packet sucralfate 1 gram tablet 1 g PO TIDWMEAL #60 tabs 09/11/23 omeprazole 20 mg capsule,delayed 20 mg PO BID 4 weeks #56 caps 09/28/23 release sucralfate 1 gram tablet 1 g PO BID 4 weeks #56 tabs 09/28/23 omeprazole 20 mg capsule,delayed 20 mg PO DAILY acid reflux 4 weeks 10/01/23 release #28 caps metoclopramide HCl 5 mg tablet 5 mg PO DAILY #30 tabs 11/08/23 (Reglan) montelukast 10 mg tablet 10 mg PO DAILY 90 days #90 tabs 01/07/24 Allergies Allergy/AdvReac Type Severity Reaction Status Date / Time nitrofurantoin Allergy Unknown Unknown Verified 12/04/23 11:01 [From MACROBID] allergy reaction [facility] Disclaimer: The information contained in this section may have been updated after the patient was seen, as this information can be updated by other users. Medical History Osteoarthritis Hypothyroid Acute respiratory failure with hypoxia Pneumonia Dyspnea on exertion Allergic rhinitis Restrictive lung disease Allergic rhinitis Pulmonary hypertension Dyspnea on exertion Cavitary lesion of lung Bronchiectasis Asthma Shortness of breath Pulmonary fibrosis Surgical History History of hysterectomy No history of previous surgery Family History Brother COPD (chronic obstructive pulmonary disease) Lung disease Sister COPD (chronic obstructive pulmonary disease) Social History Smoking Status: Unknown if ever smoked alcohol intake: never substance use type: denies use current occupational status: retired Travel in the last 8 weeks: None household members: family housing: house current occupational exposures/hazards: No caffeine: No ROS Obtained: Yes All systems reviewed & no additional complaints except as documented Constitutional Constitutional: Denies chills, Denies fever(s), Denies headache(s) and Denies weakness Eyes Eyes: Denies change in vision ENT Ears, Nose, Mouth, and Throat: Denies dizziness, Denies headache(s), Denies nasal congestion and Denies sore throat Cardiovascular Cardiovascular: Reports chest pain (At baseline), Reports dyspnea (Chronic, at baseline) and Denies leg edema Respiratory Respiratory: Denies cough and Reports dyspnea (Chronic, at baseline) Gastrointestinal Gastrointestingal: Reports abdominal pain (Chronic, at baseline) and nausea; Denies constipation, diarrhea or vomiting Genitourinary Female Genitourinary: Denies dysuria Musculoskeletal Musculoskeletal: Denies arthralgias, Denies myalgias, Denies numbness and Denies tingling Integumentary/Breasts Skin/Breast: Denies change in pigmentation Neurologic Neurologic: Denies dizziness, Denies headache(s), Denies numbness, Denies tingling and Denies weakness Physical Exam General General appearance: alert and in no apparent distress Comment: Chronically ill-appearing Head Head exam: atraumatic and normocephalic Eye Eye exam: Present PERRL and EOMI ENT ENT exam: Present mucous membranes moist Neck Neck exam: Present normal inspection and full ROM Chest Chest inspection: Present symmetric chest wall rise Respiratory Respiratory exam: Present normal lung sounds bilaterally; Absent respiratory distress, wheezes or stridor Cardiovascular Cardiovascular exam: Present regular rate and normal rhythm Abdominal Exam Abdominal exam: Present soft and tenderness (Epigastric); Absent distention, guarding or rebound Extremities Exam Extremities exam: Present full ROM Neurological Exam Neurological exam: Present alert and oriented X3; Absent motor sensory deficit Psychiatric Psychiatric exam: Present normal affect and normal mood Skin Skin exam: Present warm and dry HEART Score HEART Score HEART Score assessment performed?: Yes History (anamnesis): Slightly suspicious ECG: Non-specific disturbance Age: >65 years Risk factors: 1-2 risk factors Troponin: </= normal limit HEART Score: 4 Critical Care Critical Care Time Critical Care Time: No Medical Decision Making Andrea Inquiry Pt receiving controlled substance: No Vital Signs Vital Signs: 01/21/24 03:15 01/21/24 03:34 01/21/24 04:25 Temperature 97.9 F 97.9 F Temperature Source Oral Oral Pulse Rate 91 H 90 Pulse Rate [Left] 91 H Respiratory Rate 24 22 Blood Pressure 115/72 Blood Pressure [Right Arm] 127/59 L Blood Pressure Mean [Right Arm] 81 02 Sat by Pulse Oximetry 96 Oxygen Delivery Method Nasal Cannula Nasal Cannula Oxygen Flow Rate (LPM) 3 3 Lab Data Labs: Lab Results 01/21/24 03:20: WBC 6.8, RBC 5.16, Hgb 14.6, Hct 46.6, MCV 90.3, MCH 28.4, MCHC 31.4 L, RDW 15.2, Plt Count 386, MPV 7.6, Neut % (Auto) 62.8, Lymph % (Auto) 28.5, [place] % (Auto) 5.0, Eos % (Auto) 2.3, Baso % (Auto) 1.4, Neut # (Auto) 4.3, Lymph # (Auto) 2.0, [place] # (Auto) 0.3, Eos # (Auto) 0.2, Baso # (Auto) 0.1, Sodium 135 L, Potassium 3.4 L, Chloride 95 L, Carbon Dioxide 34 H, Anion Gap 9.4, BUN 16, Creatinine 0.80, Estimated Creat Clear 35, Estimated GFR 69, Est GFR ( Amer) 84, Glucose 135 H, Calcium 9.6, Total Bilirubin 0.6, AST 35, ALT 24, Alkaline Phosphatase 92, Troponin I < 0.01, Total Protein 7.4, Albumin 3.8, Globulin 3.6 H, Albumin/Globulin Ratio 1.1, Lipase 52 01/21/24 03:20 01/21/24 03:20 Response Orders (Tests/Meds): ED MEDICATIONS Discontinued Medications Generic Name Dose Route Start Last Admin Trade Name Luann PRN Reason Stop Dose Admin Lactated Ringer's 1,000 mls @ 999 mls/hr 01/21/24 03:34 01/21/24 03:38 Lactated Ringer's 1000 Ml Bag IV 01/21/24 04:34 999 mls/hr .Q1H1M ONE Administration Morphine Sulfate 4 mg 01/21/24 03:28 01/21/24 03:38 Morphine 4mg/Ml Syringe IV 01/21/24 03:29 4 mg ONCE ONE Administration ORDERS Category Date Time Status CXR --portable [XR chest portable] Stat Exams 01/21/24 03:23 Completed CBC w/Auto Diff [Complete Blood Count Auto Diff] Stat Lab 01/21/24 03:20 Completed CMP [Comprehensive Metabolic Panel] Stat Lab 01/21/24 03:20 Completed Lactic Acid Stat Lab 01/21/24 03:23 Ordered Lipase Stat Lab 01/21/24 03:20 Completed Trop I [Troponin I] Stat Lab 01/21/24 03:20 Completed MDM Narrative Medical Decision Narrative: In summary, this 78year old female on hospice for chronic abdominal pain without identified etiology, pulmonary fibrosis, both which are comorbidities of current condition and increase her overall morbidity presents to the emergency department today with complaints of abdominal pain, chest pain. Patient reports she is at baseline and nothing is different than her normal day-to-day. She reports being forced to come to the ER by EMS. On initial evaluation patient is hemodynamically stable, afebrile, chronically ill-appearing, epigastric tenderness to palpation without findings of an acute abdomen. Patient's exam is at baseline compared to previous based on my review of prior records. Differential diagnosis includes but is not limited to ACS, pneumothorax, chronic abdominal pain, pancreatitis, failure to thrive. Since patient is at her baseline and states she would not otherwise be in the ER if she had not been forced to come by EMS, I am not going to be aggressive with workup. I am going to rule out the most morbid conditions including ACS. I do not believe she requires any aggressive abdominal workup given she has been repeatedly seen in the last 5 months with multiple extensive workups without identification of etiology. Patient's hospice nurse called the ER and wants to be updated with any results of her findings. ECG personally interpreted demonstrates normal sinus rhythm, rate 89, normal axis, normal TX, normal QTc, patient does have inversions and depressions in lead II, 3, aVF, as well as lateral leads, however compared to previous EKG in December this is similar. Patient received morphine, Zofran for treatment. Labs personally reviewed demonstrate no leukocytosis or anemia, initial troponin undetectably low at less than 0.01, given patient's duration of symptoms of chest pain which have been going on reportedly for a month or more, this is significantly reassuring against acute cardiac event. CMP no findings of kidney dysfunction. Lipase normal at 52, reassuring against pancreatitis. XR personally interpreted demonstrates severe chronic pulmonary changes consistent with known pulmonary fibrosis, no acute intrathoracic abnormality, see radiology read for final interpretation. Abnormalities that were read by radiology are not consistent with patient's clinical presentation. No concern for infection at this time. On reassessment patient continues to be stable. She is appropriate for discharge at this time. Patient was given instructions on symptomatic management, follow up instructions, and return precautions for the emergency department. Patient indicated understanding and was discharged in stable condition.
[2024-01-21 03:30] LABS: Basophils # 0.1 K/mm3 (0-0.2); Basophils % 1.4 % (0.1-2.0); Eosinophils # 0.2 K/mm3 (0.0-0.4); Eosinophils % 2.3 % (0.1-12.0); Hematocrit 46.6 % (37.0-47.0); Hemoglobin 14.6 g/dL (12.2-16.2); Lymphocytes % 28.5 % (10-50); Mean Corpuscular HGB Conc 31.4 g/dL (31.8-35.4); Mean Corpuscular Hemoglobin 28.4 pg (27.0-31.2); Mean Corpuscular Volume 90.3 fl (81-99); Mean Platelet Volume 7.6 fl (7.4-10.4); Monocytes # 0.3 K/mm3 (0.1-1.0); Neutrophils # 4.3 K/mm3 (1.8-7.8); Neutrophils % 62.8 % (37.0-80.0); Platelet Count 386 K/mm3 (142-424); Red Blood Count 5.16 M/mm3 (4.20-5.40); Red Cell Distribution Width 15.2 % (11.5-17.5); White Blood Count 6.8 K/mm3 (4.8-10.8)
--- NOTE | 2024-01-21 03:30 | ECG_ITS ---
APPROVED REPORT Exam: Resting ECG HR:89 bpm ECG Measurements Heart Rate 89 AXES SC 143 P 71 QRSd 88 QRS 72 QT 352 T -44 QTc 399 Conclusion SINUS RHYTHM WITH OCCASIONAL VENTRICULAR PREMATURE COMPLEXES ST DEVIATION AND MODERATE T-WAVE ABNORMALITY, CONSIDER ANTEROLATERAL ISCHEMIA [-0.1+ mV T-WAVE IN V3-V6] ST DEVIATION AND MODERATE T-WAVE ABNORMALITY, CONSIDER INFERIOR ISCHEMIA [-0.1+ mV T-WAVE IN II/aVF] ABNORMAL ECG T wave inversion/ST depression in inferior and lateral leads, no STEMI, similar to prior EKG Electronically signed by : ALONZO AMBROCIO, 01/21/2024 07:13:44
[2024-01-21 03:34] VITALS: PULSE 91
[2024-01-21 03:34] LABS: Chloride 95 mmol/L (98-107); Potassium 3.4 mmoL/L (3.5-5.1); Sodium 135 mmol/L (136-145)
[2024-01-21 03:37] LABS: Alanine Aminotransferase 24 U/L (12-78); Albumin Level 3.8 g/dl (3.5-5.0); Albumin/Globulin Ratio 1.1 (1.1-1.8); Alkaline Phosphatase 92 U/L (38-126); Anion Gap 9.4 mEq/L (5-15); Aspartate Amino Transferase 35 U/L (14-36); Bilirubin,Total 0.6 mg/dl (0.2-1.3); Blood Urea Nitrogen 16 mg/dl (7-17); Calcium 9.6 mg/dl (8.4-10.2); Carbon Dioxide 34 mmol/L (22.0-30.0); Creatinine Clearance Estimated 35 mL/min (50-200); Estimated Glomerular Filt Rate 69 ml/min (>60); GFR (African American) 84 ML/MIN (>60); Globulin 3.6 g/dL (1.3-3.2); Glucose 135 mg/dl (74-100); Lipase 52 U/L (23-300); Total Protein,Serum 7.4 g/dl (6.3-8.2)
[2024-01-21] MEDS: MORPHINE 4MG/ML SYRINGE 4 MG IV (03:38)
[2024-01-21] MEDS: LACTATED RINGERS 1000ML 1,000 ML 999 ML IV (03:38)
[2024-01-21 03:49] LABS: Troponin I < 0.01 ng/ml (0.00-0.034)
[2024-01-21 04:25] VITALS: BP 115/72; PULSE 90; RESP 22; TEMP 36.6; O2SAT 95
== END 2024-01-21 04:26 | disposition home or self-care (01) ==
LOC: ER 03:58
PROVIDERS: Emergency Provider Emergency Medicine
DX: R07.9 Chest pain, unspecified (principal); I49.3 Ventricular premature depolarization; R10.13 Epigastric pain; J84.10 Pulmonary fibrosis, unspecified; R62.7 Adult failure to thrive; E03.9 Hypothyroidism, unspecified
CPT/HCPCS: 71045; 80053; 83690; 84484; 85025; 93005; 96361; 96374; 99285

== ENCOUNTER 2024-02-01 18:06 | Emergency (ER) | payer MEDICARE, SELFPAY ==
[2024-02-01] VITALS (12 sets, daily range): BP systolic 113–139; BP diastolic 55–99; PULSE 81–92; RESP 15–17; TEMP 36.6; O2SAT 90–99; BMI 21.0
--- NOTE | 2024-02-01 18:30 | ECG_ITS ---
APPROVED REPORT Exam: Resting ECG HR:91 bpm ECG Measurements Heart Rate 91 AXES TX 142 P 63 QRSd 95 QRS 73 QT 392 T -62 QTc [address] DEVIATION AND MODERATE T-WAVE ABNORMALITY, CONSIDER ANTEROLATERAL ISCHEMIA [-0.1+ mV T-WAVE IN V3-V6] ST DEVIATION AND MODERATE T-WAVE ABNORMALITY, CONSIDER INFERIOR ISCHEMIA [-0.1+ mV T-WAVE IN II/aVF] Electronically signed by : SOHAM SAEED, 02/02/2024 01:27:11
[2024-02-01 18:39] LABS: Basophils # 0.1 K/mm3 (0-0.2); Basophils % 0.6 % (0.1-2.0); Eosinophils # 0.1 K/mm3 (0.0-0.4); Eosinophils % 0.7 % (0.1-12.0); Hematocrit 44.9 % (37.0-47.0); Lymphocytes # 1.5 K/mm3 (0.7-4.5); Lymphocytes % 14.4 % (10-50); Mean Corpuscular HGB Conc 31.2 g/dL (31.8-35.4); Mean Corpuscular Hemoglobin 28.3 pg (27.0-31.2); Mean Corpuscular Volume 90.6 fl (81-99); Mean Platelet Volume 8.4 fl (7.4-10.4); Monocytes # 0.5 K/mm3 (0.1-1.0); Monocytes % 4.6 % (1.7-9.3); Neutrophils # 8.3 K/mm3 (1.8-7.8); Neutrophils % 79.7 % (37.0-80.0); Platelet Count 429 K/mm3 (142-424); Red Blood Count 4.96 M/mm3 (4.20-5.40); Red Cell Distribution Width 15.2 % (11.5-17.5); White Blood Count 10.4 K/mm3 (4.8-10.8)
[2024-02-01 18:43] LABS: Chloride 91 mmol/L (98-107); Sodium 133 mmol/L (136-145)
[2024-02-01 18:44] LABS: Potassium 3.1 mmoL/L (3.5-5.1)
[2024-02-01 18:46] LABS: Albumin Level 3.9 g/dl (3.5-5.0); Albumin/Globulin Ratio 1.1 (1.1-1.8); Alkaline Phosphatase 95 U/L (38-126); Anion Gap 18.1 mEq/L (5-15); Aspartate Amino Transferase 591 U/L (14-36); Bilirubin,Total 0.8 mg/dl (0.2-1.3); Blood Urea Nitrogen 32 mg/dl (7-17); Calcium 9.5 mg/dl (8.4-10.2); Carbon Dioxide 27 mmol/L (22.0-30.0); Creatinine Clearance Estimated 27 mL/min (50-200); Estimated Glomerular Filt Rate 36 ml/min (>60); GFR (African American) 44 ML/MIN (>60); Globulin 3.5 g/dL (1.3-3.2); Glucose 124 mg/dl (74-100); Lipase 47 U/L (23-300); Total Protein,Serum 7.4 g/dl (6.3-8.2)
--- NOTE | 2024-02-01 18:50 | PC.NURSE ---
placed a call to hospice per Dr. Haro. Triage nurse states that she will have the on-call nurse call us back.
[2024-02-01 18:51] LABS: Lactic Acid 2.1 mmol/L (0.7-2.1)
[2024-02-01 18:53] LABS: Alanine Aminotransferase 828 U/L (12-78)
--- NOTE | 2024-02-01 18:58 | CT_ITS ---
PROCEDURE INFORMATION: Exam: CT Abdomen And Pelvis With Contrast Exam date and time: 02/01/2024 7:34 PM Age: 78 years old Clinical indication: Abdominal pain; Additional info: Severe abd pain, transaminitis TECHNIQUE: Imaging protocol: Computed tomography of the abdomen and pelvis with contrast. Radiation optimization: All CT scans at this facility use at least one of these dose optimization techniques: automated exposure control; mA and/or kV adjustment per patient size (includes targeted exams where dose is matched to clinical indication); or iterative reconstruction. Contrast material: ISOVUE; Contrast volume: 75 ml; Contrast route: IV; COMPARISON: CT ABDOMEN PELVIS W CON 09/28/2023 6:20 AM FINDINGS: Tubes, catheters and devices: Stimulator device in the subcutaneous fat of the right lateral buttock with the lead extending adjacent to the S3 nerve. Lungs: Bibasilar honeycombing and adjacent ground-glass opacities consistent with fibrosis. Coronary arteries: Mild coronary artery calcification. Liver: Unchanged punctate low-density lesion in the medial segment left hepatic lobe which is too small to characterize but is likely a cyst. Gallbladder and bile ducts: Normal. No calcified stones. No ductal dilation. Pancreas: Atrophic pancreas. No pancreatic lesions or pancreatitis. Spleen: Normal. No splenomegaly. Adrenal glands: Normal. No mass. Kidneys and ureters: Normal. No hydronephrosis. Stomach and bowel: Unremarkable. No obstruction. No mucosal thickening. Appendix: No evidence of appendicitis. Intraperitoneal space: Unremarkable. No free air. No significant fluid collection. Vasculature: Mild central pulmonary artery dilatation. Mild aortoiliac atherosclerotic disease without aneurysm. Lymph nodes: Unremarkable. No enlarged lymph nodes. Urinary bladder: Unremarkable as visualized. Reproductive: Status post hysterectomy. No adnexal masses. Bones/joints: Unchanged sclerotic lesion along the right side of S3 which is likely a bone island. Unchanged chronic mild compression deformity T12. Mild lumbar spine levoscoliosis. Osteopenia. Soft tissues: Unremarkable. IMPRESSION: No acute findings. No significant changes.
[2024-02-01 18:59] LABS: Troponin I < 0.01 ng/ml (0.00-0.034)
[2024-02-01] MEDS: ONDANSETRON 4MG/2ML VIAL 4 MG IV (19:03)
[2024-02-01] MEDS: MORPHINE 4MG/ML SYRINGE 4 MG IV (19:03)
[2024-02-01] MEDS: LACTATED RINGERS 1000ML 1,000 ML 999 ML IV (19:03)
[2024-02-01 19:22] LABS: Acetaminophen < 10 ug/ml (10-30)
[2024-02-01] MEDS: SODIUM CHLORIDE 0.9% 10ML SYR (RAD ONLY) 10 ML IV (19:51)
[2024-02-01] MEDS: IOPAMIDOL-370 (76%);100ML BOTTLE 75 ML IV (19:51)
[2024-02-01 21:05] LABS: Microscopic, Urine URINE MICROSCOPIC (MICROSCOPIC)
--- NOTE | 2024-02-01 21:10 | ED_ITS ---
Discharge Plan Disposition Patient Disposition: Xfer Short-Term Hosp Chief Complaint: Abdominal Pain Prescriptions Prescriptions: No Action oxybutynin chloride 5 mg tablet 5 mg PO BID Patient Comments: TAKE 1 TABLET BY MOUTH TWICE DAILY hydrochlorothiazide 12.5 mg tablet 12.5 mg PO DAILY montelukast 10 mg tablet 10 mg PO DAILY 90 Days Qty: 90 3RF potassium chloride 20 mEq packet 20 meq PO DAILY Qty: 30 0RF pantoprazole 20 mg tablet,delayed release (DR/EC) 20 mg PO BID Patient Comments: TAKE 1 TABLET BY MOUTH TWICE DAILY sucralfate 1 gram tablet 1 g PO BID 28 Days Qty: 56 0RF omeprazole 20 mg capsule,delayed release(DR/EC) 20 mg PO BID 28 Days Qty: 56 0RF omeprazole 20 mg capsule,delayed release(DR/EC) 20 mg PO DAILY 28 Days Qty: 28 0RF Rx Instructions: Do not combine with other omeprazole. metoclopramide HCl [Reglan] 5 mg tablet 5 mg PO DAILY Qty: 30 0RF levothyroxine 75 mcg tablet 75 mcg PO DAILY Patient Comments: TAKE 1 TABLET BY MOUTH ONCE DAILY FOR 30 DAYS sucralfate 1 gram tablet 1 g PO TIDWMEAL Qty: 60 0RF Rx Instructions: take 3 times daily with meals Referrals Follow up/Referrals: Eber Rubalcava MD [Primary Care Provider] - See instructions Clinical Impressions Clinical Impression: Acute UTI, JEY (acute kidney injury), Transaminitis Instructions Patient Instructions: DI for Acute Abdominal Pain Discharge ED Provider: Edvin Ford General Adult HPI <Benita Haro DO - Last Filed: 02/02/24 01:21> General Chief complaint: Abdominal Pain Stated complaint: Stomach pain Time Seen by Provider: 02/01/24 18:11 Mode of Arrival: Wheelchair Source of Information: Patient Limitations: No Limitations Description of Symptoms (Recalled from ER Triage Doc. by RN): pt presents to ED with c/o abdominal pain. pt reports pain all over. symptoms began this morning. pt denies vomitting or diarrhea. History of Present Illness HPI narrative: This patient is a 78-year-old female with a history of chronic failure to thrive, chronic abdominal pain, hypothyroidism, and GERD. She is currently on hospice for her chronic abdominal pain. She presents with concern for worsened abdominal pain that is not controlled by her home hospice regimen. We called and had an interactive discussion with hospice who noted that she is on 20 mg of oxycodone every 6 hours as needed, patient states that her pain is severe and 10 out of 10. She states that it is in her upper abdomen but also all over. No fevers, vomiting, or diarrhea. Medical record review, she had multiple previous ED visits for chronic abdominal pain, including once 01/21/2024. Related Data Home Medications Medication Instructions Recorded Confirmed oxybutynin chloride 5 mg tablet 5 mg PO BID Overactive bladder 10/17/19 12/04/23 hydrochlorothiazide 12.5 mg tablet 12.5 mg PO DAILY Fluid 01/12/21 12/04/23 levothyroxine 75 mcg tablet 75 mcg PO DAILY Thyroid 02/12/23 12/04/23 pantoprazole 20 mg tablet,delayed 20 mg PO BID 08/19/23 12/04/23 release Previous Rx's Medication Instructions Recorded potassium chloride 20 mEq oral 20 meq PO DAILY #30 ea 07/16/23 packet sucralfate 1 gram tablet 1 g PO TIDWMEAL #60 tabs 09/11/23 omeprazole 20 mg capsule,delayed 20 mg PO BID 4 weeks #56 caps 09/28/23 release sucralfate 1 gram tablet 1 g PO BID 4 weeks #56 tabs 09/28/23 omeprazole 20 mg capsule,delayed 20 mg PO DAILY acid reflux 4 weeks 10/01/23 release #28 caps metoclopramide HCl 5 mg tablet 5 mg PO DAILY #30 tabs 11/08/23 (Reglan) montelukast 10 mg tablet 10 mg PO DAILY 90 days #90 tabs 01/07/24 Allergies Allergy/AdvReac Type Severity Reaction Status Date / Time nitrofurantoin Allergy Unknown Unknown Verified 12/04/23 11:01 [From MACROBID] allergy reaction ON LICENSE OF [facility] <Benita Haro DO - Last Filed: 02/02/24 01:21> ON LICENSE OF [facility] Disclaimer: The information contained in this section may have been updated after the patient was seen, as this information can be updated by other users. Medical History Osteoarthritis Hypothyroid Acute respiratory failure with hypoxia Pneumonia Dyspnea on exertion Allergic rhinitis Restrictive lung disease Allergic rhinitis Pulmonary hypertension Dyspnea on exertion Cavitary lesion of lung Bronchiectasis Asthma Shortness of breath Pulmonary fibrosis Surgical History History of hysterectomy No history of previous surgery Family History Brother COPD (chronic obstructive pulmonary disease) Lung disease Sister COPD (chronic obstructive pulmonary disease) Social History Smoking Status: Never smoker alcohol intake: never substance use type: denies use current occupational status: retired Travel in the last 8 weeks: None household members: family housing: house current occupational exposures/hazards: No caffeine: No <Benita Haro DO - Last Filed: 02/02/24 01:21> ROS Obtained: Yes All systems reviewed & no additional complaints except as documented Physical Exam <Benita Haro DO - Last Filed: 02/02/24 01:21> General General appearance: alert Comment: Uncomfortable appearing, crying out in pain Head Head exam: atraumatic and normocephalic Eye Eye exam: Present normal appearance, PERRL and EOMI ENT ENT exam: Present normal exam, normal oropharynx, mucous membranes moist and normal external ear exam Neck Neck exam: Present normal inspection, full ROM and trachea midline; Absent tenderness Chest Chest inspection: Present normal inspection and symmetric chest wall rise; Absent tenderness Respiratory Respiratory exam: Present normal lung sounds bilaterally; Absent respiratory distress, wheezes, stridor or accessory muscle use Cardiovascular Cardiovascular exam: Present regular rate and normal rhythm Abdominal Exam Abdominal exam: Present soft and tenderness (Generalized); Absent distention, guarding, rebound or rigidity Extremities Exam Extremities exam: Present normal inspection, full ROM and normal capillary refill; Absent tenderness or edema Back Exam Back exam: Present normal inspection and full ROM; Absent tenderness Neurological Exam Neurological exam: Present alert, oriented X3, CN II-XII intact and normal gait; Absent motor sensory deficit Psychiatric Psychiatric exam: Present normal affect and normal mood Skin Skin exam: Present warm and dry Medical Decision Making <Benita Haro DO - Last Filed: 02/02/24 01:21> Medical Records Medical records reviewed: Yes I reviewed the patient's medical records. Vital Signs: 02/01/24 18:07 02/01/24 18:25 02/01/24 19:00 Temperature 97.9 F Temperature Source Oral Pulse Rate 90 82 Pulse Rate [Left Radial] 92 H Respiratory Rate 17 16 Blood Pressure 139/99 H 122/55 L Blood Pressure [Right Arm] 134/65 Blood Pressure Mean 77 Blood Pressure Mean [Right Arm] 88 02 Sat by Pulse Oximetry 94 L 99 95 Oxygen Delivery Method Room Air 02/01/24 19:30 02/01/24 20:00 02/01/24 20:30 Temperature Temperature Source Pulse Rate 81 87 89 Pulse Rate [Left Radial] Respiratory Rate 16 15 16 Blood Pressure 117/58 L 127/56 L 117/57 L Blood Pressure [Right Arm] Blood Pressure Mean 82 72 77 Blood Pressure Mean [Right Arm] 02 Sat by Pulse Oximetry 95 93 L 95 Oxygen Delivery Method 02/01/24 21:00 02/01/24 21:30 02/01/24 22:00 Temperature Temperature Source Pulse Rate 88 85 Pulse Rate [Left Radial] Respiratory Rate 16 Blood Pressure 117/55 L 126/58 L 113/62 Blood Pressure [Right Arm] Blood Pressure Mean 72 80 79 Blood Pressure Mean [Right Arm] 02 Sat by Pulse Oximetry 94 L 92 L Oxygen Delivery Method Room Air 02/01/24 22:30 02/01/24 23:00 02/01/24 23:30 Temperature Temperature Source Pulse Rate 89 89 Pulse Rate [Left Radial] Respiratory Rate Blood Pressure 130/60 122/60 131/60 Blood Pressure [Right Arm] Blood Pressure Mean 87 80 83 Blood Pressure Mean [Right Arm] 02 Sat by Pulse Oximetry 94 L 90 L 94 L Oxygen Delivery Method Room Air 02/02/24 00:00 02/02/24 00:30 02/02/24 01:00 Temperature Temperature Source Pulse Rate 98 H 96 H Pulse Rate [Left Radial] Respiratory Rate Blood Pressure 120/66 121/60 128/59 L Blood Pressure [Right Arm] Blood Pressure Mean 86 80 70 Blood Pressure Mean [Right Arm] 02 Sat by Pulse Oximetry 93 L 90 L 90 L Oxygen Delivery Method Room Air Room Air Room Air Lab Data Lab results reviewed: Yes I reviewed the patient's lab results. Lab Results 02/01/24 18:25: WBC 10.4, RBC 4.96, Hgb 14.0, Hct 44.9, MCV 90.6, MCH 28.3, MCHC 31.2 L, RDW 15.2, Plt Count 429 H, MPV 8.4, Neut % (Auto) 79.7, Lymph % (Auto) 14.4, Duc[place]ne % (Auto) 4.6, Eos % (Auto) 0.7, Baso % (Auto) 0.6, Neut # (Auto) 8.3 H, Lymph # (Auto) 1.5, Duc[place]ne # (Auto) 0.5, Eos # (Auto) 0.1, Baso # (Auto) 0.1, S odium 133 L, Potassium 3.1 L, Chloride 91 L, Carbon Dioxide 27, Anion Gap 18.1 H , BUN 32 H, Creatinine 1.40 H, Estimated Creat Clear 27, Estimated GFR 36 L, Est GFR ( Amer) 44 L, Glucose 124 H, Lactate 2.1, Calcium 9.5, Total Bilirubin 0.8, AST 591 H*, ALT 828 H*, Alkaline Phosphatase 95, Troponin I < 0.01, Total Protein 7.4, Albumin 3.9, Globulin 3.5 H, Albumin/Globulin Ratio 1.1, Lipase 47, Acetaminophen < 10 L 02/01/24 21:00: Urine Color Dark yellow, Urine Appearance Sl cloudy, Urine pH 5.5, Ur Specific Hepzibah 1.015, Urine Protein Negative, Urine Glucose (UA) Negative, Urine Ketones 1+, Urine Blood Negative, Urine Nitrate Positive, Urine Bilirubin Negative, Urine Urobilinogen 0.2, Ur Leukocyte Esterase 1+ A, Urine RBC None, Urine WBC Occasional, Ur Squamous Epith Cells None, Urine Bacteria 1+ 02/01/24 21:15: Troponin I 0.01 02/01/24 22:49: Lactate 1.4 02/02/24 00:30: Troponin I 0.01 02/01/24 18:25 02/01/24 18:25 Orders (Tests/Meds): ED MEDICATIONS Generic Name Dose Route Start Last Admin Trade Name Freq PRN Reason Stop Dose Admin Lactated Ringer's 1,000 mls @ 999 mls/hr 02/02/24 01:50 Lactated Ringer's 1000 Ml Bag IV 02/02/24 02:50 .Q1H1M ONE Sodium Chloride 10 ml 02/01/24 18:30 Sodium Chloride 0.9% 10ml Flush Syringe IV 03/02/24 18:29 NEEDED PRN Maintain IV Site Discontinued Medications Generic Name Dose Route Start Last Admin Trade Name Luann PRN Reason Stop Dose Admin Lactated Ringer's 1,000 mls @ 999 mls/hr 02/01/24 18:59 02/01/24 19:03 Lactated Ringer's 1000 Ml Bag IV 02/01/24 19:59 999 mls/hr .Q1H1M ONE Administration Ceftriaxone Sodium 2 gm/ 100 mls @ 200 mls/hr 02/01/24 21:27 02/01/24 21:59 Sodium Chloride IV 02/01/24 21:56 200 mls/hr ONCE ONE Administration Iopamidol 75 ml 02/01/24 19:50 02/01/24 19:51 Iopamidol-370 (76%);100ml Bottle IV 02/01/24 19:51 75 ml ONCE ONE Administration Morphine Sulfate 4 mg 02/01/24 18:59 02/01/24 19:03 Morphine 4mg/Ml Syringe IV 02/01/24 19:00 4 mg ONCE ONE Administration Ondansetron HCl 4 mg 02/01/24 18:59 02/01/24 19:03 Ondansetron 4mg/2ml Vial IV 02/01/24 19:00 4 mg ONCE ONE Administration Sodium Chloride 10 ml 02/01/24 19:50 02/01/24 19:51 Sodium Chloride 0.9% 10ml Syr (Rad Only) IV 02/01/24 19:51 10 ml ONCE ONE Administration ORDERS Category Date Time Status CT abdomen pelvis w con Stat Cat Scan 02/01/24 18:58 Completed Acetaminophen Stat Lab 02/01/24 18:25 Completed Complete Blood Count Auto Diff Stat Lab 02/01/24 18:25 Completed Comprehensive Metabolic Panel Stat Lab 02/01/24 18:25 Completed Hepatitis Panel Stat Lab 02/01/24 21:15 Received Lactic Acid Follow Up (RFLX 1) Stat Lab 02/01/24 22:49 Completed Lactic Acid Stat Lab 02/01/24 18:25 Completed Lipase Stat Lab 02/01/24 18:25 Completed Troponin I Q3H Lab 02/01/24 21:15 Completed Troponin I Q3H Lab 02/02/24 00:30 Completed Troponin I Stat Lab 02/01/24 18:25 Completed Urinalysis and Microscopic Stat Lab 02/01/24 21:00 Completed Urine Culture Stat Micro 02/01/24 21:00 Received ECG Data Tracing #1: I reviewed this ECG and interpreted as documented below: Sinus rhythm with nonspecific ST/T wave changes. Motion artifact noted. No acute ST changes concerning for STEMI. Ventricular rate 91 bpm. ECG initial impression date: 02/01/24 ECG initial impression time: 18:39 Medical Decision Narrative: In summary, this patient is a 78-year-old female presenting to the Emergency Department for evaluation of acute on chronic abdominal pain. Differential diagnoses considered include but are not limited to functional abdominal pain, chronic pain, opioid dependence, pancreatitis, colitis, constipation. Ruling out the most morbid conditions drove assessment. Workup included CBC, CMP, lipase, lactic acid, troponin. Labs demonstrated significant transaminitis, so CT abdomen and pelvis with IV contrast was ordered. Patient was given IV morphine and Zofran for symptomatic improvement. I independently interpreted CT scan prior to the radiologist read and noted obvious acutely concerning abnormalities. Please see their read for final interpretation. Ultimately, patient has new transaminitis with normal bilirubin and lipase. She also has urinary tract infection with JEY. She was given a bolus of IV fluids as well as IV Rocephin. I had both interacted discussions with the patient as well as her hospice care team, and the patient advises that she would like to proceed with transfer for further evaluation by gastroenterology to see why her liver enzymes are still elevated. Hospice is notified of this. I initiated discussions of [facility], however they do not have GI on-call right now. Given this, we called [facility]. Their callback was pending at time of signout to Dr. Ford. <Edvin Ford MD - Last Filed: 02/02/24 01:55> Andrea Inquiry Pt receiving controlled substance: No Vital Signs: 02/01/24 18:07 02/01/24 18:25 02/01/24 19:00 Temperature 97.9 F Temperature Source Oral Pulse Rate 90 82 Pulse Rate [Left Radial] 92 H Respiratory Rate 17 16 Blood Pressure 139/99 H 122/55 L Blood Pressure [Right Arm] 134/65 Blood Pressure Mean 77 Blood Pressure Mean [Right Arm] 88 02 Sat by Pulse Oximetry 94 L 99 95 Oxygen Delivery Method Room Air 02/01/24 19:30 02/01/24 20:00 02/01/24 20:30 Temperature Temperature Source Pulse Rate 81 87 89 Pulse Rate [Left Radial] Respiratory Rate 16 15 16 Blood Pressure 117/58 L 127/56 L 117/57 L Blood Pressure [Right Arm] Blood Pressure Mean 82 72 77 Blood Pressure Mean [Right Arm] 02 Sat by Pulse Oximetry 95 93 L 95 Oxygen Delivery Method 02/01/24 21:00 02/01/24 21:30 02/01/24 22:00 Temperature Temperature Source Pulse Rate 88 85 Pulse Rate [Left Radial] Respiratory Rate 16 Blood Pressure 117/55 L 126/58 L 113/62 Blood Pressure [Right Arm] Blood Pressure Mean 72 80 79 Blood Pressure Mean [Right Arm] 02 Sat by Pulse Oximetry 94 L 92 L Oxygen Delivery Method Room Air 02/01/24 22:30 02/01/24 23:00 02/01/24 23:30 Temperature Temperature Source Pulse Rate 89 89 Pulse Rate [Left Radial] Respiratory Rate Blood Pressure 130/60 122/60 131/60 Blood Pressure [Right Arm] Blood Pressure Mean 87 80 83 Blood Pressure Mean [Right Arm] 02 Sat by Pulse Oximetry 94 L 90 L 94 L Oxygen Delivery Method Room Air 02/02/24 00:00 02/02/24 00:30 02/02/24 01:00 Temperature Temperature Source Pulse Rate 98 H 96 H Pulse Rate [Left Radial] Respiratory Rate Blood Pressure 120/66 121/60 128/59 L Blood Pressure [Right Arm] Blood Pressure Mean 86 80 70 Blood Pressure Mean [Right Arm] 02 Sat by Pulse Oximetry 93 L 90 L 90 L Oxygen Delivery Method Room Air Room Air Room Air Lab Data Lab Results 02/01/24 18:25: WBC 10.4, RBC 4.96, Hgb 14.0, Hct 44.9, MCV 90.6, MCH 28.3, MCHC 31.2 L, RDW 15.2, Plt Count 429 H, MPV 8.4, Neut % (Auto) 79.7, Lymph % (Auto) 14.4, Duchesne % (Auto) 4.6, Eos % (Auto) 0.7, Baso % (Auto) 0.6, Neut # (Auto) 8.3 H, Lymph # (Auto) 1.5, Duc[place]ne # (Auto) 0.5, Eos # (Auto) 0.1, Baso # (Auto) 0.1, S odium 133 L, Potassium 3.1 L, Chloride 91 L, Carbon Dioxide 27, Anion Gap 18.1 H , BUN 32 H, Creatinine 1.40 H, Estimated Creat Clear 27, Estimated GFR 36 L, Est GFR ( Amer) 44 L, Glucose 124 H, Lactate 2.1, Calcium 9.5, Total Bilirubin 0.8, AST 591 H*, ALT 828 H*, Alkaline Phosphatase 95, Troponin I < 0.01, Total Protein 7.4, Albumin 3.9, Globulin 3.5 H, Albumin/Globulin Ratio 1.1, Lipase 47, Acetaminophen < 10 L 02/01/24 21:00: Urine Color Dark yellow, Urine Appearance Sl cloudy, Urine pH 5.5, Ur Specific Hepzibah 1.015, Urine Protein Negative, Urine Glucose (UA) Negative, Urine Ketones 1+, Urine Blood Negative, Urine Nitrate Positive, Urine Bilirubin Negative, Urine Urobilinogen 0.2, Ur Leukocyte Esterase 1+ A, Urine RBC None, Urine WBC Occasional, Ur Squamous Epith Cells None, Urine Bacteria 1+ 02/01/24 21:15: Troponin I 0.01 02/01/24 22:49: Lactate 1.4 02/02/24 00:30: Troponin I 0.01 Orders (Tests/Meds): ED MEDICATIONS Generic Name Dose Route Start Last Admin Trade Name Freq PRN Reason Stop Dose Admin Lactated Ringer's 1,000 mls @ 999 mls/hr 02/02/24 01:50 Lactated Ringer's 1000 Ml Bag IV 02/02/24 02:50 .Q1H1M ONE Sodium Chloride 10 ml 02/01/24 18:30 Sodium Chloride 0.9% 10ml Flush Syringe IV 03/02/24 18:29 NEEDED PRN Maintain IV Site Discontinued Medications Generic Name Dose Route Start Last Admin Trade Name Freq PRN Reason Stop Dose Admin Lactated Ringer's 1,000 mls @ 999 mls/hr 02/01/24 18:59 02/01/24 19:03 Lactated Ringer's 1000 Ml Bag IV 02/01/24 19:59 999 mls/hr .Q1H1M ONE Administration Ceftriaxone Sodium 2 gm/ 100 mls @ 200 mls/hr 02/01/24 21:27 02/01/24 21:59 Sodium Chloride IV 02/01/24 21:56 200 mls/hr ONCE ONE Administration Iopamidol 75 ml 02/01/24 19:50 02/01/24 19:51 Iopamidol-370 (76%);100ml Bottle IV 02/01/24 19:51 75 ml ONCE ONE Administration Morphine Sulfate 4 mg 02/01/24 18:59 02/01/24 19:03 Morphine 4mg/Ml Syringe IV 02/01/24 19:00 4 mg ONCE ONE Administration Ondansetron HCl 4 mg 02/01/24 18:59 02/01/24 19:03 Ondansetron 4mg/2ml Vial IV 02/01/24 19:00 4 mg ONCE ONE Administration Sodium Chloride 10 ml 02/01/24 19:50 02/01/24 19:51 Sodium Chloride 0.9% 10ml Syr (Rad Only) IV 02/01/24 19:51 10 ml ONCE ONE Administration ORDERS Category Date Time Status CT abdomen pelvis w con Stat Cat Scan 02/01/24 18:58 Completed Acetaminophen Stat Lab 02/01/24 18:25 Completed Complete Blood Count Auto Diff Stat Lab 02/01/24 18:25 Completed Comprehensive Metabolic Panel Stat Lab 02/01/24 18:25 Completed Hepatitis Panel Stat Lab 02/01/24 21:15 Received Lactic Acid Follow Up (RFLX 1) Stat Lab 02/01/24 22:49 Completed Lactic Acid Stat Lab 02/01/24 18:25 Completed Lipase Stat Lab 02/01/24 18:25 Completed Troponin I Q3H Lab 02/01/24 21:15 Completed Troponin I Q3H Lab 02/02/24 00:30 Completed Troponin I Stat Lab 02/01/24 18:25 Completed Urinalysis and Microscopic Stat Lab 02/01/24 21:00 Completed Urine Culture Stat Micro 02/01/24 21:00 Received Medical Decision Narrative: In summary, this patient is a 78-year-old female presenting to the Emergency Department for evaluation of acute on chronic abdominal pain. Differential diagnoses considered include but are not limited to functional abdominal pain, chronic pain, opioid dependence, pancreatitis, colitis, constipation. Ruling out the most morbid conditions drove assessment. Workup included CBC, CMP, lipase, lactic acid, troponin. Labs demonstrated significant transaminitis, so CT abdomen and pelvis with IV contrast was ordered. Patient was given IV morphine and Zofran for symptomatic improvement. I independently interpreted CT scan prior to the radiologist read and noted obvious acutely concerning abnormalities. Please see their read for final interpretation. Ultimately, patient has new transaminitis with normal bilirubin and lipase. She also has urinary tract infection with JEY. She was given a bolus of IV fluids as well as IV Rocephin. I had both interacted discussions with the patient as well as her hospice care team, and the patient advises that she would like to proceed with transfer for further evaluation by gastroenterology to see why her liver enzymes are still elevated. Hospice is notified of this. I initiated discussions of [facility], however they do not have GI on-call right now. Given this, we called [facility]. Their callback was pending at time of signout to Dr. Ford. Edvin Ford: Upon assumption of care patient was hemodynamically stable. Patient is on hospice for pulmonary fibrosis. She has been evaluated multiple times over the last year for her abdominal pain for which etiology has been undetermined. Today she received imaging CT abdomen pelvis IV contrast which showed no acute pathology. She has had previous CTs demonstrating no acute pathology. She has also had a CTA previously demonstrating no acute pathology. Hematologic labs were reviewed by me and showed new onset JEY and transaminitis, urinalysis consistent with infection for which ceftriaxone has been administered. An additional liter of crystalloid will be administered. I discussed the case with Dr. Galloway with [facility] who graciously accepted patient for admission for continued evaluation at this time. Critical Care <Benita Haro, DO - Last Filed: 02/02/24 01:21> Critical Care Time Critical Care Time: No
[2024-02-01 21:13] LABS: Appearance,Urine SL CLOUDY (Clear); Bilirubin,Urine Negative (Negative); Blood, Urine Negative (Negative); Color,Urine DARK YELLOW (Yellow); Glucose,Urine (UA) Negative (Negative); Ketones,Urine 1+ (Negative); Leukocyte Esterase,Urine 1+ (Negative); Nitrate,Urine POSITIVE (Negative); PH,Urine 5.5 (5.0-8.5); Protein,Urine Negative (Negative); Specific Gravity, Urine 1.015 (1.005-1.030); Urobilinogen,Urine 0.2 EU/dl (0.2)
[2024-02-01 21:28] LABS: Bacteria,Urine 1+ /lpf; WBC,Urine Occasional #/hpf (0-3)
[2024-02-01 21:52] LABS: Troponin I 0.01 ng/ml (0.00-0.034)
[2024-02-01] MEDS: CEFTRIAXONE SODIUM 2 GM in 0.9 % SODIUM CHLORIDE 100 ML IV (21:59)
--- NOTE | 2024-02-01 22:15 | PC.NURSE ---
hospice nurse raad raya returned call
[2024-02-01 22:36] LABS: Reflex Lactic Add Lactic Reflex
[2024-02-01 23:10] LABS: Lactic Acid Follow Up (RFLX 1) 1.4 mmol/L (0.7-2.1)
[2024-02-02] VITALS (9 sets, daily range): BP systolic 112–137; BP diastolic 53–68; PULSE 80–100; RESP 16; TEMP 36.8; O2SAT 90–99
--- NOTE | 2024-02-02 00:33 | PC.NURSE ---
speaking with [facility] [[email or web address]] who is reaching out to house for possible bed; jacklyn
--- NOTE | 2024-02-02 00:41 | PC.NURSE ---
call placed to [facility]: [facility].
[2024-02-02 01:12] LABS: Troponin I 0.01 ng/ml (0.00-0.034)
[2024-02-02] MEDS: LACTATED RINGERS 1000ML 1,000 ML 999 ML IV (02:20)
--- NOTE | 2024-02-02 03:07 | PC.NURSE ---
speaking with dr villatoro.
--- NOTE | 2024-02-02 03:16 | PC.NURSE ---
Report given to STEFAN Turner at [facility]
--- NOTE | 2024-02-03 08:51 | PC.NURSE ---
urine culture final faxed to [facility] at [phone] where pt was transferred
[2024-02-06 12:25] LABS: HBsAg Screen Negative (Negative); HCV Ab Reactive (Non Reactive); Hep A Ab, IGM Negative (Negative); Hep B Core Ab, IgM Negative (Negative)
== END 2024-02-02 04:40 | disposition short-term general hospital (02) ==
PROVIDERS: Emergency Medicine; Emergency Provider Emergency Medicine; PCP Internal Medicine Adolescent Medicine
DX: R10.84 Generalized abdominal pain (principal); N39.0 Urinary tract infection, site not specified; B96.29 Other Escherichia coli [E. coli] as the cause of diseases classified elsewhere; E87.6 Hypokalemia; E87.1 Hypo-osmolality and hyponatremia; N17.9 Acute kidney failure, unspecified; R74.01 Elevation of levels of liver transaminase levels; J84.10 Pulmonary fibrosis, unspecified; E03.9 Hypothyroidism, unspecified; K21.9 Gastro-esophageal reflux disease without esophagitis
CPT/HCPCS: 36415; 74177; 80053; 80074; 80329; 81001; 83605; 83690; 84484; 85025; 87086; 87088; 87186; 93005; 96361; 96365; 96375; 99285; G0480; J0696; J2405; J7120; Q9967